=== PATIENT | female | born 1955 | race Caucasian/White ===

== ENCOUNTER 2024-08-04 09:47 | Outpatient (AMB) | payer MEDICARE, SELFPAY ==
--- NOTE | 2024-08-04 10:00 | A.OFFPC_ITS ---
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- alendronate 70 mg PO QWEEK aripiprazole 2 mg PO BID baclofen 10 mg PO TID mcutxqmbjh-vcypjqghuebns-zsso 50-325-40 mg 1 cap PO DAILY PRN cyclobenzaprine 5 mg PO TID PRN escitalopram oxalate 10 mg PO BID famotidine 40 mg PO DAILY gabapentin 300 mg PO TID ibuprofen 600 mg PO TID metformin ER 500 mg PO DAILY trazodone 300 mg PO BEDTIME Tobacco use date assessed: 08/04/24 Dental Screening Dental Screen Date: 08/04/24 Did you have a dental visit in the last 12 months?: No Did you have a dental problem in the last 6 months where you did not have access to dental care?: Yes Was dental information given to patient?: Patient declined HPI HPI Comments History of Present Illness Details 69 y/o F with osteoporosis, DM2, GERD, I sally def anemia, GERD, Bipolar 1, KYEL, MDD, COPD, current tobacco use Health Maintenance: ? Colon Lung Ca Screening ? Mammo ? DEXA ? PAP ? Tdap Specialists: GI Here today as a new patient, no old medical records available to me today. Coming from [facility] in [place] Had exam done around Jun 16, told she had blood in her stools. Dad with colon cancer. She reports her stools are dark. She denies BRB. Needs referral for GI. Reports several falls. Fx of sacrum and L4 in the past. Left rib fx and left foot fx after last fall. Would like PT. Living w/ son. Has a life alert. Reports falls are mechanial. Overall she feels unsteady, uncoordinated and at times can feel dizzy. Mood is stable on current meds. Wants referral for counselor. I will manage medications. Wonders about clonidine for sleep, has used 0.1mg with + effect. Currently on trazadone, helps her to fall asleep but cannot stay asleep. Exam: Awake alert NAD scleras nonicteric bilat RRR LS CTAB Trace edema BLE R>L Mood and affect appropriate Plan: Refer to gastroenterology Nurse navigation referral to help establish care with a counselor Routine screening labs to be done at your convenience before the next appointment Return to office in 3-4 weeks to follow up on lab results, continue establishing care and to discuss insomnia This note is constructed using voice recognition software. While every effort has been made to ensure accuracy in skewer up, still errors may have been included Sometimes, these errors may affect the content or meaning of the given sentence . Total time spent caring for the patient today was 30 minutes. This includes time spent before the visit reviewing the chart, time spent during the visit, and time spent after the visit on documentation [facility] Medical History (Updated 08/05/24 @ 08:00 by Adia Flower [employer]-) Bipolar 1 disorder Anxiety and depression Imbalance Headache H/O gastroesophageal reflux (GERD) Acid reflux Spine disorder Swelling Edema Osteoporosis Acute arthritis COPD (chronic obstructive pulmonary disease) Surgical History (Updated 08/04/24 @ 10:16 by Izzy Escalante MA) No pertinent past surgical history Family History (Updated 08/04/24 @ 10:18 by Izzy Escalante MA) Mother Mental health disorder Substance abuse Cardiovascular disease Alcoholism Father Diabetes Colon cancer Social History (Updated 08/04/24 @ 10:07 by Izzy Escalante MA) Household Members: Children Both parents involved: No Caregiver staying overnight: No Housing: Apartment Are you a primary college and career counselor to a significant other at home: No Do you presently have visiting nurse or other home services: No 75 years or older and lives alone: No Alcohol intake: never Patient Tobacco Use Status: Current everyday Tobacco user Tobacco use type: Cigarette Cigarette Packs Per Day: 1 Cigarettes Per Day: 20 Years Smoked: 25 e-Cigarette/Vaping Use: Never Used Second Hand Smoke Exposure: Yes Current occupational status: disabled Cognitive needs: Yes Hearing needs: No Vision needs: Yes (wear glasses) Questionnaire PHQ-9 Over the last 2 weeks, how often have you been bothered by any of the following problems? 1. Little interest or pleasure in doing things: nearly every day 2. Feeling down, depressed, or hopeless: more than half the days 3. Trouble falling or staying asleep, or sleeping too much: nearly every day 4. Feeling tired or having little energy: nearly every day 5. Poor appetite or overeating: nearly every day 6. Feeling bad about yourself - or that you are a failure or have let yourself or your family down: nearly every day 7. Trouble concentrating on things, such as reading the newspaper or watching television: more than half the days 8. Moving or speaking so slowly that other people could have noticed. Or the opposite - being so fidgety or restless that you have been moving around a lot more than usual: not at all 9. Thoughts that you would be better off or of hurting yourself in some way: not at all Total score: 19 Depression Screening Interpretation: Positive Depression Screening Follow-up: Existing condition and Community Mental Health Worker F/U Depression Screening Done: Yes [id number] - PHQ-9 Billing: Yes Source: Developed by Drs. Yasir Hardin, Marilee Castillo, Anish Villagran and colleagues, with an educational isaiah from [employer]. Thrive Questionnaire Date Thrive assessed: 08/04/24 I am a: Patient What is your living situation today?: I have a steady place to live Within the past 12 months, did the food you bought not last and you didn't have the money to get more?: Often true Within the past 12 months, did you worry whether your food would run out before you got money to buy more?: Often true Do you have trouble paying for medicines?: No Do you have trouble getting transportation to medical appointments?: Yes Do you have trouble paying your heating and electricity bill?: Yes Do you have trouble taking care of your child, family member or friend?: No Do you have trouble with day-to-day activities such as bathing, preparing meals, shopping, managing finances, etc.?: Yes Are you currently unemployed and looking for a job?: No Are you interested in more education?: Yes Currently or been in a relationship where the following occur: No concerns reported THRIVE Score: 4 AUDIT C Alcohol Use Questionnaire (AUDIT-C) 1. How often do you have a drink containing alcohol?: Monthly or less 2. How many drinks containing alcohol do you have on a typical day when you are drinking?: 1 or 2 3. How often do you have six or more drinks on one occasion?: Never Total Score: 1 Score Reviewed/Action Taken: Yes KYLE-7 AMB Questionnaire KYLE-7 Date KYLE - 7 assessed: 08/04/24 Feeling nervous, anxious, or on edge: 3 = Nearly every day Not being able to stop or control worryin = Nearly every day Worrying too much about different things: 3 = Nearly every day Trouble relaxin = Not at all Being so restless that it is hard to sit still: 0 = Not at all Becoming easily annoyed or irritable: 0 = Not at all Feeling afraid as if something awful might happen: 1 = Several days Total KYLE-7 score (0-4 normal; 5-9 mild; 10-14 moderate; 15-21 severe): 10 Source: Developed by Drs. Yasir Hardin, Marilee Castillo, Anish Villagran and colleagues, with an educational siaiah from [employer]. KYLE-7 Assessment Billing KYLE-7 Assessment Tool: KYLE-7 Assessment 17800 Physical exam (Primary Care) Vital Signs: Last Vital Signs Pulse 75 08/04/24 10:08 Resp 14 08/04/24 10:08 BP 118/70 08/04/24 10:08 Pulse Ox 94 08/04/24 10:08 Oxygen Delivery Method Room Air 08/04/24 10:08 BMI result Body Mass Index 33.8 BMI Assessment/Plan discussion: High BMI High, discussed plan: lifestyle Tobacco/Smoking Status: Tobacco use Status Tobacco use date assessed 08/04/24 08/04/24 10:09 Patient Tobacco Use Status Current everyday Tobacco 08/04/24 10:09 Tobacco use type Cigarette 08/04/24 10:09 e-Cigarette/Vaping Use Never Used 08/04/24 10:09 Are you ready to quit: No Tobacco cessation counseling provided: Yes Items discussed: Other Relapse Prevention: discussed the importance of a supportive environment, discussed extending NRT, discussed negative mood or depression after quitting, weight gain after smoking is common and discussed dietary, exercise and/or lifestyle changes Number of minutes spent counselin CPT code: Less than 3 minutes PHQ-9: PHQ-9 Score PHQ-9: Total score 08/05/24 07:36 Depression Screening Interpretation: Positive Depression Screening Follow-up: Existing condition and Community Mental Health Worker F/U Thrive Assessment: Date of Thrive Assessment Date Thrive assessed 08/04/24 08/04/24 10:13 Currently or been in a relationship where the following occur: No concerns reported Assessment and Plan Assessment & Plan (1) Class 1 obesity with body mass index (BMI) of 33.0 to 33.9 in adult: Code(s): E66.9 - Obesity, unspecified; Z68.33 - Body mass index [BMI] 33.0-33.9, adult Qualifiers: Obesity type: due to excess calories Serious obesity comorbidity presence: with serious comorbidity Qualified Code(s): E66.09 - Other obesity due to excess calories; Z68.33 - Body mass index [BMI] 33.0-33.9, adult (2) Diabetes mellitus type 2 with atherosclerosis of arteries of extremities: Code(s): E11.51 - Type 2 diabetes mellitus with diabetic peripheral angiopathy without gangrene; I70.209 - Unspecified atherosclerosis of [place] arteries of extremities, unspecified extremity (3) Acid reflux: Code(s): K21.9 - Gastro-esophageal reflux disease without esophagitis Qualifiers: Esophagitis presence: without esophagitis Qualified Code(s): K21.9 - Gastro-esophageal reflux disease without esophagitis (4) Occult blood positive stool: Code(s): R19.5 - Other fecal abnormalities (5) Family hx of colon cancer: Comment: Dad Code(s): Z80.0 - Family history of malignant neoplasm of digestive organs (6) Iron deficiency anemia: Code(s): D50.9 - Iron deficiency anemia, unspecified Qualifiers: Iron deficiency anemia type: chronic blood loss Qualified Code(s): D50.0 - Iron deficiency anemia secondary to blood loss (chronic) (7) Falls frequently: Code(s): R29.6 - Repeated falls (8) Unsteady gait: Code(s): R26.81 - Unsteadiness on feet (9) Bipolar 1 disorder: Code(s): F31.9 - Bipolar disorder, unspecified (10) Tobacco dependence: Code(s): F17.200 - Nicotine dependence, unspecified, uncomplicated (11) KYLE (generalized anxiety disorder): Code(s): F41.1 - Generalized anxiety disorder (12) MDD (major depressive disorder), recurrent episode: Code(s): F33.9 - Major depressive disorder, recurrent, unspecified Qualifiers: Major depression episode severity: moderate Qualified Code(s): F33.1 - Major depressive disorder, recurrent, moderate (13) COPD (chronic obstructive pulmonary disease): Code(s): J44.9 - Chronic obstructive pulmonary disease, unspecified Qualifiers: COPD type: chronic bronchitis Chronic bronchitis type: simple Qualified Code(s): J41.0 - Simple chronic bronchitis Orders: Orders Complete Blood Count no Diff 08/04/24 Z00.00 - Encounter for general adult medical examination without abnormal findings Hemoglobin A1c 08/04/24 Z00.00 - Encounter for general adult medical examination without abnormal findings TSH reflex Free T4 08/04/24 Z00.00 - Encounter for general adult medical examination without abnormal findings PT Evaluation and Treatment 08/04/24 R26.81 - Unsteadiness on feet, R29.6 - Repeated falls Comprehensive Russell. Panel Fast 08/04/24 Z00.00 - Encounter for general adult medical examination without abnormal findings Lipid Panel 08/04/24 Z00.00 - Encounter for general adult medical examination without abnormal findings Microalbumin, Random (w Creat) 08/04/24 Z00.00 - Encounter for general adult medical examination without abnormal findings Vitamin D 25-OH Total 08/04/24 Z00.00 - Encounter for general adult medical examination without abnormal findings Referrals Gastroenterology Referral D50.9 - Iron deficiency anemia, unspecified, K21.9 - Gastro-esophageal reflux disease without esophagitis, R19.5 - Other fecal abnormalities, Z80.0 - Family history of malignant neoplasm of digestive organs Nurse Navigator Referral F31.9 - Bipolar disorder, unspecified Medications: New aripiprazole 2 mg PO BID escitalopram oxalate 10 mg PO BID Patient Instructions: Walk-In Care (Urgent Care): We Make it Easy Walk-in for urgent medical issues such as: ? Seasonal Allergies ? Insect Bites ? Cough ? Diarrhea ? Acute Asthma Attacks ? Back, Knee or Joint Pain ? Ear Infection ? Fever without a Rash ? Headaches ? Nausea ? [place] Eye, Rash or Skin Irritation ? Sore Throat ? Sports Physicals ? Vomiting Most insurances are accepted. Patients do not need to be part of the [facility] to seek care at the walk-in clinic. Locations [address] [facility], [place] , [place] [address] ? [phone] [facility] Walk-In Care in [place] provides services to ages 18 and over. Open Thursday-Thursday: 8 a.m. to 5 p.m. and Thursday: 9 a.m. to 3 p.m.* *Hours may vary due to staffing availability. To confirm Walk-In Care hours in [place], please call [phone]. [address] [place] [address] ? [phone] [facility] Walk-In Care in [place] provides services to ages 12 and over. Open Thursday-Thursday: 8 a.m. to 5 p.m. Hours may vary due to staffing availability. To confirm Walk-In Care hours in [place], please call [phone]. LABORATORY SERVICES: [facility] Lab ? Primary Location [address] [place] [address] Thursday through Thursday 6:00 AM ? 5:00 PM Thursday 7:00 AM ? 11:00 AM* [phone] The [facility] Lab is centrally located near the front entrance of the [facility] for easy outpatient access. Convenient parking is provided for outpatients. *Hours may vary due to staffing availability. To confirm Laboratory hours for any location, please call [phone]. Offsite Location For your convenience, we offer offsite laboratory draw stations at the following locations: [address] [place] [address] ? [address], [address] Thursday through Thursday 7:30 AM ? 1:00 PM* [phone] *Hours may vary due to staffing availability. To confirm Laboratory hours for any location, please call [phone]. [place] ? [address] Thursday through Thursday 6:00 AM ? 3:30 PM* Thursday 6:30 AM ? 3 PM* [phone] *Hours may vary due to staffing availability. To confirm Laboratory hours for any location, please call [phone]. [address] [facility] Thursday through Thursday 7:30 AM ? 4:00 PM* [phone] *Hours may vary due to staffing availability. To confirm Laboratory hours for any location, please call [phone] [facility] Thursday through 9:00 AM ? 4:00 PM* *Hours may vary due to staffing availability. To confirm Laboratory hours for any location, please call [phone]. Appointments are not necessary. Walk-ins are welcome. Like all the departments throughout the [facility], our Lab undergoes frequent reviews to ensure the quality and accuracy of test results, and our staff takes special pride in its status as a nationally accredited facility. Patient Portal: ONE PATIENT. ONE RECORD. BETTER CARE. [facility] has a fully integrated, cutting- edge mobile electronic health information system that has revolutionized the way we care for our patients and manage our organization. This system improves communication and coordination enabling us to provide safe, higher-quality care, and an overall positive experience for staff and patients. Our first priority, as always, is to deliver the highest quality care possible. The system is running in the background supporting that priority. This portal is for all [facility] services and practices. If you are experiencing any technical difficulties with enrolling or logging into the Patient Portal please complete the [facility] Patient Portal Technical Support Form. [facility] now offers a new secure on-line interactive tool for patients to review their health information ? Patient Portal. This interactive web portal will enable patients and their families to take an active role in their care by providing easy, secure access to their health information via the internet. The Patient Portal provides patients with instant access to their health information, including laboratory results, medications, allergies, demographic information, visit history, and more. In addition to managing their own care, parents and health care proxies with authorized consent will appreciate the ability to access the records of those individuals for whom they provide care. Please note: if you wish to gain access (Proxy) to another patient?s portal, you will be required to come to the Medical Records Department in person at [facility]. Both the patient giving proxy access and the proxy will need to provide photo identification and complete the appropriate authorization. The Patient Portal also allows track their appointments online. The [facility] Patient Portal also saves patients time by allowing them to submit updates to their demographic and contact information prior to their visits. Portal email notifications will also alert patients to any new activity on their portal, such as test results and new appointments. In order to initially enroll in the [facility] Patient Portal, you will need to enter some required information including the following: ? your [facility] Medical Record number ? your personal home email address ? name ? date of Please note: In order to enroll in the [facility] Patient Portal, we need to have your email address on file in your electronic medical record. The email address needs to be specific for one person (yourself) in order for your Portal enrollment to be successful. You can update your email address in person with our Registration staff when you are registering for a hospital visit. Otherwise, you will need to come to the Health Information Management (Medical Records) Department at [facility]. We are open from Thursday ? Thursday from 7:30 a.m. ? 4:30 p.m. You will be required to present a photo id. Once you have successfully enrolled in the Patient Portal, you will receive a one-time user id and password for the Portal, sent to your email address. This will allow you to log into the Patient Portal within 99 hrs and reset your own logon id and password, and define personal security questions. Once your permanent login and password have been set, you can log into the [facility] Patient Portal at any time via the blue button above or from the Portal Logon button on any page of the [facility] website. [facility] encourage all of our patients to enroll in Patient Portal as it presents a valuable opportunity for patients and their families to actively participate in their care and stay healthy Welcome to [facility]. We look forward to working with you. Coding Level of Care Code New Pt Level 3 (09851) Complex EM visit Add On G2211 Diagnoses Class 1 obesity due to excess calories with serious comorbidity and body mass index (BMI) of 33.0 to 33.9 in adult E66.09; Z68.33 Obesity type: due to excess calories Serious obesity comorbidity presence: with serious comorbidity 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; I70.209 Gastroesophageal reflux disease without esophagitis K21.9 Esophagitis presence: without esophagitis Occult blood positive stool R19.5 Family hx of colon cancer Z80.0 Iron deficiency anemia due to chronic blood loss D50.0 Iron deficiency anemia type: chronic blood loss Falls frequently R29.6 Unsteady gait R26.81 Bipolar 1 disorder F31.9 Tobacco dependence F17.200 KYLE (generalized anxiety disorder) F41.1 Moderate episode of recurrent major depressive disorder F33.1 Major depression episode severity: moderate Simple chronic bronchitis J41.0 COPD type: chronic bronchitis Chronic bronchitis type: simple Additional Codes KYLE-7 Assessment Billing - KYLE-7 Assessment Tool: KYLE-7 Assessment 42296 ([id number])
[2024-08-04 10:08] VITALS: BP 118/70; PULSE 75; RESP 14; O2SAT 94; BMI 33.8
== END 2024-08-04 10:48 | disposition home or self-care (01) ==
PROVIDERS: PCP Nurse Practitioner Family; Visit Provider Nurse Practitioner Family
DX: E11.51 Type 2 diabetes mellitus with diabetic peripheral angiopathy without gangrene (principal); I70.209 Unspecified atherosclerosis of native arteries of extremities, unspecified extremity; F31.9 Bipolar disorder, unspecified; J41.0 Simple chronic bronchitis; E66.09 Other obesity due to excess calories; Z68.33 Body mass index [BMI] 33.0-33.9, adult; K21.9 Gastro-esophageal reflux disease without esophagitis; R19.5 Other fecal abnormalities; Z80.0 Family history of malignant neoplasm of digestive organs; D50.0 Iron deficiency anemia secondary to blood loss (chronic); R29.6 Repeated falls; R26.81 Unsteadiness on feet; F17.200 Nicotine dependence, unspecified, uncomplicated; F41.1 Generalized anxiety disorder

== ENCOUNTER → 2024-08-04 09:47 | Outpatient (BNVA) | payer MEDICARE, SELFPAY | PROVIDERS: PCP Nurse Practitioner Family; Visit Provider Nurse Practitioner Family | DX: E66.09 Other obesity due to excess calories (principal); Z68.33 Body mass index [BMI] 33.0-33.9, adult; E11.51 Type 2 diabetes mellitus with diabetic peripheral angiopathy without gangrene; I70.209 Unspecified atherosclerosis of native arteries of extremities, unspecified extremity; K21.9 Gastro-esophageal reflux disease without esophagitis; R19.5 Other fecal abnormalities; D50.0 Iron deficiency anemia secondary to blood loss (chronic); R29.6 Repeated falls; R26.81 Unsteadiness on feet; F41.1 Generalized anxiety disorder; F33.1 Major depressive disorder, recurrent, moderate; J41.0 Simple chronic bronchitis; F17.200 Nicotine dependence, unspecified, uncomplicated; Z78.0 Asymptomatic menopausal state; Z71.6 Tobacco abuse counseling | CPT/HCPCS: 96127; 99202 ==

== ENCOUNTER 2024-08-15 08:19 | Outpatient (REF) | payer MEDICARE, SELFPAY ==
[2024-08-15 12:01] LABS: Hematocrit 39.1 % (37.0-47.0); Hemoglobin 12.8 g/dl (12.0-16.0); Mean Corpuscular HGB Conc 32.7 g/dl (31.0-35.0); Mean Corpuscular Hemoglobin 31.8 pg (27.0-33.0); Mean Corpuscular Volume 97.3 fL (80.0-98.0); Mean Platelet Volume 8.9 fL (9.4-12.3); Platelet Count 380 X10*3/uL (160-400); Red Blood Count 4.02 X10*6/uL (4.20-5.50); Red Cell Distribution Width 12.2 % (11.0-16.0); White Blood Count 8.5 X10*3/uL (4.8-10.8)
[2024-08-15 12:23] LABS: Estimated Average Glucose 100 mg/dL; Hemoglobin A1c % 5.1 % (<6.0); Total Hemoglobin (HGBA1C) 3216.9909 umol/L
[2024-08-15 12:37] LABS: Creatinine Urine 63.87 mg/dL; Microalbum/Creatinine Ratio Ur 10.9 ug/mg cr (<30)
[2024-08-15 12:40] LABS: Alanine Aminotransferase 11 U/L (0-31); Alkaline Phosphatase 96 U/L (39-117); Anion Gap 9 (12-20); Aspartate Amino Transferase 11 U/L (5-31); Bilirubin Total 0.3 mg/dL (0.0-1.0); Blood Urea Nitrogen 13 mg/dL (9-16); Calcium 9.2 mg/dL (8.4-10.2); Carbon Dioxide 28 mmol/L (22-29); Chloride 106 mmol/L (96-108); Cholesterol 201 mg/dL (<200); Estimated Glomerular Filt Rate > 60; Glucose Fasting 93 mg/dL (60-99); HDL Cholesterol 68 mg/dL (>40); LDL Cholesterol Calculated 106 mg/dL (<100); Sodium 139 mmol/L (135-145); Total Protein 6.8 g/dL (6.5-8.0); Triglycerides 139 mg/dL (<150)
[2024-08-15 12:45] LABS: TSH reflex Free T4 1.39 uIU/mL (0.32-4.0); Vitamin D 25-OH Total 43.4 ng/mL (>30)
== END 2024-08-15 08:20 | disposition home or self-care (01) ==
LOC: HO.WFDLDS 08:19
PROVIDERS: Visit Provider Nurse Practitioner Family
DX: Z00.00 Encounter for general adult medical examination without abnormal findings (principal); Z13.1 Encounter for screening for diabetes mellitus
CPT/HCPCS: 36415; 80053; 80061; 82043; 82306; 82570; 83036; 84443; 85027

== ENCOUNTER 2024-08-24 10:26 | Outpatient (AMB) | payer MEDICARE, SELFPAY ==
--- NOTE | 2024-08-24 10:29 | A.OFFPC_ITS ---
Vital Signs 08/24/24 10:32 Height 5 ft 3 in Weight 190 lb 6 oz BMI 33.7 BP 118/70 Blood Pressure Location Rt brachial Position Sitting Respiration 13 Pulse 67 Pulse Source Pulse Oximeter Pulse Oximetry (%) 98 Oxygen Delivery Method Room Air Intake Visit Reasons: 2-3 weeks 30 min fu labs, est care, insomnia Intake Note: follow up on labs Allergies cephalexin [From Keflex] Allergy (Severe, Verified 08/24/24 10:43) Rash Sulfa (Sulfonamide Antibiotics) Allergy (Severe, Verified 08/24/24 10:43) Rash Medication List - Last Reconciled 08/24/24 by Adia Flower, [facility]- albuterol sulfate 90 mcg/actuation 2 puffs inhalation Q4-6H PRN 30 days alendronate 70 mg PO QWEEK aripiprazole 2 mg PO BID baclofen 10 mg PO TID esdnllqewf-mfgjwqoeurcma-fbim 50-325-40 mg 1 cap PO DAILY PRN clonidine HCl 0.1 mg PO BEDTIME cyclobenzaprine 5 mg PO TID PRN escitalopram oxalate 10 mg PO BID famotidine 40 mg PO DAILY gabapentin 300 mg PO TID ibuprofen 600 mg PO TID metformin ER 500 mg PO DAILY trazodone 300 mg PO BEDTIME Tobacco use date assessed: 08/04/24 Dental Screening Dental Screen Date: 08/04/24 HPI HPI Comments History of Present Illness Details 69 y/o F with osteoporosis, DM2, GERD, I sally def anemia, GERD, Bipolar 1, KYLE, MDD, COPD, current tobacco use Health Maintenance: ? Colon Lung Ca Screening ? Mammo ? DEXA ? PAP ? Tdap declined until records are reviewed; Declined Flu dad had miller barre. Specialists: GI Counselor Here today for routine follow up Still waiting on records from previous provider. Since last visit, she did receive calls from her consults except PT. I have asked her to talk to the office staff today about this Cont to have pain in thighs worse on the Left. Has piraformis muscle issue on that side in the past. Pain in the R hip, too. Last DEXA < 2 years ago. Has Osteoporosis. Stopped taking fosomax, read it can cause fractures. Has been on this for 4-6 months. Has chronic daily pain; using a scooter when grocery shopping. She is worried about her mental health; her Grandmother committed suicide age 65 d/t Rheum and chronic pain She does not want to end up like that Insomnia cont. without change. Took 0.1mg clonidine 1/2 tab in the past from someone with + effect. Needs Albuterol inhaler. USing PRN with the air changes. Labs from 07/2024 normal and reviewed today. Exam: Awake alert NAD scleras nonicteric bilat RRR LS CTAB Trace edema BLE R>L FROM L hip, pain w/ abduction and adduction, pain w/ palp over greater trochanter, no pelvic pain. Normal strength and tone, pulse WNL Mood and affect appropriate Plan: please get records from previous provider Xr L hip and pelvis today; call w/ results when available. [facility] pain mgmt referral for the left hip pain. If Ortho would be better, will place this referral after imaging reviewed. Will need to discuss restarting fosomax too at the next visit FU on PT order Albuterol sent, use as needed. Start clonidine 0.1 mg, take 1/2 to 1 tab as needed for insomnia. Do not take more than 1 per day. RTO in Nov for sAWV, sooner PRN This note is constructed using voice recognition software. While every effort has been made to ensure accuracy in high school math tutor, still errors may have been included Sometimes, these errors may affect the content or meaning of the given sentence . Total time spent caring for the patient today was 40 minutes. This includes time spent before the visit reviewing the chart, time spent during the visit, and time spent after the visit on documentation [facility] Medical History (Updated 08/24/24 @ 15:59 by Adia Flower, [facility]) Bipolar 1 disorder Anxiety and depression Imbalance Headache H/O gastroesophageal reflux (GERD) Acid reflux Spine disorder Swelling Edema Osteoporosis Acute arthritis COPD (chronic obstructive pulmonary disease) Surgical History (Updated 08/04/24 @ 10:16 by Izzy Escalante MA) No pertinent past surgical history Family History (Updated 08/04/24 @ 10:18 by Izzy Escalante MA) Mother Mental health disorder Substance abuse Cardiovascular disease Alcoholism Father Diabetes Colon cancer Social History (Updated 08/04/24 @ 10:07 by Izzy Escalante MA) Household Members: Children Both parents involved: No Caregiver staying overnight: No Housing: Apartment Are you a primary skin care instructor to a significant other at home: No Do you presently have visiting nurse or other home services: No 75 years or older and lives alone: No Alcohol intake: never Patient Tobacco Use Status: Current everyday Tobacco user Tobacco use type: Cigarette Cigarette Packs Per Day: 1 Cigarettes Per Day: 20 Years Smoked: 25 e-Cigarette/Vaping Use: Never Used Second Hand Smoke Exposure: Yes Current occupational status: disabled Cognitive needs: Yes Hearing needs: No Vision needs: Yes (wear glasses) Questionnaire PHQ-9 Over the last 2 weeks, how often have you been bothered by any of the following problems? 1. Little interest or pleasure in doing things: several days 2. Feeling down, depressed, or hopeless: several days 3. Trouble falling or staying asleep, or sleeping too much: nearly every day 4. Feeling tired or having little energy: nearly every day 5. Poor appetite or overeating: nearly every day 6. Feeling bad about yourself - or that you are a failure or have let yourself or your family down: several days 7. Trouble concentrating on things, such as reading the newspaper or watching television: several days 8. Moving or speaking so slowly that other people could have noticed. Or the opposite - being so fidgety or restless that you have been moving around a lot more than usual: not at all 9. Thoughts that you would be better off or of hurting yourself in some way: not at all Total score: 13 72621 - PHQ-9 Billing: Yes Source: Developed by Drs. Yasir Hardin, Marilee Castillo, Anish Villagran and colleagues, with an educational isaiah from [employer]. Thrive Questionnaire Date Thrive assessed: 08/04/24 AUDIT C Alcohol Use Questionnaire (AUDIT-C) 3. How often do you have six or more drinks on one occasion?: Never Total Score: 0 KYLE-7 AMB Questionnaire KYLE-7 Date KYLE - 7 assessed: 08/24/24 Feeling nervous, anxious, or on edge: 1 = Several days Not being able to stop or control worryin = Several days Worrying too much about different things: 1 = Several days Trouble relaxin = Several days Being so restless that it is hard to sit still: 0 = Not at all Becoming easily annoyed or irritable: 0 = Not at all Feeling afraid as if something awful might happen: 1 = Several days Total KYLE-7 score (0-4 normal; 5-9 mild; 10-14 moderate; 15-21 severe): 5 Source: Developed by Drs. Yasir Hardin, Marilee Castillo, Anish Villagran and colleagues, with an educational isaiah from [employer]. KYLE-7 Assessment Billing KYLE-7 Assessment Tool: KYLE-7 Assessment 98202 Physical exam (Primary Care) Vital Signs: Last Vital Signs Pulse 67 08/24/24 10:32 Resp 13 08/24/24 10:32 BP 118/70 08/24/24 10:32 Pulse Ox 98 08/24/24 10:32 Oxygen Delivery Method Room Air 08/24/24 10:32 BMI result Body Mass Index 33.7 BMI Assessment/Plan discussion: High BMI High, discussed plan: lifestyle Tobacco/Smoking Status: Tobacco use Status Tobacco use date assessed 08/04/24 08/24/24 10:30 Patient Tobacco Use Status Current everyday Tobacco 08/24/24 10:30 Tobacco use type Cigarette 08/24/24 10:30 e-Cigarette/Vaping Use Never Used 08/24/24 10:30 Are you ready to quit: No Tobacco cessation counseling provided: Yes Items discussed: Nicotine replacement, QuitWorks and Other Relapse Prevention: discussed the importance of a supportive environment, discussed extending NRT, discussed negative mood or depression after quitting, weight gain after smoking is common and discussed dietary, exercise and/or lifestyle changes Number of minutes spent counselin CPT code: 53561 - 4-10 Minutes PHQ-9: PHQ-9 Score PHQ-9: Total score 13 08/24/24 10:40 Thrive Assessment: Date of Thrive Assessment Date Thrive assessed 08/04/24 08/24/24 10:30 Coding Level of Care Code Est Pt Level 5 (47756) Complex EM visit Add On G2211 Diagnoses Left hip pain M25.552 Age-related osteoporosis without current pathological fracture M81.0 Osteoporosis type: age-related Presence of current pathological fracture: without current pathological fracture 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; I70.209 Simple chronic bronchitis J41.0 COPD type: chronic bronchitis Chronic bronchitis type: simple Class 1 obesity due to excess calories with serious comorbidity and body mass index (BMI) of 33.0 to 33.9 in adult E66.09; Z68.33 Obesity type: due to excess calories Serious obesity comorbidity presence: with serious comorbidity Adult BMI 33.0-33.9 kg/sq m Z68.33 Additional Codes KYLE-7 Assessment Billing - KYLE-7 Assessment Tool: KYLE-7 Assessment 06914 ([id number]) Vital Signs *Quality* - CPT code: 59351 - 4-10 Minutes ([id number]) Assessment & Plan Assessment & Plan (1) Left hip pain: Code(s): M25.552 - Pain in left hip Category: Medical Plan: . (2) Osteoporosis: Code(s): M81.0 - Age-related osteoporosis without current pathological fracture Category: Medical Qualifiers: Osteoporosis type: age-related Presence of current pathological fracture: without current pathological fracture Qualified Code(s): M81.0 - Age- related osteoporosis without current pathological fracture Plan: . (3) Diabetes mellitus type 2 with atherosclerosis of arteries of extremities: Code(s): E11.51 - Type 2 diabetes mellitus with diabetic peripheral angiopathy without gangrene; I70.209 - Unspecified atherosclerosis of [place] arteries of extremities, unspecified extremity Category: Medical Plan: . (4) COPD (chronic obstructive pulmonary disease): Code(s): J44.9 - Chronic obstructive pulmonary disease, unspecified Category: Medical Qualifiers: COPD type: chronic bronchitis Chronic bronchitis type: simple Qualified Code(s): J41.0 - Simple chronic bronchitis Plan: . (5) Class 1 obesity with body mass index (BMI) of 33.0 to 33.9 in adult: Code(s): E66.9 - Obesity, unspecified; Z68.33 - Body mass index [BMI] 33.0-33.9, adult Category: Medical Qualifiers: Obesity type: due to excess calories Serious obesity comorbidity presence: with serious comorbidity Qualified Code(s): E66.09 - Other obesity due to excess calories; Z68.33 - Body mass index [BMI] 33.0-33.9, adult Plan: . (6) Adult BMI 33.0-33.9 kg/sq m: Code(s): Z68.33 - Body mass index [BMI] 33.0-33.9, adult Category: Medical Plan: . Orders: Orders XR hip LT w PEL1V Today M25.552 - Pain in left hip, M81.0 - Age-related osteoporosis without current pathological fracture Referrals Pain Management Referral M25.552 - Pain in left hip Medications: New albuterol sulfate 90 mcg/actuation 2 puffs inhalation Q4-6H 30 days PRN 8.5 grams 0RF shortness of breath or wheezing clonidine HCl 0.1 mg PO BEDTIME 30 tabs 1RF
[2024-08-24 10:32] VITALS: BP 118/70; PULSE 67; RESP 13; O2SAT 98; BMI 33.7
== END 2024-08-24 11:07 | disposition home or self-care (01) ==
PROVIDERS: PCP Nurse Practitioner Family; Visit Provider Nurse Practitioner Family
DX: E11.51 Type 2 diabetes mellitus with diabetic peripheral angiopathy without gangrene (principal); I70.209 Unspecified atherosclerosis of native arteries of extremities, unspecified extremity; J41.0 Simple chronic bronchitis; M25.552 Pain in left hip; M81.0 Age-related osteoporosis without current pathological fracture; E66.811 Obesity, class 1; Z68.33 Body mass index [BMI] 33.0-33.9, adult

== ENCOUNTER → 2024-08-24 10:26 | Outpatient (BNVA) | payer MEDICARE, SELFPAY | PROVIDERS: PCP Nurse Practitioner Family; Visit Provider Nurse Practitioner Family | DX: M25.552 Pain in left hip (principal); M81.0 Age-related osteoporosis without current pathological fracture; E11.51 Type 2 diabetes mellitus with diabetic peripheral angiopathy without gangrene; I70.209 Unspecified atherosclerosis of native arteries of extremities, unspecified extremity; J41.0 Simple chronic bronchitis; E66.09 Other obesity due to excess calories; Z68.33 Body mass index [BMI] 33.0-33.9, adult; Z71.3 Dietary counseling and surveillance | CPT/HCPCS: 96127; 99212 ==

== ENCOUNTER 2024-08-25 11:24 | Outpatient (REF) | payer MEDICARE, SELFPAY ==
--- NOTE | ~2024-08-25 | XR_ITS ---
EXAMINATION: XR HIP, LEFT CLINICAL INFORMATION: Left hip pain. COMPARISON: None available. TECHNIQUE: AP view the pelvis as well as AP and frog-leg lateral views of the left hip. FINDINGS: No acute fracture or dislocation. Mild bilateral hip joint space narrowing with marginal osteophytes. No osseous erosion. No evidence of femoral head avascular necrosis. No abnormal soft tissue calcification. XR/XR hip LT w PEL1V IMPRESSION: Jdcm-qx-asijprjz bilateral hip osteoarthritis. Electronically signed by: Carlos A Fernando MD 08/25/2024 12:48 PM EDT
== END 2024-08-25 11:25 | disposition home or self-care (01) ==
LOC: HO.HMGCX 11:24
PROVIDERS: PCP Nurse Practitioner Family; Visit Provider Nurse Practitioner Family
DX: M25.552 Pain in left hip (principal); M81.0 Age-related osteoporosis without current pathological fracture
CPT/HCPCS: 73502

== ENCOUNTER 2024-09-12 08:06 | Outpatient (AMB) | payer MEDICARE, MEDICAID, SELFPAY ==
--- NOTE | 2024-09-12 08:11 | MHC.OFFVIS ---
Vital Signs 09/12/24 08:26 Height 5 ft 3 in Weight 185 lb BMI 32.8 BP 121/58 L Blood Pressure Location Rt brachial Position Sitting Pulse 66 Pulse Source Pulse Oximeter Pulse Oximetry (%) 97 Oxygen Delivery Method Room Air Intake Visit Reasons: Pain In Left Hip Intake Note: Pain today 06/25 Casting Director Required: No Accompanied by: Self / Same As Patient Allergies cephalexin [From Keflex] Allergy (Severe, Verified 09/12/24 08:25) Rash Sulfa (Sulfonamide Antibiotics) Allergy (Severe, Verified 09/12/24 08:25) Rash HPI HPI Pain In Left Hip: Details: Pleasant 69-year-old female with prior history of osteoporosis, osteoarthritis, chronic low back pain, L4 compression fracture, current everyday tobacco user (1PPD), GERD, COPD, insomnia, anxiety and depression, bipolar 1 disorder, presents today for initial evaluation of left hip pain. Reports history of multiple falls in the past and more recently increasing episodes of lightheadedness, dizziness and imbalance. She has pending physical therapy for gait training. Patient also reports intermittent chest pain for the past 2 weeks. She also reports acid reflux symptoms and chest pain occurring simultaneously and always relieved by famotidine. When offered medical evaluation in ER, patient declined. Patient reports wearing alert brace due to multiple falls history. Patient reports left hip pain has been bothersome and progressively worsening for the past 6-7 months. Left hip is accompanied by groin pain and shooting down into her left calf. SLR testing is negative today for lumbar radiculopathy. She also has history of right hip pain. Pain is most severe with weight-bearing, walking, climbing stairs or sleeping on the left side. Most recent x-ray showed [id number] bilateral hip osteoarthritis. Patient is not currently taking alendronate due to potential side effects. She reports family history of avascular osteonecrosis in her mother and for this reason she would like to avoid steroidal injections. Patient has has pending orthopedic evaluation next month. In meantime, she would like to proceed with physical therapy. Denies any fever or chills, weakness, numbness or tingling, footdrop, bladder or bowel dysfunction or saddle anesthesia. Location: Left hip radiates down into left lower leg Duration: Chronic back pain, left hip-7 months, multiple falls Characteristics of symptom or complaint: Aching, shooting, stabbing, burning, throbbing, tiring, sharp Aggravating or associated factors: Side sleeping, walking, weight bearing, changing positions, climbing stairs Relieving factors: Ibuprofen, gabapentin, Tylenol Treatment: Pending Ortho eval, xrays, alert brace [facility] Medical History Bipolar 1 disorder Anxiety and depression Imbalance Headache H/O gastroesophageal reflux (GERD) Acid reflux Spine disorder Swelling Edema Osteoporosis Acute arthritis COPD (chronic obstructive pulmonary disease) Surgical History No pertinent past surgical history Family History Mother Mental health disorder Substance abuse Cardiovascular disease Alcoholism Father Diabetes Colon cancer Social History Household Members: Children Both parents involved: No Caregiver staying overnight: No Housing: Apartment Are you a primary child caregiver private home to a significant other at home: No Do you presently have visiting nurse or other home services: No 75 years or older and lives alone: No Alcohol intake: never Patient Tobacco Use Status: Current everyday Tobacco user Tobacco use type: Cigarette Cigarette Packs Per Day: 1 Cigarettes Per Day: 20 Years Smoked: 25 e-Cigarette/Vaping Use: Never Used Second Hand Smoke Exposure: Yes Current occupational status: disabled Cognitive needs: Yes Hearing needs: No Vision needs: Yes (wear glasses) Review of Systems Const All systems reviewed & are unremarkable except as noted in HPI and below Reports as per HPI, Denies chills, Reports difficulty sleeping, Reports fatigue, Denies fever(s), Reports frequent falls, Reports headache(s), Denies malaise, Denies night sweats, Denies weakness and Denies weight loss ENT Denies vertigo, Reports headache(s), Denies neck pain and Denies sore throat Card Reports as per HPI, Reports chest pain at rest (One episode reported by patient in the past 2 weeks while sitting), Reports chest pain with activity (in the past 2 weeks, intermittent), Denies syncope, Denies irregular heart rhythm, Denies claudication, Reports lightheadedness, Denies radiating jaw, neck or arm pain, Denies palpitations and Denies dyspnea on exertion Resp Reports cough and Denies dyspnea on exertion Musc Reports as per HPI, Denies back pain, Reports arthralgias, Denies joint swelling, Reports limited range of motion, Denies neck pain, Denies numbness, Reports radiating pain into limb, Reports stiffness and Denies tingling Neuro Denies vertigo, Denies syncope, Reports frequent falls, Reports headache(s), Denies numbness, Denies tingling and Denies weakness Endo Reports fatigue and Denies palpitations Physical Exam Vital Signs: Last Vital Signs Pulse 66 09/12/24 08:26 BP 121/58 L 09/12/24 08:26 Pulse Ox 97 09/12/24 08:26 Oxygen Delivery Method Room Air 09/12/24 08:26 BMI result Body Mass Index 32.8 General: Appears afebrile. Alert and oriented. Mood and affect appropriate. Follows and participates in conversation appropriately. Respiratory effort is unlabored. No cough. Able to transition from sit to stand unassisted. Ambulates with bilaterally normal heel strike and toe off. General: Yes no CVA tenderness Back/Spine/Pelvis Other: Limited lumbar ROM with lumbar extension reproducing [id number]-rr-cndcaywm pain and no pain with lumbar flexion. Positive facet loading bilaterally. No midline tenderness in thoracic or lumbar spine. Demonstrates 5/5 right and 4/5 right due to pain strength of quadriceps bilaterally as well as flexion/dorsiflexion of bilateral feet against resistance. 2+ pedal pulses bilaterally. Seated straight leg rise with dorsiflexion negative bilaterally. +1patellar and achilles reflexes bilaterally. Shira sign, Jenaro?s, Pelvic compression and Stinchfield tests are negative bilaterally. Moderate left and mild right groin pain with I/E hip rotations. Mild to moderate TTP to left GTB. Valsalva maneuver negative. Back: no CVA tenderness Cervical Spine: cervical ROM normal and No Cervical spine tenderness Thoracic/Lumbar Spine: thoracic and lumbar spine normal to inspection, No Thoracic/lumbar spine scar(s), Lasegue's sign negative, straight leg raise negative bilaterally, thoraco-lumbar ROM limited, Thoracic/lumbar scoliosis, No thoracic spinal tenderness and No lumbar spinal tenderness Pelvis: no buttock tenderness Sacroiliac joints: bilaterally nontender Extrem General: Yes capillary refill normal, Yes no clubbing, cyanosis or edema and Yes no calf tenderness Results Reviewed Results Reviewed: XR HIP, LEFT 08/25/24 CLINICAL INFORMATION: Left hip pain. FINDINGS: No acute fracture or dislocation. Mild bilateral hip joint space narrowing with marginal osteophytes. No osseous erosion. No evidence of femoral head avascular necrosis. No abnormal soft tissue calcification. IMPRESSION: Xzlx-po-geuvkpuv bilateral hip osteoarthritis. Assessment & Plan Assessment & Plan (1) Left hip pain: Code(s): M25.552 - Pain in left hip Category: Medical (2) Osteoarthritis of hips, bilateral: Comment: xray: 08/24/24 Jdbx-hf-xurxthyg bilateral hip osteoarthritis Code(s): M16.0 - Bilateral primary osteoarthritis of hip Category: Medical (3) Falls frequently: Code(s): R29.6 - Repeated falls Category: Medical (4) Lightheadedness: Code(s): R42 - Dizziness and giddiness Category: Medical (5) Intermittent chest pain: Code(s): R07.9 - Chest pain, unspecified Category: Medical (6) Osteoporosis: Code(s): M81.0 - Age-related osteoporosis without current pathological fracture Category: Medical Qualifiers: Osteoporosis type: age-related Presence of current pathological fracture: without current pathological fracture Qualified Code(s): M81.0 - Age-related osteoporosis without current pathological fracture Plan Discussed interventional treatments for chronic hip pain, left worse than right. Given history of osteoporosis per bone scan 2 years ago, patient is not candidate for therapeutic injections at this time. She has stop alendronate several months ago due to potential side effects of worsening hip pain. She also has personal concerns with positive family history for avascular osteonecrosis in her mom and would like to avoid cortisone injections for this reason. We discussed diagnostic nerve blocks for potential peripheral nerve stimulation with Sprint PNS trial. Informational brochure provided to patient. Patient would like to undergo Orthopedic evaluation scheduled for 09/30/[address] Baltazar and start physical therapy for hip pain as initial steps. For intermittent chest pain for the past 2 weeks, currently asymptomatic, patient was encouraged to seek further evaluation in ER as well as notify her PCP. Patient declined ER visit today, we will obtain 12 lead EKG today and sent to Cardiology for further evaluation. Short script provided for tramadol for dvhtwpvg-tf-qfazek pain only. Side effects and precautions were discussed with patient. Narcan sent today, discussed with patient use and administration. Script also provided for diclofenac gel for chronic hip pain. All questions and concerns have been answered and patient agreed with the treatment plan. Follow-up after PT/Ortho eval and sooner as needed. Orders: Orders ECG 12 lead EKG Today R07.9 - Chest pain, unspecified, R29.6 - Repeated falls, R42 - Dizziness and giddiness PT Evaluation and Treatment Today M16.0 - Bilateral primary osteoarthritis of hip, M25.552 - Pain in left hip Referrals Cardiology Referral R07.9 - Chest pain, unspecified, R42 - Dizziness and giddiness Medications: New tramadol 50 mg PO BID 10 days PRN 20 tabs 0RF pain (scale score 7-10) M16.0 - Bilateral primary osteoarthritis of hip, M25.552 - Pain in left hip diclofenac sodium 1% (Arthritis Pain (diclofenac)) 4 grams topical QID 100 grams 3RF pain M16.0 - Bilateral primary osteoarthritis of hip, M25.552 - Pain in left hip naloxone 4 mg/actuation (Narcan) spray 1 dose into ONE nostril; alternate nostrils w each dose until help arrives 4 mg intranasal Q2M PRN 2 ea 0RF opioid overdose Coding Level of Care Code New Pt Level 4 (56378) Complex EM visit Add On G2211 Diagnoses Left hip pain M25.552 Osteoarthritis of hips, bilateral M16.0 Falls frequently R29.6 Lightheadedness R42 Intermittent chest pain R07.9 Age-related osteoporosis without current pathological fracture M81.0 Osteoporosis type: age-related Presence of current pathological fracture: without current pathological fracture
[2024-09-12 08:26] VITALS: BP 121/58; PULSE 66; O2SAT 97; BMI 32.8
== END 2024-09-12 09:17 | disposition home or self-care (01) ==
PROVIDERS: PCP Nurse Practitioner Family; Referring Provider Nurse Practitioner Family; Visit Provider Nurse Practitioner Family
DX: M25.552 Pain in left hip (principal); M16.0 Bilateral primary osteoarthritis of hip; R29.6 Repeated falls; R42 Dizziness and giddiness; R07.9 Chest pain, unspecified; M81.0 Age-related osteoporosis without current pathological fracture
CPT/HCPCS: 99204; G2211

== ENCOUNTER → 2024-09-12 08:06 | Outpatient (REF) | payer MEDICARE, OTHER, SELFPAY ==
--- NOTE | 2024-09-12 09:40 | ECG_ITS ---
Test Reason : repeated falls Blood Pressure : / mmHG Vent. Rate : 061 BPM Atrial Rate : 061 BPM P-R Int : 166 ms QRS Dur : 086 ms QT Int : 416 ms P-R-T Axes : 077 068 072 degrees QTc Int : 418 ms Normal sinus rhythm Normal ECG No previous ECGs available Referred By: Rhoda Berman Electronically Signed By:TOREY MENDEZ
== END ==
LOC: HO.CARD 08:06
PROVIDERS: PCP Nurse Practitioner Family; Referring Provider Nurse Practitioner Family; Visit Provider Nurse Practitioner Family
DX: R07.9 Chest pain, unspecified (principal); R29.6 Repeated falls; R42 Dizziness and giddiness; M25.552 Pain in left hip; M16.0 Bilateral primary osteoarthritis of hip; M81.0 Age-related osteoporosis without current pathological fracture
CPT/HCPCS: 93005; 99202

== ENCOUNTER → 2024-09-12 09:40 | Outpatient (BNV) | payer MEDICARE, SELFPAY | PROVIDERS: PCP Nurse Practitioner Family; Referring Provider Nurse Practitioner Family; Visit Provider Internal Medicine | DX: R29.6 Repeated falls (principal) | CPT/HCPCS: 93010 ==

== ENCOUNTER 2024-09-23 10:37 | Outpatient (AMB) | payer MEDICARE, SELFPAY ==
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
[2024-09-23 11:02] VITALS: BP 130/61; PULSE 61; RESP 14; O2SAT 94; BMI 33.2
== END 2024-09-23 11:51 | disposition home or self-care (01) ==
PROVIDERS: PCP Nurse Practitioner Family; Visit Provider Nurse Practitioner Family
DX: M79.645 Pain in left finger(s) (principal); M16.0 Bilateral primary osteoarthritis of hip; M25.552 Pain in left hip; H60.543 Acute eczematoid otitis externa, bilateral

== ENCOUNTER → 2024-09-23 10:37 | Outpatient (BNVA) | payer MEDICARE, SELFPAY | PROVIDERS: PCP Nurse Practitioner Family; Visit Provider Nurse Practitioner Family | DX: M79.645 Pain in left finger(s) (principal); M16.0 Bilateral primary osteoarthritis of hip; H60.543 Acute eczematoid otitis externa, bilateral | CPT/HCPCS: 96127; 99212 ==

== ENCOUNTER 2024-10-10 09:02 | Outpatient (AMB) | payer MEDICARE, MEDICAID, SELFPAY ==
--- NOTE | 2024-10-10 09:19 | MHC.OFFVIS ---
Vital Signs 10/10/24 09:23 Height 5 ft 3 in Weight 182 lb 15.739 oz BMI 32.4 BP 105/65 Blood Pressure Location Lt brachial Position Sitting Pulse 68 Intake Visit Reasons: Iron deficiency anemia Intake Note: Nataliia presents in the office as a new patient for iron def anemia. CC: She states that she is anemic and had a stool test that came back for blood in it. Stomach pains, constipation, diarrhea and blood in her stools. I&C Technician Required: No Allergies cephalexin [From Keflex] Allergy (Severe, Verified 10/10/24 09:23) Rash Sulfa (Sulfonamide Antibiotics) Allergy (Severe, Verified 10/10/24 09:23) Rash HPI Comments Details: 69 y.o F with PMH of polyps, fam hx of colon ca, osteoporosis, DM2, well controlled COPD, ongoing tobacco use who is here for question of NANCY. Records from [facility] PCP as well as referring PCP reviewed. Pt reports fam hx of CRC in her father at age 70. Pt herself had a colo 2-3 years ago in [place] and was told she had dozen polyps . Does not recall if the polyps needed close follow up or if they were benign. She had a FIT done in May 2024 through [facility] PCP - the indication in uncertain as pt does not meet criteria for average risk screening through FIT. This was positive. There is also documentation of ??NANCY. However labs reviewed from [facility] and [facility] practice and pt with normal H/H and iron panel. She does not describe abd pain, N,V, D or blood in stool. PFS Medical History (Updated 10/10/24 @ 10:32 by Christina Weaver MD) Bipolar 1 disorder Anxiety and depression Imbalance Headache H/O gastroesophageal reflux (GERD) Acid reflux Spine disorder Swelling Edema Osteoporosis Acute arthritis COPD (chronic obstructive pulmonary disease) Surgical History (Updated 10/10/24 @ 09:23 by KHANG Rojas) History of esophagogastroduodenoscopy (EGD) Hx of colonoscopy No pertinent past surgical history Family History Mother Mental health disorder Substance abuse Cardiovascular disease Alcoholism Father Diabetes Colon cancer Social History Household Members: Children Both parents involved: No Caregiver staying overnight: No Housing: Apartment Are you a primary attending ambulatory care to a significant other at home: No Do you presently have visiting nurse or other home services: No 75 years or older and lives alone: No Alcohol intake: never Patient Tobacco Use Status: Current everyday Tobacco user Tobacco use type: Cigarette Cigarette Packs Per Day: 1 Cigarettes Per Day: 20 Years Smoked: 25 e-Cigarette/Vaping Use: Never Used Second Hand Smoke Exposure: Yes Current occupational status: disabled Cognitive needs: Yes Hearing needs: No Vision needs: Yes (wear glasses) Review of Systems Const All systems reviewed & are unremarkable except as noted in HPI and below Physical Exam Vital Signs: Last Vital Signs Pulse 68 10/10/24 09:23 BP 105/65 10/10/24 09:23 BMI result Body Mass Index 32.4 No apparent distress Nonicteric Abdomen soft, nondistended Alert and oriented x3, normal gait Assessment & Plan Assessment & Plan (1) Personal history of colonic polyps: Code(s): Z86.0100 - Personal history of colon polyps, unspecified Category: Medical (2) Family hx of colon cancer: Comment: Dad Code(s): Z80.0 - Family history of malignant neoplasm of digestive organs Category: Medical (3) Positive FIT (fecal immunochemical test): Code(s): R19.5 - Other fecal abnormalities Category: Medical Plan Positive FIT in May 2024. Reviewed that FIT not indicated in pts with high risk screenin (hx of polyps + fam hx of CRC) but in any case needs a colo to follow up on personal hx of dozen polyps removed in [place] 2-3 years ago. No evidence of iron deficiency anemia based on records available. Normal ferritin of 63 in Jun 2024. No other upper GI sx. Plan: - Surveillance colo to be booked within 6 months of FIT. - Miralax prep Rxed as per her preference - Instructions reviewed and handout provided Follow up after colo. Medications: New polyethylene glycol 3350 (Miralax) For colonoscopy prep. Mix in two 32 oz bottles of gatorade 238 grams PO ONCE 238 grams 0RF bisacodyl (Dulcolax (bisacodyl)) (4 x 5 mg) Take 2 tabs at noon and 2 tabs at 6 pm, day before colonoscopy 1 day 4 tabs 0RF Coding Level of Care Code New Pt Level 4 (81052) Diagnoses Personal history of colonic polyps Z86.0100 Family hx of colon cancer Z80.0 Positive FIT (fecal immunochemical test) R19.5
[2024-10-10 09:23] VITALS: BP 105/65; PULSE 68; BMI 32.4
== END 2024-10-10 10:37 | disposition home or self-care (01) ==
PROVIDERS: PCP Nurse Practitioner Family; Visit Provider Internal Medicine
DX: Z86.0100 Personal history of colon polyps, unspecified (principal); Z80.0 Family history of malignant neoplasm of digestive organs; R19.5 Other fecal abnormalities
CPT/HCPCS: 99204

== ENCOUNTER → 2024-10-10 09:02 | Outpatient (BNVA) | payer MEDICARE, SELFPAY | PROVIDERS: PCP Nurse Practitioner Family; Visit Provider Internal Medicine | DX: D50.9 Iron deficiency anemia, unspecified (principal); R19.5 Other fecal abnormalities; Z86.0100 Personal history of colon polyps, unspecified; Z80.0 Family history of malignant neoplasm of digestive organs | CPT/HCPCS: 99202 ==

== ENCOUNTER 2024-10-11 10:37 | Outpatient (AMB) | payer MEDICARE, SELFPAY ==
--- NOTE | 2024-10-11 11:18 | MHC.OFFVIS ---
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 Left > Right. Patient complains of left hip and groin pain that radiates to the calf. Increased pain with weight bearing activities, and sleeping on the left side. Has taken multiple falls. She has met with pain management who discussed possible PNS system as patient wishes to avoid steroid injections. Rx given for Tramadol, Physical therapy ordered. 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 hip pain. She states that she has osteopenia and describes pain in the lateral thigh that extends down to the knee. She denies groin pain. She also endorses posterior buttock and sacroiliac and lumbar pain. She has a history of spine injury. She is currently on alendronate. [facility] Medical History (Updated 10/11/24 @ 14:43 by Zain Baltazar MD) Diabetes Bipolar 1 disorder Anxiety and depression Imbalance Headache H/O gastroesophageal reflux (GERD) Acid reflux Spine disorder Swelling Edema Osteoporosis Acute arthritis COPD (chronic obstructive pulmonary disease) Surgical History (Updated 10/10/24 @ 09:23 by KHANG Rojas) History of esophagogastroduodenoscopy (EGD) Hx of colonoscopy No pertinent past surgical history Family History Mother Mental health disorder Substance abuse Cardiovascular disease Alcoholism Father Diabetes Colon cancer Social History Household Members: Children Both parents involved: No Caregiver staying overnight: No Housing: Apartment Are you a primary healthcare representative to a significant other at home: No Do you presently have visiting nurse or other home services: No 75 years or older and lives alone: No Alcohol intake: never Patient Tobacco Use Status: Current everyday Tobacco user Tobacco use type: Cigarette Cigarette Packs Per Day: 1 Cigarettes Per Day: 20 Years Smoked: 25 e-Cigarette/Vaping Use: Never Used Second Hand Smoke Exposure: Yes Current occupational status: disabled Cognitive needs: Yes Hearing needs: No Vision needs: Yes (wear glasses) Physical Exam Extrem Other: Full painless range of motion left hip. No groin pain with impingement testing. She has subjective pain in the lateral thigh that is difficult to reproduce. Results Reviewed Results Reviewed: I personally reviewed relevant radiographs. Mild bilateral hip OA Assessment & Plan Assessment & Plan (1) Lumbar radicular pain: Code(s): M54.16 - Radiculopathy, lumbar region Category: Medical Plan: This is a 69-year-old woman with lumbar back pain with possible radiculopathy who comes in today complaining of hip pain. Her exam and symptoms are not consistent with hip arthritis even though her x-rays show mild disease bilaterally. I explained this to her. My recommendation is a referral to the nonoperative spine doctors and that we progress from there. If her groin pain worsens she can return to see me. Orders: Referrals Pain Management Referral M54.16 - Radiculopathy, lumbar region Coding Level of Care Code New Pt Level 3 (20650) Diagnoses Lumbar radicular pain M54.16
== END 2024-10-11 13:27 | disposition home or self-care (01) ==
PROVIDERS: PCP Nurse Practitioner Family; Visit Provider Orthopaedic Surgery
DX: M54.16 Radiculopathy, lumbar region (principal)
CPT/HCPCS: 99203

== ENCOUNTER → 2024-10-11 10:37 | Outpatient (BNVA) | payer MEDICARE, SELFPAY | PROVIDERS: PCP Nurse Practitioner Family; Visit Provider Orthopaedic Surgery | DX: M54.16 Radiculopathy, lumbar region (principal); M16.0 Bilateral primary osteoarthritis of hip; M85.80 Other specified disorders of bone density and structure, unspecified site | CPT/HCPCS: 99202 ==

== ENCOUNTER 2024-10-12 12:05 | Day surgery (SDC) | payer MEDICARE, SELFPAY ==
--- NOTE | 2024-10-11 12:17 | P.CONAN_ITS ---
Documented by User: Anita Blount NP 10/11/24 12:19 HPI - Anesthesia Eval Consult details Narrative: 69yo F for Upper Endoscopy and Colonoscopy PMFSH Active Problems Active Problems: All Active Problems Positive FIT (fecal immunochemical test) (Acute) Personal history of colonic polyps (Acute) Eczema of external ear (Acute) Pain of left thumb (Acute) Intermittent chest pain (Acute) Lightheadedness (Acute) Osteoarthritis of hips, bilateral (Acute) Adult BMI 33.0-33.9 kg/sq m (Acute) Left hip pain (Acute) Diabetes mellitus type 2 with atherosclerosis of arteries of extremities (Acute) MDD (major depressive disorder), recurrent episode (Acute) KYLE (generalized anxiety disorder) (Acute) Tobacco dependence (Acute) Unsteady gait (Acute) Falls frequently (Acute) Iron deficiency anemia (Acute) Family hx of colon cancer (Acute) Occult blood positive stool (Acute) Class 1 obesity with body mass index (BMI) of 33.0 to 33.9 in adult (Acute) Osteoporosis (Acute) COPD (chronic obstructive pulmonary disease) (Acute) Bipolar 1 disorder (Acute) Acid reflux (Acute) Past Medical History Medical History Diabetes Bipolar 1 disorder Anxiety and depression Imbalance Headache H/O gastroesophageal reflux (GERD) Acid reflux Spine disorder Swelling Edema Osteoporosis Acute arthritis COPD (chronic obstructive pulmonary disease) Family History Family History Mother Mental health disorder Substance abuse Cardiovascular disease Alcoholism Father Diabetes Colon cancer Surgical History Surgical History History of esophagogastroduodenoscopy (EGD) Hx of colonoscopy No pertinent past surgical history Social History Social History Household Members: Children Housing: Apartment Are you a primary account executive healthcare to a significant other at home: No Do you presently have visiting nurse or other home services: No Alcohol intake: never Patient Tobacco Use Status: Current everyday Tobacco user Tobacco use type: Cigarette Cigarette Packs Per Day: 1 Cigarettes Per Day: 20 Years Smoked: 25 e-Cigarette/Vaping Use: Never Used Second Hand Smoke Exposure: Yes Advance Directives: No Advance Directives Information Provided: Yes Current occupational status: disabled Cognitive needs: Yes Hearing needs: No Vision needs: Yes (wear glasses) Meds Allergies Allergy/AdvReac Type Severity Reaction Status Date / Time cephalexin [From Keflex] Allergy Severe Rash Verified 10/11/24 11:21 Sulfa (Sulfonamide Allergy Severe Rash Verified 10/11/24 11:21 Antibiotics) Home Medications ?Medication ?Instructions ?Recorded ?Confirmed ?Last Taken ?Type alendronate 70 mg tablet 70 mg PO QWEEK 08/03/24 08/03/24 Unknown History baclofen 10 mg tablet 10 mg PO TID 08/03/24 09/23/24 Unknown History famotidine 40 mg tablet 40 mg PO DAILY 08/03/24 09/23/24 Unknown History gabapentin 300 mg capsule 300 mg PO TID 08/03/24 09/23/24 Unknown History ibuprofen 600 mg tablet 600 mg PO TID 08/03/24 09/23/24 Unknown History metformin 500 mg tablet,extended 500 mg PO DAILY 08/03/24 09/23/24 Unknown History release 24 hr trazodone 300 mg tablet 300 mg PO BEDTIME 08/03/24 09/23/24 Unknown History aripiprazole 2 mg tablet 2 mg PO BID 08/04/24 09/23/24 Unknown History escitalopram oxalate 10 mg tablet 10 mg PO BID 08/04/24 09/23/24 Unknown History Exam Pertinent Lab Results Pertinent Lab Results: Laboratory Tests 08/15/24 08:24 WBC 8.5 Hgb 12.8 Hct 39.1 Plt Count 380 Sodium 139 Potassium 4.0 Chloride 106 Carbon Dioxide 28 BUN 13 Creatinine 0.79 Narrative Narrative: EKG 08/2024 Vent. Rate : 061 BPM Atrial Rate : 061 BPM P-R Int : 166 ms QRS Dur : 086 ms QT Int : 416 ms P-R-T Axes : 077 068 072 degrees QTc Int : 418 ms Normal sinus rhythm Normal ECG No previous ECGs available Assessment and Plan Assessment Anesthesia Assessment: Chart Reviewed Documented by User: Colleen Linder MD 10/12/24 12:25 [facility] Past Medical History Medical History Diabetes Bipolar 1 disorder Anxiety and depression Imbalance Headache H/O gastroesophageal reflux (GERD) Acid reflux Spine disorder Swelling Edema Osteoporosis Acute arthritis COPD (chronic obstructive pulmonary disease) Family History Family History Mother Mental health disorder Substance abuse Cardiovascular disease Alcoholism Father Diabetes Colon cancer Family history of problems with anesthesia: No Surgical History Surgical History History of esophagogastroduodenoscopy (EGD) Hx of colonoscopy No pertinent past surgical history History of Problems with Anesthesia: No Social History Social History Household Members: Children Housing: Apartment Are you a primary account executive healthcare to a significant other at home: No Do you presently have visiting nurse or other home services: No Alcohol intake: never Patient Tobacco Use Status: Current everyday Tobacco user Tobacco use type: Cigarette Cigarette Packs Per Day: 1 Cigarettes Per Day: 20 Years Smoked: 25 e-Cigarette/Vaping Use: Never Used Second Hand Smoke Exposure: Yes Advance Directives: No Advance Directives Information Provided: Yes Current occupational status: disabled Cognitive needs: Yes Hearing needs: No Vision needs: Yes (wear glasses) Meds Allergies Allergy/AdvReac Type Severity Reaction Status Date / Time cephalexin [From Keflex] Allergy Severe Rash Verified 10/11/24 11:21 Sulfa (Sulfonamide Allergy Severe Rash Verified 10/11/24 11:21 Antibiotics) Home Medications ?Medication ?Instructions ?Recorded ?Confirmed ?Last Taken ?Type alendronate 70 mg tablet 70 mg PO QWEEK 08/03/24 08/03/24 Unknown History baclofen 10 mg tablet 10 mg PO TID 08/03/24 09/23/24 Unknown History famotidine 40 mg tablet 40 mg PO DAILY 08/03/24 09/23/24 Unknown History gabapentin 300 mg capsule 300 mg PO TID 08/03/24 09/23/24 Unknown History ibuprofen 600 mg tablet 600 mg PO TID 08/03/24 09/23/24 Unknown History metformin 500 mg tablet,extended 500 mg PO DAILY 08/03/24 09/23/24 Unknown History release 24 hr trazodone 300 mg tablet 300 mg PO BEDTIME 08/03/24 09/23/24 Unknown History aripiprazole 2 mg tablet 2 mg PO BID 08/04/24 09/23/24 Unknown History escitalopram oxalate 10 mg tablet 10 mg PO BID 08/04/24 09/23/24 Unknown History Exam Airway Mallampati Class: II TM Dist: >3cm Neck ROM: Full Heart: rrr Lungs: cta Assessment and Plan Assessment Anesthesia Assessment: Anesthesia Plan Discussed Final Anesthetic Review Family History of Problems with Anesthesia: No History of Problems with Anesthesia: No NPO: Yes ASA Class: III Final Preanesthetic Review: No Changes in Pt Med Stat, Meds/Allgs Chart Reviewed, Consent Obtained/Reviewed and Anes Risks/Benef Reviewed Patient Risk: Intermediate Procedure Risk: Low Anesthetic Plan Anesthetic Plan: MAC: Disposition: Standard PACU
[2024-10-12 12:29] VITALS: BMI 31.9
--- NOTE | 2024-10-12 12:29 | MHC.SHP ---
Pre-Procedural Eval Section A - 24 Hr Update-Section A only Date of Service: 10/12/24 Section B - Complete if H&P > 30 days Chief Complaint: Other fecal abnormalities,GERD Relevant Family History (Specify if Yes): Yes Relevant Social History: Tobacco Use Present Medications: see Short Stay Collaborative assessment Medical History: Significant History (Diabetes Bipolar 1 disorder Anxiety and depression Imbalance Headache H/O gastroesophageal reflux (GERD) Acid reflux Spine disorder Swelling Edema Osteoporosis Acute arthritis COPD (chronic obstructive pulmonary disease)) History of Previous Operations: Relevant previous surgery/procedure and date(s) (History of esophagogastroduodenoscopy (EGD) Hx of colonoscopy No pertinent past surgical history) Allergies: Allergies Allergy/AdvReac Type Severity Reaction Status Date / Time cephalexin [From Keflex] Allergy Severe Rash Verified 10/11/24 11:21 Sulfa (Sulfonamide Allergy Severe Rash Verified 10/11/24 11:21 Antibiotics) Review of Systems Sugical H&P ROS: Negative: Constitution, Cardiovascular, Respiratory, Neurological, Psychiatric, Hem-Onc, Allergic/Immunologic, Gastrointestinal, Genitourinary, Musculoskeletal, Integumentary, Endocrine and Eyes/Ears/Nose/Throat Exam Surgical H&P Exam: Normal: HEENT, Normal: Heart, Normal: Lungs, Normal: Extremities, Normal: Abdomen, Normal: Skin and Normal: Neurological Plan Diagnosis/Plan: Unchanged I have reviewed the history and physical and performed a pertinent physical examination on my patient. No changes have occurred unless specified. Time Spent With Patient Time: Total time managing care of this patient today ____ minutes.
[2024-10-12 12:35] VITALS: BP 136/83; PULSE 95; RESP 16; TEMP 36.7; O2SAT 96
[2024-10-12 12:44] LABS: Glucose, Whole Blood 111 mg/dL (60-115)
--- NOTE | 2024-10-12 13:27 | P.OPN-COLO_ITS ---
Colonoscopy Operative Note Operative Note Date of Service: 10/12/24 Narrative: Operative Information Procedure Description: EGD, Colonoscopy Indication: GERD and pos cologuard Anesthesia: MAC FLEXIBLE TRANSORAL UPPER GASTROINTESTINAL ENDOSCOPY AND COLONOSCOPY PROCEDURE NOTE UPPER ENDOSCOPY Consent: Indications for the procedure and potential complications of bleeding, perforation, reaction to medications and missed diagnosis were discussed with the patient and informed consent was obtained. Instrument: Olympus GIF H 190 J mid size upper endoscope Monitoring: Vital signs and clinical assessment, continuous EKG monitoring, Pulse oximetry, Carbon Dioxide monitoring and blood pressure monitoring were done throughout the procedure. Procedure: The patient was placed in the left lateral decubitis position and pre-procedure medications were administered and a bite block was placed. The endoscope was inserted into the mouth and advanced under direct vision to the third part of duodenum. A careful inspection was made as the upper endoscope was withdrawn including a retroflexed examination of the proximal stomach; Findings and interventions are described below. Findings: Larynx:normal Esophagus: GE junction at 35 cm, diaphragm hiatus at 38 cm, consistent with 3 cm fixed hiatal hernia, schatzki ring noted with esophagitis and slight erosion at GEJ Stomach: Patchy erythema. Biopsies were obtained. Grade 2 flap valve on retroflexed examination of the cardia. Duodenum: Normal bulb and descending duodenum, Intervention: Biopsies as noted above, COLONOSCOPY Instrument: Olympus variable stiffness pediatric scope 190L Colonoscopy Monitoring: Vital signs and clinical assessment, continuous EKG monitoring, Pulse oximetry, Carbon Dioxide monitoring and blood pressure monitoring were done throughout the procedure. Colon withdrawal time was 12 minutes. Procedure: The patient was placed in the left lateral decubitis position and pre-procedure medications were administered. After a digital rectal examination of the ano-rectum, the video colonoscope was inserted into the rectum and advanced through the colon to the cecum/TI. The colonoscope was slowly withdrawn in a retrograde panoramic fashion and the colon mucosa was carefully examined including a retroflexed view of the rectum. Findings and interventions are described below. Procedure Difficulty:moderate Findings: Terminal Ileum-normal- superficially intubated Cecum:normal Ascending Colon: x 1 sessile polyp 7-8 mm removed with cold snare Transverse Colon -normal Descending Colon:normal Sigmoid Colon: moderate severe diverticulosis, 8-10 mm sessile polyp removed with cold snare Rectum: Retroflexion with small internal hemorrhoids, grade I, x3 sessile polyps 5-6 mm removed with cold forceps Anorectum - normal Colon preparation: [place] Bowel Preparation Scale Right colon; 1-2 Transverse colon: 2 Left colon; 2 (0 = Unprepared colon segment with mucosa not seen due to solid stool that cannot be cleared. 1 = Portion of mucosa of the colon segment seen, but other areas of the colon segment not well seen due to staining, residual stool and/or opaque liquid. 2 = Minor amount of residual staining, small fragments of stool and/or opaque liquid, but mucosa of colon segment seen well. 3 = Entire mucosa of colon segment seen well with no residual staining, small fragments of stool or opaque liquid) Impression and Post Procedure Diagnosis: Endoscopy Findings: hiatal hernia schatzki ring esophagitis gastritis Colonoscopy Findings: diverticulosis colon polyps internal hemorrhoids Plan: Await Pathology results Repeat Colonoscopy in 1 year due to fair pre on right side or earlier if clinically indicated High fiber diet leaflet avoid straining at stool, epsom salts and sitz bath, anusol supps or cream next time use an adult scope Above findings were reviewed with the patient and relevant handouts were provided if indicated.
[2024-10-12 13:32] VITALS: BP 99/67; PULSE 84; RESP 18; TEMP 36.2; O2SAT 93
[2024-10-12 13:45] VITALS: BP 161/87; PULSE 104; RESP 16; O2SAT 100
[2024-10-12 13:47] VITALS: BP 134/75; PULSE 91; RESP 16; O2SAT 95
[2024-10-12 14:00] VITALS: BP 125/77; PULSE 79; RESP 16; TEMP 36.3; O2SAT 97
[2024-10-12 14:02] VITALS: BP 125/77; PULSE 79; RESP 16; TEMP 36.3; O2SAT 97
== END 2024-10-12 14:49 | disposition home or self-care (01) ==
PROVIDERS: PCP Nurse Practitioner Family; Visit Provider Internal Medicine Gastroenterology
PROC: (CPT 45385; principal; 2024-10-12 14:10)
DX: K63.5 Polyp of colon (principal); K57.30 Diverticulosis of large intestine without perforation or abscess without bleeding; K64.0 First degree hemorrhoids; R19.5 Other fecal abnormalities; Z86.0101 Personal history of adenomatous and serrated colon polyps; Z80.0 Family history of malignant neoplasm of digestive organs; K22.2 Esophageal obstruction; K29.60 Other gastritis without bleeding; K28.9 Gastrojejunal ulcer, unspecified as acute or chronic, without hemorrhage or perforation; K20.90 Esophagitis, unspecified without bleeding; K44.9 Diaphragmatic hernia without obstruction or gangrene; K21.9 Gastro-esophageal reflux disease without esophagitis; E11.9 Type 2 diabetes mellitus without complications; D50.9 Iron deficiency anemia, unspecified; J44.9 Chronic obstructive pulmonary disease, unspecified; Z79.84 Long term (current) use of oral hypoglycemic drugs; Z79.899 Other long term (current) drug therapy
CPT/HCPCS: 45385; 45380; 43239; 82947; 88305; 88342; J2003; J2704

== ENCOUNTER → 2024-10-12 12:05 | Outpatient (BNV) | payer MEDICARE, SELFPAY | PROVIDERS: PCP Nurse Practitioner Family; Visit Provider Internal Medicine Gastroenterology | DX: Z12.11 Encounter for screening for malignant neoplasm of colon (principal); R19.5 Other fecal abnormalities; D12.2 Benign neoplasm of ascending colon; D12.5 Benign neoplasm of sigmoid colon; D12.8 Benign neoplasm of rectum; K64.0 First degree hemorrhoids; K21.00 Gastro-esophageal reflux disease with esophagitis, without bleeding; K22.2 Esophageal obstruction; K29.70 Gastritis, unspecified, without bleeding | CPT/HCPCS: 43239; 45380; 45385 ==

== ENCOUNTER 2024-10-21 08:03 | Outpatient (REF) | payer MEDICARE, SELFPAY | END 2024-10-21 08:04 | disposition home or self-care (01) | LOC: HO.HOSX 08:03 | DX: M79.642 Pain in left hand (principal); M19.042 Primary osteoarthritis, left hand | CPT/HCPCS: 20600; 73130; 99202; J1010; J2003 ==

== ENCOUNTER 2024-10-21 09:02 | Outpatient (AMB) | payer MEDICARE, SELFPAY ==
--- NOTE | 2024-10-21 09:35 | A.OFFVIS_ITS ---
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 Patient reports this started about 8 months ago she was living in [place], saw her PCP and was told it might be tendonitis. She has moved twice since then and has been dealing with the pain. Described it at stabbing and throbbing on the radial aspect of her left wrist th at radiates up her left thumb. When she palpitates her MCP joint she says this shoots sharp pains. 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 The patient states that she notices pain originally when she was living [place], but was diagnosed with tendinitis and given a Velcro wrist splint, which provided no relief. Patient states that this pain has worsened over this time period, until now to the point where she finds it almost unbearable. Patient denies any numbness or tingling in the left upper extremity. No other acute complaints or concerns at this time. [facility] Medical History (Updated 10/21/24 @ 10:40 by JAQUAN Domingo) Diabetes Bipolar 1 disorder Anxiety and depression Imbalance Headache H/O gastroesophageal reflux (GERD) Acid reflux Spine disorder Swelling Edema Osteoporosis Acute arthritis COPD (chronic obstructive pulmonary disease) Surgical History (Updated 10/12/24 @ 12:28 by Mariann Hutchison RN) H/O left breast biopsy H/O: hemorrhoidectomy Hx of cholecystectomy History of esophagogastroduodenoscopy (EGD) Hx of colonoscopy Family History Mother Mental health disorder Substance abuse Cardiovascular disease Alcoholism Father Diabetes Colon cancer Social History Household Members: Children Both parents involved: No Caregiver staying overnight: No Housing: Apartment Are you a primary health care marketing specialist to a significant other at home: No Do you presently have visiting nurse or other home services: No 75 years or older and lives alone: No Alcohol intake: never Patient Tobacco Use Status: Current everyday Tobacco user Tobacco use type: Cigarette Cigarette Packs Per Day: 1 Cigarettes Per Day: 20.0 Years Smoked: 25 e-Cigarette/Vaping Use: Never Used Second Hand Smoke Exposure: Yes Current occupational status: disabled Cognitive needs: Yes Hearing needs: No Vision needs: Yes (wear glasses) Review of Systems Const All systems reviewed & are unremarkable except as noted in HPI and below Physical Exam Vital Signs: BMI result Body Mass Index 32.8 Extrem Other: Patient is alert, oriented, and in no acute distress. Neuro: Normal sensation of the tips of all digits of the left hand at this time Vascular: Cap refill brisk Pain: Positive CMC grind with a left thumb Negative Artem test in the left No tenderness to palpation of the left radial styloid, ulnar styloid, DRUJ, or elsewhere in the left hand or wrist ROM: Patient is able to make a closed fist and extend all digits of the left hand fully Skin: No lacerations or abrasions. General: No ecchymosis, erythema, or evidence of infection. Psych: Appears grossly normal Affect normal Attitude cooperative Office Procedures Joint Inj/Aspir; Non-Pain Clin Joint Injection/Drain Prep: site was prepped using aseptic technique and injection warnings given Procedure: The patient tolerated the procedure well and there was some relief with the local anesthesia Elbows, Wrist, Hands, Hand injection Medium joint : Left Hand Coding Procedure code (CPT) selection complete Results Reviewed Results Reviewed: X-rays obtained in the office today and independently reviewed by me, Shashi Perales PA-C, demonstrate marked degenerative changes throughout the patient's left hand and wrist, worst in the basal joint and the scaphotrapezium joint. Assessment & Plan Assessment & Plan (1) Arthritis of left hand: Code(s): M19.042 - Primary osteoarthritis, left hand Category: Medical Plan 1. Basal joint arthritis of left thumb Patient is educated about this condition Patient is educated about the treatment options available Patient would like to proceed with steroid injection The risks and benefits of a steroid injection including but not limited to risk of damage to blood vessels, nerve, tendon, infection, skin bleaching, persistent or worsening pain, and failure to improve symptoms were discussed with the patient and they wish to proceed with the steroid injection. Once consent was obtained the skin over the dorsum of the left basal joint was aseptically prepped. The joint was then injected with a combination of 1 mL of (40 mg/ml} Depo-Medrol and 1% plain Lidocaine. The patient appears to have tolerated the procedure well and with no complications. SHe had good early relief before leaving clinic today. SHe knows that they may not have another steroid injection into this joint for least 4 months. Orders: Orders OT Evaluation and Treatment Today M19.042 - Primary osteoarthritis, left hand XR hand LT min 3V Today M79.642 - Pain in left hand Coding Level of Care Code New Pt Level 3 (88015) Diagnoses Arthritis of left hand M19.042 CPT Codes Elbows, Wrist, Hands, - Hand injection Medium joint 76124: Left Hand ([id number])
[2024-10-21 09:37] VITALS: BMI 32.8
== END 2024-10-21 10:40 | disposition home or self-care (01) ==
PROVIDERS: PCP Nurse Practitioner Family
DX: M19.042 Primary osteoarthritis, left hand (principal)
CPT/HCPCS: 20600; 99203; 99213

== ENCOUNTER 2024-10-27 09:02 | Outpatient (AMB) | payer MEDICARE, MEDICAID, SELFPAY ==
--- NOTE | 2024-10-27 09:04 | A.OFFVIS_ITS ---
Vital Signs 10/27/24 09:09 Height 5 ft 3 in Weight 185 lb BMI 32.8 BP 119/58 L Blood Pressure Location Rt brachial Position Sitting Pulse 67 Pulse Source Pulse Oximeter Pulse Oximetry (%) 98 Oxygen Delivery Method Room Air Intake Visit Reasons: Radiculopathy, lumbar region Intake Note: Pain today 04/25 Dray Driver Required: No Accompanied by: Self / Same As Patient Allergies cephalexin [From Keflex] Allergy (Severe, Verified 10/27/24 09:09) Rash Sulfa (Sulfonamide Antibiotics) Allergy (Severe, Verified 10/27/24 09:09) Rash HPI Comments Details: Patient presents today for follow up for left sided radiculopathy. She was seen by Orthopedic provider last month for hip pain without groin pain and referred to our office for further evaluation of radicular symptoms. Patient reports back pain is predominantly axial and discogenic in nature with movements, axial rotations and flexing forward but also radiates into sacral areas and bilateral lateral hips and into left anterior thigh. Denies groin pain or radiation of back pain below knee level. She reports partial relief with Tylenol and NSAIDs, heat, topical applications and moderate relief with short script of tramadol which she takes only for severe pain. Patient is starting formal PT at [facility] [place]. Denies numbness or tingling in bilateral lower extremities, weakness, bladder or bowel dysfunction or saddle anesthesia. PRIOR: Pleasant 69-year-old female with prior history of osteoporosis, osteoarthritis, chronic low back pain, L4 compression fracture, current everyday tobacco user (1PPD), GERD, COPD, insomnia, anxiety and depression, bipolar 1 disorder, presents today for initial evaluation of left hip pain. Reports history of multiple falls in the past and more recently increasing episodes of lightheadedness, dizziness and imbalance. She has pending physical therapy for gait training. Patient also reports intermittent chest pain for the past 2 weeks. She also reports acid reflux symptoms and chest pain occurring simulta neously and always relieved by famotidine. When offered medical evaluation in ER, patient declined. Patient reports wearing alert brace due to multiple falls history. Patient reports left hip pain has been bothersome and progressively worsening for the past 6-7 months. Left hip is accompanied by groin pain and shooting down into her left calf. SLR testing is negative today for lumbar radiculo vesta. She also has history of right hip pain. Pain is most severe with weight-bearing, walking, climbing stairs or sleeping on the left side. Most recent x-ray showed [id number] bilateral hip osteoarthritis. Patient is not currently taking alendronate due to potential side effects. She reports family history of avascular osteonecrosis in her mother and for this reason she would like to avoid steroidal injections. Patient has has pending orthopedic evaluation next month. In meantime, she would like to proceed with physical therapy. Denies any fever or chills, weakness, numbness or tingling, footdrop, bladder or bowel dysfunction or saddle anesthesia. Location: Left hip radiates down into left lower leg Duration: Chronic back pain, left hip-7 months, multiple falls Characteristics of symptom or complaint: Aching, shooting, stabbing, burning, throbbing, tiring, sharp Aggravating or associated factors: Side sleeping, walking, weight bearing, changing positions, climbing stairs Relieving factors: Ibuprofen, gabapentin, Tylenol Treatment: Pending Ortho eval, xrays, alert brace [facility] Medical History (Updated 10/27/24 @ 09:19 by SIMIN Huggins) Diabetes Bipolar 1 disorder Anxiety and depression Imbalance Headache H/O gastroesophageal reflux (GERD) Acid reflux Spine disorder Swelling Edema Osteoporosis Acute arthritis COPD (chronic obstructive pulmonary disease) Surgical History (Updated 10/12/24 @ 12:28 by Mariann Hutchison RN) H/O left breast biopsy H/O: hemorrhoidectomy Hx of cholecystectomy History of esophagogastroduodenoscopy (EGD) Hx of colonoscopy Family History Mother Mental health disorder Substance abuse Cardiovascular disease Alcoholism Father Diabetes Colon cancer Social History Household Members: Children Both parents involved: No Caregiver staying overnight: No Housing: Apartment Are you a primary professional healthcare representative to a significant other at home: No Do you presently have visiting nurse or other home services: No 75 years or older and lives alone: No Alcohol intake: never Patient Tobacco Use Status: Current everyday Tobacco user Tobacco use type: Cigarette Cigarette Packs Per Day: 1 Cigarettes Per Day: 20.0 Years Smoked: 25 e-Cigarette/Vaping Use: Never Used Second Hand Smoke Exposure: Yes Current occupational status: disabled Cognitive needs: Yes Hearing needs: No Vision needs: Yes (wear glasses) Review of Systems Const All systems reviewed & are unremarkable except as noted in HPI and below Physical Exam General: Appears afebrile. No acute distress. Alert and oriented. Mood and affect appropriate. Follows and participates in conversation appropriately. Respiratory effort is unlabored. No cough. Able to transition from sit to stand unassisted. Ambulates with bilaterally normal heel strike and toe off. General: Yes no CVA tenderness Back/Spine/Pelvis Other: Limited lumbar ROM with lumbar extension reproducing [id number]-[id number] pain and lumbar flexion and bending reproducing moderate pain. Positive facet loading bilaterally, left>right. Demonstrates 5/5 right and 4/5 left due to pain strength of quadriceps bilaterally as well as flexion/dorsiflexion of bilateral feet against resistance. 2+ pedal pulses bilaterally. Seated and supine straight leg rise with dorsiflexion negative bilaterally. +1 patellar and achilles reflexes bilaterally. Shira sign, Jenaro?s, Pelvic compression, Gaenslen and Stinchfield tests are positive bilaterally, left>right. No groin pain with I/E hip rotations bilaterally. Mild to moderate TTP to left GTB. Valsalva maneuver negative. Back: no CVA tenderness Cervical Spine: cervical ROM normal and No Cervical spine tenderness Thoracic/Lumbar Spine: thoracic and lumbar spine normal to inspection, No Thoracic/lumbar spine scar(s), Lasegue's sign negative, straight leg raise negative bilaterally, paraspinal muscle tenderness on the left greater than right, thoraco-lumbar ROM limited, Thoracic/lumbar scoliosis, No thoracic spinal tenderness and lumbar spinal tenderness (L4-S1) Pelvis: buttock tenderness on the left Sacroiliac joints: bilaterally tender to palpation Extrem General: Yes capillary refill normal, Yes no clubbing, cyanosis or edema and Yes no calf tenderness Results Reviewed Results Reviewed: XR HIP, LEFT 08/25/24 CLINICAL INFORMATION: Left hip pain. FINDINGS: No acute fracture or dislocation. Mild bilateral hip joint space narrowing with marginal osteophytes. No osseous erosion. No evidence of femoral head avascular necrosis. No abnormal soft tissue calcification. IMPRESSION: [id number] bilateral hip osteoarthritis. Assessment & Plan Assessment & Plan (1) Osteoporosis: Code(s): M81.0 - Age-related osteoporosis without current pathological fracture Category: Medical Qualifiers: Osteoporosis type: age-related Presence of current pathological fracture: without current pathological fracture Qualified Code(s): M81.0 - Age- related osteoporosis without current pathological fracture (2) Lumbar radicular pain: Code(s): M54.16 - Radiculopathy, lumbar region Category: Medical (3) Lumbosacral spondylosis: Code(s): M47.817 - Spondylosis without myelopathy or radiculopathy, lumbosacral region Category: Medical (4) Sacroiliac joint pain: Code(s): M53.3 - Sacrococcygeal disorders, not elsewhere classified Category: Medical (5) Lumbar radicular pain: Code(s): M54.16 - Radiculopathy, lumbar region Category: Medical (6) Lumbosacral spondylosis: Code(s): M47.817 - Spondylosis without myelopathy or radiculopathy, lumbosacral region Category: Medical (7) Vertebrogenic low back pain: Code(s): M54.51 - Vertebrogenic low back pain Category: Medical Plan Lumbar spine and SIJ imaging to assess degree of degenerative changes, any subluxation, listhesis, compression fractures or pars defects and MRI of the lumbar spine to assess for neural integrity and compression. Back pain is consistent with axial, discogenic and SIJ pain components per today's exam. Patient will return to the clinic after initiating PT and to discuss results of the xray/MRI findings when it is done and consider interventional therapy as indicated. All questions and concerns have been answered and patient agreed with the treatment plan. Follow up as needed. Orders: Orders MR lumbar spine wo con Today M47.817 - Spondylosis without myelopathy or radiculopathy, lumbosacral region, M54.16 - Radiculopathy, lumbar region, M54.51 - Vertebrogenic low back pain XR lumbar spine 4V min Today M47.817 - Spondylosis without myelopathy or radiculopathy, lumbosacral region, M54.16 - Radiculopathy, lumbar region, M81.0 - Age-related osteoporosis without current pathological fracture XR sacroiliac joint min 3V Today M53.3 - Sacrococcygeal disorders, not elsewhere classified Coding Level of Care Code Est Pt Level 4 (79545) Complex EM visit Add On G2211 Diagnoses Age-related osteoporosis without current pathological fracture M81.0 Osteoporosis type: age-related Presence of current pathological fracture: without current pathological fracture Lumbar radicular pain M54.16 Lumbosacral spondylosis M47.817 Sacroiliac joint pain M53.3 Vertebrogenic low back pain M54.51
[2024-10-27 09:09] VITALS: BP 119/58; PULSE 67; O2SAT 98; BMI 32.8
== END 2024-10-27 09:19 | disposition home or self-care (01) ==
PROVIDERS: PCP Nurse Practitioner Family; Visit Provider Nurse Practitioner Family
DX: M81.0 Age-related osteoporosis without current pathological fracture (principal); M54.16 Radiculopathy, lumbar region; M47.817 Spondylosis without myelopathy or radiculopathy, lumbosacral region; M53.3 Sacrococcygeal disorders, not elsewhere classified; M54.51 Vertebrogenic low back pain
CPT/HCPCS: 99214; G2211

== ENCOUNTER 2024-10-27 09:02 | Outpatient (REF) | payer MEDICARE, OTHER, SELFPAY ==
--- NOTE | ~2024-10-27 | XR_ITS ---
EXAMINATION: XR SACROILIAC JOINT 3 OR MORE VIEWS HISTORY: M53.3 - Sacrococcygeal disorders, not elsewhere classified COMPARISON: Correlation is made with a plain film of the pelvis dated 08/25/2024. FINDINGS: 3 views of the bilateral sacroiliac joints are submitted. Osseous mineralization is normal. The sacroiliac joints are maintained. No erosions are seen. XR/XR sacroiliac joint min 3V IMPRESSION: Unremarkable examination of the sacroiliac joints. Please note that while this study was performed on 10/27/2024, it is only now submitted for interpretation, on 12/06/2024. Electronically signed by: Yasir Mariscal MD 12/06/2024 12:14 PM ABBY
--- NOTE | ~2024-10-27 | XR_ITS ---
EXAMINATION: XR LUMBAR SPINE 4 OR MORE VIEWS HISTORY: M54.16 - Radiculopathy, lumbar region COMPARISON: There are no prior studies for comparison. FINDINGS: AP, lateral, bilateral oblique and coned down views of the lumbar spine are submitted. Osseous mineralization is normal. There is slight rightward curvature which may be positional in nature. There is mild compression deformity involving the superior endplate of L4 which appears chronic the remaining vertebral bodies maintain normal height. There is no spondylolisthesis. There is mild degenerative disc disease with disc space narrowing and osteophyte formation. There is osteoarthritis of the lower lumbar facet joints. The visualized paraspinal soft tissues are unremarkable. XR/XR lumbar spine 4V min IMPRESSION: Mild compression deformity of the superior endplate of L4, which appears chronic. Mild degenerative disc disease. Please note that while this study was performed on 10/27/2024, it is only now submitted for interpretation, on 12/06/2024. Electronically signed by: Yasir Mariscal MD 12/06/2024 12:12 PM A[facility]Y
== END 2024-10-27 09:03 | disposition home or self-care (01) ==
LOC: HO.XRAY 09:02
PROVIDERS: PCP Nurse Practitioner Family; Visit Provider Nurse Practitioner Family
DX: M54.16 Radiculopathy, lumbar region (principal); M81.0 Age-related osteoporosis without current pathological fracture; M47.817 Spondylosis without myelopathy or radiculopathy, lumbosacral region; M53.3 Sacrococcygeal disorders, not elsewhere classified
CPT/HCPCS: 72110; 72202; 99212

== ENCOUNTER → 2024-10-27 09:29 | Outpatient (BNV) | payer MEDICARE, SELFPAY | PROVIDERS: PCP Nurse Practitioner Family; Visit Provider Radiology Diagnostic Radiology | DX: M53.3 Sacrococcygeal disorders, not elsewhere classified (principal); M51.369 Other intervertebral disc degeneration, lumbar region without mention of lumbar back pain or lower extremity pain | CPT/HCPCS: 72110; 72202 ==

== ENCOUNTER 2024-11-14 14:11 | Outpatient (AMB) | payer MEDICARE, MEDICAID, SELFPAY ==
--- NOTE | 2024-11-14 14:22 | A.OFFVIS_ITS ---
Vital Signs 11/14/24 14:29 Height 5 ft 3 in Weight 182 lb 15.739 oz BMI 32.4 BP 138/60 Blood Pressure Location Lt brachial Position Sitting Pulse 72 Intake Visit Reasons: S/P [place]; DrCarl Intake Note: Nataliia presents in the office as a follow up colonoscopy. CC: She states that the esomeprazole is not working at all for her and she states she went back to the famotidine - she wakes up in the middle of the night with vomit due to severe reflux. Nursing Techn Required: No Allergies cephalexin [From Keflex] Allergy (Severe, Verified 11/14/24 14:30) Rash Sulfa (Sulfonamide Antibiotics) Allergy (Severe, Verified 11/14/24 14:30) Rash HPI Comments Details: 69 y.o F with PMH of polyps, fam hx of colon ca, osteoporosis, DM2, well co ntrolled COPD, ongoing tobacco use who is here for question of NANCY. Records from prev PCP as well as referring PCP reviewed. Pt reports fam hx of CRC in her father at age 70. Pt herself had a colo 2-3 years ago in [place] and was told she had dozen polyps . Does not recall if the polyps needed close follow up or if they were benign. She had a FIT done in May 2024 through [facility] PCP - the indication in uncertain as pt does not meet criteria for average risk screening through FIT. This was positive. There is also documentation of ??NANCY. However labs reviewed from [facility] and [facility] practice and pt with normal H/H and iron panel. She does not describe abd pain, N,V, D or blood in stool. 10/12/24: EGD/colo (Dr Gaytan) Endoscopy Findings: hiatal hernia schatzki ring esophagitis gastritis Colonoscopy Findings: diverticulosis colon polyps internal hemorrhoids Plan: Await Pathology results Repeat Colonoscopy in 1 year due to fair pre on right side or earlier if clinically indicated High fiber diet leaflet avoid straining at stool, epsom salts and sitz bath, anusol supps or cream next time use an adult scope A. Stomach, biopsy: Gastric antral/body mucosa with focal minimal chronic marisela ctive inflammation; negative for H.pylori, intestinal metaplasia and dysplasia. B. Colon, ascending, polyp: Rare fragment of colonic epithelium without dysplasia present with fecal material; no polyp identified. C. Colon, sigmoid, polyp: Hyperplastic polyp. D. Colon, rectal polyps: Hyperplastic polyps (3 pieces) 11/14/24: Here for post procedure follow up. Reports cont'd reflux sx including regurgitation liz at night. PFSH Medical History Diabetes Bipolar 1 disorder Anxiety and depression Imbalance Headache H/O gastroesophageal reflux (GERD) Acid reflux Spine disorder Swelling Edema Osteoporosis Acute arthritis COPD (chronic obstructive pulmonary disease) Surgical History H/O left breast biopsy H/O: hemorrhoidectomy Hx of cholecystectomy History of esophagogastroduodenoscopy (EGD) Hx of colonoscopy Family History Mother Mental health disorder Substance abuse Cardiovascular disease Alcoholism Father Diabetes Colon cancer Social History Household Members: Children Both parents involved: No Caregiver staying overnight: No Housing: Apartment Are you a primary primary care nurse practitioner to a significant other at home: No Do you presently have visiting nurse or other home services: No 75 years or older and lives alone: No Alcohol intake: never Patient Tobacco Use Status: Current everyday Tobacco user Tobacco use type: Cigarette Cigarette Packs Per Day: 1 Cigarettes Per Day: 20.0 Years Smoked: 25 e-Cigarette/Vaping Use: Never Used Second Hand Smoke Exposure: Yes Current occupational status: disabled Cognitive needs: Yes Hearing needs: No Vision needs: Yes (wear glasses) Physical Exam Vital Signs: Last Vital Signs Pulse 72 11/14/24 14:29 BP 138/60 11/14/24 14:29 BMI result Body Mass Index 32.4 No apparent distress Nonicteric Abdomen soft, nondistended Alert and oriented x3, normal gait Assessment & Plan Assessment & Plan (1) Acid reflux: Code(s): K21.9 - Gastro-esophageal reflux disease without esophagitis Category: Medical Qualifiers: Esophagitis presence: without esophagitis Qualified Code(s): K21.9 - Gastro-esophageal reflux disease without esophagitis (2) GERD with esophagitis: Code(s): K21.00 - Gastro-esophageal reflux disease with esophagitis, without bleeding Category: Medical (3) Personal history of colonic polyps: Code(s): Z86.0100 - Personal history of colon polyps, unspecified Category: Medical Plan 1. GERD with esophagitis Continues to be symptomatic. On review, appears was not taking PPI appropriately. Educated on correct manner of administration i.e empty stomach and daily not PRN. Plan: - Esomeprazole 20 daily - Avoid laying down for at least 60-120 mins post meals - Keep HOB elevated 30-40deg when sleeping/napping. Wedge pillow Rxed - Barium swallow ordered for further assessment of HH and if surgical referral is warranted 2. COlon polyps/positive FIT Poor prep on colo 10/2024. Msg sent to book repeat colo. Follow up in 2-3 months Orders: Orders FL barium swallow Today K21.9 - Gastro-esophageal reflux disease without esophagitis Medications: New [wedge pillow] As directed 1 ea 0RF K21.00 - Gastro-esophageal reflux disease with esophagitis, without bleeding Discontinued tramadol Discontinued Reason: Patient no longer taking 50 mg PO BID 10 days PRN 20 tabs 0RF pain (scale score 7-10) M16.0 - Bilateral primary osteoarthritis of hip, M25.552 - Pain in left hip diclofenac sodium 1% (Arthritis Pain (diclofenac)) Discontinued Reason: Duplicate 4 grams topical QID 100 grams 3RF pain M16.0 - Bilateral primary osteoarthritis of hip, M25.552 - Pain in left hip polyethylene glycol 3350 (Miralax) For colonoscopy prep. Mix in two 32 oz bottles of gatorade Discontinued Reason: Patient no longer taking 238 grams PO ONCE 238 grams 0RF bisacodyl (Dulcolax (bisacodyl)) Discontinued Reason: Patient no longer taking (4 x 5 mg) Take 2 tabs at noon and 2 tabs at 6 pm, day before colonoscopy 1 day 4 tabs 0RF Coding Level of Care Code Est Pt Level 4 (39669) Diagnoses Gastroesophageal reflux disease without esophagitis K21.9 Esophagitis presence: without esophagitis GERD with esophagitis K21.00 Personal history of colonic polyps Z86.0100
[2024-11-14 14:29] VITALS: BP 138/60; PULSE 72; BMI 32.4
== END 2024-11-14 15:14 | disposition home or self-care (01) ==
PROVIDERS: PCP Nurse Practitioner Family; Visit Provider Internal Medicine
DX: K21.9 Gastro-esophageal reflux disease without esophagitis (principal); K21.00 Gastro-esophageal reflux disease with esophagitis, without bleeding; Z86.0100 Personal history of colon polyps, unspecified
CPT/HCPCS: 99214

== ENCOUNTER → 2024-11-14 14:11 | Outpatient (BNVA) | payer MEDICARE, MEDICAID, SELFPAY | PROVIDERS: PCP Nurse Practitioner Family; Visit Provider Internal Medicine | DX: K21.9 Gastro-esophageal reflux disease without esophagitis (principal); K21.00 Gastro-esophageal reflux disease with esophagitis, without bleeding; Z86.0100 Personal history of colon polyps, unspecified | CPT/HCPCS: 99212 ==

== ENCOUNTER 2024-11-18 07:55 | Outpatient (AMB) | payer MEDICARE, SELFPAY ==
--- NOTE | 2024-11-18 07:58 | AM.OFFVISMDC ---
Intake Vital Signs 11/18/24 08:07 Height 5 ft 3 in Weight 190 lb 8 oz BMI 33.7 BP 104/64 Blood Pressure Location Lt brachial Position Sitting Respiration 12 Pulse 64 Pulse Source Pulse Oximeter Pulse Oximetry (%) 93 Oxygen Delivery Method Room Air Intake Visit Reasons: SAWV - see comments Intake Note: awv visit Direct Support Specialist Required: No Allergies cephalexin [From Keflex] Allergy (Severe, Verified 11/18/24 08:26) Rash Sulfa (Sulfonamide Antibiotics) Allergy (Severe, Verified 11/18/24 08:26) Rash Medication List - Last Reconciled 11/18/24 by Adia Flower, ADMINISTRATIVE COORDINATOR-BC albuterol sulfate 90 mcg/actuation 2 puffs inhalation Q4-6H PRN 30 days alendronate 70 mg PO QWEEK aripiprazole 2 mg PO BID baclofen 10 mg PO TID grudxusonl-wrceqxiexlakq-tbjg 50-325-40 mg 1 tab PO DAILY PRN clonidine HCl 0.1 mg PO BEDTIME desonide 0.05% 1 appl topical BID-QID PRN diclofenac sodium 3% 1 appl topical BID PRN escitalopram oxalate 10 mg PO BID esomeprazole magnesium 40 mg PO DAILY gabapentin 300 mg PO TID ibuprofen 600 mg PO TID metformin ER 500 mg PO DAILY naloxone 4 mg/actuation (Narcan) 4 mg intranasal Q2M PRN trazodone 300 mg PO BEDTIME [wedge pillow As directed] Do you need a note to return to daycare/school/sports/work: No HPI HPI Comments History of Present Illness Details 69 y/o F with osteoporosis, DM2, GERD, Iron def anemia, GERD, Bipolar 1, KYLE, MDD, COPD, current tobacco use, chronic pain, eczema, hiatal hernia, schatzki ring, esophagitis, gastritis, diverticulosis, colon polyp, internal hemorrhoids Here today for AWV. The Medicare Annual Wellness Visit (AWV) is a yearly appointment with a health professional to identify health risks and help reduce them and to create or update a personalized prevention plan. During a Medicare AWV, health professionals should also review any current opioid prescriptions, detect any cognitive impairment, and establish or update medical and family history. SurgHx: Y FHx: Y SocHx: Y Lives w/ son& girlfriend Health Maintenance: See scanned preventative medicine assessment with personalized health plan and screening schedule. ?Colon: 09/2024 colon/egd Endoscopy Findings: hiatal hernia, schatzki ring, esophagitis, gastritis Colonoscopy Findings: diverticulosis, colon polyp, internal hemorrhoids. Hyperplastic polypsL: Repeat Colonoscopy in 1 year due to fair pre on right side or earlier if clinically indicated Lung ca screening: ordered today ?Mammo ordered today ?DEXA ordered today ?PAP: hx of abnormal, most recent wnl, screened out ?Vaccines: Tdap declined until records are reviewed; Declined Flu dad had miller barre. AAA screen: na EKG: done today WNL [place] of Care: GI: consult note reviewed 10/2024 esomeprazole 20mg, barium swallow, repeat colon Counselor, fell out of care did not have a good rapport. Does not want to pursue @ this time. Ortho Pain mgmt Visual Acuity: wears glasses, last eye exam 1 year ago. Hearing Screening: no concerns ACP: does not have; forms provided today. Dietary/Nutrition/Exercise Edu provided: Y During the course of the visit the patient was educated and counseled about appropriate screening and preventative services. Patient instructions were provided to the patient in written or electronic format. I have reviewed and verified the above information. The patient is a 69-year-old female presenting for an annual Medicare wellness visit and routine follow-up for chronic conditions, including depression, GERD, and COPD. Her depression has worsened after discontinuing Lexapro due to concerns about drug interactions with esomeprazole. The depression symptomatology includes persistent low mood and lack of motivation, with significant impairment in daily activities. Lexapro was previously effective, though with limited symptom relief, and current interruptions in the regimen have exacerbated her condition. The patient experiences severe GERD symptoms, which persist despite adjustments in medication timing and technique. Past medical interventions included EGD disclosing significant gastritis. She attempted adjustments to her regimen without satisfactory resolution. COPD management is ongoing, and she continues to smoke, notably affecting her pulmonary symptoms. Additionally, she manages Type 2 Diabetes Mellitus with metformin, with recent A1c levels noted. She has a history of hyperlipidemia, with LDL slightly above target range. Her life circumstances, including living arrangements with her son and his partner, are stable, but she feels overwhelmed by weight issues negatively impacting her mental health. Health Maintenance - EKG screening completed and showed normal results. - A1c: 5.4%, increased slightly from previous of 5.1% but remains within normal limits. - Lung cancer screening discussed due to continued smoking and age >65; set up for low-dose CT scan. - Mammogram and bone density testing ordered, with scheduling to follow. - Pap smear deferred as patient screens out by age unless desired or indicated otherwise. - Cardiovascular risk: Emphasis on smoking cessation and weight management. - Referral to the [facility] program for smoking cessation. Social History - Lives with son and his girlfriend, with whom she shares a good relationship. - Tobacco use: Ongoing smoker, attempts to quit hampered by son's smoking. - Experiences significant stress related to weight, feels cultural pressures exacerbate mental health issues. - No alcohol use reported. - Limited physical activity but open to exploring chair yoga to improve mobility and wellness. Review of Systems - Ears: co feeling blocked, freq cerumen Mouth c/o painful lump under tongue right side there for months; no dental care d/t insurance, has better insurance now - Psychiatric: Reports depression, lack of motivation, and overwhelming tiredness. - Gastrointestinal: Reports severe GERD symptoms with nocturnal vomiting. - Musculoskeletal: Reports pain primarily in the thighs, believed to be referred from the back. - General: Denies falls, but reports fear of falling due to risk of fracture. Physical Exam General: Cooperative, healthy appearing, comfortable, no acute distress and well developed Orientation: Patient oriented x3 Limitations: No limitations Head: Normal to inspection Ears: Hearing grossly normal bilaterally, but significant cerumen bilat s/p successful lavage EAC clear bilat TM intact Mouth: No obvious mass noted during exam, points to floor of mouth, right side Nose: Normal external nose present Face and sinus: Normal facial exam Eyes: Appearance normal, both eyes and all related structures Neck: Normal visual inspection and Yes full ROM Respiratory: Normal respiratory effort and able to speak in complete sentences. Clear to auscultation bilaterally Cardiovascular: Regular rate and rhythm. Normal S1 and S2 GI: Normal to inspection. Soft to palpation and nontender Skin: No rashes or lesions noted Neuro: Patient oriented x3 Extremities: Normal to inspection, no edema noted Results - Labs: A1c 5.4% - Tests and Diagnostics: EKG was normal. Plan - Evaluate medication options to manage depression considering interaction with current GERD treatment. - Continue esomeprazole while ensuring proper administration; discuss alternative therapies if required. - Monitor diabetes control with continued metformin therapy. - Smoking cessation efforts initiated with referral to [facility] program. - Reinforce dietary and weight management strategies for hyperlipidemia control. - Implement lung cancer screening with low-dose CT. - Perform dental evaluation to investigate oral anomaly. Patient was informed and verbally consented to the use of an ambient scribe for clinic note documentation during this visit. Discussion Notes During the visit, we discussed discontinuing Lexapro due to drug interactions and its impact on depressive symptoms. Start duloxetine 30mg QD, as previous venlafaxine use resulted in adverse effects decades ago. The importance of compliance with esomeprazole was reiterated for GERD management. I recommended continuing metformin for diabetes control and discussed the slightly elevated LDL in the context of hyperlipidemia, emphasizing lifestyle modifications. Smoking cessation was strongly advised, with a [facility] referral provided. Risks and benefits of lung cancer screening were outlined, with reassurance about the preventative nature of the early detection. The need for further weight management counseling was acknowledged in relation to mental well-being. Dental evaluation was recommended for an oral lump. The patient was advised on completing advanced care planning forms and agreed to follow up in six weeks for medication efficacy review. Patient Instructions - Take new antidepressant as prescribed: duloxetine 30mg QD - Continue taking esomeprazole as directed, paying attention to timing in relation to food intake. - Maintain current metformin regimen for diabetes management. - Schedule lung cancer screening appointment as discussed. - Follow up with appointed dental providers regarding the mouth lump. - Approach [facility] program for smoking cessation support and use provided resources. - Attend ordered mammogram and bone density tests. - Engage in gentle exercises such as chair yoga as feasible. - Monitor mood symptoms and report any significant changes or suicidal thoughts immediately. RTO 6 weeks fu med change, sooner PRN This note is constructed using voice recognition software. While every effort has been made to ensure accuracy in customer service trainer, still errors may have been included Sometimes, these errors may affect the content or meaning of the given sentence . An additional 30 minutes was spent addressing the problem(s) noted at todays visit. This includes time spent before the visit reviewing the chart, time spent during the visit, and time spent after the visit on documentation PFSH Medical History Diabetes Bipolar 1 disorder Anxiety and depression Imbalance Headache H/O gastroesophageal reflux (GERD) Acid reflux Spine disorder Swelling Edema Osteoporosis Acute arthritis COPD (chronic obstructive pulmonary disease) Surgical History H/O left breast biopsy H/O: hemorrhoidectomy Hx of cholecystectomy History of esophagogastroduodenoscopy (EGD) Hx of colonoscopy Family History Mother Mental health disorder Substance abuse Cardiovascular disease Alcoholism Father Diabetes Colon cancer Social History Household Members: Children Both parents involved: No Caregiver staying overnight: No Housing: Apartment Are you a primary home health care provider to a significant other at home: No Do you presently have visiting nurse or other home services: No 75 years or older and lives alone: No Alcohol intake: never Patient Tobacco Use Status: Current everyday Tobacco user Tobacco use type: Cigarette Cigarette Packs Per Day: 1 Cigarettes Per Day: 20.0 Years Smoked: 25 e-Cigarette/Vaping Use: Never Used Second Hand Smoke Exposure: Yes Current occupational status: disabled Cognitive needs: Yes Hearing needs: No Vision needs: Yes (wear glasses) Questionnaire Medicare Wellness Checkup What [age] your age?: 65-69 What gender do you identify with?: female During the past 4 weeks, how much have you been bothered by emotional problems such as feeling anxious, depressed, irritable, sad or downhearted, and blue?: moderately During the past 4 weeks, has your physical & emotional health limited your social activities with family, friends, neighbors, or groups?: quite a bit During the past 4 weeks, how much bodily pain have you generally had?: mild pain During the past 4 weeks, was someone available to help you if you needed & wanted help?: yes, as much as I wanted During the past 4 weeks, what was the hardest physical activity you could do for at least 2 minutes?: light Can you get to places out of walking distance without help? (For eg., can you travel alone on buses, taxis or drive your car?): Yes Can you go shopping for groceries or clothes without someone's help?: Yes Can you prepare your own meals?: Yes Can you do your housework without help?: Yes Because of any health problems, do you need the help of another person with your personal care needs such as eating, bathing, dressing or getting around the house?: No Can you handle your own money without help?: Yes During the past 4 weeks, how would you rate your health in general?: good During the past 4 weeks how have things been going for you?: good & bad parts about equal Are you having difficulties driving your car?: no Do you always fasten your seat belt when you are in a car?: yes, usually During past 4 weeks, have you been bothered by the following: never: Falling or dizzy when standing up, Sexual problems?, Trouble eating well?, Teeth or denture problems?, Problems using the telephone? and Tiredness or fatigue? Have you fallen 2 or more times in the past year?: Yes Are you afraid of falling?: Yes Are you a smoker?: yes, but I'm not ready to quit During the past 4 weeks, how many drinks of wine, beer, or other alcoholic beverages did you have?: no alcohol at all Do you exercise for about 20 minutes 3 or more times a week?: no, I usually do not exercise this much Have you been given information to help with the following?: no: Hazards in your house that might hurt you? and no: Keeping track of your medications? How often do you have trouble taking medicines the way you have been told to take them?: I always take medicine as prescribed How confident are you that you can control & manage most of your health problems?: very confident What is your race?: White Activity of Daily Living Bathing - sponge bath, tub bath or shower: receives no assistance (gets in/out by self, if usual bathing means Dressing - getting clothes from closets & drawers, including inner/outer garments & fasteners.: gets clothes & gets completely dressed without help Toileting - going to the 'toilet room' for urine/bowel elimination & cleaning self/arranging clothes: goes to toilet room, cleans self, arranges clothes without help Transfer: moves in & out of bed and chair without help (may use support object) Continence: controls urination/bowel movements completely by self Feeding: feeds self without help Total Score: 0 Information obtained from: patient Using telephone: independent Traveling: independent Shopping: independent Preparing meals: independent Housework: independent Taking medicine: independent Managing money: independent PHQ-9 Over the last 2 weeks, how often have you been bothered by any of the following problems? 1. Little interest or pleasure in doing things: several days 2. Feeling down, depressed, or hopeless: several days 3. Trouble falling or staying asleep, or sleeping too much: several days 4. Feeling tired or having little energy: several days 5. Poor appetite or overeating: several days 6. Feeling bad about yourself - or that you are a failure or have let yourself or your family down: several days 7. Trouble concentrating on things, such as reading the newspaper or watching television: several days 8. Moving or speaking so slowly that other people could have noticed. Or the opposite - being so fidgety or restless that you have been moving around a lot more than usual: not at all 9. Thoughts that you would be better off or of hurting yourself in some way: not at all Total score: 7 Depression Screening Interpretation: Positive Depression Screening Follow-up: Existing condition and New Medication prescribed Depression Screening Done: Yes 92866 - PHQ-9 Billing: Yes Source: Developed by Drs. Yasir Hardin, Marilee Castillo, Anish Villagran and colleagues, with an educational isaiah from [employer]. Physical Exam Vital Signs: Last Vital Signs Pulse 64 11/18/24 08:07 Resp 12 11/18/24 08:07 BP 104/64 11/18/24 08:07 Pulse Ox 93 11/18/24 08:07 Oxygen Delivery Method Room Air 11/18/24 08:07 BMI result Body Mass Index 33.7 Office Procedures Advance Care Planning Advance Care Planning discussion: Exists, not on file Date of discussion: 11/18/24 Forms completed: Health Care Proxy and MOLST Time spent: 1-15 minutes, not on file Actual minutes spent: 15 Cerumen Removal From which ear canal was the cerumen removed: bilateral Removal: irrigation Notes: patient tolerated procedure well, no complications and ear canal clear [id number] Irrigation/Lavage EKG [id number], Complete Vision Screening Right Eye: 20/40 Left Eye: 20/40 Bilateral: 20/30 Color: Pass Corrected: Fail 13512 - Vision Screening Results AMB Hemoglobin A1c AMB Hemoglobin A1c 5.4 % Last Edit by Izzy Escalante MA on 11/18/24 08:23 Results Reviewed Results Reviewed: Laboratory Last Values Hgb A1c (Clinic) 5.4 % (4.0-6.0) 11/18/24 08:22 Assessment & Plan Assessment & Plan (1) Encounter for subsequent annual wellness visit (AWV) in Medicare patient: Code(s): Z00.00 - Encounter for general adult medical examination without abnormal findings (2) Bipolar 1 disorder: Code(s): F31.9 - Bipolar disorder, unspecified (3) COPD (chronic obstructive pulmonary disease): Code(s): J44.9 - Chronic obstructive pulmonary disease, unspecified Qualifiers: COPD type: chronic bronchitis Chronic bronchitis type: simple Qualified Code(s): J41.0 - Simple chronic bronchitis (4) Diabetes mellitus type 2 with atherosclerosis of arteries of extremities: Code(s): E11.51 - Type 2 diabetes mellitus with diabetic peripheral angiopathy without gangrene; I70.209 - Unspecified atherosclerosis of [place] arteries of extremities, unspecified extremity (5) MDD (major depressive disorder), recurrent episode: Code(s): F33.9 - Major depressive disorder, recurrent, unspecified Qualifiers: Major depression episode severity: moderate Qualified Code(s): F33.1 - Major depressive disorder, recurrent, moderate (6) Adult BMI 33.0-33.9 kg/sq m: Code(s): Z68.33 - Body mass index [BMI] 33.0-33.9, adult (7) Class 1 obesity with body mass index (BMI) of 33.0 to 33.9 in adult: Code(s): E66.9 - Obesity, unspecified; Z68.33 - Body mass index [BMI] 33.0-33.9, adult Qualifiers: Obesity type: due to excess calories Serious obesity comorbidity presence: with serious comorbidity Qualified Code(s): E66.09 - Other obesity due to excess calories; Z68.33 - Body mass index [BMI] 33.0-33.9, adult (8) Tobacco dependence: Code(s): F17.200 - Nicotine dependence, unspecified, uncomplicated Plan: Smoking Cessation How to Quit There are a lot of ways to quit smoking and many resources to help you. Family members, friends, and co-workers may be supportive or encouraging, but to be successful the desire and commitment to quit must be your own. Most people who have been able to successfully quit smoking made at least one unsuccessful attempt in the past. Try not to view past attempts to quit as failures, but rather as learning experiences. Stopping smoking or using smokeless tobacco is difficult, but anyone can do it. Know the symptoms to expect when you stop. Common symptoms include: ? An intense craving for nicotine ? Anxiety, tension, restlessness, frustration, or impatience ? Difficulty concentrating ? Drowsiness or trouble sleeping, as well as bad dreams and nightmares ? Drowsiness and trouble sleeping ? Headaches ? Increased appetite and weight gain ? Irritability or depression How severe your symptoms are depends on how long you smoked and how many cigarettes you smoked each day. Feel ready to quit? ? First and foremost, set a quit date and quit completely on that day. Before your quit date, you may begin reducing your cigarette use. But remember, there is no safe level of cigarette smoking. ? List the reasons why you want to quit. Include both short- and long-term benefits. ? Identify the times you are most likely to smoke. For example, do you tend to smoke when feeling stressed or down? When out at night with friends? While drinking coffee or alcohol? When bored? While driving? Right after a meal or sex? During a work break? While watching TV or playing cards? When you are with other smokers? ? Let all of your friends, family, and co-workers know of your plan to stop smoking and your quit date. Just being aware that they know what you're going through can be helpful, especially when you are grumpy. ? Get rid of all your cigarettes just before the quit date, and clean out anything that smells like smoke, such as clothes and furniture. Make a plan about what you will do instead of smoking at those times when you are most likely to smoke. ? Be as specific as possible. For example, drink tea instead of coffee -- tea may not trigger the desire for a cigarette. Or, take a walk when you feel stressed. ? Remove ashtrays and cigarettes from the car. Place pretzels or hard candies there instead. Pretend-smoke with a straw. ? Find activities that focus your hands and mind but are not taxing or fattening. Computer games, solitaire, knitting, sewing, and crossword puzzles may help. ? If you normally smoke after eating, find other ways to end a meal. Play a tape or CD, eat a piece of fruit, get up and make a phone call, or take a walk (a good distraction that also rolle calories). Make other changes in your lifestyle. ? Change your daily schedule and habits. Eat at different times or eat several small meals instead of three large ones. Sit in a different chair or even a different room. ? Satisfy your oral habits by eating celery or other low-calorie snack, chewing sugarless gum, or sucking on a cinnamon stick. ? Go to public places and restaurants where smoking is prohibited or restricted. ? Eat regular meals and don't eat too much candy or sweet things. ? Get more exercise. Take walks or ride a bike. Exercise helps relieve the urge to smoke. Set short-term quitting goals and reward yourself when you meet them. ? Every day, put the money you normally spend on cigarettes in a jar. Then buy something pleasurable after a period of time. ? Try not to think about all the days ahead you will need to avoid smoking. Take it one day at a time. ? Even one puff or one cigarette will make your desire for more cigarettes even stronger. However, it is normal to make mistakes. So even if you have one cigarette, you don't need to take the next one. Other tips to help you quit smoking and stick to it: ? Enroll in a smoking cessation program (hospitals, health departments, community centers, and work sites often offer programs). Learn about self-hypnosis or other techniques. ? Ask your health care provider about prescription medications that are safe and appropriate for you. ? Find out about nicotine patches, gum, and sprays. The [place] [employer]'s web site -- www.cancer.org -- is an excellent resource for smokers who are trying to quit, and the [employer] [place] [employer] can help some smokers kick the habit. Above all, don't get discouraged if you aren't able to quit smoking the first time. Nicotine addiction is a hard habit to break. Try something different next time. Develop new strategies, and try again. Many people take several attempts to finally kick the habit. (9) doug Gasca: Code(s): H61.23 - Impacted cerumen, bilateral (10) Oral lesion: Code(s): K13.70 - Unspecified lesions of oral mucosa Plan / Orders: Orders XR DEXA axial skeleton Today Z13.820 - Encounter for screening for osteoporosis AMB Hemoglobin A1c Today Z13.9 - Encounter for screening, unspecified MM tomosynthesis screening BI Today Z12.31 - Encounter for screening mammogram for malignant neoplasm of breast Referrals Smoking Cessation Counseling F17.200 - Nicotine dependence, unspecified, uncomplicated Lung Cancer Screening Referral F17.200 - Nicotine dependence, unspecified, uncomplicated Medications: New duloxetine 30 mg PO DAILY 90 caps 0RF Patient Instructions: Health screenings for women You should visit your health care provider from time to time, even if you are healthy. The purpose of these visits is to: Screen for medical issues Assess your risk for future medical problems Encourage a healthy lifestyle Update vaccinations and other preventive care services Help you get to know your provider in case of an illness Information Even if you feel fine, you should still see your provider for regular checkups. These visits can help you avoid problems in the future. For example, the only way to find out if you have high blood pressure is to have it checked regularly. High blood sugar and high cholesterol levels also may not have any symptoms in the early stages. A simple blood test can check for these conditions. There are specific times when you should see your provider or receive specific health screenings. The [place] Preventive Services Task Force publishes a list of recommended screenings. Below are screening guidelines for women ages 18 to 39. BLOOD PRESSURE SCREENING Your blood pressure should be checked at least once every 3 to 5 years if: Your blood pressure is in the normal range (top number less than 120 mm Hg and bottom number less than 80 mm Hg) You don't have risk factors for high blood pressure Ask your provider if you need your blood pressure checked more often if: The top number is 120 to 129 mm Hg or the bottom number is 70 to 79 mm Hg You have diabetes, heart disease, kidney problems, are overweight, or have certain other health conditions You have a first-degree relative with high blood pressure You are Black You had high blood pressure during a If the top number is 130 mm Hg or greater or the bottom number is 80 mm Hg or greater, this is considered stage 1 hypertension. Schedule an appointment with your provider to learn how you can reduce your blood pressure. Watch for blood pressure screenings in your area. Ask your provider if you can stop in to have your blood pressure checked. BREAST CANCER SCREENING Experts do not agree about the benefits of breast self-exams in finding breast cancer or saving lives. Talk to your provider about what is best for you. A screening mammogram is not recommended for most women under age 40. Your provider may discuss and recommend mammograms, MRI scans, or ultrasounds if you have an increased risk for breast cancer, such as: A mother or sister who had breast cancer at a young age (most often starting screening earlier than the age the close relative was diagnosed) You carry a high-risk genetic marker CERVICAL CANCER SCREENING Cervical cancer screening should start at age 21 years unless your provider advises otherwise. After the first test: Women ages 21 through 29 should have a Pap test every 3 years. Exoprts do not agree on whether HPV testing is recommended for this age group. Women ages 30 through 65 should be screened with either a Pap test every 3 years or the HPV test every 5 years or both tests every 5 years (called cotesting ). Women who have been treated for precancer (cervical dysplasia) should continue to have Pap tests for 20 years after treatment or until age 65, whichever is longer. If you have had your uterus and cervix removed (total hysterectomy), and you have not been diagnosed with cervical cancer or precancer (high grade cervical neoplasia), you do not need cervical cancer screening. CHOLESTEROL SCREENING Cholesterol screening should begin at: Age 45 for women with no known risk factors for coronary heart disease Age 20 for women with known risk factors for coronary heart disease Repeat cholesterol screening should take place: Every 5 years for women with normal cholesterol levels More often if changes occur in lifestyle (including weight gain and diet) More often if you have diabetes, heart disease, kidney problems, or certain other conditions DIABETES SCREENING You should be screened for diabetes starting at age 35 and then repeated every 3 years if you have no risk factors for diabetes. Screening may need to start earlier and be repeated more often if you have other risk factors for diabetes, such as: You have a first degree relative with diabetes. You are overweight or have obesity. You have high blood pressure, prediabetes, or a history of heart disease. Screening for diabetes should be done if you are planning to become and you are overweight and have other risk factors such as high blood pressure. DENTAL EXAM Go to the dentist once or twice every year for an exam and cleaning. Your dentist will evaluate if you need more frequent visits. EYE EXAM Have an eye exam every 5 to 10 years before age 40. If you have vision problems, have an eye exam every 2 years or more often if recommended by your provider. You should have an eye exam that includes an examination of your retina (back of your eye) at least every year if you have diabetes. IMMUNIZATIONS Commonly needed vaccines include: Flu shot: get one every year. COVID-19 vaccine: ask your provider what is best for you. Tetanus-diphtheria and acellular pertussis (Tdap) vaccine: have one at or after age 19 as one of your tetanus-diphtheria vaccines if you did not receive it as an adolescent. Tetanus-diphtheria: have a booster (or Tdap) every 10 years. Varicella vaccine: receive 2 doses if you never had chickenpox or the varicella vaccine. Hepatitis B vaccine: receive 2, 3, or 4 doses, depending on your exact circumstances. Measles, mumps, and rubella (MMR) vaccine: receive 1 to 2 doses if you are not already immune to MMR. Your provider can tell you if you are immune. Ask your provider about the human papillomavirus (HPV) vaccine if: You have not received the HPV vaccine in the past You have not completed the full vaccine series (you should catch up on this shot) Ask your provider if you should receive other immunizations if you have certain health problems that increase your risk for some diseases such as pneumonia. INFECTIOUS DISEASE SCREENING Women who are sexually active should be screened for chlamydia and gonorrhea up until age 25. Women 25 years and older should be screened for chlamydia and gonorrhea if at high risk. Screening for hepatitis C: All adults ages 18 to 79 should get a one-time test for hepatitis C. people should be screened at every . Screening for human immunodeficiency virus (HIV): All people ages 15 to 65 should get a one-time test for HIV. Depending on your lifestyle and medical history, you may also need to be screened for infections such as syphilis and HIV, as well as other infections. PHYSICAL EXAM All adults should visit their provider from time to time, even if they are healthy. The purpose of these visits is to: Screen for disease Assess your risk of future medical problems Encourage a healthy lifestyle Update your vaccinations and other preventive care services Maintain a relationship with a provider in case of an illness Your height, weight, and BMI should be checked at every exam. During your exam, your provider may ask you about: Depression and anxiety Diet and exercise Alcohol and tobacco use Safety issues, such as using seat belts, smoke detectors, and intimate partner violence Your medicines and risk for interactions SKIN SELF-EXAM Your provider may check your skin for signs of skin cancer, especially if you're at high risk, such as if you: Have had skin cancer before Have close relatives with skin cancer Have a weakened immune system OTHER SCREENING Talk with your provider about colon cancer screening if you have a strong family history of colon cancer or polyps, or if you have had inflammatory bowel disease or polyps yourself. Routine bone density screening of women under 40 is not recommended. Smoking Cessation How to Quit There are a lot of ways to quit smoking and many resources to help you. Family members, friends, and co-workers may be supportive or encouraging, but to be successful the desire and commitment to quit must be your own. Most people who have been able to successfully quit smoking made at least one unsuccessful attempt in the past. Try not to view past attempts to quit as failures, but rather as learning experiences. Stopping smoking or using smokeless tobacco is difficult, but anyone can do it. Know the symptoms to expect when you stop. Common symptoms include: ? An intense craving for nicotine ? Anxiety, tension, restlessness, frustration, or impatience ? Difficulty concentrating ? Drowsiness or trouble sleeping, as well as bad dreams and nightmares ? Drowsiness and trouble sleeping ? Headaches ? Increased appetite and weight gain ? Irritability or depression How severe your symptoms are depends on how long you smoked and how many cigarettes you smoked each day. Feel ready to quit? ? First and foremost, set a quit date and quit completely on that day. Before your quit date, you may begin reducing your cigarette use. But remember, there is no safe level of cigarette smoking. ? List the reasons why you want to quit. Include both short- and long-term benefits. ? Identify the times you are most likely to smoke. For example, do you tend to smoke when feeling stressed or down? When out at night with friends? While drinking coffee or alcohol? When bored? While driving? Right after a meal or sex? During a work break? While watching TV or playing cards? When you are with other smokers? ? Let all of your friends, family, and co-workers know of your plan to stop smoking and your quit date. Just being aware that they know what you're going through can be helpful, especially when you are grumpy. ? Get rid of all your cigarettes just before the quit date, and clean out anything that smells like smoke, such as clothes and furniture. Make a plan about what you will do instead of smoking at those times when you are most likely to smoke. ? Be as specific as possible. For example, drink tea instead of coffee -- tea may not trigger the desire for a cigarette. Or, take a walk when you feel stressed. ? Remove ashtrays and cigarettes from the car. Place pretzels or hard candies there instead. Pretend-smoke with a straw. ? Find activities that focus your hands and mind but are not taxing or fattening. Computer games, solitaire, knitting, sewing, and crossword puzzles may help. ? If you normally smoke after eating, find other ways to end a meal. Play a tape or CD, eat a piece of fruit, get up and make a phone call, or take a walk (a good distraction that also rolle calories). Make other changes in your lifestyle. ? Change your daily schedule and habits. Eat at different times or eat several small meals instead of three large ones. Sit in a different chair or even a different room. ? Satisfy your oral habits by eating celery or other low-calorie snack, chewing sugarless gum, or sucking on a cinnamon stick. ? Go to public places and restaurants where smoking is prohibited or restricted. ? Eat regular meals and don't eat too much candy or sweet things. ? Get more exercise. Take walks or ride a bike. Exercise helps relieve the urge to smoke. Set short-term quitting goals and reward yourself when you meet them. ? Every day, put the money you normally spend on cigarettes in a jar. Then buy something pleasurable after a period of time. ? Try not to think about all the days ahead you will need to avoid smoking. Take it one day at a time. ? Even one puff or one cigarette will make your desire for more cigarettes even stronger. However, it is normal to make mistakes. So even if you have one cigarette, you don't need to take the next one. Other tips to help you quit smoking and stick to it: ? Enroll in a smoking cessation program (hospitals, health departments, community centers, and work sites often offer programs). Learn about self-hypnosis or other techniques. ? Ask your health care provider about prescription medications that are safe and appropriate for you. ? Find out about nicotine patches, gum, and sprays. The [employer]'s web site -- www.cancer.org -- is an excellent resource for smokers who are trying to quit, and the [employer] [place] [employer] can help some smokers kick the habit. Above all, don't get discouraged if you aren't able to quit smoking the first time. Nicotine addiction is a hard habit to break. Try something different next time. Develop new strategies, and try again. Many people take several attempts to finally kick the habit. 3-980-MVHO-NOW Quality Reporting (2019) Adult ([facility] 138//) Smoking risk assessment performed?: Yes Patient Tobacco Use Status: Current everyday Tobacco user Tobacco cessation counseling provided: Yes Items discussed: Nicotine replacement, QuitWorks and Other Pharmacotherapy not ordered: Yes Depression screening performed: Yes Screen Results: Yes Negative screen Systolic BP not done?: No Diastolic BP not done?: No BMI screening not done: No BMI High - Follow Up: Yes High-plan (lifestyle mod, exercise ) Sexual Activity Screening ([facility] 153) Sexually active?: No Immunizations ([facility] 147, 117) Annual Influenza Vaccine: No Flu Vaccine not done: patient reason Measles Antibody Test: No Mumps Antibody Test: No Rubella Antibody Test: No Varicella Antibody Test: No Anti Hepatitis A IgG Antigen test: No Anti Hepatitis B Virus Surface Ab test: No Fall Risk Screening ([facility] 139) Last assessed Fall Risk: 11/18/24 Fall risk assessment: 2 + Falls in past year Dementia Assessment ([facility] 149) Cognitive assessment recorded: Yes Assessment of cognition with standardized tool: Yes (6 cit 0/28 ) Depression/Bipolar (159/160/161/177) PHQ-9: Total score: 7 Ophthalmol:Cataracts Visual Acuity (133) Visual acuity exam performed: Yes (see results ) Coding Level of Care Code Medicare Subsequent (G0439) Est Pt Level 4 (73668) Diagnoses Encounter for subsequent annual wellness visit (AWV) in Medicare patient Z00.00 Bipolar 1 disorder F31.9 Simple chronic bronchitis J41.0 COPD type: chronic bronchitis Chronic bronchitis type: simple 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; I70.209 Moderate episode of recurrent major depressive disorder F33.1 Major depression episode severity: moderate Adult BMI 33.0-33.9 kg/sq m Z68.33 Class 1 obesity due to excess calories with serious comorbidity and body mass index (BMI) of 33.0 to 33.9 in adult E66.09; Z68.33 Obesity type: due to excess calories Serious obesity comorbidity presence: with serious comorbidity Tobacco dependence F17.200 Impacted cerumen, bilateral H61.23 Oral lesion K13.70 CPT Codes Advance Care Planning - Time spent: 1-15 minutes, not on file ([id number]) Office Procedure - CPT: 94856-Hvr Irrigation/Lavage ([id number]) EKG - CPT: 69715-Rayutbfedotzkokpb, Complete ([id number]) Vision Screening - Vision Screenin - Vision Screening ([id number]) Additional Codes PHQ-9 - 18320 - PHQ-9 Billing: Yes ([id number]) Advance Care Planning Advance Care Planning discussion: Exists, not on file Date of discussion: 11/18/24 Forms completed: Health Care Proxy, MOLST, Comfort care/DNR and Living will Actual minutes spent: 15
[2024-11-18 08:07] VITALS: BP 104/64; PULSE 64; RESP 12; O2SAT 93; BMI 33.7
== END 2024-11-18 09:12 | disposition home or self-care (01) ==
PROVIDERS: PCP Nurse Practitioner Family; Visit Provider Nurse Practitioner Family
DX: Z00.00 Encounter for general adult medical examination without abnormal findings (principal); F31.9 Bipolar disorder, unspecified; J41.0 Simple chronic bronchitis; E11.51 Type 2 diabetes mellitus with diabetic peripheral angiopathy without gangrene; I70.209 Unspecified atherosclerosis of native arteries of extremities, unspecified extremity; F33.1 Major depressive disorder, recurrent, moderate; Z68.33 Body mass index [BMI] 33.0-33.9, adult; E66.09 Other obesity due to excess calories; F17.200 Nicotine dependence, unspecified, uncomplicated; H61.23 Impacted cerumen, bilateral; K13.70 Unspecified lesions of oral mucosa

== ENCOUNTER → 2024-11-29 13:09 | Outpatient (BNV) | payer MEDICARE, SELFPAY | PROVIDERS: PCP Nurse Practitioner Family; Visit Provider Radiology Diagnostic Radiology | DX: M47.817 Spondylosis without myelopathy or radiculopathy, lumbosacral region (principal) | CPT/HCPCS: 72148 ==

== ENCOUNTER 2024-11-29 13:34 | Outpatient (REF) | payer MEDICARE, SELFPAY ==
--- NOTE | ~2024-11-29 | MR_ITS ---
EXAMINATION: MR LUMBAR SPINE WITHOUT CONTRAST CLINICAL INFORMATION: Spondylosis without myelopathy or radiculopathy, lumbosacral. COMPARISON: None available. TECHNIQUE: MRI of the lumbar spine was obtained using routine sequences without contrast. FINDINGS: Last rib-bearing vertebra labeled T12. Bone marrow STIR signal within the posterior elements of L4 and to a lesser extent L3. There is a 30% volume loss and Schmorl node in superior endplate of L4 with 2 mm retropulsion into the canal. There is a grade 1 retrolisthesis L3-4, L1-2 and L2-3 levels There is a multilevel disc desiccation and marginal osteophyte formation more conspicuous at L1-2, L3-4 levels. There is an intrinsic hyperintense T1 bone marrow signal lesion at L1, likely intraosseous hemangioma. The conus medullaris and at inferior endplate of T12 with normal signal. T12-L1: No disc herniation. No neuroforamina stenosis. L1-2: Grade 1 retrolisthesis. Broad-based disc bulging. Facet joint and ligamentum flavum hypertrophy. No compression upon neural elements. L2-3: Grade 1 retrolisthesis. Broad-based disc bulging. Facet joint and ligamentum flavum hypertrophy. Reduced AP diameter of the thecal sac and the neural foramina. L3-4: Broad-based disc bulging. Facet joint and ligamentum flavum hypertrophy. Superior endplate compression deformity and 2 mm retropulsion resulting in CSF effacement of the thecal sac and central spinal canal stenosis. Bilateral neuroforamina narrowing. L4-5: Broad-based disc bulging. Facet joint and ligamentum flavum hypertrophy. Reduced AP diameter of the thecal sac and the neural foramina likely encroaching the neural elements. L5-S1: Broad-based disc bulging. Facet joint hypertrophy. Reduced AP diameter of the thecal sac and the neural foramina. Degenerative changes in the sacroiliac joints. No prevertebral compartment hematoma mass or fluid collection. Liver appears enlarged. There is a focal hyperintense T2 signal in the posterior midportion left kidney. Fatty atrophy of the lower lumbar muscles extending from L4 to sacrum.. MR/MR lumbar spine wo con IMPRESSION: Subacute to old compression deformity of L4 resulting in 2 mm retropulsion causing the central spinal canal stenosis encroaching likely compressing the neural elements of the thecal sac.. Acute to subacute inflammatory degenerative changes in the posterior elements of L4 and to a lesser extent L3. Multilevel spondylosis resulting in grade 1 retrolisthesis L1 to, L2-3. Electronically signed by: James Wing MD 11/29/2024 02:56 PM EST
== END 2024-11-29 13:35 | disposition home or self-care (01) ==
LOC: HO.MRI 13:34
PROVIDERS: PCP Nurse Practitioner Family; Visit Provider Nurse Practitioner Family
DX: M47.817 Spondylosis without myelopathy or radiculopathy, lumbosacral region (principal); M54.16 Radiculopathy, lumbar region; M54.51 Vertebrogenic low back pain
CPT/HCPCS: 72148

== ENCOUNTER 2024-11-30 15:11 | Outpatient (AMB) | payer MEDICARE, SELFPAY ==
--- NOTE | 2024-11-30 15:18 | A.OFFPC_ITS ---
Intake Visit Reasons: MRI results Allergies cephalexin [From Keflex] Allergy (Severe, Verified 11/30/24 16:27) Rash Sulfa (Sulfonamide Antibiotics) Allergy (Severe, Verified 11/30/24 16:27) Rash Medication List - Last Reconciled 11/30/24 by Adia Flower, FINANCIAL SERVICES AUDITOR- albuterol sulfate 90 mcg/actuation 2 puffs inhalation Q4-6H PRN 30 days alendronate 70 mg PO QWEEK aripiprazole 2 mg PO BID baclofen 10 mg PO TID lgbsgbffsc-gjcvqxuwccahk-poll 50-325-40 mg 1 tab PO DAILY PRN clonidine HCl 0.1 mg PO BEDTIME desonide 0.05% 1 appl topical BID-QID PRN diclofenac sodium 3% 1 appl topical BID PRN duloxetine 30 mg PO DAILY esomeprazole magnesium 40 mg PO DAILY gabapentin 300 mg PO TID ibuprofen 600 mg PO TID metformin ER 500 mg PO DAILY naloxone 4 mg/actuation (Narcan) 4 mg intranasal Q2M PRN trazodone 300 mg PO BEDTIME [wedge pillow As directed] Tobacco use date assessed: 08/04/24 Dental Screening Dental Screen Date: 08/04/24 HPI HPI Comments History of Present Illness Details 69 y/o F with osteoporosis, DM2, GERD, I sally def anemia, GERD, Bipolar 1, KYLE, MDD, COPD, current tobacco use, chronic pain, eczema, hiatal hernia, schatzki ring, esophagitis, gastritis, diverticulosis, colon polyp, internal hemorrhoids Telehealth: The patient is a 69-year-old female presenting with concerns related to the findings of a recent MRI. The MRI was conducted due to ongoing back pain, and she has been following up with pain management, specifically at [facility]. The findings indicate subacute to old compression deformity of L4 resulting in retroplution, leading to central spinal canal stenosis, and compression of neural elements. Additionally, degenerative changes were noted in the L3 and L4 vertebrae, and spondylosis was present. Fatty atrophy of the lower lumbar muscles was also noted. The physical therapy referral from the pain management team has not been acted on yet due to missed communication, and no follow-up appointment with the pain management provider, Rhoda, has been scheduled yet. The patient reports an enlarged liver and a focal hyperintense T2 signal in the left kidney that has caused significant anxiety.She has concerns about potential liver damage associated with duloxetine, mentioning symptoms of sleep disruption (makes her very tired - taking in the aM), constipation, and urinary hesitation which she attributes to its side effects. She has since switched to escitalopram only and stopped taking duloxetine (only 1 day). [place] [facility] a barium swallow study ordered by gastroenterology Consults reviewed Pain mgmt 10/27/24 Lumbar spine and SIJ imaging to assess degree of degenerative changes, any subluxation, listhesis, compression fractures or pars defects and MRI of the lumbar spine to assess for neural integrity and compression. Back pain is consistent with axial, discogenic and SIJ pain components per today's exam. Patient will return to the clinic after initiating PT and to discuss results of the xray/MRI findings when it is done and consider interventional therapy as indicated. Review of Systems - Musculoskeletal: Reports back pain. - Neurological: Reports being easily fat igued, particularly associated with medication. - Gastrointestinal: Reports enlarged chelle er; denies current symptoms but concerned about potential liver damage. - Genitourinary: Reports concerns over k idney lesion. - General: Reports sleep disruption, con stipation, and urinary hesitation attributed to medication. Discussion Notes During the telehealth visit, I reviewed the MRI findings with the patient. We discussed the presence of chronic degenerative changes, notably the compression deformity of L4, and its implications for spinal stenosis. I emphasized that the MRI findings concerning the liver appear chronic rather than acute. I reassured the patient that the lesion in the kidney is likely non-specific and not alarming. I suggested obtaining an ultrasound to review her liver and kidney comprehensively. I advised her to continue her current medication regimen unless directed otherwise and acknowledged her concerns about duloxetine, recommending taking it at night due to the sedative effects. An arrangement was made to contact Rhoda?s team to ensure continuity in her pain management plan. We discussed the need for an ultrasound, the fasting requirement, and informed her to expect a call from radiology for scheduling. Plan - Coordinate with radiology for the ultr asound of the abdomen to evaluate the liver and kidney findings on MRI - Contact Rhoda?s team to assist in sched uling a follow-up for detailed back treatment planning. Message sent - Advise switching duloxetine intake to the evening if it induces sleepiness. But do not stop taking - Encourage the patient to initiate phys ical therapy as recommended by pain management. Patient was informed and verbally consented to the use of an ambient scribe for clinic note documentation during this visit. Patient Instructions - Await a call from [facility]'s radiology team to schedule the ultrasound. - Follow any preparatory instructions pr ovided for the abdominal ultrasound, including fasting if required. - Take duloxetine at bedtime instead of in the morning. - Engage with physical therapy as soon a s contact is made to help manage back pain. - Expect follow-up communication from [facility]'s team to schedule a more detailed pain management appointment. - Contact the office with any concerns o r questions regarding current or new symptoms. This note is constructed using voice recognition software. While every effort has been made to ensure accuracy in laborer cheesemaking, still errors may have been included Sometimes, these errors may affect the content or meaning of the given sentence . Total time spent caring for the patient today was 20 minutes. This includes time spent before the visit reviewing the chart, time spent during the visit, and time spent after the visit on documentation PFSH Medical History Diabetes Bipolar 1 disorder Anxiety and depression Imbalance Headache H/O gastroesophageal reflux (GERD) Acid reflux Spine disorder Swelling Edema Osteoporosis Acute arthritis COPD (chronic obstructive pulmonary disease) Surgical History H/O left breast biopsy H/O: hemorrhoidectomy Hx of cholecystectomy History of esophagogastroduodenoscopy (EGD) Hx of colonoscopy Family History Mother Mental health disorder Substance abuse Cardiovascular disease Alcoholism Father Diabetes Colon cancer Social History Household Members: Children Both parents involved: No Caregiver staying overnight: No Housing: Apartment Are you a primary healthcare management to a significant other at home: No Do you presently have visiting nurse or other home services: No 75 years or older and lives alone: No Alcohol intake: never Patient Tobacco Use Status: Current everyday Tobacco user Tobacco use type: Cigarette Cigarette Packs Per Day: 1 Cigarettes Per Day: 20.0 Years Smoked: 25 e-Cigarette/Vaping Use: Never Used Second Hand Smoke Exposure: Yes Current occupational status: disabled Cognitive needs: Yes Hearing needs: No Vision needs: Yes (wear glasses) Questionnaire Thrive Questionnaire Date Thrive assessed: 11/18/24 AUDIT C Alcohol Use Questionnaire (AUDIT-C) 3. How often do you have six or more drinks on one occasion?: Never Total Score: 0 KYLE-7 AMB Questionnaire KYLE-7 Date KYLE - 7 assessed: 09/23/24 Source: Developed by Drs. Yasir Hardin, Marilee Castillo, Anish Villagran and colleagues, with an educational isaiah from [employer]. Physical exam (Primary Care) Tobacco/Smoking Status: Tobacco use Status Tobacco use date assessed 08/04/24 09/23/24 11:00 Patient Tobacco Use Status Current everyday Tobacco 11/18/24 08:12 Tobacco use type Cigarette 10/12/24 12:29 e-Cigarette/Vaping Use Never Used 09/23/24 11:00 Thrive Assessment: Date of Thrive Assessment Date Thrive assessed 11/18/24 11/18/24 07:55 Results Reviewed Results Reviewed: [place] [id number] Magnetic Resonance Report Signed Patient: Nataliia Brush April MR#: [id number] : 1955 Acct:[id number] Age/Sex: 69 / F ADM Date: 11/29/24 Loc: HO.MRI Attending Dr: Rhoda DUVAL Ordering Physician: Rhoda Berman Date of Service: 11/29/24 Procedure(s): MR lumbar spine con Accession Number(s): [id number] cc: Rhoda Berman; Adia FlowerP-~ EXAMINATION: MR LUMBAR SPINE WITHOUT CONTRAST CLINICAL INFORMATION: Spondylosis without myelopathy or radiculopathy, lumbosacral. COMPARISON: None available. TECHNIQUE: MRI of the lumbar spine was obtained using routine sequences without contrast. FINDINGS: Last rib-bearing vertebra labeled T12. Bone marrow STIR signal within the posterior elements of L4 and to a lesser extent L3. There is a 30% volume loss and Schmorl node in superior endplate of L4 with 2 mm retropulsion into the canal. There is a grade 1 retrolisthesis L3-4, L1-2 and L2-3 levels There is a multilevel disc desiccation and marginal osteophyte formation more conspicuous at L1-2, L3-4 levels. There is an intrinsic hyperintense T1 bone marrow signal lesion at L1, likely intraosseous hemangioma. The conus medullaris and at inferior endplate of T12 with normal signal. T12-L1: No disc herniation. No neuroforamina stenosis. L1-2: Grade 1 retrolisthesis. Broad-based disc bulging. Facet joint and ligamentum flavum hypertrophy. No compression upon neural elements. L2-3: Grade 1 retrolisthesis. Broad-based disc bulging. Facet joint and ligamentum flavum hypertrophy. Reduced AP diameter of the thecal sac and the neural foramina. L3-4: Broad-based disc bulging. Facet joint and ligamentum flavum hypertrophy. Superior endplate compression deformity and 2 mm retropulsion resulting in CSF effacement of the thecal sac and central spinal canal stenosis. Bilateral neuroforamina narrowing. L4-5: Broad-based disc bulging. Facet joint and ligamentum flavum hypertrophy. Reduced AP diameter of the thecal sac and the neural foramina likely encroaching the neural elements. L5-S1: Broad-based disc bulging. Facet joint hypertrophy. Reduced AP diameter of the thecal sac and the neural foramina. Degenerative changes in the sacroiliac joints. No prevertebral compartment hematoma mass or fluid collection. Liver appears enlarged. There is a focal hyperintense T2 signal in the posterior midportion left kidney. Fatty atrophy of the lower lumbar muscles extending from L4 to sacrum.. MR/MR lumbar spine wo con IMPRESSION: Subacute to old compression deformity of L4 resulting in 2 mm retropulsion causing the central spinal canal stenosis encroaching likely compressing the neural elements of the thecal sac.. Acute to subacute inflammatory degenerative changes in the posterior elements of L4 and to a lesser extent L3. Multilevel spondylosis resulting in grade 1 retrolisthesis L1 to, L2-3. Electronically signed by: James Wing MD 11/29/2024 02:56 PM EST Dictated By: James Almonte MD Signed By: <Electronically signed by James Brasher MD in OV> 11/29/24 1456 DD/ 1309 TD/TT: 11/29/24 1400 Zipper Sewing Machine Operator: Coding Level of Care Code Tele Est Pt Level 3 (17805) Complex EM visit Add On G2211 Diagnoses Enlarged liver R16.0 Abnormal MRI R93.89 Lumbosacral spondylosis M47.817 Lumbar radicular pain M54.16 Assessment & Plan Assessment & Plan (1) Enlarged liver: Code(s): R16.0 - Hepatomegaly, not elsewhere classified Category: Medical (2) Abnormal MRI: Code(s): R93.89 - Abnormal findings on diagnostic imaging of other specified body structures Category: Medical (3) Lumbosacral spondylosis: Code(s): M47.817 - Spondylosis without myelopathy or radiculopathy, lumbosacral region Category: Medical (4) Lumbar radicular pain: Code(s): M54.16 - Radiculopathy, lumbar region Category: Medical Plan . Orders: Orders US abdomen complete Today R16.0 - Hepatomegaly, not elsewhere classified, R93.89 - Abnormal findings on diagnostic imaging of other specified body structures
== END 2024-11-30 17:05 | disposition home or self-care (01) ==
LOC: HO.HMCFM 15:11
PROVIDERS: PCP Nurse Practitioner Family; Visit Provider Nurse Practitioner Family
DX: R93.89 Abnormal findings on diagnostic imaging of other specified body structures (principal); R16.0 Hepatomegaly, not elsewhere classified; M47.817 Spondylosis without myelopathy or radiculopathy, lumbosacral region; M54.16 Radiculopathy, lumbar region

== ENCOUNTER 2024-12-06 09:54 | Outpatient (AMB) | payer MEDICARE, SELFPAY ==
--- NOTE | 2024-12-06 09:58 | A.OFFVIS_ITS ---
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 Denies any recent cough, cold, infection, fever or other significant changes in medical history since last office visit. PRIOR: Patient presents today for follow up for left sided radiculopathy. She was seen by Orthopedic provider last month for hip pain without groin pain and referred to our office for further evaluation of radicular symptoms. Patient reports back pain is predominantly axial and discogenic in nature with movements, axial rotations and flexing forward but also radiates into sacral areas and bilateral lateral hips and into left anterior thigh. Denies groin pain or radiation of back pain below knee level. She reports partial relief with Tylenol and NSAIDs, heat, topical applications and moderate relief with short script of tramadol which she takes only for severe pain. Patient is starting formal PT at [facility] in [place]. Denies numbness or tingling in bilateral lower extre mities, weakness, bladder or bowel dysfunction or saddle anesthesia. PRIOR: Pleasant 69-year-old female with prior history of osteoporosis, osteoarthritis, chronic low back pain, L4 compression fracture, current everyday tobacco user (1PPD), GERD, COPD, insomnia, anxiety and depression, bipolar 1 disorder, presents today for initial evaluation of left hip pain. Reports history of multiple falls in the past and more recently increasing episodes of lightheadedness, dizziness and imbalance. She has pending physical therapy for gait training. Patient also reports intermittent chest pain for the past 2 weeks. She also reports acid reflux symptoms and chest pain occurring simultaneously and always relieved by famotidine. When offered medical evaluation in ER, patient declined. Patient reports wearing alert brace due to multiple falls history. Patient reports left hip pain has been bothersome and progressively worsening for the past 6-7 months. Left hip is accompanied by groin pain and shooting down into her left calf. SLR testing is negative today for lumbar radiculopathy. She also has history of right hip pain. Pain is most severe with weight-bearing, walking, climbing stairs or sleeping on the left side. Most recent x-ray showed [id number] bilateral hip osteoarthritis. Patient is not currently taking alendronate due to potential side effects. She reports family history of avascular osteonecrosis in her mother and for this reason she would like to avoid steroidal injections. Patient has has pending orthopedic evaluation next month. In meantime, she would like to proceed with physical therapy. Denies any fever or chills, weakness, numbness or tingling, footdrop, bladder or bowel dysfunction or saddle anesthesia. Location: Left hip radiates down into left lower leg Duration: Chronic back pain, left hip-7 months, multiple falls Characteristics of symptom or complaint: Aching, shooting, stabbing, burning, throbbing, tiring, sharp Aggravating or associated factors: Side sleeping, walking, weight bearing, changing positions, climbing stairs Relieving factors: Ibuprofen, gabapentin, Tylenol Treatment: Pending Ortho eval, xrays, alert brace [facility] Medical History (Updated 12/06/24 @ 11:52 by SIMIN Huggins) Compression fracture of L4 vertebra Diabetes Bipolar 1 disorder Anxiety and depression Imbalance Headache H/O gastroesophageal reflux (GERD) Acid reflux Spine disorder Swelling Edema Osteoporosis Acute arthritis COPD (chronic obstructive pulmonary disease) Surgical History H/O left breast biopsy H/O: hemorrhoidectomy Hx of cholecystectomy History of esophagogastroduodenoscopy (EGD) Hx of colonoscopy Family History Mother Mental health disorder Substance abuse Cardiovascular disease Alcoholism Father Diabetes Colon cancer Social History Household Members: Children Both parents involved: No Caregiver staying overnight: No Housing: Apartment Are you a primary inspector health care facilities to a significant other at home: No Do you presently have visiting nurse or other home services: No 75 years or older and lives alone: No Alcohol intake: never Patient Tobacco Use Status: Current everyday Tobacco user Tobacco use type: Cigarette Cigarette Packs Per Day: 1 Cigarettes Per Day: 20.0 Years Smoked: 25 e-Cigarette/Vaping Use: Never Used Second Hand Smoke Exposure: Yes Current occupational status: disabled Cognitive needs: Yes Hearing needs: No Vision needs: Yes (wear glasses) Review of Systems Const All systems reviewed & are unremarkable except as noted in HPI and below Physical Exam Vital Signs: Last Vital Signs Pulse 72 12/06/24 10:02 BP 119/61 12/06/24 10:02 BMI result Body Mass Index 31.9 General: Appears afebrile. Alert and oriented. Mood and affect appropriate. Follows and participates in conversation appropriately. Respiratory effort is unlabored. No cough. Able to transition from sit to stand unassisted. Ambulates with bilaterally normal heel strike and toe off. General: Yes no CVA tenderness Back/Spine/Pelvis Other: Limited lumbar ROM with lumbar extension reproducing moderate pain and thoracolumbar flexion and bending reproducing moderate pain. Positive facet loading bilaterally, left>right. Demonstrates 5/5 right and 4/5 left due to pain strength of quadriceps bilaterally as well as flexion/dorsiflexion of bilateral feet against resistance. 2+ pedal pulses bilaterally. Straight leg rise with dorsiflexion reproduces left thigh pain. +1 patellar and achilles reflexes bilaterally. Shira sign, Jenaro?s, Pelvic compression, Gaenslen and Stinchfield tests are positive bilaterally, left>right. No groin pain with I/E hip rotations bilaterally. Mild to moderate TTP to left GTB. Valsalva maneuver is negative. Back: no CVA tenderness Cervical Spine: cervical ROM normal and No Cervical spine tenderness Thoracic/Lumbar Spine: thoracic and lumbar spine normal to inspection, No Thoracic/lumbar spine scar(s), Lasegue's sign positive on the left, pain with thoraco-lumbar ROM, paraspinal muscle tenderness on the left greater than right, thoraco-lumbar ROM limited, Thoracic/lumbar scoliosis, No thoracic spinal tenderness and lumbar spinal tenderness (L4-S1) Pelvis: buttock tenderness on the left Sacroiliac joints: bilaterally tender to palpation Extrem General: Yes capillary refill normal, Yes no clubbing, cyanosis or edema and Yes no calf tenderness Quality Reporting (2019) Adult ([facility] 138//) Smoking risk assessment performed?: Yes Patient Tobacco Use Status: Current everyday Tobacco user Results Reviewed Results Reviewed: XR HIP, LEFT 08/25/24 CLINICAL INFORMATION: Left hip pain. FINDINGS: No acute fracture or dislocation. Mild bilateral hip joint space narrowing with marginal osteophytes. No osseous erosion. No evidence of femoral head avascular necrosis. No abnormal soft tissue calcification. IMPRESSION: [id number] bilateral hip osteoarthritis. MR LUMBAR SPINE WITHOUT CONTRAST 11/29/24 CLINICAL INFORMATION: Spondylosis without myelopathy or radiculopathy, lumbosacral. FINDINGS: Last rib-bearing vertebra labeled T12. Bone marrow STIR signal within the posterior elements of L4 and to a lesser extent L3. There is a 30% volume loss and Schmorl node in superior endplate of L4 with 2 mm retropulsion into the canal. There is a grade 1 retrolisthesis L3-4, L1-2 and L2-3 levels There is a multilevel disc desiccation and marginal osteophyte formation more conspicuous at L1-2, L3-4 levels. There is an intrinsic hyperintense T1 bone marrow signal lesion at L1, likely intraosseous hemangioma. The conus medullaris and at inferior endplate of T12 with normal signal. T12-L1: No disc herniation. No neuroforamina stenosis. L1-2: Grade 1 retrolisthesis. Broad-based disc bulging. Facet joint and ligamentum flavum hypertrophy. No compression upon neural elements. L2-3: Grade 1 retrolisthesis. Broad-based disc bulging. Facet joint and ligamentum flavum hypertrophy. Reduced AP diameter of the thecal sac and the neural foramina. L3-4: Broad-based disc bulging. Facet joint and ligamentum flavum hypertrophy. Superior endplate compression deformity and 2 mm retropulsion resulting in CSF effacement of the thecal sac and central spinal canal stenosis. Bilateral neuroforamina narrowing. L4-5: Broad-based disc bulging. Facet joint and ligamentum flavum hypertrophy. Reduced AP diameter of the thecal sac and the neural foramina likely encroaching the neural elements. L5-S1: Broad-based disc bulging. Facet joint hypertrophy. Reduced AP diameter of the thecal sac and the neural foramina. Degenerative changes in the sacroiliac joints. No prevertebral compartment hematoma mass or fluid collection. Liver appears enlarged. There is a focal hyperintense T2 signal in the posterior midportion left kidney. Fatty atrophy of the lower lumbar muscles extending from L4 to sacrum.. IMPRESSION: Subacute to old compression deformity of L4 resulting in 2 mm retropulsion causing the central spinal canal stenosis encroaching likely compressing the neural elements of the thecal sac.. Acute to subacute inflammatory degenerative changes in the posterior elements of L4 and to a lesser extent L3. Multilevel spondylosis resulting in grade 1 retrolisthesis L1 to, L2-3. Assessment & Plan Assessment & Plan (1) Lumbar radicular pain: Code(s): M54.16 - Radiculopathy, lumbar region Category: Medical (2) Lumbosacral spondylosis: Code(s): M47.817 - Spondylosis without myelopathy or radiculopathy, lumbosacral region Category: Medical (3) Osteoporosis: Code(s): M81.0 - Age-related osteoporosis without current pathological fracture Category: Medical Qualifiers: Osteoporosis type: age-related Presence of current pathological fract ure: without current pathological fracture Qualified Code(s): M81.0 - Age- related osteoporosis without current pathological fracture (4) Compression fracture of L4 vertebra: Code(s): S32.040A - Wedge compression fracture of fourth lumbar vertebra, initial encounter for closed fracture Category: Medical (5) Spondylolisthesis of lumbar region: Code(s): M43.16 - Spondylolisthesis, lumbar region Category: Medical (6) Sacroiliac joint pain: Code(s): M53.3 - Sacrococcygeal disorders, not elsewhere classified Category: Medical (7) Degenerative lumbar spinal stenosis: Code(s): M48.061 - Spinal stenosis, lumbar region without neurogenic claudication Category: Medical Plan Lumbar spine MRI results were discussed with patient today. Will proceed with Neurosurgical evaluation for spinal stenosis related pain. Patient has osteoporosis and subacute and old L4 compression fracture with retropulsion. She is not candidate for steroid injection. We discussed neuromodulation with SCS trial and implant if not a surgical candidate. Informational pamphlet provided today. Short script sent for tramadol today. Side effects and precautions were reviewed with patient. Reports good tolerance with prior use and has Narcan at home. All questions and concerns have been answered and patient agreed with the treatment plan. Follow up after Neurosurgical evaluation and sooner as needed. Orders: Referrals Neuro Spine Referral M48.061 - Spinal stenosis, lumbar region without neuroge brenna claudication, M54.16 - Radiculopathy, lumbar region, M81.0 - Age-related osteoporosis without current pathological fracture, S32.040A - Wedge compression fracture of fourth lumbar vertebra, initial encounter for closed fracture Medications: Changed From tramadol 50 mg PO BID 10 days PRN 20 tabs 0RF pain (scale score 7-10) M16.0 - Bilateral primary osteoarthritis of hip, M47.817 - Spondylosis without myelopathy or radiculopathy, lumbosacral region, M54.16 - Radiculopathy, lumbar region, M54.51 - Vertebrogenic low back pain To tramadol 50 mg PO BID 15 days PRN 30 tabs 0RF pain (scale score 7-10) M16.0 - Bilateral primary osteoarthritis of hip, M47.817 - Spondylosis without myelopathy or radiculopathy, lumbosacral region, M54.16 - Radiculopathy, lumbar region, M54.51 - Vertebrogenic low back pain Coding Level of Care Code Est Pt Level 4 (30457) Complex EM visit Add On G2211 Diagnoses Lumbar radicular pain M54.16 Lumbosacral spondylosis M47.817 Age-related osteoporosis without current pathological fracture M81.0 Osteoporosis type: age-related Presence of current pathological fracture: without current pathological fracture Compression fracture of L4 vertebra S32.040A Spondylolisthesis of lumbar region M43.16 Sacroiliac joint pain M53.3 Degenerative lumbar spinal stenosis M48.061
[2024-12-06 10:02] VITALS: BP 119/61; PULSE 72; BMI 31.9
== END 2024-12-06 10:38 | disposition home or self-care (01) ==
PROVIDERS: PCP Nurse Practitioner Family; Visit Provider Nurse Practitioner Family
DX: M54.16 Radiculopathy, lumbar region (principal); M47.817 Spondylosis without myelopathy or radiculopathy, lumbosacral region; M81.0 Age-related osteoporosis without current pathological fracture; S32.040A Wedge compression fracture of fourth lumbar vertebra, initial encounter for closed fracture; M43.16 Spondylolisthesis, lumbar region; M53.3 Sacrococcygeal disorders, not elsewhere classified; M48.061 Spinal stenosis, lumbar region without neurogenic claudication
CPT/HCPCS: 99214; G2211

== ENCOUNTER → 2024-12-06 09:54 | Outpatient (BNVA) | payer MEDICARE, SELFPAY | PROVIDERS: PCP Nurse Practitioner Family; Visit Provider Nurse Practitioner Family | DX: M81.0 Age-related osteoporosis without current pathological fracture (principal); M25.552 Pain in left hip; M54.16 Radiculopathy, lumbar region; M47.817 Spondylosis without myelopathy or radiculopathy, lumbosacral region; S32.040A Wedge compression fracture of fourth lumbar vertebra, initial encounter for closed fracture; M43.16 Spondylolisthesis, lumbar region; M53.3 Sacrococcygeal disorders, not elsewhere classified; M48.061 Spinal stenosis, lumbar region without neurogenic claudication | CPT/HCPCS: 99212 ==

== ENCOUNTER 2024-12-12 13:43 | Outpatient (AMB) | payer MEDICARE, MEDICAID, SELFPAY ==
--- NOTE | 2024-12-12 14:04 | HO.SPINEOV ---
Vital Signs 12/12/24 14:08 Height 5 ft 3 in Weight 180 lb BMI 31.9 Intake Visit Reasons: Urgent ref O.Cullen Intake Note: Ms. Brush is here today c/o low back pain. 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: No Allergies cephalexin [From Keflex] Allergy (Severe, Verified 12/06/24 10:02) Rash Sulfa (Sulfonamide Antibiotics) Allergy (Severe, Verified 12/06/24 10:02) Rash Physical Exam Vital Signs: BMI result Body Mass Index 31.9 Assessment & Plan Assessment & Plan (1) Compression fracture of L4 vertebra: Code(s): S32.040A - Wedge compression fracture of fourth lumbar vertebra, initial encounter for closed fracture Category: Medical (2) Degenerative lumbar spinal stenosis: Code(s): M48.061 - Spinal stenosis, lumbar region without neurogenic claudication Category: Medical Plan Dear Rhoda Thank you for referring Mrs Brush to our office today. This is a 69-year-old female history of osteoporosis, previous L4 compression fracture 2 years ago, sacral fracture last year, who has been having on and off issues for many months with back pain radiating down from the left side into her anterior thigh. Recently diagnosed with stenosis on an MRI here at [facility] as well as an old compression fracture at L4 was sent for evaluation. Patient states that back in the fall of last year the pain was quite intense but it seems to have backed off a little bit. To this point she has had no dedicated conservative treatment other than just tincture of time and medication trials. She was on ibuprofen, Tylenol and gabapentin but the combination seemed to actually make the pain worse and now she is just on Tylenol and tramadol. No cauda equina symptoms. PMH: History of osteoporosis, COPD, lifelong smoker, left breast biopsy, hemorrhoidectomy, depression. Denies any issues with her heart, kidneys, she might have some kind of swelling in her liver but she is not sure this needs to be worked up, no cardiac disease, blood clots, cancer Social hx: She smokes a pack a day and marijuana every night to help sleep, no alcohol abuse Medications: Abilify, duloxetine, esomeprazole, tramadol, trazodone, clonidine Allergies: Sulfa and Keflex Physical exam: She is awake alert oriented no acute distress able to stand up out of a chair on her own, ambulate around the examining room without any issue, strength and reflexes both normal in the lower extremities Imaging review: Lumbar MRI done at [facility] shows evidence of a well healed compression fracture at L4. The report indicates there is 2 mm of retropulsion that may compress the nerves but the spinal canal is widely patent behind the L4 vertebral body. She does however have moderate to severe stenosis at L3-4 which appears degenerative in nature. There are varying degrees of other minor degenerative changes seen. Impression: 69-year-old female, history of osteoporosis, lifelong smoker, left-sided back pain which radiates into her anterior thigh which may be related to her lumbar stenosis at L3-4. She has an old compression fracture at L4 which is healed. We talked about the natural history of degenerative disc disease and stenosis. Right now the pain is a lot more manageable than it was in the fall and her only intervention has been tincture of time and some medications. It is not bad enough at this time that she is interested in considering surgery. I gave her a referral to PT because she was requesting a but I am not sure exactly how much it will improve her overall situation but I think it is reasonable to try it. She could also get a cortisone injection if the pain intensity returns. The last option would be to consider decompression if she fails all the conservative management. She does not need any intervention for the healed compression fracture. We would be happy to see her back down the road if something changes. Thank you for allowing us to care for your patient. The total time spent with this visit with this patient was 45 minutes reviewing history, physical exam, lumbar imaging review, and implementation of treatment plan or further diagnostic testing Jaguar Robison MD,PhD [facility] Orders: Orders PT Evaluation and Treatment Today M48.061 - Spinal stenosis, lumbar region without neurogenic claudication, S32.040A - Wedge compression fracture of fourth lumbar vertebra, initial encounter for closed fracture Coding Level of Care Code New Pt Level 4 (13358) Diagnoses Compression fracture of L4 vertebra S32.040A Degenerative lumbar spinal stenosis M48.061
[2024-12-12 14:08] VITALS: BMI 31.9
--- OUTSIDE RECORDS SUMMARY | 2024-12-12 18:26 | XMS_ITS | Patient Health Record ---
Author Organization [facility] Address [address] [place] [address] Care Team Providers Care Waxer Floor Name Role Phone Venkata (RETIRED) Jaguar FAY Primary Care Provide r Unavailable Maritza Reyez Unavailable [phone] Allergies Allergen (clinical drug ingredient) Drug/Non Drug Allergy documented on EMR Reaction Allergy Type Onset Date Status Substance with sulfonamide structure and antibacterial mechanism of action (substance) SULFA (uncoded) Skin Rash Allergy Active Reason For Referral No Information Medications Medication SIG (Take, Route, Fr equency, Duration) Notes Start Date End Date Status oxyCODONE HCl 30 MG 1 ORAL twice daily for -3 Jamel-MJ 10/16 Active clonazePAM 1MG 1 ORAL twice daily for 10 Jamel-MJ 3 Active Fioricet 50-325-40 1 ORAL EVERY 6 HOURS for 10 Jamel-MJ 08/2013 Active Problems Problem Type SNOMED Code ICD Code Onset Dates Problem Status W/U Status Risk Notes Problem Anxiety state (366245630) Anxiety state, unspecified (300.00) Active confirmed Problem Pain in thoracic spine (705047319) Pain in thoracic spine (724.1) Active confirmed Plan Of Treatment Pending Test Test Name Order Date Urine Culture and Sensitivity 01/19/2015 Insurance Providers Payer Name Payer Address Payer Phone Subscriber Number Group Number Insured Name Patient Relationship to Insured Coverage Start Date Coverage End Date [facility] [address] [place] [address] [phone] [id number] [employer] Spouse - patient is the spouse of the insured Medical (General) History Medical History History ICD Code Pain in thoracic spine Anxiety state, unspecified
== END 2024-12-12 14:30 | disposition home or self-care (01) ==
PROVIDERS: PCP Nurse Practitioner Family; Referring Provider Nurse Practitioner Family; Visit Provider Physician Assistant
DX: S32.040A Wedge compression fracture of fourth lumbar vertebra, initial encounter for closed fracture (principal); M48.061 Spinal stenosis, lumbar region without neurogenic claudication
CPT/HCPCS: 99204

== ENCOUNTER → 2024-12-12 13:43 | Outpatient (BNVA) | payer MEDICARE, SELFPAY | PROVIDERS: PCP Nurse Practitioner Family; Referring Provider Nurse Practitioner Family; Visit Provider Physician Assistant | DX: S32.040A Wedge compression fracture of fourth lumbar vertebra, initial encounter for closed fracture (principal); M48.061 Spinal stenosis, lumbar region without neurogenic claudication; X58.XXXA Exposure to other specified factors, initial encounter; Y93.9 Activity, unspecified; Y92.9 Unspecified place or not applicable; Y99.9 Unspecified external cause status | CPT/HCPCS: 99202 ==

== ENCOUNTER 2025-01-10 08:13 | Outpatient (AMB) | payer MEDICARE, MEDICAID, SELFPAY ==
--- NOTE | 2025-01-10 08:21 | MHC.PC.OV ---
Vital Signs 01/10/25 08:42 Height 5 ft 3 in Weight 184 lb BMI 32.6 BP 118/68 Blood Pressure Location Rt brachial Position Sitting Respiration 12 Pulse 75 Pulse Source Pulse Oximeter Temp 97.1 F Temp Source Oral Pulse Oximetry (%) 95 Oxygen Delivery Method Room Air Intake Visit Reasons: 6 weeks fu med change Intake Note: follow up on med change Chemical Unit Operator Required: No Allergies cephalexin [From Keflex] Allergy (Severe, Verified 01/10/25 08:49) Rash Sulfa (Sulfonamide Antibiotics) Allergy (Severe, Verified 01/10/25 08:49) Rash Medication List - Last Reconciled 01/10/25 by Adia Flower, MAILROOM COORDINATOR-BC albuterol sulfate 90 mcg/actuation 2 puffs inhalation Q4-6H PRN 30 days alendronate 70 mg PO QWEEK aripiprazole 2 mg PO BID baclofen 10 mg PO TID czfrwyqfxb-ahhqqiskbvzzu-yirq 50-325-40 mg 1 tab PO DAILY PRN clonidine HCl 0.1 mg PO BEDTIME desonide 0.05% 1 appl topical BID-QID PRN diclofenac sodium 3% 1 appl topical BID PRN esomeprazole magnesium 40 mg PO DAILY famotidine 40 mg PO DAILY gabapentin 300 mg PO TID ibuprofen 600 mg PO TID metformin ER 500 mg PO DAILY naloxone 4 mg/actuation (Narcan) 4 mg intranasal Q2M PRN tramadol 50 mg PO BID PRN 15 days trazodone 300 mg PO BEDTIME [wedge pillow As directed] Tobacco use date assessed: 01/10/25 Fall risk assessment: No Falls in past year Last assessed Fall Risk: 01/10/25 Dental Screening Dental Screen Date: 01/10/25 Did you have a dental visit in the last 12 months?: Yes Did you have a dental problem in the last 6 months where you did not have access to dental care?: No Was dental information given to patient?: Patient has dentist HPI HPI Comments History of Present Illness Details - The patient is a 69-year-old female presenting with management of bipolar disorder and depressive symptoms. - Bipolar disorder has been confirmed as Type I, characterized by profound depressive symptoms. - Chronic pain and sleep disturbances accompany the mood disorder. - Previous treatment attempts with duloxetine (30 mg daily) led to excessive sedation, and it was discontinued after inadequate relief. Taking in the AM. - The patient increased her Abilify dosage to 6 mg taken once daily for better mood stabilization, although significant improvement was not reported. Was RX 2mg BID. - Escitalopram has been resumed as a secondary measure after stopping duloxetine. - Migraine headache yesterday, managed effectively with Fioricet. Recent symptoms include ear discomfort, cough, and sneezing, which might indicate an underlying viral infection. - An impending relocation in two months to [place] is causing some anxiety about treatment continuity. Denies SI/HI. Exam Awake alert NAD Sclera and conjunctiva clear bilat Nares patent, turbinates within normal limits, no sinus tenderness with palpation bilat TM intact and clear Left, cerumen R EAC unable to see TM offered and declined lavage MMM, pharynx WNL RRR LS CTAB Mood and affect approriate Discussion Notes During today's visit, we discussed the management of the patient's bipolar disorder and depressive symptoms. I clarified her classification as Bipolar I due to her profound depressive symptoms. We talked about the previous side effects of duloxetine, leading to excessive drowsiness, and the plan to attempt taking it at bedtime to alleviate these side effects. I recommended discontinuing escitalopram once duloxetine is better tolerated. I explained that full clinical efficacy of duloxetine takes about six weeks, and we may consider adding other medications in the future, such as lamotrigine (brother with bipolar on this doing great), based on her response. She was informed of the typical combination treatment for Bipolar I, including antipsychotics (Abilify), mood stabilizers, and antidepressants. Her son?s impending move and the potential impact on her ongoing care were also addressed. I encouraged outreach to local senior services for assistance. I advised on earwax management at home and emphasized increased vitamin C and zinc intake to support her immune system against possible viral illness. Follow-up was scheduled in six weeks to evaluate response to treatment adjustments. Assessment and Plan 1. Bipolar Disorder (Type I): The patient is experiencing significant depressive episodes as part of her Bipolar I disorder and will reintroduce duloxetine at bedtime to reduce sedation,lower dose now 20mg was 30mg. Abilify maintenance remains crucial. Future inclusion of lamotrigine may be contemplated based on progress. 2. Major Depressive Disorder: Given ongoing depressive symptoms, a gradual reintroduction of duloxetine is planned, with an ongoing evaluation of therapeutic effectiveness. Escitalopram will be tapered concurrently. 3. Chronic Pain: Duloxetine may address both mood and pain symptoms upon stabilization. Pain management will be reviewed in conjunction with mood symptoms. 4. Sleep Disturbance: Adjustments to duloxetine timing may ameliorate excessive sleepiness. Trazodone and clonidine regimen remains; responses will be evaluated. 5. Earwax Impaction: Strategies to manage earwax buildup include home-based irrigation techniques. Regular monitoring will ensure resolution of symptoms without complications. Patient Instructions - Attempt to take duloxetine at night to possibly reduce daytime sedation. - Discontinue escitalopram as duloxetine is reintroduced. - Utilize hydrogen peroxide followed by warm shower irrigation to help clear earwax. - Consider increasing intake of vitamin C and zinc supplements during potential viral illness. - Schedule follow-up in six weeks to monitor medication changes. Consent Discussion occurred regarding the reintroduction of duloxetine for mood stabilization and chronic pain management, potential side effects, and the rationale for nighttime administration to counteract sedation. I reviewed the gradual tapering of escitalopram and the importance of maintaining Abilify. Potential future medication such as lamotrigine was also discussed, but no changes will be made until efficacy of current adjustments is assessed. Consent was obtained from the patient for this management plan, noting her understanding of the timelines and expected outcomes. Patient was informed and verbally consented to the use of an ambient scribe for clinic note documentation during this visit. Total time spent caring for the patient today was 41 minutes. This includes time spent before the visit reviewing the chart, time spent during the visit, and time spent after the visit on documentation, reviewing laboratory results, diagnostic imaging, medications, performing a medically necessary evaluation, counseling on diagnoses, care coordination, ordering appropriate tests, ordering appropriate medications, review of tests performed by other providers, reporting test results with the patient, communication with other healthcare providers. [facility] Medical History (Updated 01/10/25 @ 09:05 by SIMIN Mckay-) Acid reflux Acute arthritis Anxiety and depression Bipolar 1 disorder Compression fracture of L4 vertebra COPD (chronic obstructive pulmonary disease) Diabetes Edema H/O gastroesophageal reflux (GERD) Headache Imbalance Osteoporosis Spine disorder Swelling Surgical History H/O left breast biopsy H/O: hemorrhoidectomy History of esophagogastroduodenoscopy (EGD) Hx of cholecystectomy Hx of colonoscopy Family History Mother Mental health disorder Substance abuse Cardiovascular disease Alcoholism Father Diabetes Colon cancer Social History Household Members: Children Both parents involved: No Caregiver staying overnight: No Housing: Apartment Are you a primary career and guidance counselor to a significant other at home: No Do you presently have visiting nurse or other home services: No 75 years or older and lives alone: No Alcohol intake: never Patient Tobacco Use Status: Current everyday Tobacco user Tobacco use type: Cigarette Cigarette Packs Per Day: 1 Cigarettes Per Day: 20.0 Years Smoked: 25 e-Cigarette/Vaping Use: Never Used Second Hand Smoke Exposure: Yes Current occupational status: disabled Cognitive needs: Yes Hearing needs: No Vision needs: Yes (wear glasses) Questionnaire PHQ-9 Over the last 2 weeks, how often have you been bothered by any of the following problems? 1. Little interest or pleasure in doing things: nearly every day 2. Feeling down, depressed, or hopeless: nearly every day 3. Trouble falling or staying asleep, or sleeping too much: nearly every day 4. Feeling tired or having little energy: nearly every day 5. Poor appetite or overeating: nearly every day 6. Feeling bad about yourself - or that you are a failure or have let yourself or your family down: nearly every day 7. Trouble concentrating on things, such as reading the newspaper or watching television: nearly every day 8. Moving or speaking so slowly that other people could have noticed. Or the opposite - being so fidgety or restless that you have been moving around a lot more than usual: not at all 9. Thoughts that you would be better off or of hurting yourself in some way: not at all Total score: 21 Depression Screening Interpretation: Positive Depression Screening Follow-up: Existing condition and In treatment Depression Screening Done: Yes 26461 - PHQ-9 Billing: Yes Source: Developed by Drs. Yasir Hardin, Marilee Castillo, Anish Villagran and colleagues, with an educational isaiah from [employer] Thrive Questionnaire Date Thrive assessed: 01/10/25 I am a: Patient What is your living situation today?: I have a place to live, but I am worried about losing it in the future Within the past 12 months, did the food you bought not last and you didn't have the money to get more?: Sometimes True Within the past 12 months, did you worry whether your food would run out before you got money to buy more?: Sometimes True Do you have trouble paying for medicines?: No Do you have trouble getting transportation to medical appointments?: No Do you have trouble paying your heating and electricity bill?: No Do you have trouble taking care of your child, family member or friend?: No Do you have trouble with day-to-day activities such as bathing, preparing meals, shopping, managing finances, etc.?: No Are you currently unemployed and looking for a job?: No Are you interested in more education?: No Please select the resources that you would like help with: None Currently or been in a relationship where the following occur: I choose not to answer THRIVE Score: 3 AUDIT C Alcohol Use Questionnaire (AUDIT-C) 1. How often do you have a drink containing alcohol?: Never 3. How often do you have six or more drinks on one occasion?: Never Total Score: 0 Score Reviewed/Action Taken: Yes KYLE-7 AMB Questionnaire KYLE-7 Date KYLE - 7 assessed: 01/10/25 Feeling nervous, anxious, or on edge: 3 = Nearly every day Not being able to stop or control worryin = Nearly every day Worrying too much about different things: 3 = Nearly every day Trouble relaxin = Several days Being so restless that it is hard to sit still: 0 = Not at all Becoming easily annoyed or irritable: 1 = Several days Feeling afraid as if something awful might happen: 1 = Several days Total KYLE-7 score (0-4 normal; 5-9 mild; 10-14 moderate; 15-21 severe): 12 Source: Developed by Drs. Yasir Hardin, Marilee Castillo, Anish Villagran and colleagues, with an educational isaiah from [employer] KYLE-7 Assessment Billing KYLE-7 Assessment Tool: KYLE-7 Assessment 62651 Physical exam (Primary Care) Vital Signs: Last Vital Signs Temp 97.1 F 01/10/25 08:42 Pulse 75 01/10/25 08:42 Resp 12 01/10/25 08:42 BP 118/68 01/10/25 08:42 Pulse Ox 95 01/10/25 08:42 Oxygen Delivery Method Room Air 01/10/25 08:42 BMI result Body Mass Index 32.6 Tobacco/Smoking Status: Tobacco use Status Tobacco use date assessed 01/10/25 01/10/25 08:22 Patient Tobacco Use Status Current everyday Tobacco 01/10/25 08:22 Tobacco use type Cigarette 01/10/25 08:22 e-Cigarette/Vaping Use Never Used 01/10/25 08:22 PHQ-9: PHQ-9 Score PHQ-9: Total score 21 01/10/25 08:58 Depression Screening Interpretation: Positive Depression Screening Follow-up: Existing condition and In treatment Thrive Assessment: Date of Thrive Assessment Date Thrive assessed 01/10/25 01/10/25 08:22 Currently or been in a relationship where the following occur: I choose not to answer Coding Level of Care Code Est Pt Level 5 (88039) Complex EM visit Add On G2211 Diagnoses Bipolar 1 disorder F31.9 Migraine without aura and without status migrainosus, not intractable G43.009 Status migrainosus presence: without status migrainosus Intractability: not intractable Impacted cerumen, right ear H61.21 Additional Codes KYLE-7 Assessment Billing - KYLE-7 Assessment Tool: KYLE-7 Assessment 05227 ([id number]) PHQ-9 - 01419 - PHQ-9 Billing: Yes ([id number]) Assessment & Plan Assessment & Plan (1) Bipolar 1 disorder: Code(s): F31.9 - Bipolar disorder, unspecified Category: Medical (2) Migraine headache without aura: Code(s): G43.009 - Migraine without aura, not intractable, without status migrainosus Category: Medical Qualifiers: Status migrainosus presence: without status migrainosus Intractability: not intractable Qualified Code(s): G43.009 - Migraine without aura, not intractable, without status migrainosus (3) Impacted cerumen, right ear: Code(s): H61.21 - Impacted cerumen, right ear Plan: Earwax (Cerumen Impaction) Created in Ears Earwax, called cerumen, is produced by special wax-forming glands located in the skin of the outer one-third of the ear canal. It is normal to have cerumen in ear canal as this waxy substance serves as a self-cleaning agent with protective, lubricating, and antibacterial properties. The absence of earwax may result in dry, itchy ears. Self-cleaning means there is a slow and tannery gummer movement of earwax and skin cells from the eardrum to the ear opening. Old earwax is constantly being transported, assisted by chewing and jaw motion, from the ear canal to the ear opening where, most of the time, it dries, flakes, and falls out. What Are the Symptoms of an Earwax Blockage? Symptoms of an earwax problem may include: Earache Feeling of plugged hearing or fullness in the ear Partial hearing loss that gets worse Tinnitus, ringing, or noises in the ear Itching, odor, or discharge Coughing Pain Infection What Causes Earwax Blockage? When a patient has wax blockage against the eardrum, it is often because they have been probing the ear with such things as cotton-tipped swabs, rubén pins, or twisted napkin corners. These objects only push the wax in deeper in the ear canal. Why Is It Dangerous to Use Swabs to Remove Earwax? Wax blockage is one of the most common causes of hearing loss. This is often caused by attempts to clean the ear with cotton swabs. Most cleaning attempts merely push the wax deeper into the ear canal which is shaped like an hourglass, causing a blockage at the narrowing part of the ear canal. In addition, accidental trauma to the ear drum or ear bones can occur if the swab is pushed too deep. Good intentions to keep ears clean may lessen the ability to hear. The ear is a delicate and complicated body part, including the skin of the ear canal and the eardrum. Therefore, special care should be given to this part of the body. Discontinue the habit of inserting cotton-tipped swabs or other objects into the ear canals. What Are the Treatment Options? Cleaning a working ear can be done by washing it with a soft cloth, but do not insert anything into the ear. Ideally, the ear canals should never have to be cleaned. However, that isn?t always the case. The ears should be cleaned when enough earwax gathers to cause symptoms or to prevent a needed assessment of the ear by your doctor. This condition is call cerumen impaction. Most cases of ear wax blockage respond to home treatments used to soften wax. Patients can try placing a few drops of mineral oil, baby oil, glycerin, or commercial drops in the ear. Detergent drops such as hydrogen peroxide or carbamide peroxide (available in most pharmacies) may also aid in the removal of wax. Irrigation or ear syringing is commonly used for cleaning and can be performed by a physician or at home using a commercially available irrigation kit. Common solutions used for syringing include water and saline, which should be warmed to body temperature to prevent dizziness. Ear syringing is most effective when water, saline, or wax dissolving drops are put in the ear canal 15 to 30 minutes before treatment. Caution is advised to avoid having your ears irrigated if you have diabetes, a hole in the eardrum (perforation), tube in the eardrum, skin problems such as eczema in the ear canal or a weakened immune system. >> If you have been prescribed Debrox, use as directed for 5 nights and return to the office on Day 6 for an ear lavage to remove the wax<< Manual removal of earwax is also effective. This is most often performed by an ENT (ear, nose, and throat) specialist, or sewage plant attendant, using suction or special miniature instruments, and a microscope to magnify the ear canal. Manual removal is preferred if your ear canal is narrow, the eardrum has a perforation or tube, other methods have failed, or if you have skin problems affecting the ear canal, diabetes or a weakened immune system. When Should I Talk to a Doctor? If home treatments do not help, or if wax has accumulated so much that it blocks your ear canal and your ability to hear, an ENT specialist may prescribe eardrops designed to soften wax, or they may wash or vacuum it out. Your ENT specialist may also need to remove the wax under microscopic visualization. If there is a possibility of a perforation in the eardrum, consult a physician prior to trying any ofrk-gne-yyvmpht remedies. Putting eardrops or other products in the ear with the presence of an eardrum perforation may cause pain or an infection. Washing water through such a hole could start an infection. If you are prone to repeated wax impaction or use hearing aids, consider seeing your doctor every six to 12 months for a checkup and routine preventive cleaning. What Questions Should I Ask My Doctor? What are the benefits and risks/side effects of different cerumen removal management options: earwax softening products, water irrigation vs. physical removal? Does cerumen accumulation vary with age, gender, familial or dietary intake? How do I manage swimming underwater with cerumen impaction? Should anything be done to the ears to prevent a buildup of earwax? How often should cerumen be removed from the ears? Are ear candles a safe option for removing earwax? Plan . Medications: New duloxetine 20 mg PO .at bedtime 30 caps 1RF Patient Instructions: Mood stabilizer: lamictal, depakote
--- OUTSIDE RECORDS SUMMARY | 2025-01-10 08:33 | XMS_ITS | Patient Health Record ---
Author Organization [employer] [facility] Address [address] [place] [address] Care Team Providers Care Counselor Supervisor Name Role Phone Venkata (RETIRED) Jaguar FAY Primary Care Provide r Unavailable Maritza Reyez Unavailable [phone] Allergies Allergen (clinical drug ingredient) Drug/Non Drug [...] W/U Status Risk Notes Problem Anxiety state (765823921) Anxiety state, unspecified (300.00) Active confirmed Problem Pain in thoracic spine (983058838) Pain in thoracic spine (724.1) Active confirmed Plan Of Treatment Pending Test Test Name Order Date Urine Culture and Sensitivity 01/19/2015 Insurance Providers Payer Name Payer Address Payer Phone Subscriber Number Group Number Insured Name Patient Relationship to Insured Coverage Start Date Coverage End Date [facility] [address] [place] [address] [phone] [id number] SIN SOUZA Spouse - patient is the spouse of the insured Medical (General) History Medical History History ICD Code Pain in thoracic spine Anxiety state, unspecified
[2025-01-10 08:42] VITALS: BP 118/68; PULSE 75; RESP 12; TEMP 36.2; O2SAT 95; BMI 32.6
== END 2025-01-10 09:04 | disposition home or self-care (01) ==
PROVIDERS: PCP Nurse Practitioner Family; Visit Provider Nurse Practitioner Family
DX: F31.9 Bipolar disorder, unspecified (principal); G43.009 Migraine without aura, not intractable, without status migrainosus; H61.21 Impacted cerumen, right ear

== ENCOUNTER → 2025-01-10 08:13 | Outpatient (BNVA) | payer OTHER, SELFPAY | PROVIDERS: PCP Nurse Practitioner Family; Visit Provider Nurse Practitioner Family | DX: F31.9 Bipolar disorder, unspecified (principal); G43.009 Migraine without aura, not intractable, without status migrainosus; H61.21 Impacted cerumen, right ear | CPT/HCPCS: 96127; 99212 ==

== ENCOUNTER 2025-01-17 07:51 | Outpatient (REF) | payer MEDICARE, MEDICAID, SELFPAY ==
--- NOTE | ~2025-01-17 | FL_ITS ---
EXAMINATION: XR FLUOROSCOPY UPPER GI WITH AIR CLINICAL INFORMATION: Reflux. Hiatal hernia. COMPARISON: None TECHNIQUE: Fluoroscopic air contrast upper GI examination was performed utilizing standard techniques with thin and thick barium and effervescent granules. Numerous spot images were obtained. FINDINGS: Dual and single contrast images of the esophagus demonstrate a normal caliber, and contour. There is a granular appearance of the esophageal mucosa, suggestive of esophagitis. No masses or ulcerations are seen. Esophageal peristalsis was moderately disorganized. A nonobstructing Schatzki's ring is present. A small to moderate-sized type I hiatal hernia is present. Gastroesophageal reflux is seen up to the thoracic inlet. Dual contrast and single contrast images of the stomach demonstrated a normal contour. The areae gastricae have a thickened appearance, suggestive gastritis. No masses or ulcerations are seen Contrast freely passed into the gastric antrum and duodenal bulb without delay. Single and air-contrast images of the duodenal bulb demonstrate no abnormality. The duodenal sweep has a normal appearance, course, and mucosal fold appearance. The imaged proximal jejunum has a normal fold pattern and caliber. FLUOROSCOPY TIME: 3 minutes 35 seconds Number of Spot Images: 15 Number of Cine: 13 DOSE AREA PRODUCT: 2175 uGy-m2 (microgray-meter squared) FL/FL barium swallow with air IMPRESSION: 1. Granular appearance of the esophageal mucosa, suggestive of esophagitis. 2. Moderate esophageal dysmotility. 3. Nonobstructing Schatzki's ring. 4. Small to moderate-sized type I hiatal hernia with significant gastroesophageal reflux. 5. Thickened appearance of the areae gastricae, suggestive of gastritis. This procedure was performed by Brian Diop PA-C, and supervised by Dr. Morillo Electronically signed by: Emmett Beauchamp MD 01/19/2025 05:42 PM [facility]
--- OUTSIDE RECORDS SUMMARY | 2025-01-17 07:54 | XMS_ITS | Patient Health Record ---
Author Organization [employer] [facility] Address [address] [place] [address] Care Team Providers Care Windshield Wiper Repairer Name Role Phone Venkata (RETIRED) Jaguar FAY Primary Care Provide r Unavailable Maritza Reyez Unavailable [phone] Allergies Allergen (clinical drug ingredient) Drug/Non Drug [...] W/U Status Risk Notes Problem Anxiety state (248144726) Anxiety state, unspecified (300.00) Active confirmed Problem Pain in thoracic spine (863013832) Pain in thoracic spine (724.1) Active confirmed Plan Of Treatment Pending Test Test Name Order Date Urine Culture and Sensitivity 01/19/2015 Insurance Providers Payer Name Payer Address Payer Phone Subscriber Number Group Number Insured Name Patient Relationship to Insured Coverage Start Date Coverage End Date [employer] [facility] [address] [place] [address] [phone] [id number] SIN SOUZA Spouse - patient is the spouse of the insured Medical (General) History Medical History History ICD Code Pain in thoracic spine Anxiety state, unspecified
== END 2025-01-17 07:52 | disposition home or self-care (01) ==
LOC: HO.XRAY 07:51
PROVIDERS: PCP Nurse Practitioner Family; Visit Provider Internal Medicine
DX: K21.9 Gastro-esophageal reflux disease without esophagitis (principal)
CPT/HCPCS: 74221

== ENCOUNTER → 2025-01-17 07:52 | Outpatient (BNV) | payer MEDICARE, MEDICAID, SELFPAY | PROVIDERS: PCP Nurse Practitioner Family; Visit Provider Physician Assistant Surgical | DX: K20.90 Esophagitis, unspecified without bleeding (principal); K22.2 Esophageal obstruction | CPT/HCPCS: 74221 ==

== ENCOUNTER 2025-01-23 08:54 | Outpatient (AMB) | payer MEDICARE, MEDICAID, SELFPAY ==
--- NOTE | 2025-01-23 09:04 | A.OFFVIS_ITS ---
Vital Signs 01/23/25 09:06 Height 5 ft 3 in Weight 180 lb 12.465 oz BMI 32.0 BP 108/64 Blood Pressure Location Lt brachial Position Sitting Pulse 72 Intake Visit Reasons: esophagitis, GERD Intake Note: Nataliia presents in the office as a follow up for esophagitis and GERD. CC: states that she had a BA swallow. GERD every day. She states Nexium is making her symptoms even worse and not sure if there is a certain time of day or way she should be taking it. She states she is having a gall bladder attack but she had her gall bladder removed. It has been over 10 years since her gall bladder removal. Allergies cephalexin [From Keflex] Allergy (Severe, Verified 01/23/25 09:08) Rash Sulfa (Sulfonamide Antibiotics) Allergy (Severe, Verified 01/23/25 09:08) Rash Medication List - Last Reconciled 01/23/25 by Christina Weaver MD albuterol sulfate 90 mcg/actuation 2 puffs inhalation Q4-6H PRN 30 days alendronate 70 mg PO QWEEK aripiprazole 2 mg PO BID baclofen 10 mg PO TID lxbsqvrzhu-pwlydubcbirxm-awxx 50-325-40 mg 1 tab PO DAILY PRN clonidine HCl 0.1 mg PO BEDTIME desonide 0.05% 1 appl topical BID-QID PRN diclofenac sodium 3% 1 appl topical BID PRN duloxetine 20 mg PO .at bedtime esomeprazole magnesium 40 mg PO DAILY famotidine 40 mg PO DAILY gabapentin 300 mg PO TID metformin ER 500 mg PO DAILY naloxone 4 mg/actuation (Narcan) 4 mg intranasal Q2M PRN tramadol 50 mg PO BID PRN 15 days trazodone 300 mg PO BEDTIME [wedge pillow As directed] HPI Comments Details: 69 y.o F with PMH of polyps, fam hx of colon ca, osteoporosis, DM2, well controlled COPD, ongoing tobacco use who is here for question of NANCY. Records from prev PCP as well as referring PCP reviewed. Pt reports fam hx of CRC in her father at age 70. Pt herself had a colo 2-3 years ago in [place] and was told she had dozen polyps . Does not recall if the polyps needed close follow up or if they were benign. She had a FIT done in May 2024 through prev PCP - the indication in uncertain as pt does not meet criteria for average risk screening through FIT. This was positive. There is also documentation of ??NANCY. However labs reviewed from [facility] and [facility] and pt with normal H/H and iron panel. She does not describe abd pain, N,V, D or blood in stool. 10/12/24: EGD/colo (Dr Gaytan) Endoscopy Findings: hiatal hernia schatzki ring esophagitis gastritis Colonoscopy Findings: diverticulosis colon polyps internal hemorrhoids Plan: Await Pathology results Repeat Colonoscopy in 1 year due to fair pre on right side or earlier if clinically indicated High fiber diet leaflet avoid straining at stool, epsom salts and sitz bath, anusol supps or cream next time use an adult scope A. Stomach, biopsy: Gastric antral/body mucosa with focal minimal chronic inactive inflammation; negative for H.pylori, intestinal metaplasia and dysplasia. B. Colon, ascending, polyp: Rare fragment of colonic epithelium without dysplasia present with fecal material; no polyp identified. C. Colon, sigmoid, polyp: Hyperplastic polyp. D. Colon, rectal polyps: Hyperplastic polyps (3 pieces) 11/14/24: Here for post procedure follow up. Reports cont'd reflux sx including regurgitation liz at night. 01/23/25: Here for follow up post barium swallow. See results below shows mild dysmotility, reflux, gastritis. Pt reports taking esomeprazole 40 in AM but sx are largely at night time. Wonders if she can switch timings. Pt also reports post prandial RUQ pain that is very reminiscent of the gallbladder attack . Pt s/p CCY many years ago but recalls being told she had CBD stones that could not be taken out. She cant remember if she had an ERCP. 1. Granular appearance of the esophageal mucosa, suggestive of esophagitis. 2. Moderate esophageal dysmotility. 3. Nonobstructing Schatzki's ring. 4. Small to moderate-sized type I hiatal hernia with significant gastroesophageal reflux. 5. Thickened appearance of the areae gastricae, suggestive of gastritis. [facility] Medical History Compression fracture of L4 vertebra Diabetes Bipolar 1 disorder Anxiety and depression Imbalance Headache H/O gastroesophageal reflux (GERD) Acid reflux Spine disorder Swelling Edema Osteoporosis Acute arthritis COPD (chronic obstructive pulmonary disease) Surgical History H/O left breast biopsy H/O: hemorrhoidectomy Hx of cholecystectomy History of esophagogastroduodenoscopy (EGD) Hx of colonoscopy Family History Mother Mental health disorder Substance abuse Cardiovascular disease Alcoholism Father Diabetes Colon cancer Social History Household Members: Children Both parents involved: No Caregiver staying overnight: No Housing: Apartment Are you a primary director critical care to a significant other at home: No Do you presently have visiting nurse or other home services: No 75 years or older and lives alone: No Alcohol intake: never Patient Tobacco Use Status: Current everyday Tobacco user Tobacco use type: Cigarette Cigarette Packs Per Day: 1 Cigarettes Per Day: 20.0 Years Smoked: 25 e-Cigarette/Vaping Use: Never Used Second Hand Smoke Exposure: Yes Current occupational status: disabled Cognitive needs: Yes Hearing needs: No Vision needs: Yes (wear glasses) Review of Systems Const All systems reviewed & are unremarkable except as noted in HPI and below Physical Exam Vital Signs: Last Vital Signs Pulse 72 01/23/25 09:06 BP 108/64 01/23/25 09:06 BMI result Body Mass Index 32.0 No apparent distress Nonicteric Abdomen soft, nondistended Alert and oriented x3, normal gait Quality Reporting (2019) Adult ([facility] 138//) Smoking risk assessment performed?: Yes Patient Tobacco Use Status: Current everyday Tobacco user Assessment & Plan Assessment & Plan (1) Biliary colic: Code(s): K80.50 - Calculus of bile duct without cholangitis or cholecystitis without obstruction Category: Medical (2) Choledocholithiasis: Code(s): K80.50 - Calculus of bile duct without cholangitis or cholecystitis without obstruction Category: Medical (3) Enlarged liver: Code(s): R16.0 - Hepatomegaly, not elsewhere classified Category: Medical (4) Esophagitis: Code(s): K20.90 - Esophagitis, unspecified without bleeding Category: Medical (5) Gastritis: Code(s): K29.70 - Gastritis, unspecified, without bleeding Category: Medical Plan 1. GERD/regurgitation Pt reports sx despite esomeprazole 40 daily. Recommend switching to evening time since sx are mostly at night time. Pt also advised to space out dinner from bedtime. Plan: - Esomeprazole 40 in evening - EGD to be booked for luminal eval 2. RUQ pain Reminiscent of biliary colic that she had pre-CCY. Recalls retained CBD stones but can not remember if she had an ERCP for this. Pt also with hx of hepatomegaly on a previous imaging Plan: - LFTs - Hep serologies ordered as pt also reports exposure to HCV (pt's ex-) - US RUQ Follow up after egd, or earlier if actionable findings on above Orders: Orders US abdomen complete Today K80.50 - Calculus of bile duct without cholangitis or cholecystitis without obstruction Liver Panel Today K80.50 - Calculus of bile duct without cholangitis or cholecystitis without obstruction Hepatitis A IgG Today K80.50 - Calculus of bile duct without cholangitis or cholecystitis without obstruction Hepatitis B Core Antibody Today K80.50 - Calculus of bile duct without cholangitis or cholecystitis without obstruction Hepatitis B Surface Antibody Today K80.50 - Calculus of bile duct without cholangitis or cholecystitis without obstruction Hepatitis B Surface Antigen Today K80.50 - Calculus of bile duct without cholangitis or cholecystitis without obstruction Hepatitis C Antibody Today K80.50 - Calculus of bile duct without cholangitis or cholecystitis without obstruction Medications: Discontinued esomeprazole magnesium Discontinued Reason: Doctor's Order 40 mg PO DAILY 90 caps 1RF Coding Level of Care Code Est Pt Level 4 (77289) Diagnoses Biliary colic K80.50 Choledocholithiasis K80.50 Enlarged liver R16.0 Esophagitis K20.90 Gastritis K29.70
[2025-01-23 09:06] VITALS: BP 108/64; PULSE 72; BMI 32.0
--- OUTSIDE RECORDS SUMMARY | 2025-01-23 09:21 | XMS_ITS | Patient Health Record ---
Author Organization [facility] Address [address] [place] [address] Care Team Providers Care Home Theater Experience Expert Name Role Phone Venkata (RETIRED) Jaguar FAY Primary Care Provide r Unavailable Maritza Reyez Unavailable [phone] Allergies Allergen (clinical drug ingredient) Drug/Non Drug [...] W/U Status Risk Notes Problem Anxiety state (461521205) Anxiety state, unspecified (300.00) Active confirmed Problem Pain in thoracic spine (281359094) Pain in thoracic spine (724.1) Active confirmed Plan Of Treatment Pending Test Test Name Order Date Urine Culture and Sensitivity 01/19/2015 Insurance Providers Payer Name Payer Address Payer Phone Subscriber Number Group Number Insured Name Patient Relationship to Insured Coverage Start Date Coverage End Date [facility] [address] [facility] [place] [address] [phone] [id number] SIN SOUZA Spouse - patient is the spouse of the insured Medical (General) History Medical History History ICD Code Pain in thoracic spine Anxiety state, unspecified
== END 2025-01-23 10:05 | disposition home or self-care (01) ==
PROVIDERS: PCP Nurse Practitioner Family; Visit Provider Internal Medicine
DX: K80.50 Calculus of bile duct without cholangitis or cholecystitis without obstruction (principal); R16.0 Hepatomegaly, not elsewhere classified; K20.90 Esophagitis, unspecified without bleeding; K29.70 Gastritis, unspecified, without bleeding
CPT/HCPCS: 99214

== ENCOUNTER → 2025-01-23 08:54 | Outpatient (BNVA) | payer OTHER, SELFPAY | PROVIDERS: PCP Nurse Practitioner Family; Visit Provider Internal Medicine | DX: K80.50 Calculus of bile duct without cholangitis or cholecystitis without obstruction (principal); K20.90 Esophagitis, unspecified without bleeding; K29.70 Gastritis, unspecified, without bleeding; R16.0 Hepatomegaly, not elsewhere classified | CPT/HCPCS: 99212 ==

== ENCOUNTER 2025-02-03 15:11 | Outpatient (REF) | payer OTHER, SELFPAY ==
[2025-02-03 17:53] LABS: Alanine Aminotransferase 14 U/L (0-31); Albumin Level 4.1 g/dL (3.5-5.0); Alkaline Phosphatase 110 U/L (39-117); Aspartate Amino Transferase 14 U/L (5-31); Bilirubin Direct < 0.2 mg/dL (0.0-0.5); Bilirubin Total 0.2 mg/dL (0.0-1.0); Total Protein 7.3 g/dL (6.5-8.0)
[2025-02-06 03:56] LABS: HBS Num1 0.72 mIU/mL (0-7.99); HBsAGNum1 0.33 S/CO (0.00-0.99); Hepatitis B Core Antibody Nonreactive (Nonreactive); Hepatitis B Surface Antigen Negative (Negative); ~HepC Num1 0.12 S/CO (0.00-0.79); ~Hepatitis B Surface Antibody NONREACTIVE (Nonreactive); ~Hepatitis C Antibody Nonreactive (Nonreactive)
[2025-02-08 04:11] LABS: Hepatitis A Antibody IgG Nonreactive (Nonreactive); ~Hepatitis A Antibody IgG 0.18 S/CO (0.00-0.99)
== END 2025-02-03 15:12 | disposition home or self-care (01) ==
LOC: HO.LAB 15:11
PROVIDERS: PCP Nurse Practitioner Family; Visit Provider Internal Medicine
DX: K80.50 Calculus of bile duct without cholangitis or cholecystitis without obstruction (principal)
CPT/HCPCS: 36415; 80076; 86704; 86706; 86708; 86803; 87340

== ENCOUNTER 2025-02-14 08:21 | Outpatient (REF) | payer OTHER, SELFPAY ==
--- NOTE | ~2025-02-14 | US_ITS ---
CLINICAL HISTORY: K80.50 - Calculus of bile duct without cholangitis or cholecystitis with... US abdomen complete Comparison: None Findings: The visualized pancreas is normal. The visualized aorta and IVC are unremarkable. Liver length 16.2 cm. Mildly increased liver echogenicity. Mild pneumobilia. There is no intrahepatic bile duct dilatation. The common bile duct is dilated measuring up to 1 cm. There is a 2.1 x 0.5 x 0.7 cm stone or cluster of stones within the distal common bile duct. Prior cholecystectomy. The main portal vein is antegrade. The right kidney is 9.5 cm in length. The left kidney is 10.6 cm in length. The spleen is normal. No ascites. IMPRESSION: 1. Choledocholithiasis. 2. Fatty infiltration of the liver. 3. Status post cholecystectomy. Mild pneumobilia. This document has been electronically signed by: Do Saravia MD on 02/14/2025 15:46:52
--- OUTSIDE RECORDS SUMMARY | 2025-02-14 08:37 | XMS_ITS | Patient Health Record ---
Author Organization [employer] [facility] [facility] Address [address] [place] [address] Care Team Providers Care Community Arts Centre Manager Name Role Phone Venkata (RETIRED) Jaguar FAY Primary Care Provide r Unavailable Maritza Reyez Unavailable [phone] Allergies Allergen (clinical drug ingredient) Drug/Non Drug [...] W/U Status Risk Notes Problem Anxiety state (254161448) Anxiety state, unspecified (300.00) Active confirmed Problem Pain in thoracic spine (329015279) Pain in thoracic spine (724.1) Active confirmed Plan Of Treatment Pending Test Test Name Order Date Urine Culture and Sensitivity 01/19/2015 Insurance Providers Payer Name Payer Address Payer Phone Subscriber Number Group Number Insured Name Patient Relationship to Insured Coverage Start Date Coverage End Date [facility] [address] [place] [address] [phone] [id number] SIN SOUZA Spouse - patient is the spouse of the insured Medical (General) History Medical History History ICD Code Pain in thoracic spine Anxiety state, unspecified
== END 2025-02-14 08:22 | disposition home or self-care (01) ==
LOC: HO.US 08:21
PROVIDERS: PCP Nurse Practitioner Family; Visit Provider Internal Medicine
DX: K80.50 Calculus of bile duct without cholangitis or cholecystitis without obstruction (principal)
CPT/HCPCS: 76700

== ENCOUNTER → 2025-02-14 08:23 | Outpatient (BNV) | payer OTHER, SELFPAY | PROVIDERS: PCP Nurse Practitioner Family; Visit Provider Radiology Diagnostic Radiology | DX: K80.80 Other cholelithiasis without obstruction (principal); K83.8 Other specified diseases of biliary tract | CPT/HCPCS: 76700 ==

== ENCOUNTER 2025-02-21 08:12 | Outpatient (REF) | payer OTHER, SELFPAY ==
[2025-02-21 12:12] LABS: Creatinine Urine 403.74 mg/dL; Microalbum/Creatinine Ratio Ur 6.4 ug/mg cr (<30)
== END 2025-02-21 08:13 | disposition home or self-care (01) ==
LOC: HO.LAB 08:12
PROVIDERS: PCP Nurse Practitioner Family; Visit Provider Nurse Practitioner Family
DX: F31.9 Bipolar disorder, unspecified (principal); F41.1 Generalized anxiety disorder; E11.51 Type 2 diabetes mellitus with diabetic peripheral angiopathy without gangrene; I70.209 Unspecified atherosclerosis of native arteries of extremities, unspecified extremity; Z79.899 Other long term (current) drug therapy
CPT/HCPCS: 82043; 82570; 96127; 99212

== ENCOUNTER 2025-02-21 08:12 | Outpatient (AMB) | payer OTHER, SELFPAY ==
--- OUTSIDE RECORDS SUMMARY | 2025-02-21 08:24 | XMS_ITS | Patient Health Record ---
Author Organization [facility] [facility] [facility] Address [address] [place] [address] Care Team Providers Care Machining Supervisor Name Role Phone Venkata (RETIRED) Jaguar FAY Primary Care Provide r Unavailable Maritza Reyez Unavailable [phone] Allergies Allergen (clinical drug ingredient) Drug/Non Drug [...] 1 ORAL EVERY 6 HOURS for 10 [facility] 08/2013 Active Problems Problem Type SNOMED Code ICD Code Onset Dates Problem Status W/U Status Risk Notes Problem Anxiety state (720039740) Anxiety state, unspecified (300.00) Active confirmed Problem Pain in thoracic spine (833710380) Pain in thoracic spine (724.1) Active confirmed Plan Of Treatment Pending Test Test Name Order Date Urine Culture and Sensitivity 01/19/2015 Insurance Providers Payer Name Payer Address Payer Phone Subscriber Number Group Number Insured Name Patient Relationship to Insured Coverage Start Date Coverage End Date [facility] [address] [place] [address] [phone] [id number] SIN SOUZA Spouse - patient is the spouse of the insured Medical (General) History Medical History History ICD Code Pain in thoracic spine Anxiety state, unspecified
--- NOTE | 2025-02-21 08:54 | A.OFFPC_ITS ---
Vital Signs 02/21/25 08:59 Height 5 ft 3 in Weight 178 lb 2 oz BMI 31.5 BP 114/68 Blood Pressure Location Rt brachial Position Sitting Respiration 12 Pulse 65 Pulse Source Pulse Oximeter Temp 97.3 F Temp Source Oral Pulse Oximetry (%) 94 Oxygen Delivery Method Room Air Intake Visit Reasons: 6 weeks fu Cymbalta start Intake Note: 6 weeks follow up, patient also needs referral Tax Accounting Assistant Required: No Allergies cephalexin [From Keflex] Allergy (Severe, Verified 02/21/25 09:15) Rash Sulfa (Sulfonamide Antibiotics) Allergy (Severe, Verified 02/21/25 09:15) Rash Medication List - Last Reconciled 02/21/25 by Adia Flower, TENSION MACHINE OPERATOR- albuterol sulfate 90 mcg/actuation 2 puffs inhalation Q4-6H PRN 30 days alendronate 70 mg PO QWEEK aripiprazole 2 mg PO BID baclofen 10 mg PO TID ynckeporek-esjzrsgxkwjnc-ejal 50-325-40 mg 1 tab PO DAILY PRN clonidine HCl 0.1 mg PO BEDTIME desonide 0.05% 1 appl topical BID-QID PRN diclofenac sodium 3% 1 appl topical BID PRN duloxetine 20 mg PO .at bedtime esomeprazole magnesium 40 mg PO DAILY famotidine 40 mg PO DAILY gabapentin 300 mg PO TID metformin ER 500 mg PO DAILY naloxone 4 mg/actuation (Narcan) 4 mg intranasal Q2M PRN tramadol 50 mg PO BID PRN 15 days trazodone 300 mg PO BEDTIME [wedge pillow As directed] Tobacco use date assessed: 02/21/25 Dental Screening Dental Screen Date: 02/21/25 Did you have a dental visit in the last 12 months?: Yes Did you have a dental problem in the last 6 months where you did not have access to dental care?: No Was dental information given to patient?: Patient has dentist HPI HPI Comments History of Present Illness Details 69 y/o F with osteoporosis, DM2, GERD, I sally def anemia, GERD, Bipolar 1, KYLE, MDD, COPD, current tobacco use, chronic pain, eczema, hiatal hernia, schatzki ring, esophagitis, gastritis, diverticulosis, colon polyp, internal hemorrhoids The patient is a 69-year-old female presenting with follow-up for management of mood disorder and adjustment of medication. - She is currently on duloxetine 20 mg, taken during the day, without experiencing sedation. - Self-increased her Abilify to 6 mg, bu t maintains a 4 mg dose in the AM. - Reports persistent depressive symptoms such as a lack of motivation and engagement. - Previously experienced excessive sedat ion with a duloxetine 30 mg dose. - Expressed interest in trying lamotrigi ne, influenced by her brother?s positive outcomes. - Faces social instability due to her so n?s alcoholism and housing insecurity. Other notes: will be having EGD and ERCP by [facility] 01/2025 note reviewed. Exam Awake alert NAD Sclera and conjunctiva clear bilat Mood and affect approriate Discussion: We reviewed her current medications: duloxetine 20 mg taken during the day, which she tolerates well without sedation, and Abilify 4 mg in the AM. Considering her desire to improve her mood, I proposed initiating lamotrigine, following a titration schedule beginning with 12.5 mg daily. We discussed the potential benefit of lamotrigine in mood stabilization and I explained the importance of monitoring for any rash, which could indicate a serious side effect. The patient was informed to discontinue the medication and contact me i mmediately if a rash occurs. We also discussed the importance of addressing her social stressors and suggested collaborating with our caseworkers to explore support and resources, given her son?s financial instability and the risk of housing insecurity. As part of her care, I recommended routine kidney function monitoring . A follow-up visit was scheduled in 6 weeks to reassess her condition and response to the medication changes. Plan In person brief intervention for counseling and housing w/ NN today Urine micro obtained results WNL, see below Start lamictal 12.5 mg x 2 weeks then 25 mg QD. Monitor for rash. Stop immediatley if this were to occur. Cont all other meds RTO 6 weeks Total time spent caring for the patient today was 41 minutes. This includes time spent before the visit reviewing the chart, time spent during the visit, and time spent after the visit on documentation, reviewing laboratory results, diagnostic imaging, medications, performing a medically necessary evaluation, counseling on diagnoses, care coordination, ordering appropriate tests, ordering appropriate medications, review of tests performed by other providers, reporting test results with the patient, communication with other healthcare providers. [facility] Medical History (Updated 02/21/25 @ 14:53 by Adia Flower [facility]) Acid reflux Acute arthritis Anxiety and depression Bipolar 1 disorder Compression fracture of L4 vertebra COPD (chronic obstructive pulmonary disease) Diabetes Edema H/O gastroesophageal reflux (GERD) Headache Imbalance Nicotine dependence, cigarettes, uncomplicated Osteoporosis Spine disorder Swelling Surgical History (Updated 02/21/25 @ 07:14 by Adia Flower [facility]) H/O left breast biopsy H/O: hemorrhoidectomy History of esophagogastroduodenoscopy (EGD) Hx of cholecystectomy Hx of colonoscopy (~09/2024) Family History Mother Mental health disorder Substance abuse Cardiovascular disease Alcoholism Father Diabetes Colon cancer Social History Household Members: Children Both parents involved: No Caregiver staying overnight: No Housing: Apartment Are you a primary managed care liaison to a significant other at home: No Do you presently have visiting nurse or other home services: No 75 years or older and lives alone: No Alcohol intake: never Patient Tobacco Use Status: Current everyday Tobacco user Tobacco use type: Cigarette Cigarette Packs Per Day: 1 Cigarettes Per Day: 20.0 Years Smoked: 25 e-Cigarette/Vaping Use: Never Used Second Hand Smoke Exposure: Yes Current occupational status: disabled Cognitive needs: Yes Hearing needs: No Vision needs: Yes (wear glasses) Questionnaire PHQ-9 Over the last 2 weeks, how often have you been bothered by any of the following problems? 1. Little interest or pleasure in doing things: not at all 2. Feeling down, depressed, or hopeless: not at all 3. Trouble falling or staying asleep, or sleeping too much: not at all 4. Feeling tired or having little energy: not at all 5. Poor appetite or overeating: not at all 6. Feeling bad about yourself - or that you are a failure or have let yourself or your family down: not at all 7. Trouble concentrating on things, such as reading the newspaper or watching television: not at all 8. Moving or speaking so slowly that other people could have noticed. Or the opposite - being so fidgety or restless that you have been moving around a lot more than usual: not at all 9. Thoughts that you would be better off or of hurting yourself in some way: not at all Total score: 0 Depression Screening Interpretation: Negative Depression Screening Done: Yes 16105 - PHQ-9 Billing: Yes Source: Developed by Drs. Yasir Hardin, Marilee Castillo, Anish Villagran and colleagues, with an educational isaiah from [employer]. Thrive Questionnaire Date Thrive assessed: 02/21/25 I am a: Patient What is your living situation today?: I have a place to live, but I am worried about losing it in the future Within the past 12 months, did the food you bought not last and you didn't have the money to get more?: Sometimes True Within the past 12 months, did you worry whether your food would run out before you got money to buy more?: Sometimes True Do you have trouble paying for medicines?: No Do you have trouble getting transportation to medical appointments?: No Do you have trouble paying your heating and electricity bill?: No Do you have trouble taking care of your child, family member or friend?: No Do you have trouble with day-to-day activities such as bathing, preparing meals, shopping, managing finances, etc.?: No Are you currently unemployed and looking for a job?: No Are you interested in more education?: No Please select the resources that you would like help with: None Currently or been in a relationship where the following occur: I choose not to a nswer THRIVE Score: 3 KYLE-7 AMB Questionnaire KYLE-7 Date KYLE - 7 assessed: 02/21/25 Feeling nervous, anxious, or on edge: 0 = Not at all Not being able to stop or control worryin = Not at all Worrying too much about different things: 0 = Not at all Trouble relaxin = Not at all Being so restless that it is hard to sit still: 0 = Not at all Becoming easily annoyed or irritable: 0 = Not at all Feeling afraid as if something awful might happen: 0 = Not at all Total KYLE-7 score (0-4 normal; 5-9 mild; 10-14 moderate; 15-21 severe): 0 Source: Developed by Drs. Yasir Hardin, Anish Leonardoenke and colleagues, with an educational isaiah from [employer]. KYLE-7 Assessment Billing KYLE-7 Assessment Tool: KYLE-7 Assessment 33682 Physical exam (Primary Care) Vital Signs: Last Vital Signs Temp 97.3 F 02/21/25 08:59 Pulse 65 02/21/25 08:59 Resp 12 02/21/25 08:59 BP 114/68 02/21/25 08:59 Pulse Ox 94 02/21/25 08:59 Oxygen Delivery Method Room Air 02/21/25 08:59 BMI result Body Mass Index 31.5 Tobacco/Smoking Status: Tobacco use Status Tobacco use date assessed 02/21/25 02/21/25 08:58 Patient Tobacco Use Status Current everyday Tobacco 02/21/25 08:55 Tobacco use type Cigarette 02/21/25 08:55 e-Cigarette/Vaping Use Never Used 02/21/25 08:55 PHQ-9: PHQ-9 Score PHQ-9: Total score 0 02/21/25 12:35 Depression Screening Interpretation: Negative Thrive Assessment: Date of Thrive Assessment Date Thrive assessed 01/10/25 02/21/25 11:00 Currently or been in a relationship where the following occur: I choose not to answer Results Reviewed Results Reviewed: RUN: 02/21/25 1234 PAGE 1 [facility] [address] [place] [id number] Loss Prevention/Safety District Manager: Oh Hong M.D. Specimen Inquiry Name: Nataliia Brush April Age/Sex: 69/F : 1955 Unit#: [id number] Attend Dr: Adia Flower TENSION MACHINE OPERATOR-BC Re02/21/25 Status: REG REF [facility] Disch: SPEC : [id number] TAMEKA: 02/21/25 STATUS: COMP REQ : [id number] RECD: 02/21/25 [facility] DR: Adia Flower TENSION MACHINE OPERATOR- COMP: 02/21/25 ENTERED: 02/21/[address] [facility] [address]: ORDERED: MICARU Test Result Flag Reference Creat, Ur 403.74 mg/dL Microalbumin Ur 26.0 mg/L Alb/Creat Ratio 6.4 <30 ug/mg cr Albumin/Creatinine Ratio Reference Ranges: Normal: < 30 ug/mg creatinine Microalbuminuria: 30 - 300 ug/mg creatinine Clinical Albuminuria: > 300 ug/mg creatinine END OF REPORT Coding Level of Care Code Est Pt Level 5 (88055) Complex EM visit Add On G2211 Diagnoses Bipolar 1 disorder F31.9 KYLE (generalized anxiety disorder) F41.1 Moderate episode of recurrent major depressive disorder F33.1 Major depression episode severity: moderate Encounter for screening involving social determinants of health (SDoH) Z13.9 DM type 2 causing complication E11.8 Additional Codes KYLE-7 Assessment Billing - KYLE-7 Assessment Tool: KYLE-7 Assessment 97688 ([id number]) PHQ-9 - 06156 - PHQ-9 Billing: Yes ([id number]) Assessment & Plan Assessment & Plan (1) Bipolar 1 disorder: Code(s): F31.9 - Bipolar disorder, unspecified Category: Medical (2) KYLE (generalized anxiety disorder): Code(s): F41.1 - Generalized anxiety disorder Category: Medical (3) MDD (major depressive disorder), recurrent episode: Code(s): F33.9 - Major depressive disorder, recurrent, unspecified Category: Medical Qualifiers: Major depression episode severity: moderate Qualified Code(s): F33.1 - Major depressive disorder, recurrent, moderate (4) Encounter for screening involving social determinants of health (SDoH): Code(s): Z13.9 - Encounter for screening, unspecified Category: Medical (5) DM type 2 causing complication: Code(s): E11.8 - Type 2 diabetes mellitus with unspecified complications Category: Medical Plan . Orders: Orders Microalbumin, Random (w Creat) Today E11.51 - Type 2 diabetes mellitus with diabetic peripheral angiopathy without gangrene, I70.209 - Unspecified atherosclerosis of [place] arteries of extremities, unspecified extremity Medications: New lamotrigine 1/2 tab daily for 2 weeks, then increase to 1 tab daily 25 mg PO DAILY 30 tabs 1RF 30 days Changed From duloxetine 20 mg PO .at bedtime 30 caps 1RF To duloxetine 20 mg PO DAILY 30 caps 1RF From aripiprazole 2 mg PO BID To aripiprazole 4 mg PO DAILY
[2025-02-21 08:59] VITALS: BP 114/68; PULSE 65; RESP 12; TEMP 36.3; O2SAT 94; BMI 31.5
== END 2025-02-21 09:49 | disposition home or self-care (01) ==
LOC: HO.HMCFM 08:12
PROVIDERS: PCP Nurse Practitioner Family; Visit Provider Nurse Practitioner Family
DX: F31.9 Bipolar disorder, unspecified (principal); F41.1 Generalized anxiety disorder; F33.1 Major depressive disorder, recurrent, moderate; Z13.9 Encounter for screening, unspecified; E11.8 Type 2 diabetes mellitus with unspecified complications

== ENCOUNTER 2025-03-22 10:30 | Day surgery (SDC) | payer OTHER, SELFPAY ==
[2025-03-20 14:55] VITALS: BMI 31.5
[2025-03-20 15:39] VITALS: BMI 31.9
--- NOTE | 2025-03-21 09:10 | P.CONAN_ITS ---
Documented by User: Anita Blount NP 03/21/25 09:15 HPI - Anesthesia Eval Consult details Narrative: 69yo F for ERCP, Upper Endoscopy with Balloon Dilitation PMFSH Active Problems Active Problems: All Active Problems DM type 2 causing complication (Acute) Encounter for screening involving social determinants of health (SDoH) (Acute) Gastritis (Acute) Esophagitis (Acute) Choledocholithiasis (Acute) Biliary colic (Acute) Migraine headache without aura (Acute) Spondylolisthesis of lumbar region (Acute) Degenerative lumbar spinal stenosis (Acute) Abnormal MRI (Acute) Enlarged liver (Acute) Menopause (Acute) Oral lesion (Acute) GERD with esophagitis (Acute) Vertebrogenic low back pain (Acute) Sacroiliac joint pain (Acute) Lumbosacral spondylosis (Acute) Arthritis of left hand (Acute) Lumbar radicular pain (Acute) Positive FIT (fecal immunochemical test) (Acute) Personal history of colonic polyps (Acute) Eczema of external ear (Acute) Pain of left thumb (Acute) Intermittent chest pain (Acute) Lightheadedness (Acute) Osteoarthritis of hips, bilateral (Acute) Adult BMI 33.0-33.9 kg/sq m (Acute) Left hip pain (Acute) Diabetes mellitus type 2 with atherosclerosis of arteries of extremities (Acute) MDD (major depressive disorder), recurrent episode (Acute) KYLE (generalized anxiety disorder) (Acute) Unsteady gait (Acute) Falls frequently (Acute) Iron deficiency anemia (Acute) Family hx of colon cancer (Acute) Occult blood positive stool (Acute) Class 1 obesity with body mass index (BMI) of 33.0 to 33.9 in adult (Acute) Nicotine dependence, cigarettes, uncomplicated (Acute) Compression fracture of L4 vertebra (Acute) Osteoporosis (Acute) COPD (chronic obstructive pulmonary disease) (Acute) Bipolar 1 disorder (Acute) Acid reflux (Acute) Past Medical History Medical History (Updated 03/20/25 @ 15:48 by Joanna Arrieta RN) Body piercing Nicotine dependence, cigarettes, uncomplicated Compression fracture of L4 vertebra Diabetes Bipolar 1 disorder Anxiety and depression Imbalance Headache H/O gastroesophageal reflux (GERD) Acid reflux Spine disorder Swelling Edema Osteoporosis Acute arthritis COPD (chronic obstructive pulmonary disease) Family History Family History Mother Mental health disorder Substance abuse Cardiovascular disease Alcoholism Father Diabetes Colon cancer Family history of problems with anesthesia: No Surgical History Surgical History (Updated 03/20/25 @ 14:55 by Joanna Arrieta RN) H/O left breast biopsy H/O: hemorrhoidectomy Hx of cholecystectomy History of esophagogastroduodenoscopy (EGD) (09/2024) Hx of colonoscopy (09/2024) History of Problems with Anesthesia: No Social History Social History (Updated 03/20/25 @ 15:44 by Joanna Arrieta RN) Household Members: Children Household Members Other:: son Housing: Apartment Are you a primary regular senior care provider to a significant other at home: No Do you presently have visiting nurse or other home services: No (has life alert type necklace) Alcohol intake: never Patient Tobacco Use Status: Current everyday Tobacco user Tobacco use type: Cigarette Cigarette Packs Per Day: 1 Cigarettes Per Day: 20.0 Years Smoked: 25 e-Cigarette/Vaping Use: Never Used Second Hand Smoke Exposure: Yes Use of substances other than those prescribed or required for medical reasons: Yes Substance Use Type: Marijuana Substance Use Frequency: Daily Have you been hit, kicked, punched, or otherwise hurt by someone within the past year? If so, by whom?: No Are you DNR?: No Advance Directives: No (will bring DOS) Advance Directives Information Provided: Yes Advance Directives on File: No Poor oral hygiene: No Current occupational status: disabled Cognitive needs: Yes Hearing needs: No Vision needs: Yes (wear glasses) Meds Allergies Allergy/AdvReac Type Severity Reaction Status Date / Time cephalexin [From Keflex] Allergy Severe Rash Verified 02/21/25 09:15 Sulfa (Sulfonamide Allergy Severe Rash Verified 02/21/25 09:15 Antibiotics) Home Medications ?Medication ?Instructions ?Recorded ?Confirmed ?Last Taken ?Type alendronate 70 mg tablet 70 mg PO QWEEK 08/03/24 03/20/25 Unknown History baclofen 10 mg tablet 10 mg PO TID 08/03/24 03/20/25 Unknown History gabapentin 300 mg capsule 300 mg PO TID 08/03/24 03/20/25 Unknown History metformin 500 mg tablet,extended 500 mg PO DAILY 08/03/24 02/21/25 Unknown History release 24 hr trazodone 300 mg tablet 300 mg PO BEDTIME 08/03/24 03/20/25 Unknown History famotidine 40 mg tablet 40 mg PO DAILY 12/06/24 03/20/25 Unknown History esomeprazole magnesium 40 mg 40 mg PO DAILY 01/23/25 03/20/25 Unknown History capsule,delayed release aripiprazole 2 mg tablet 4 mg PO DAILY 02/21/25 03/20/25 Unknown History Exam Height,Weight and Vital Signs: Height 5 ft 3 in Weight 81.647 kg Pertinent Lab Results Pertinent Lab Results: Laboratory Tests 08/15/24 08:24 WBC 8.5 Hgb 12.8 Hct 39.1 Plt Count 380 Sodium 139 Potassium 4.0 Chloride 106 Carbon Dioxide 28 BUN 13 Creatinine 0.79 Narrative Narrative: EKG 11/2024 NSR @ [address] 02/2025 IMPRESSION: 1. Choledocholithiasis. 2. Fatty infiltration of the liver. 3. Status post cholecystectomy. Mild pneumobilia. Assessment and Plan Assessment Anesthesia Assessment: Chart Reviewed Final Anesthetic Review Family History of Problems with Anesthesia: No History of Problems with Anesthesia: No Documented by User: Khoi Vera MD 03/22/25 12:34 [facility] Past Medical History Medical History (Updated 03/20/25 @ 15:48 by Joanna Arrieta RN) Body piercing Nicotine dependence, cigarettes, uncomplicated Compression fracture of L4 vertebra Diabetes Bipolar 1 disorder Anxiety and depression Imbalance Headache H/O gastroesophageal reflux (GERD) Acid reflux Spine disorder Swelling Edema Osteoporosis Acute arthritis COPD (chronic obstructive pulmonary disease) Family History Family History Mother Mental health disorder Substance abuse Cardiovascular disease Alcoholism Father Diabetes Colon cancer Surgical History Surgical History (Updated 03/20/25 @ 14:55 by Joanna Arrieta, LUIS) H/O left breast biopsy H/O: hemorrhoidectomy Hx of cholecystectomy History of esophagogastroduodenoscopy (EGD) (09/2024) Hx of colonoscopy (09/2024) Social History Social History (Updated 03/20/25 @ 15:44 by Joanna Arrieta RN) Household Members: Children Household Members Other:: son Housing: Apartment Are you a primary regular senior care provider to a significant other at home: No Do you presently have visiting nurse or other home services: No (has life alert type necklace) Alcohol intake: never Patient Tobacco Use Status: Current everyday Tobacco user Tobacco use type: Cigarette Cigarette Packs Per Day: 1 Cigarettes Per Day: 20.0 Years Smoked: 25 e-Cigarette/Vaping Use: Never Used Second Hand Smoke Exposure: Yes Use of substances other than those prescribed or required for medical reasons: Yes Substance Use Type: Marijuana Substance Use Frequency: Daily Have you been hit, kicked, punched, or otherwise hurt by someone within the past year? If so, by whom?: No Are you DNR?: No Advance Directives: No (will bring DOS) Advance Directives Information Provided: Yes Advance Directives on File: No Poor oral hygiene: No Current occupational status: disabled Cognitive needs: Yes Hearing needs: No Vision needs: Yes (wear glasses) Meds Allergies Allergy/AdvReac Type Severity Reaction Status Date / Time cephalexin [From Keflex] Allergy Severe Rash Verified 02/21/25 09:15 Sulfa (Sulfonamide Allergy Severe Rash Verified 02/21/25 09:15 Antibiotics) Home Medications ?Medication ?Instructions ?Recorded ?Confirmed ?Last Taken ?Type alendronate 70 mg tablet 70 mg PO QWEEK 08/03/24 03/20/25 Unknown History baclofen 10 mg tablet 10 mg PO TID 08/03/24 03/20/25 Unknown History gabapentin 300 mg capsule 300 mg PO TID 08/03/24 03/20/25 Unknown History metformin 500 mg tablet,extended 500 mg PO DAILY 08/03/24 02/21/25 Unknown History release 24 hr trazodone 300 mg tablet 300 mg PO BEDTIME 08/03/24 03/20/25 Unknown History famotidine 40 mg tablet 40 mg PO DAILY 12/06/24 03/20/25 Unknown History esomeprazole magnesium 40 mg 40 mg PO DAILY 01/23/25 03/20/25 Unknown History capsule,delayed release aripiprazole 2 mg tablet 4 mg PO DAILY 02/21/25 03/20/25 Unknown History Exam Airway Mallampati Class: II TM Dist: >3cm Neck ROM: Full Loose/Missing/Broken Teeth: No Assessment and Plan Assessment Anesthesia Assessment: Anesthesia Plan Discussed Final Anesthetic Review NPO: Yes ASA Class: II Final Preanesthetic Review: No Changes in Pt Med Stat, Meds/Allgs Chart Reviewed, Consent Obtained/Reviewed and Anes Risks/Benef Reviewed Patient Risk: Intermediate Procedure Risk: Low Anesthetic Plan Anesthetic Plan: GA Disposition: Standard PACU
--- NOTE | ~2025-03-22 | FL_ITS ---
EXAMINATION: FL GUIDANCE ONLY HISTORY: ERCP COMPARISON: Correlation is made with an abdominal ultrasound dated 02/14/2025. TECHNIQUE: Fluoroscopy time: 3.6 minutes. Cumulative Dose: 76.5 mGy. DAP: 20.8 mGym2 Images: 11. FINDINGS: Images demonstrate a small amount of contrast material in the common bile duct and intrahepatic biliary radicles. The common bile duct is mildly dilated. A definite intraluminal filling defect is not identified. The final film demonstrates a stent in place. FL/FL guidance in OR IMPRESSION: Fluoroscopy during procedure. Please see procedure report for additional information. Electronically signed by: Yasir Mariscal MD 03/22/2025 03:40 PM EDT
[2025-03-22 12:00] VITALS: BP 111/58; PULSE 67; RESP 18; TEMP 37.1; O2SAT 94
[2025-03-22] MEDS: Lactated Ringers 1,000 ML 100 ML IVCONT (12:16)
[2025-03-22 12:28] LABS: Glucose, Whole Blood 91 mg/dL (60-115)
--- NOTE | 2025-03-22 12:58 | MHC.SHP ---
Pre-Procedural Eval Section A - 24 Hr Update-Section A only Date of Service: 03/22/25 Section B - Complete if H&P > 30 days Chief Complaint: Calculus of bile duct without cholangitis,dysphagi Relevant Family History (Specify if Yes): No Relevant Social History: Tobacco Use Present Medications: see Short Stay Collaborative assessment Medical History: Significant History (Body piercing Nicotine dependence, cigarettes, uncomplicated Compression fracture of L4 vertebra Diabetes Bipolar 1 disorder Anxiety and depression Imbalance Headache H/O gastroesophageal reflux (GERD) Acid reflux Spine disorder Swelling Edema Osteoporosis Acute arthritis COPD (chronic obstructive p) History of Previous Operations: Relevant previous surgery/procedure and date(s) (: hemorrhoidectomy Hx of cholecystectomy History of esophagogastroduodenoscopy (EGD) (09/2024) Hx of colonoscopy (09/2024)) Allergies: Allergies Allergy/AdvReac Type Severity Reaction Status Date / Time cephalexin [From Keflex] Allergy Severe Rash Verified 02/21/25 09:15 Sulfa (Sulfonamide Allergy Severe Rash Verified 02/21/25 09:15 Antibiotics) Review of Systems Sugical H&P ROS: Negative: Constitution, Cardiovascular, Respiratory, Neurological, Psychiatric, Hem-Onc, Allergic/Immunologic, Gastrointestinal, Genitourinary, Musculoskeletal, Integumentary, Endocrine and Eyes/Ears/Nose/Throat Exam Surgical H&P Exam: Normal: HEENT, Normal: Heart, Normal: Lungs, Normal: Extremities, Normal: Abdomen, Normal: Skin and Normal: Neurological Plan Diagnosis/Plan: Unchanged I have reviewed the history and physical and performed a pertinent physical examination on my patient. No changes have occurred unless specified. Time Spent With Patient Time: Total time managing care of this patient today ____ minutes.
--- NOTE | 2025-03-22 14:52 | W.PM.OPN ---
Operative Note Operative Note Date of Service: 03/22/25 Narrative: Description:?Endoscopic retrograde cholangiopancreatography (ERCP) PROCEDURE:?Endoscopic retrograde cholangiopancreatography with sphincterotomy, stone extraction, intraop cholangiogram and interpretation and spyglass INDICATION FOR THE PROCEDURE:?Patient with a history of abdominal pain and MRCP with choldocholithiasis. MEDICATIONS:?General anesthesia. The risks of the procedure were made aware to the patient and consisted of medication reaction, bleeding, perforation, aspiration, and post ERCP pancreatitis. DESCRIPTION OF PROCEDURE:?After informed consent and appropriate sedation, the duodenoscope was inserted into the oropharynx, down the esophagus, and into the stomach. The scope was then advanced through the pylorus to the ampulla. The CBD was selectively cannulated with wire guided approach and a cholangiogram was obtained. The cholangiogram was formally interpreted and documented, and confirmed placement with filling defect noted in mid CBD with a dilated duct to about 12 mm. A sphincterotomy was performed to facilitate stone removal, ductal clearance and enlarge the orifice beyond standard cannulation. After this a extraction balloon was used to extract sludge and stone debris material. Completion balloon occluded cholangiography demonstrated no filling defects. Spyglass was used to confirm the radiographic findings and no stone material or debris was noted. The procedure was then terminated. Intraop cholangiogram reivew and interpretation by performing physician: Dilated CBD with filling defect in mid CBD consistent with choledocholithiasis. CBD measured about 12 mm. No strciture or leak seen. FINDINGS: 1. Choledocholithiasis RECOMMENDATIONS: 1. clears today 2. if any worsening abdominal pain, fever come to the ED
[2025-03-22 15:02] VITALS: BP 133/65; PULSE 66; RESP 18; TEMP 36.3; O2SAT 92
[2025-03-22 15:07] VITALS: BP 127/67; PULSE 70; RESP 20; O2SAT 93
[2025-03-22 15:12] VITALS: BP 124/74; PULSE 66; RESP 20; O2SAT 94
[2025-03-22 15:17] VITALS: BP 113/48; PULSE 68; RESP 20; O2SAT 95
[2025-03-22 15:32] VITALS: BP 142/82; PULSE 64; RESP 20; TEMP 37; O2SAT 95
== END 2025-03-22 15:42 | disposition home or self-care (01) ==
PROVIDERS: PCP Nurse Practitioner Family; Visit Provider Internal Medicine Gastroenterology
PROC: (CPT 43260; principal; 2025-03-22 12:30)
PROC: (CPT 43264; 2025-03-22 12:30)
DX: K80.50 Calculus of bile duct without cholangitis or cholecystitis without obstruction (principal); R13.10 Dysphagia, unspecified; K44.9 Diaphragmatic hernia without obstruction or gangrene
CPT/HCPCS: 43264; 43262; 43273; 43235; 82947; C1887; J2003; J2704; J3010; Q9967

== ENCOUNTER → 2025-03-22 10:30 | Outpatient (BNV) | payer OTHER, SELFPAY | PROVIDERS: PCP Nurse Practitioner Family; Visit Provider Internal Medicine Gastroenterology | DX: K80.50 Calculus of bile duct without cholangitis or cholecystitis without obstruction (principal) | CPT/HCPCS: 43262; 43264; 43273 ==

== ENCOUNTER 2025-03-27 12:55 | Outpatient (AMB) | payer OTHER, SELFPAY ==
[2025-03-27 13:07] VITALS: BP 119/65; PULSE 76; O2SAT 94; BMI 31.6
--- NOTE | 2025-03-27 13:07 | A.OFFVIS_ITS ---
Vital Signs 03/27/25 13:07 Height 5 ft 3 in Weight 178 lb 9.191 oz BMI 31.6 BP 119/65 Blood Pressure Location Lt brachial Position Sitting Pulse 76 Pulse Source Pulse Oximeter Pulse Oximetry (%) 94 Oxygen Delivery Method Room Air Intake Visit Reasons: s/p EGD ERCP Lucila Weaver pt Intake Note: Pt presents to the office today for a s/p EGD ERCP. Pt states she is feeling well and denies any concerns. Allergies cephalexin [From Keflex] Allergy (Severe, Verified 03/27/25 13:10) Rash Sulfa (Sulfonamide Antibiotics) Allergy (Severe, Verified 03/27/25 13:10) Rash lamotrigine Allergy (Intermediate, Verified 03/27/25 13:10) Rash HPI Comments Details: 69 y.o F with PMH of polyps, fam hx of colon ca, osteoporosis, DM2, well controlled COPD, ongoing tobacco use who is here for question of NANCY. Records from prev PCP as well as referring PCP reviewed. Pt reports fam hx of CRC in her father at age 70. Pt herself had a colo 2-3 years ago in [place] and was told she had dozen polyps . Does not recall if the polyps needed close follow up or if they were benign. She had a FIT done in May 2024 through [facility] PCP - the indication in uncertain as pt does not meet criteria for average risk screening through FIT. This was positive. There is also documentation of ??NANCY. However labs reviewed from [facility] and [facility] practice and pt with normal H/H and iron panel. She does not describe abd pain, N,V, D or blood in stool. 10/12/24: EGD/colo (Dr Gaytan) Endoscopy Findings: hiatal hernia schatzki ring esophagitis gastritis Colonoscopy Findings: diverticulosis colon polyps internal hemorrhoids Plan: Await Pathology results Repeat Colonoscopy in 1 year due to fair pre on right side or earlier if clinically indicated High fiber diet leaflet avoid straining at stool, epsom salts and sitz bath, anusol supps or cream next time use an adult scope A. Stomach, biopsy: Gastric antral/body mucosa with focal minimal chronic inactive inflammation; negative for H.pylori, intestinal metaplasia and dysplasia. B. Colon, ascending, polyp: Rare fragment of colonic epithelium without dysplasia present with fecal material; no polyp identified. C. Colon, sigmoid, polyp: Hyperplastic polyp. D. Colon, rectal polyps: Hyperplastic polyps (3 pieces) 11/14/24: Here for post procedure follow up. Reports cont'd reflux sx including regurgitation liz at night. 01/23/25: Here for follow up post barium swallow. See results below shows mild dysmotility, reflux, gastritis. Pt reports taking esomeprazole 40 in AM but sx are largely at night time. Wonders if she can switch timings. Pt also reports post prandial RUQ pain that is very reminiscent of the gallbladder attack . Pt s/p CCY many years ago but recalls being told she had CBD stones that could not be taken out. She cant remember if she had an ERCP. 1. Granular appearance of the esophageal mucosa, suggestive of esophagitis. 2. Moderate esophageal dysmotility. 3. Nonobstructing Schatzki's ring. 4. Small to moderate-sized type I hiatal hernia with significant gastroesophageal reflux. 5. Thickened appearance of the areae gastricae, suggestive of gastritis. 03/27/25: Here for post ercp follow up. 03/22 (Dr Gaytan): Was noted to have dilated CBD 12 mm with stones and debris s/p sphincterotomy and balloon extraction. Reports that right after the procedure had severe sharp pain that lasted 2-3 days assoc wtih nausea, loss of appetite and elevated HR. However didnt call GI office at that time. Pain eventually resolved after 3 days. Now back to regular diet. Stools are normal now. Due for colo this year - poor prep last year. Had a positive FIT. [facility] Medical History Body piercing Nicotine dependence, cigarettes, uncomplicated Compression fracture of L4 vertebra Diabetes Bipolar 1 disorder Anxiety and depression Imbalance Headache H/O gastroesophageal reflux (GERD) Acid reflux Spine disorder Swelling Edema Osteoporosis Acute arthritis COPD (chronic obstructive pulmonary disease) Surgical History H/O left breast biopsy H/O: hemorrhoidectomy Hx of cholecystectomy History of esophagogastroduodenoscopy (EGD) (09/2024) Hx of colonoscopy (09/2024) Family History Mother Mental health disorder Substance abuse Cardiovascular disease Alcoholism Father Diabetes Colon cancer Social History Household Members: Children Household Members Other:: son Both parents involved: No Caregiver staying overnight: No Housing: Apartment Are you a primary child day care teacher to a significant other at home: No Do you presently have visiting nurse or other home services: No (has life alert type necklace) 75 years or older and lives alone: No Alcohol intake: never Patient Tobacco Use Status: Current everyday Tobacco user Tobacco use type: Cigarette Cigarette Packs Per Day: 1 Cigarettes Per Day: 20.0 Years Smoked: 25 e-Cigarette/Vaping Use: Never Used Second Hand Smoke Exposure: Yes Use of substances other than those prescribed or required for medical reasons: Yes Substance Use Type: Marijuana Substance Use Frequency: Daily Current occupational status: disabled Cognitive needs: Yes Hearing needs: No Vision needs: Yes (wear glasses) Review of Systems Const All systems reviewed & are unremarkable except as noted in HPI and below Physical Exam Vital Signs: Last Vital Signs Pulse 76 03/27/25 13:07 BP 119/65 03/27/25 13:07 Pulse Ox 94 03/27/25 13:07 Oxygen Delivery Method Room Air 03/27/25 13:07 BMI result Body Mass Index 31.6 No apparent distress Nonicteric Abdomen soft, nondistended Alert and oriented x3, normal gait Assessment & Plan Assessment & Plan (1) GERD with esophagitis: Code(s): K21.00 - Gastro-esophageal reflux disease with esophagitis, without bleeding Category: Medical (2) Family hx of colon cancer: Comment: Dad Code(s): Z80.0 - Family history of malignant neoplasm of digestive organs Category: Medical Plan 1. GERD: esophagitis and gastritis resolved on recent endoscopic eval. Pt without any melena. Can decrease esomeprazoel to 20. Pt requests to go back to famotidine 20 which is also appropriate. 2. Fam hx of CRC Pt had a positive FIT test but colo was poor prep. Due for a repeat. Msg sent again to schedulers. Modified prep instructions: -- 2 days before:low residue diet. miralax BID and bisacodyl BID -- 1 day before: CLD. miralax in AM and bisacodyl BID. Start miralax/gtrd prep in evening as per protocol. follow up after colo Medications: New polyethylene glycol 3350 (Miralax) 2 days before colonoscopy, take this twice a day along with bisaocodyl 17 grams PO BID 238 grams 0RF bisacodyl start 2 days before colonoscopy 10 mg (2 x 5 mg) PO BID 2 days 8 tabs 0RF famotidine 20 mg PO DAILY 90 days 90 tabs 1RF polyethylene glycol 3350 (Miralax) mix in 64 oz of gatorade for colonoscopy prep 238 grams PO ONCE 238 grams 0RF Coding Level of Care Code Est Pt Level 4 (34474) Diagnoses GERD with esophagitis K21.00 Family hx of colon cancer Z80.0
--- OUTSIDE RECORDS SUMMARY | 2025-03-27 13:15 | XMS_ITS | Patient Health Record ---
Author Organization [employer] [facility] Address [address] [place] [address] Care Team Providers Care Instrument And Electrical Technician Name Role Phone Venkata (RETIRED) Jaguar FAY Primary Care Provide r Unavailable Maritza Ryeez Unavailable [phone] Allergies Allergen (clinical drug ingredient) Drug/Non Drug [...] W/U Status Risk Notes Problem Anxiety state (981375508) Anxiety state, unspecified (300.00) Active confirmed Problem Pain in thoracic spine (451452258) Pain in thoracic spine (724.1) Active confirmed Plan Of Treatment Pending Test Test Name Order Date Urine Culture and Sensitivity 01/19/2015 Insurance Providers Payer Name Payer Address Payer Phone Subscriber Number Group Number Insured Name Patient Relationship to Insured Coverage Start Date Coverage End Date [facility] [address] [place] [address] [phone] [id number] S[place] Spouse - patient is the spouse of the insured Medical (General) History Medical History History ICD Code Pain in thoracic spine Anxiety state, unspecified
--- OUTSIDE RECORDS SUMMARY | 2025-03-27 13:15 | XMS_ITS | Patient Health Record ---
Author Organization [facility] Address [address] [place], [place] [id number] Care Team Providers Care Tongue Carrier Name Role Phone Елена Amaya MD Primary Care Provider Unavail able Allergies Allergen (clinical drug ingredient) Drug/Non Drug Allergy documented on EMR Reaction Allergy Type Onset Date Status sulfa Unknown Drug Allergy Active Reason For Referral No Information Medications Medication SIG (Take, Route, Fr equency, Duration) Notes Start Date End Date Status Omeprazole 20 MG 1 capsule Orally Onc e a day for 30 Active Uceris 9 MG 1 tablet in the morn ing Orally Once a day for 30 days 03/01/2018 Active Temazepam 50 1 capsule at bedtime as needed Once a day Active Topamax 100 MG 1 tablet Orally DAILY Active Abilify 2 MG 1 tablet Orally Once a day Active Carafate 1 GM one tablet Orally Tw ice a day for 30 day(s) 04/13/2018 Active Vitamin D 5000 5000 units ORALLY ON CE A WEEK for 30 days 02/17/2018 Active traMADol HCl 50 MG Orally NEEDED Active TRAZADONE 100 ORALLY BID Activ e Social History Tobacco Use: Social History Observation Description Date Details (start date - stop date) Current Smoker NA - NA Tobacco Use/Smoking Question Answer Notes Are you a current smoker How often do you smoke cigarettes? every day How many cigarettes a day do you smoke? 11-20 Alcohol Screen Question Answer Notes Did you have a drink containing alcohol in the p ast year? No Points 0 Section Notes: SMOKING FOR 40 YEARS SMOKING FOR 40 YEARS SMOKING FOR 40 YEARS SMOKING FOR 40 YEARS SMOKING FOR 40 YEARS Problems Problem Type SNOMED Code ICD Code Onset Dates Problem Status W/U Status Risk Notes Problem Rectal polyp (51112592) Rectal polyp (K62.1) Active confirmed Problem 35840442 Colitis (K52.9) Active confirmed Problem Polyp of colon (disorder) (03564175) Colon polyps (K63.5) Active confirmed Problem Internal hemorrhoids (73189546) Internal hemorrhoids (K64.8) Active confirmed Problem Esophagitis (37946135) Esophagitis (K20.9) Active confirmed Problem Abdominal pain (55330364) Abdominal pain (R10.9) Active confirmed Problem Clostridium difficile infection (960950330) Clostridium difficile infection (B96.89) Active confirmed Problem 726220992 Loose stools (R19.5) Active confirmed Problem History of gastrointestinal disease (633179493) History of hemorrhoids (Z87.19) Active confirmed Problem Acute pancreatitis (024045543) Acute pancreatitis, unspecified complication status, unspecified pancreatitis type (K85.90) Active confirmed Problem 158512142930384 Hx of Clostridium difficile infection (Z86.19) Active confirmed Plan Of Treatment Pending Test Test Name Order Date COLONOSCOPY AND BIOPSY 02/17/2018 COLONOSCOPY AND BIOPSY 04/13/2018 C difficile Toxins A+B, EIA 12/26/2017 Calprotectin, Fecal 12/26/2017 Stool Culture 12/26/2017 Stool Culture 12/26/2017 Stool Culture 12/26/2017 Ova + Parasite Exam 12/26/2017 CLOSTRIDIUM DIFFICILE TOXIN A AND B, EIA 06/17/2018 UPPER GI ENDOSCOPY, BIOPSY 04/13/2018 Future Test Test Name Order Date Livergram 04/10/2018 Insurance Providers Payer Name Payer Address Payer Phone Subscriber Number Group Number Insured Name Patient Relationship to Insured Coverage Start Date Coverage End Date [facility] [address] [place] [id number] [phone] [id number] Jaffrey Nataliia Self - patient is the insured Medical (General) History Medical History History ICD Code SHORTNESS OF BREATH MIGRAINES TROUBLE SLEEPING FREQUENT HEADACHES BACKACHES Surgical History Surgery Date(Month/Year) COLONOSCOPY .. DR ECHOLS 01/02 [facility] REMOVAL 1989
== END 2025-03-27 14:12 | disposition home or self-care (01) ==
LOC: HO.HGI 12:56
PROVIDERS: PCP Nurse Practitioner Family; Visit Provider Internal Medicine
DX: K21.00 Gastro-esophageal reflux disease with esophagitis, without bleeding (principal); Z80.0 Family history of malignant neoplasm of digestive organs
CPT/HCPCS: 99214

== ENCOUNTER → 2025-03-27 12:55 | Outpatient (BNVA) | payer OTHER, SELFPAY | PROVIDERS: PCP Nurse Practitioner Family; Visit Provider Internal Medicine | DX: K21.00 Gastro-esophageal reflux disease with esophagitis, without bleeding (principal); Z86.018 Personal history of other benign neoplasm; Z80.0 Family history of malignant neoplasm of digestive organs | CPT/HCPCS: 99212 ==

== ENCOUNTER 2025-04-12 08:46 | Outpatient (AMB) | payer OTHER, SELFPAY ==
--- NOTE | 2025-04-12 08:47 | A.OFFPC_ITS ---
Vital Signs 04/12/25 08:56 Height 5 ft 3 in Weight 180 lb BMI 31.9 BP 98/66 Blood Pressure Location Lt brachial Position Sitting Respiration 12 Pulse 74 Pulse Source Pulse Oximeter Temp 97.3 F Temp Source Oral Pulse Oximetry (%) 92 Oxygen Delivery Method Room Air Intake Visit Reasons: 6 weeks fu lamictal start - see comments Intake Note: 6 Weeks follow up on lamictal start and patient stop lamictal because she got a severe rash. Patient wants to also discuss about her hernia, and also patient wants to speak regarding her sleeping medication option. Patient right hand and wrist painful after iv was placed. Patient needs refill on calcipotriene/triamcinolone .005%/.02 Insulation Inspector Required: No Allergies cephalexin [From Keflex] Allergy (Severe, Verified 04/12/25 09:19) Rash Sulfa (Sulfonamide Antibiotics) Allergy (Severe, Verified 04/12/25 09:19) Rash lamotrigine Allergy (Intermediate, Verified 04/12/25 09:19) Rash Medication List - Last Reconciled 04/12/25 by Adia Flower, PROCESS CONTROLS TECHNICIAN- albuterol sulfate 90 mcg/actuation 2 puffs inhalation Q4-6H PRN 30 days alendronate 70 mg PO QWEEK aripiprazole 4 mg PO DAILY baclofen 10 mg PO TID bisacodyl 10 mg (2 x 5 mg) PO BID 2 days wjbviykbxf-ezslslxcfazak-pjau 50-325-40 mg 1 tab PO DAILY PRN clonidine HCl 0.1 mg PO BEDTIME desonide 0.05% 1 appl topical BID-QID PRN diclofenac sodium 3% 1 appl topical BID PRN duloxetine 20 mg PO DAILY esomeprazole magnesium 20 mg PO DAILY 90 days famotidine 20 mg PO DAILY 90 days gabapentin 300 mg PO TID naloxone 4 mg/actuation (Narcan) 4 mg intranasal Q2M PRN polyethylene glycol 3350 (Miralax) 17 grams PO BID polyethylene glycol 3350 (Miralax) 238 grams PO ONCE tramadol 50 mg PO BID PRN 15 days trazodone 300 mg PO BEDTIME [wedge pillow As directed] Tobacco use date assessed: 04/12/25 Fall risk assessment: No Falls in past year Last assessed Fall Risk: 04/12/25 Dental Screening Dental Screen Date: 04/12/25 Did you have a dental visit in the last 12 months?: No Did you have a dental problem in the last 6 months where you did not have access to dental care?: No Was dental information given to patient?: Patient has dentist HPI HPI Comments History of Present Illness Details 69 y/o F with osteoporosis, DM2, GERD, I sally def anemia, GERD, Bipolar 1, KYLE, MDD, COPD, current tobacco use, chronic pain, eczema, hiatal hernia, schatzki ring, esophagitis, gastritis, diverticulosis, colon polyp, internal hemorrhoids History of Present Illness - The patient is a 69-year-old female pr esenting for follow-up on medication management and multiple symptoms. - At last OV, she was started on lamotri gne to help w/ mood; Rash onset after 2 weeks of lamotrigine dose. She stopped. rash has resolved. Feels mood is stable on current meds. - Persistent esophagitis with reflux sym ptoms, management per gastroenterology. however she has not decreased her PPI reporting cont GERD. EGD reviewed; Pt would like surgery consult for hiatal hernia - Psoriasis not responsive to Desonide c ream; used calcio/triamcinolone in the past, with effective past treatments. - Restless Legs Syndrome triggered by tr azodone use. no rls when not taking. working well for sleep. offered to check iron profile as this can cause or worsen RLS; she declined. was taking clonidine at hs to help w/ mood and sleep; stopped taking stating out of refills. BP soft today. No need to cont. - Allergic rhinitis with environmental t riggers. not on antihistamine. - Due for DM eye exam. Needs new referra l. - Needs to schedule mammo and dexa, whic h were ordered. Exam Awake alert NAD external ears with dry flaking skin + rhintis RRR LS CTAB Mood and affect appropriate Discussion Notes During this visit, I discussed with the patient the rash related to lamotrigine and advised discontinuation. We talked about the persistent reflux symptoms and the possibility of surgical evaluation for the hiatal hernia, explaining the risks and benefits. I informed her that esomeprazole dosage should not be decreased due to ongoing symptoms. A referral to general surgery for hiatal hernia evaluation was placed. We reviewed the ineffectiveness of Desonide for psoriasis and the potential for using a different topical steroid. For Restless Legs Syndrome exacerbated by trazodone, I introduced the option of ropinirol. We discussed the need for routine mammogram and bone density testing and eye examination. I provided guidance on managing allergic rhinitis with daily antihistamines. We also addressed family stressors and the impact on her well- being. Assessment and Plan 1. Rash secondary to lamotrigine - Discontinue lamotrigine; 2. Bipolar Disorder - cont meds, monitor mood 3. Esophagitis and Reflux Symptoms - Continue esomeprazole at higher dose; surgery referral for hiatal hernia. cont care w/ GI 4. Psoriasis - Discontinue Desonide; prescribe combo cream. made aware insurance may deny 5. Restless Legs Syndrome - cont trazodone; initiate ropinirol. ti trate to effect 6. Hiatal Hernia - Surgery referral for evaluation; 7. Allergic Rhinitis - Prescribe daily antihistamine. RTO 3 MO ROUTINE FU, SOONER PRN Patient Instructions - Continue esomeprazole as before; avoid reducing dose. - Use cream as prescribed for psoriasis . - Take ropinirol before bed to help with restless legs. - Use daily allergy medicine to help wit h sneezing and allergies. - Follow up with scheduled mammogram and bone density testing. - Ensure eye exams are up to date. - Call the number on your bill to [employer] financial assistance. - Follow up with the surgeon about your hiatal hernia. Consent Patient was informed and verbally consented to the use of an ambient scribe for clinic note documentation during this visit. Total time spent caring for the patient today was 45 minutes. This includes time spent before the visit reviewing the chart, time spent during the visit, and time spent after the visit on documentation, reviewing laboratory results, diagnostic imaging, medications, performing a medically necessary evaluation, counseling on diagnoses, care coordination, ordering appropriate tests, ordering appropriate medications, review of tests performed by other providers, reporting test results with the patient, communication with other healthcare providers. [facility] Medical History (Updated 04/12/25 @ 09:52 by J[facility]) Acid reflux Acute arthritis Anxiety and depression Bipolar 1 disorder Body piercing Compression fracture of L4 vertebra COPD (chronic obstructive pulmonary disease) Diabetes Edema H/O gastroesophageal reflux (GERD) Headache Imbalance Nicotine dependence, cigarettes, uncomplicated Osteoporosis Spine disorder Swelling Surgical History H/O left breast biopsy H/O: hemorrhoidectomy History of esophagogastroduodenoscopy (EGD) (09/2024) Hx of cholecystectomy Hx of colonoscopy (09/2024) Family History Mother Mental health disorder Substance abuse Cardiovascular disease Alcoholism Father Diabetes Colon cancer Social History Household Members: Children Household Members Other:: son Both parents involved: No Caregiver staying overnight: No Housing: Apartment Are you a primary direct care professional to a significant other at home: No Do you presently have visiting nurse or other home services: No (has life alert type necklace) 75 years or older and lives alone: No Alcohol intake: never Patient Tobacco Use Status: Current everyday Tobacco user Tobacco use type: Cigarette Cigarette Packs Per Day: 1 Cigarettes Per Day: 20.0 Years Smoked: 25 e-Cigarette/Vaping Use: Never Used Second Hand Smoke Exposure: Yes Substance Use Type: Marijuana Current occupational status: disabled Cognitive needs: Yes Hearing needs: No Vision needs: Yes (wear glasses) Questionnaire PHQ-9 Over the last 2 weeks, how often have you been bothered by any of the following problems? 1. Little interest or pleasure in doing things: not at all 2. Feeling down, depressed, or hopeless: not at all 3. Trouble falling or staying asleep, or sleeping too much: not at all 4. Feeling tired or having little energy: not at all 5. Poor appetite or overeating: not at all 6. Feeling bad about yourself - or that you are a failure or have let yourself or your family down: not at all 7. Trouble concentrating on things, such as reading the newspaper or watching television: not at all 8. Moving or speaking so slowly that other people could have noticed. Or the opposite - being so fidgety or restless that you have been moving around a lot more than usual: not at all 9. Thoughts that you would be better off or of hurting yourself in some way: not at all Total score: 0 Depression Screening Interpretation: Negative Depression Screening Done: Yes 67916 - PHQ-9 Billing: Yes Source: Developed by Drs. Marilee Dorantes Kurt Kroenke and colleagues, with an educational isaiah from [employer]. Thrive Questionnaire Date Thrive assessed: 04/12/25 I am a: Patient What is your living situation today?: I have a place to live, but I am worried about losing it in the future Within the past 12 months, did the food you bought not last and you didn't have the money to get more?: Sometimes True Within the past 12 months, did you worry whether your food would run out before you got money to buy more?: Sometimes True Do you have trouble paying for medicines?: No Do you have trouble getting transportation to medical appointments?: No Do you have trouble paying your heating and electricity bill?: No Do you have trouble taking care of your child, family member or friend?: No Do you have trouble with day-to-day activities such as bathing, preparing meals, shopping, managing finances, etc.?: No Are you currently unemployed and looking for a job?: No Are you interested in more education?: No Please select the resources that you would like help with: None Currently or been in a relationship where the following occur: I choose not to answer THRIVE Score: 3 KYLE-7 AMB Questionnaire KYLE-7 Date KYLE - 7 assessed: 04/12/25 Feeling nervous, anxious, or on edge: 0 = Not at all Not being able to stop or control worryin = Not at all Worrying too much about different things: 0 = Not at all Trouble relaxin = Not at all Being so restless that it is hard to sit still: 0 = Not at all Becoming easily annoyed or irritable: 0 = Not at all Feeling afraid as if something awful might happen: 0 = Not at all Total KYLE-7 score (0-4 normal; 5-9 mild; 10-14 moderate; 15-21 severe): 0 Source: Developed by Drs. Yasir Hardin, Marilee Castillo, Anish Villagran and colleagues, with an educational isaiah from [employer]. KYLE-7 Assessment Billing KYLE-7 Assessment Tool: KYLE-7 Assessment 30186 Physical exam (Primary Care) Vital Signs: Last Vital Signs Temp 97.3 F 04/12/25 08:56 Pulse 74 04/12/25 08:56 Resp 12 04/12/25 08:56 BP 98/66 04/12/25 08:56 Pulse Ox 92 04/12/25 08:56 Oxygen Delivery Method Room Air 04/12/25 08:56 BMI result Body Mass Index 31.9 Tobacco/Smoking Status: Tobacco use Status Tobacco use date assessed 04/12/25 04/12/25 08:58 Patient Tobacco Use Status Current everyday Tobacco 04/12/25 08:58 Tobacco use type Cigarette 04/12/25 08:58 e-Cigarette/Vaping Use Never Used 04/12/25 08:58 PHQ-9: PHQ-9 Score PHQ-9: Total score 0 04/12/25 08:58 Depression Screening Interpretation: Negative Thrive Assessment: Date of Thrive Assessment Date Thrive assessed 04/12/25 04/12/25 08:58 Currently or been in a relationship where the following occur: I choose not to answer Coding Level of Care Code Est Pt Level 5 (45133) Complex EM visit Add On G2211 Diagnoses RLS (restless legs syndrome) G25.81 Bipolar 1 disorder F31.9 Eczema of both external ears H60.543 Laterality: bilateral Gastroesophageal reflux disease with esophagitis without hemorrhage K21.00 Esophagitis bleeding: without hemorrhage Hiatal hernia K44.9 DM type 2 causing complication E11.8 Environmental allergies Z91.09 Additional Codes KYLE-7 Assessment Billing - KYLE-7 Assessment Tool: KYLE-7 Assessment 08067 ([id number]) PHQ-9 - 53114 - PHQ-9 Billing: Yes ([id number]) Assessment & Plan Assessment & Plan (1) RLS (restless legs syndrome): Code(s): G25.81 - Restless legs syndrome Category: Medical (2) Bipolar 1 disorder: Code(s): F31.9 - Bipolar disorder, unspecified Category: Medical (3) Eczema of external ear: Code(s): H60.549 - Acute eczematoid otitis externa, unspecified ear Category: Medical Qualifiers: Laterality: bilateral Qualified Code(s): H60.543 - Acute eczematoid otitis externa, bilateral (4) GERD with esophagitis: Code(s): K21.00 - Gastro-esophageal reflux disease with esophagitis, without bleeding Category: Medical Qualifiers: Esophagitis bleeding: without hemorrhage Qualified Code(s): K21.00 - Gastro-esophageal reflux disease with esophagitis, without bleeding (5) Hiatal hernia: Code(s): K44.9 - Diaphragmatic hernia without obstruction or gangrene Category: Medical (6) DM type 2 causing complication: Code(s): E11.8 - Type 2 diabetes mellitus with unspecified complications Category: Medical (7) Environmental allergies: Code(s): Z91.09 - Other allergy status, other than to drugs and biological substances Category: Medical Plan . Orders: Referrals General Surgery Referral K44.9 - Diaphragmatic hernia without obstruction or gangrene Ophthalmology Referral E11.8 - Type 2 diabetes mellitus with unspecified complications Medications: New calcipotriene-betamethasone 0.005-0.064 % 1 gram twice per day 1 appl topical BID 4 weeks 100 grams 12RF ropinirole administer 1-3 hours before bedtime 0.25 mg PO BEDTIME 90 tabs 0RF cetirizine (Zyrtec) 10 mg PO DAILY 90 caps 2RF Discontinued clonidine HCl Discontinued Reason: Patient no longer taking 0.1 mg PO BEDTIME 90 tabs 1RF desonide 0.05% Discontinued Reason: Patient Completed Course 1 appl topical BID-QID PRN 15 grams 4RF itching
[2025-04-12 08:56] VITALS: BP 98/66; PULSE 74; RESP 12; TEMP 36.3; O2SAT 92; BMI 31.9
--- OUTSIDE RECORDS SUMMARY | 2025-04-12 09:06 | XMS_ITS | Patient Health Record ---
Author Organization [facility] Address [address] [place], [place] [id number] Care Team Providers Care Prefitter Name Role Phone Елена Amaya MD Primary [...] W/U Status Risk Notes Problem Rectal polyp (89531523) Rectal polyp (K62.1) Active confirmed Problem 65176099 Colitis (K52.9) Active confirmed Problem Polyp of colon (disorder) (28397155) Colon polyps (K63.5) Active confirmed Problem Internal hemorrhoids (47770389) Internal hemorrhoids (K64.8) Active confirmed Problem Esophagitis (66856275) Esophagitis (K20.9) Active confirmed Problem Abdominal pain (68943156) Abdominal pain (R10.9) Active confirmed Problem Clostridium difficile infection (147402911) Clostridium difficile infection (B96.89) Active confirmed Problem 854058993 Loose stools (R19.5) Active confirmed Problem History of gastrointestinal disease (741729619) History of hemorrhoids (Z87.19) Active confirmed Problem Acute pancreatitis (659126980) Acute pancreatitis, unspecified complication status, unspecified pancreatitis type (K85.90) Active confirmed Problem [id number] Hx of Clostridium difficile infection (Z86.19) Active [...] Insured Coverage Start Date Coverage End Date [facility] [id number] [employer] [id number] [phone] [id number] Stetson Nataliia Self - patient is the insured Medical (General) History Medical History History ICD Code SHORTNESS OF BREATH MIGRAINES TROUBLE SLEEPING FREQUENT HEADACHES BACKACHES Surgical History Surgery Date(Month/Year) COLONOSCOPY .. DR ECHOLS 01/02 [facility] REMOVAL 1989
== END 2025-04-12 09:44 | disposition home or self-care (01) ==
LOC: HO.HMCFM 08:47
PROVIDERS: PCP Nurse Practitioner Family; Visit Provider Nurse Practitioner Family
DX: G25.81 Restless legs syndrome (principal); F31.9 Bipolar disorder, unspecified; E11.8 Type 2 diabetes mellitus with unspecified complications; Z68.31 Body mass index [BMI] 31.0-31.9, adult; H60.543 Acute eczematoid otitis externa, bilateral; K21.00 Gastro-esophageal reflux disease with esophagitis, without bleeding; K44.9 Diaphragmatic hernia without obstruction or gangrene; Z91.09 Other allergy status, other than to drugs and biological substances

== ENCOUNTER → 2025-04-12 08:46 | Outpatient (BNVA) | payer OTHER, SELFPAY | PROVIDERS: PCP Nurse Practitioner Family; Visit Provider Nurse Practitioner Family | DX: G25.81 Restless legs syndrome (principal); F31.9 Bipolar disorder, unspecified; H60.543 Acute eczematoid otitis externa, bilateral; K21.00 Gastro-esophageal reflux disease with esophagitis, without bleeding; K44.9 Diaphragmatic hernia without obstruction or gangrene; E11.8 Type 2 diabetes mellitus with unspecified complications; Z91.09 Other allergy status, other than to drugs and biological substances | CPT/HCPCS: 96127; 99212 ==

== ENCOUNTER 2025-04-21 11:21 | Outpatient (AMB) | payer OTHER, SELFPAY ==
--- NOTE | 2025-04-21 11:26 | A.OFFVIS_ITS ---
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) Allergies cephalexin [From Keflex] Allergy (Severe, Verified 04/21/25 11:39) Rash Sulfa (Sulfonamide Antibiotics) Allergy (Severe, Verified 04/21/25 11:39) Rash lamotrigine Allergy (Intermediate, Verified 04/21/25 11:39) Rash Medication List - Last Reconciled 04/21/25 by Khadar Vidal MD albuterol sulfate 90 mcg/actuation 2 puffs inhalation Q4-6H PRN 30 days alendronate 70 mg PO QWEEK aripiprazole 4 mg PO DAILY baclofen 10 mg PO TID bisacodyl 10 mg (2 x 5 mg) PO BID 2 days zmdwnbjtpb-hvzpitgvzvnah-qoai 50-325-40 mg 1 tab PO DAILY PRN calcitriol 1 appl topical BID cetirizine (Zyrtec) 10 mg PO DAILY diclofenac sodium 3% 1 appl topical BID PRN duloxetine 20 mg PO DAILY esomeprazole magnesium 20 mg PO DAILY 90 days famotidine 20 mg PO DAILY 90 days gabapentin 300 mg PO TID naloxone 4 mg/actuation (Narcan) 4 mg intranasal Q2M PRN polyethylene glycol 3350 (Miralax) 17 grams PO BID polyethylene glycol 3350 (Miralax) 238 grams PO ONCE ropinirole 0.25 mg PO BEDTIME tramadol 50 mg PO BID PRN 15 days trazodone 300 mg PO BEDTIME [wedge pillow As directed] HPI Comments Details: Patient was referred for persistent GERD and vomiting with solids and fluids despite continuous use of Nexium and Pepcid Tests reviewed: UGI (01/2025: moderate size hernia with severe GERD and esophagitis EGD (03/2025: 4cm fixed [facility] Medical History (Updated 04/21/25 @ 12:30 by Khadar Vidal MD) BMI 31.0-31.9,adult Obesity Body piercing Nicotine dependence, cigarettes, uncomplicated Compression fracture of L4 vertebra Diabetes Bipolar 1 disorder Anxiety and depression Imbalance Headache H/O gastroesophageal reflux (GERD) Acid reflux Spine disorder Swelling Edema Osteoporosis Acute arthritis COPD (chronic obstructive pulmonary disease) Surgical History H/O left breast biopsy H/O: hemorrhoidectomy Hx of cholecystectomy History of esophagogastroduodenoscopy (EGD) (09/2024) Hx of colonoscopy (09/2024) Family History Mother Mental health disorder Substance abuse Cardiovascular disease Alcoholism Father Diabetes Colon cancer Social History Household Members: Children Household Members Other:: son Both parents involved: No Caregiver staying overnight: No Housing: Apartment Are you a primary career resource technician to a significant other at home: No Do you presently have visiting nurse or other home services: No (has life alert type necklace) 75 years or older and lives alone: No Alcohol intake: never Patient Tobacco Use Status: Current everyday Tobacco user Tobacco use type: Cigarette Cigarette Packs Per Day: 1 Cigarettes Per Day: 20.0 Years Smoked: 25 e-Cigarette/Vaping Use: Never Used Second Hand Smoke Exposure: Yes Substance Use Type: Marijuana Current occupational status: disabled Cognitive needs: Yes Hearing needs: No Vision needs: Yes (wear glasses) Physical Exam Vital Signs: Last Vital Signs Temp 97.5 F 04/21/25 11:33 Pulse 80 04/21/25 11:33 BP 128/65 04/21/25 11:33 Pulse Ox 92 04/21/25 11:33 Oxygen Delivery Method Room Air 04/21/25 11:33 BMI result Body Mass Index 31.0 GI Inspection: Yes normal to inspection (Android body habitus) and Yes incision (well healed) Palpation (GI): Soft to palpation Extrem Right lower extremity: normal to inspection Left lower extremity: normal to inspection Quality Reporting (2019) Adult ([facility] 138/2//69) Smoking risk assessment performed?: Yes Patient Tobacco Use Status: Current everyday Tobacco user Assessment & Plan Assessment & Plan (1) Idatal hernia: Code(s): K44.9 - Diaphragmatic hernia without obstruction or gangrene Category: Medical Plan: 1. We discussed the potential etiology of the hernia that could be a result of the weight gain. We discussed the details of the diaphragmatic hernia repair and the potential technical challenges such as being able to achieve enough mobilization of the esophagus back in the abdomen and being able to close the diaphragmatic muscle (crura) primarily with sutures. We also discussed the possibility of using a biologic mesh to close the hernia defect if the crura cannot be adequately re-approximated primarily with sutures. We also discussed the option of doing a gastropexy or a fundoplication to prevent postoperative reflux and prevent hernia recurrence. As we discussed, I favor the gastropexy as the fundoplication can cause several distrurbing symptoms such as gas-bloating, flatulence, inability to burp which can be bothersome to patients. Also we discussed the complexity of a potential hernia recurrence in association with a hernia recurrence. She was in agreement not to have a fundoplication. We also discussed that after surgery, he will need to be on a liquid diet with protein shakes the first week. The second week will add protein bars and soft foods and after the third week we will introduce small amounts of regular food. The transition to normal eating habits will take about 6 weeks which is the time required for the repair to heal completely. ?2.? Please buy the body composition scale we discussed and send me weight measurements as soon as possible and then once a week. 3. Preop prescriptions were provided and explained the purpose of each one. Need to be purchased preop. Start Pantoprazole now as you get it from the pharmacy, 1 pill per day. Sucralfate and Zofran are for after surgery as needed. 4. Bowel prep: please do 7 packets ?of Miralax mixing each one with a an 8oz glass of water, crystal light, gatorade zero, or propel ?on 05/14/25 and the same amount on 05/15/25. The Miralax you begin with one packet at a time in 8oz water or crystal light, gatorade zero, or propel ?as early in the day as you can and you do them back to back until you finish them. Continue the protein shakes during ?the bowel prep. 5. Needs to purchase 1oz medicine cups . 6. Needs to purchase Children's liquid Tylenol for postop pain control. 7. Avoid aspirin, motrin, Advil, Aleve, Meloxicam, Excedrin, Ibuprofen, Naproxyn. Tylenol is OK. 8. She needs to purchase the Celebrate Rebuild protein shakes and Celebrate protein bars from the hospital's gift shop. 9. Will do basic preop blood work-up any day between Thursday05/08/25 and Thursday05/12/25 fasting for 12 hours and is scheduled to see the Anesthesiologist prior to the day of surgery. 10. Importance of adherence to postop folllow-up and recommendations was underscored and she understands that. 11. No soups, broths or V8 12. The patient's?medical?history has been reviewed and they are considered low risk for post op DVT and therefore DVT prophylaxis is not considered necessary. Travel after surgery was reviewed. The patient has not disclosed any travel plans during the first 30 days after surgery and they have been advised that within the first 30 days after surgery any bus, plane, train or car travel over 2 hours in duration is contraindicated due to the possibility of developing blood clots from immobility. Any travel, needs to include periods of ambulation of 10 minutes in duration every 2 hours.? Patient was instructed to discuss any plans for travel during this period with their bariatric surgeon.? 13. Please take at the day of surgery the following medications: Only the inhaler 14. Stop any control pills and don't use them for one month after surgery 15. Stop smoking as of 04/30/2025. Absolutely no smoking or vaping, or marijuana until the surgery and for at least the first 2 weeks. Only nicotine patches are allowed. 16. Avoid any steroids by mouth for any reason. Let me know if someone prescribes them to you Orders: Orders Comprehensive Met. Panel Today E66.9 - Obesity, unspecified, Z68.31 - Body mass index [BMI] 31.0-31.9, adult TSH reflex Free T4 Today E66.9 - Obesity, unspecified, Z68.31 - Body mass index [BMI] 31.0-31.9, adult Prothrombin Time INR Today E66.9 - Obesity, unspecified, Z68.31 - Body mass index [BMI] 31.0-31.9, adult Vitamin B12 Today E66.9 - Obesity, unspecified, Z68.31 - Body mass index [BMI] 31.0-31.9, adult Partial Thromboplastin Time Today E66.9 - Obesity, unspecified, Z68.31 - Body mass index [BMI] 31.0-31.9, adult Vitamin D 25-OH Total Today E66.9 - Obesity, unspecified, Z68.31 - Body mass index [BMI] 31.0-31.9, adult Ferritin Today E66.9 - Obesity, unspecified, Z68.31 - Body mass index [BMI] 31.0-31.9, adult Insulin Today E66.9 - Obesity, unspecified, Z68.31 - Body mass index [BMI] 31.0-31.9, adult IRON PROFILE Today E66.9 - Obesity, unspecified, Z68.31 - Body mass index [BMI] 31.0-31.9, adult Vitamin A Today E66.9 - Obesity, unspecified, Z68.31 - Body mass index [BMI] 31.0-31.9, adult Hemoglobin A1c Today E66.9 - Obesity, unspecified, Z68.31 - Body mass index [BMI] 31.0-31.9, adult Vitamin B1 Today E66.9 - Obesity, unspecified, Z68.31 - Body mass index [BMI] 31.0-31.9, adult Lipid Panel Today E66.9 - Obesity, unspecified, Z68.31 - Body mass index [BMI] 31.0-31.9, adult Type and Screen Today E66.9 - Obesity, unspecified, Z68.31 - Body mass index [BMI] 31.0-31.9, adult C Reactive Protein Today E66.9 - Obesity, unspecified, Z68.31 - Body mass index [BMI] 31.0-31.9, adult Complete Blood Count Auto Diff Today E66.9 - Obesity, unspecified, Z68.31 - Body mass index [BMI] 31.0-31.9, adult Zinc Today E66.9 - Obesity, unspecified, Z68.31 - Body mass index [BMI] 31.0- 31.9, adult Medications: New polyethylene glycol 3350 Mix each measuring cup with 8oz of water, Crystal light, or Gatorade zero, or Propel and do 7 measuring cups on 05/14/25 and another 7 measuring cups on 05/15/25 17 grams PO DAILY 238 grams 0RF Z01.818 - Encounter for other preprocedural examination sucralfate 10 mL PO BID 600 mL 2RF K21.00 - Gastro-esophageal reflux disease with esophagitis, without bleeding ondansetron 4 mg PO Q12H 20 tabs 0RF nausea and vomiting R11.0 - Nausea
[2025-04-21 11:33] VITALS: BP 128/65; PULSE 80; TEMP 36.4; O2SAT 92; BMI 31.0
--- OUTSIDE RECORDS SUMMARY | 2025-04-21 12:09 | XMS_ITS | Patient Health Record ---
Author Organization [facility] Address [address] [place], [place] [id number] Care Team Providers Care Design Printing Machine Setter Name Role Phone Елена Amaya MD Primary [...] W/U Status Risk Notes Problem Rectal polyp (90727741) Rectal polyp (K62.1) Active confirmed Problem 25870474 Colitis (K52.9) Active confirmed Problem Polyp of colon (disorder) (48749417) Colon polyps (K63.5) Active confirmed Problem Internal hemorrhoids (69007586) Internal hemorrhoids (K64.8) Active confirmed Problem Esophagitis (08960526) Esophagitis (K20.9) Active confirmed Problem Abdominal pain (57255904) Abdominal pain (R10.9) Active confirmed Problem Clostridium difficile infection (375408849) Clostridium difficile infection (B96.89) Active confirmed Problem 565761565 Loose stools (R19.5) Active confirmed Problem History of gastrointestinal disease (117308112) History of hemorrhoids (Z87.19) Active confirmed Problem Acute pancreatitis (622318195) Acute pancreatitis, unspecified complication status, unspecified pancreatitis type (K85.90) Active confirmed Problem [id number] Hx of Clostridium difficile infection (Z86.19) Active [...] Insured Coverage Start Date Coverage End Date [facility] [address] [place] [id number] [phone] [id number] [place] Nataliia Self - patient is the insured Medical (General) History Medical History History ICD Code SHORTNESS OF BREATH MIGRAINES TROUBLE SLEEPING FREQUENT HEADACHES BACKACHES Surgical History Surgery Date(Month/Year) COLONOSCOPY .. DR ECHOLS 01/02 [facility] REMOVAL 1989
== END 2025-04-21 12:32 | disposition home or self-care (01) ==
LOC: HO.HBS 11:22
PROVIDERS: PCP Nurse Practitioner Family; Visit Provider Surgery
DX: K44.9 Diaphragmatic hernia without obstruction or gangrene (principal)
CPT/HCPCS: 99204

== ENCOUNTER → 2025-04-21 11:21 | Outpatient (BNVA) | payer OTHER, SELFPAY | PROVIDERS: PCP Nurse Practitioner Family; Visit Provider Surgery | DX: K44.9 Diaphragmatic hernia without obstruction or gangrene (principal); E66.9 Obesity, unspecified; Z68.31 Body mass index [BMI] 31.0-31.9, adult | CPT/HCPCS: 99202 ==

== ENCOUNTER 2025-05-08 10:48 | Outpatient (REF) | payer OTHER, SELFPAY ==
[2025-05-08 11:13] LABS: MANUAL DIFF FLAG NO
[2025-05-08 11:41] LABS: Basophils Percent Auto 0.6 % (0-2); Eosinophils Absolute Auto 0.1 X10*3/uL (0.0-0.4); Eosinophils Percent Auto 1.2 % (0-4); Hematocrit 42.3 % (37.0-47.0); Hemoglobin 14.3 g/dl (12.0-16.0); Imm Gran Abs Auto 0.02 X10*3/uL (0.00-0.03); Imm Gran Pct Auto 0.3 % (0.0-0.4); Lymphocytes Absolute Auto 2.2 X10*3/uL (1.2-4.9); Mean Corpuscular HGB Conc 33.8 g/dl (31.0-35.0); Mean Corpuscular Hemoglobin 30.7 pg (27.0-33.0); Mean Corpuscular Volume 90.8 fL (80.0-98.0); Mean Platelet Volume 9.4 fL (9.4-12.3); Monocytes Absolute Auto 0.4 X10*3/uL (0.1-1.2); Monocytes Percent Auto 5.2 % (2-11); Neutrophils Absolute Auto 4.3 x10*3/uL (2.0-8.3); Neutrophils Percent Auto 61.7 % (45-73); Platelet Count 382 X10*3/uL (160-400); Red Blood Count 4.66 X10*6/uL (4.20-5.50); Red Cell Distribution Width 12.4 % (11.0-16.0); White Blood Count 6.9 X10*3/uL (4.8-10.8)
[2025-05-08 11:49] LABS: Partial Thromboplastin Time 30.7 SEC (26.0-36.8)
[2025-05-08 11:58] LABS: Estimated Average Glucose 103 mg/dL; Hemoglobin A1c % 5.2 % (<6.0); Total Hemoglobin (HGBA1C) 3643.3557 umol/L
[2025-05-08 12:03] LABS: Alanine Aminotransferase 22 U/L (0-31); Albumin Level 4.9 g/dL (3.5-5.0); Alkaline Phosphatase 116 U/L (39-117); Anion Gap 16 (12-20); Aspartate Amino Transferase 20 U/L (5-31); Bilirubin Total 0.5 mg/dL (0.0-1.0); Blood Urea Nitrogen 11 mg/dL (9-16); C Reactive Protein 0.13 mg/dL (< or = 0.50); Calcium 10.1 mg/dL (8.4-10.2); Carbon Dioxide 26 mmol/L (22-29); Chloride 102 mmol/L (96-108); Cholesterol 163 mg/dL (<200); Estimated Glomerular Filt Rate 56; Glucose Random 101 mg/dL (60-115); HDL Cholesterol 53 mg/dL (>40); Iron 100 mcg/dL (30-160); LDL Cholesterol Calculated 95 mg/dL (<100); Percent Iron Saturation 28 % (15-50); Potassium 4.5 mmol/L (3.3-5.1); Sodium 139 mmol/L (135-145); Total Iron Binding Capacity 360 mcg/dL (228-428); Total Protein 7.9 g/dL (6.5-8.0); Triglycerides 77 mg/dL (<150); Unsaturated Iron Binding 260 ug/dL
--- OUTSIDE RECORDS SUMMARY | 2025-05-08 12:10 | XMS_ITS | Patient Health Record ---
Author Organization [facility] Address [address] [place], [place] [id number] Care Team Providers Care Accounting Machine Operator Name Role Phone Елена Amaya MD Primary [...] W/U Status Risk Notes Problem Rectal polyp (29242626) Rectal polyp (K62.1) Active confirmed Problem 70295464 Colitis (K52.9) Active confirmed Problem Polyp of colon (disorder) (88166348) Colon polyps (K63.5) Active confirmed Problem Internal hemorrhoids (56207912) Internal hemorrhoids (K64.8) Active confirmed Problem Esophagitis (93621713) Esophagitis (K20.9) Active confirmed Problem Abdominal pain (40295510) Abdominal pain (R10.9) Active confirmed Problem Clostridium difficile infection (028387641) Clostridium difficile infection (B96.89) Active confirmed Problem 144308411 Loose stools (R19.5) Active confirmed Problem History of gastrointestinal disease (504415016) History of hemorrhoids (Z87.19) Active confirmed Problem Acute pancreatitis (119308196) Acute pancreatitis, unspecified complication status, unspecified pancreatitis type (K85.90) Active confirmed Problem [id number] Hx of Clostridium difficile infection (Z86.19) Active [...] Insured Coverage Start Date Coverage End Date [facility] [address] [place] [id number] [place] Nataliia Self - patient is the insured Medical (General) History Medical History History ICD Code SHORTNESS OF BREATH MIGRAINES TROUBLE SLEEPING FREQUENT HEADACHES BACKACHES Surgical History Surgery Date(Month/Year) COLONOSCOPY .. DR ECHOLS 01/02 [facility] REMOVAL 1989
[2025-05-08 12:30] LABS: Vitamin B12 704 pg/mL (200-900)
[2025-05-08 12:35] LABS: Ferritin 84 ng/mL (10-250); TSH reflex Free T4 1.02 uIU/mL (0.32-4.0)
[2025-05-08 12:43] LABS: Insulin 9 uU/mL (2-29)
[2025-05-10 23:39] LABS: Zinc 75 mcg/dL (60-130)
[2025-05-12 15:04] LABS: Vitamin A 39 mcg/dL (38-98)
[2025-05-13 12:03] LABS: Vitamin B1 6 nmol/L (8-30)
== END 2025-05-08 10:49 | disposition home or self-care (01) ==
LOC: HO.LAB 10:48
PROVIDERS: PCP Nurse Practitioner Family; Visit Provider Surgery
DX: E66.9 Obesity, unspecified (principal); Z68.31 Body mass index [BMI] 31.0-31.9, adult; Z13.1 Encounter for screening for diabetes mellitus
CPT/HCPCS: 36415; 80053; 80061; 82306; 82607; 82728; 83036; 83525; 83540; 84425; 84443; 84590; 84630; 85025; 85610; 85730; 86140

== ENCOUNTER 2025-05-16 10:43 | Inpatient (IN) | payer OTHER, SELFPAY ==
[2025-05-12 14:12] VITALS: BMI 31.0
[2025-05-16] VITALS (8 sets, daily range): BP systolic 102–135; BP diastolic 47–69; PULSE 64–89; RESP 14–16; TEMP 36–37.3; O2SAT 92–98; BMI 29.0
[2025-05-16] MEDS: Lactated Ringers 1,000 ML 999 ML IV (10:58)
[2025-05-16] MEDS: Aprepitant 32 MG/4.4 ML VIAL IVPUSH (11:05)
--- OUTSIDE RECORDS SUMMARY | 2025-05-16 11:56 | XMS_ITS | Patient Health Record ---
Author Organization [employer] [facility] Address [address] [place] [address] Care Team Providers Care Wood Sash And Frame Carpenter Name Role Phone Venkata (RETIRED) Jaguar FAY Primary Care Provide r Unavailable Maritza Reyez Unavailable [phone] Allergies Allergen (clinical drug ingredient) Drug/Non Drug Allergy documented on EMR Reaction Allergy Type Onset Date Status Substance with sulfonamide structure and antibacterial mechanism of action (substance) SULFA (uncoded) Skin Rash Allergy Active Reason For Referral No Information Medications Medication SIG (Take, Route, Fr equency, Duration) Notes Start Date End Date Status oxyCODONE HCl 30 MG 1 ORAL twice daily; Duration: -3 Jamel- 10/25/2013 Active clonazePAM 1MG 1 ORAL twice daily; Duration: 10 Jamel- 10/25/2013 Active Fioricet 50-325-40 1 ORAL EVERY 6 HOURS ; Duration: 10 Jamel- 10/25/2013 Active Problems Problem Type SNOMED Code ICD Code Onset Dates Problem Status W/U Status Risk Notes Problem Anxiety state (708404782) Anxiety state, unspecified (300.00) Active confirmed Problem Pain in thoracic spine (720644729) Pain in thoracic spine (724.1) Active confirmed Plan Of Treatment Pending Test Test Name Order Date Urine Culture and Sensitivity 01/19/2015 Insurance Providers Payer Name Payer Address Payer Phone Subscriber Number Group Number Insured Name Patient Relationship to Insured Coverage Start Date Coverage End Date [facility] [address] [place] [address] [id number] [place] Spouse - patient is the spouse of the insured Medical (General) History Medical History History ICD Code Pain in thoracic spine Anxiety state, unspecified
--- OUTSIDE RECORDS SUMMARY | 2025-05-16 11:56 | XMS_ITS | Patient Health Record ---
Author Organization [facility] Address [address] [place], [place] [id number] Care Team Providers Care Undercoat Sprayer Name Role Phone Елена Amaya MD Primary [...] W/U Status Risk Notes Problem Rectal polyp (58034620) Rectal polyp (K62.1) Active confirmed Problem 06478666 Colitis (K52.9) Active confirmed Problem Polyp of colon (disorder) (79164452) Colon polyps (K63.5) Active confirmed Problem Internal hemorrhoids (95955935) Internal hemorrhoids (K64.8) Active confirmed Problem Esophagitis (22485595) Esophagitis (K20.9) Active confirmed Problem Abdominal pain (79161356) Abdominal pain (R10.9) Active confirmed Problem Clostridium difficile infection (278004830) Clostridium difficile infection (B96.89) Active confirmed Problem 435079258 Loose stools (R19.5) Active confirmed Problem History of gastrointestinal disease (967408395) History of hemorrhoids (Z87.19) Active confirmed Problem Acute pancreatitis (690736113) Acute pancreatitis, unspecified complication status, unspecified pancreatitis type (K85.90) Active confirmed Problem [id number] Hx of Clostridium difficile infection (Z86.19) Active [...] Insured Coverage Start Date Coverage End Date [facility] [address] [place] [phone] [id number] [place] Nataliia Self - patient is the insured Medical (General) History Medical History History ICD Code SHORTNESS OF BREATH MIGRAINES TROUBLE SLEEPING FREQUENT HEADACHES BACKACHES Surgical History Surgery Date(Month/Year) COLONOSCOPY .. DR ECHOLS 01/02 [facility] REMOVAL 1989
--- NOTE | 2025-05-16 12:00 | HO.ANESPROP2 ---
Documented by User: Anita Blount NP 05/15/25 10:30 HPI - Anesthesia Eval Consult details Narrative: 70yo F for Hernia Diaphragmatic Lap Reducible PMFSH Active Problems Active Problems: All Active Problems Environmental allergies (Acute) Hiatal hernia (Acute) RLS (restless legs syndrome) (Acute) DM type 2 causing complication (Acute) Encounter for screening involving social determinants of health (SDoH) (Acute) Gastritis (Acute) Choledocholithiasis (Acute) Biliary colic (Acute) Migraine headache without aura (Acute) Spondylolisthesis of lumbar region (Acute) Degenerative lumbar spinal stenosis (Acute) Abnormal MRI (Acute) Enlarged liver (Acute) Menopause (Acute) Oral lesion (Acute) GERD with esophagitis (Acute) Vertebrogenic low back pain (Acute) Sacroiliac joint pain (Acute) Lumbosacral spondylosis (Acute) Arthritis of left hand (Acute) Lumbar radicular pain (Acute) Positive FIT (fecal immunochemical test) (Acute) Personal history of colonic polyps (Acute) Eczema of external ear (Acute) Pain of left thumb (Acute) Intermittent chest pain (Acute) Lightheadedness (Acute) Osteoarthritis of hips, bilateral (Acute) Adult BMI 33.0-33.9 kg/sq m (Acute) Left hip pain (Acute) Diabetes mellitus type 2 with atherosclerosis of arteries of extremities (Acute) MDD (major depressive disorder), recurrent episode (Acute) KYLE (generalized anxiety disorder) (Acute) Unsteady gait (Acute) Falls frequently (Acute) Iron deficiency anemia (Acute) Family hx of colon cancer (Acute) Occult blood positive stool (Acute) Class 1 obesity with body mass index (BMI) of 33.0 to 33.9 in adult (Acute) BMI 31.0-31.9,adult (Acute) Obesity (Acute) Nicotine dependence, cigarettes, uncomplicated (Acute) Compression fracture of L4 vertebra (Acute) Osteoporosis (Acute) COPD (chronic obstructive pulmonary disease) (Acute) Bipolar 1 disorder (Acute) Past Medical History Medical History (Updated 05/16/25 @ 12:09 by Khadar Vidal MD) GERD (gastroesophageal reflux disease) Arthritis BMI 31.0-31.9,adult Obesity Body piercing Nicotine dependence, cigarettes, uncomplicated Compression fracture of L4 vertebra Bipolar 1 disorder Anxiety and depression Headache Acid reflux Spine disorder Edema Osteoporosis COPD (chronic obstructive pulmonary disease) Family History Family History Mother Mental health disorder Substance abuse Cardiovascular disease Alcoholism Father Diabetes Colon cancer Family history of problems with anesthesia: No Surgical History Surgical History Hx of endoscopic retrograde cholangiopancreatography H/O left breast biopsy H/O: hemorrhoidectomy Hx of cholecystectomy History of esophagogastroduodenoscopy (EGD) (09/2024) Hx of colonoscopy (09/2024) History of Problems with Anesthesia: No Social History Social History Household Members: Children Household Members Other:: son Housing: Apartment Are you a primary day care home provider to a significant other at home: No Do you presently have visiting nurse or other home services: No Alcohol intake: never Patient Tobacco Use Status: Former Tobacco user Tobacco use type: Cigarette Cigarette Packs Per Day: 1 Cigarettes Per Day: 20.0 Years Smoked: 25 e-Cigarette/Vaping Use: Never Used Second Hand Smoke Exposure: Yes Use of substances other than those prescribed or required for medical reasons: Yes Substance Use Type: Marijuana Substance Use Frequency: Daily Have you been hit, kicked, punched, or otherwise hurt by someone within the past year? If so, by whom?: No Are you DNR?: No Advance Directives: No Advance Directives Information Provided: No Patient : No Poor oral hygiene: No Current occupational status: disabled Cognitive needs: Yes Hearing needs: No Vision needs: Yes (wear glasses) Meds Allergies Allergy/AdvReac Type Severity Reaction Status Date / Time cephalexin (From Keflex) Allergy Severe Rash Verified 05/16/25 10:35 Sulfa (Sulfonamide Allergy Severe Rash Verified 05/16/25 10:35 Antibiotics) lamotrigine Allergy Intermediate Rash Verified 05/16/25 10:35 Home Medications ?Medication ?Instructions ?Recorded ?Confirmed ?Last Taken ?Type alendronate 70 mg tablet 70 mg PO QWEEK 08/03/24 05/12/25 Unknown History baclofen 10 mg tablet 10 mg PO TID 08/03/24 05/12/25 Unknown History gabapentin 300 mg capsule 300 mg PO TID 08/03/24 05/12/25 Unknown History trazodone 300 mg tablet 300 mg PO BEDTIME 08/03/24 05/12/25 Unknown History aripiprazole 2 mg tablet 4 mg PO DAILY 02/21/25 05/12/25 Unknown History Exam Height,Weight and Vital Signs: Height 5 ft 3 in Weight 79.379 kg Pertinent Lab Results Pertinent Lab Results: Laboratory Tests 05/08/25 11:05 Blood Type A Positive Antibody Screen NEGATIVE Laboratory Tests 05/08/25 11:05 WBC 6.9 Hgb 14.3 Hct 42.3 Plt Count 382 Sodium 139 Potassium 4.5 Chloride 102 Carbon Dioxide 26 BUN 11 Creatinine 0.98 Narrative Narrative: EKG 11/2024 NSR @ 85 Assessment and Plan Assessment Anesthesia Assessment: Chart Reviewed Final Anesthetic Review Family History of Problems with Anesthesia: No History of Problems with Anesthesia: No Documented by User: Tara Roper DO 05/16/25 12:51 [facility] Past Medical History Medical History (Updated 05/16/25 @ 12:09 by Khadar Vidal MD) GERD (gastroesophageal reflux disease) Arthritis BMI 31.0-31.9,adult Obesity Body piercing Nicotine dependence, cigarettes, uncomplicated Compression fracture of L4 vertebra Bipolar 1 disorder Anxiety and depression Headache Acid reflux Spine disorder Edema Osteoporosis COPD (chronic obstructive pulmonary disease) Family History Family History Mother Mental health disorder Substance abuse Cardiovascular disease Alcoholism Father Diabetes Colon cancer Family history of problems with anesthesia: No Surgical History Surgical History Hx of endoscopic retrograde cholangiopancreatography H/O left breast biopsy H/O: hemorrhoidectomy Hx of cholecystectomy History of esophagogastroduodenoscopy (EGD) (09/2024) Hx of colonoscopy (09/2024) History of Problems with Anesthesia: No Social History Social History Household Members: Children Household Members Other:: son Housing: Apartment Are you a primary day care home provider to a significant other at home: No Do you presently have visiting nurse or other home services: No Alcohol intake: never Patient Tobacco Use Status: Former Tobacco user Tobacco use type: Cigarette Cigarette Packs Per Day: 1 Cigarettes Per Day: 20.0 Years Smoked: 25 e-Cigarette/Vaping Use: Never Used Second Hand Smoke Exposure: Yes Use of substances other than those prescribed or required for medical reasons: Yes Substance Use Type: Marijuana Substance Use Frequency: Daily Have you been hit, kicked, punched, or otherwise hurt by someone within the past year? If so, by whom?: No Are you DNR?: No Advance Directives: No Advance Directives Information Provided: No Patient : No Poor oral hygiene: No Current occupational status: disabled Cognitive needs: Yes Hearing needs: No Vision needs: Yes (wear glasses) Meds Allergies Allergy/AdvReac Type Severity Reaction Status Date / Time cephalexin (From Keflex) Allergy Severe Rash Verified 05/16/25 10:35 Sulfa (Sulfonamide Allergy Severe Rash Verified 05/16/25 10:35 Antibiotics) lamotrigine Allergy Intermediate Rash Verified 05/16/25 10:35 Home Medications ?Medication ?Instructions ?Recorded ?Confirmed ?Last Taken ?Type alendronate 70 mg tablet 70 mg PO QWEEK 08/03/24 05/12/25 Unknown History baclofen 10 mg tablet 10 mg PO TID 08/03/24 05/12/25 Unknown History gabapentin 300 mg capsule 300 mg PO TID 08/03/24 05/12/25 Unknown History trazodone 300 mg tablet 300 mg PO BEDTIME 08/03/24 05/12/25 Unknown History aripiprazole 2 mg tablet 4 mg PO DAILY 02/21/25 05/12/25 Unknown History Exam Exam Date and Time: 05/16/25 1200 Height,Weight and Vital Signs: Height 5 ft 3 in Weight 79.379 kg Vital Signs Temperature 98.0 F 05/16/25 11:00 Pulse Rate 80 05/16/25 11:00 Respiratory Rate 14 05/16/25 11:00 Blood Pressure 104/61 05/16/25 11:00 Pulse Oximetry 95 05/16/25 11:00 Oxygen Delivery Method Room Air 05/16/25 11:00 Temperature 98.0 F 05/16/25 11:00 Pulse Rate 80 05/16/25 11:00 Respiratory Rate 14 05/16/25 11:00 Blood Pressure 104/61 05/16/25 11:00 Pulse Oximetry 95 05/16/25 11:00 Oxygen Delivery Method Room Air 05/16/25 11:00 Airway Mallampati Class: I TM Dist: >3cm Neck ROM: Full Loose/Missing/Broken Teeth: No (patient denies any loose or broken teeth) Heart: S1S2 Lungs: CTAB Assessment and Plan Assessment Anesthesia Assessment: Anesthesia Plan Discussed and Chart Reviewed Final Anesthetic Review Family History of Problems with Anesthesia: No History of Problems with Anesthesia: No NPO: Yes ASA Class: II Final Preanesthetic Review: No Changes in Pt Med Stat, Meds/Allgs Chart Reviewed, Consent Obtained/Reviewed and Anes Risks/Benef Reviewed Patient Risk: Low Procedure Risk: Intermediate Anesthetic Plan Anesthetic Plan: GA and Agree w/ Assess. and Plan Disposition: Standard PACU
--- NOTE | 2025-05-16 12:00 | P.HPSUR_ITS ---
Pre-Procedural Eval Section A - 24 Hr Update-Section A only Date of Service: 05/16/25 The patient is an INPATIENT: Yes The patient has been examined within 24 hours of the surgical procedure. The History & Physical has been completed within 30 days and I have reviewed it.: Yes Section B - Complete if H&P > 30 days Chief Complaint: Diaphragmatic hernia Relevant Family History (Specify if Yes): No Relevant Social History: None Present Medications: None Medical History: No relevant PMH History of Previous Operations: No relevant previous surgery Allergies: Allergies Allergy/AdvReac Type Severity Reaction Status Date / Time cephalexin (From Keflex) Allergy Severe Rash Verified 05/16/25 10:35 Sulfa (Sulfonamide Allergy Severe Rash Verified 05/16/25 10:35 Antibiotics) lamotrigine Allergy Intermediate Rash Verified 05/16/25 10:35 Review of Systems Sugical H&P ROS: Negative: Constitution, Cardiovascular, Respiratory, Neurological, Psychiatric, Hem-Onc, Allergic/Immunologic, Gastrointestinal, Deisi tourinary, Musculoskeletal, Integumentary, Endocrine and Eyes/Ears/Nose/Throat Exam Surgical H&P Exam: Normal: HEENT, Normal: Heart, Normal: Lungs, Normal: Extremities, Normal: Abdomen, Normal: Skin and Normal: Neurological Plan Diagnosis/Plan: Unchanged I have reviewed the history and physical and performed a pertinent physical examination on my patient. No changes have occurred unless specified. Time Spent With Patient Time: Total time managing care of this patient today ____ minutes.
--- NOTE | 2025-05-16 12:02 | P.BOP_ITS ---
Brief Operative Note Date of Service: 05/16/25 Pre-op diagnosis: Incarcerated diaphragmatic hernia Post-op diagnosis: same Procedure: Date of Service: 05/16/2025 Pre-op diagnosis:Large fixed diaphragmatic hernia Post-op diagnosis: same Procedure: Procedure: COMORBIDITIES: GERD, diaphragmatic hernia, osteoporosis, depression, anxiety, bipolar, migraines, DJD, insomnia, restless leg syndrome, liver steatosis ?INDICATIONS: The patient is a 70 year old female who was referred to me from Dr. Gaytan for a diaphragmatic hernia and GERD confirmed by EGD and UGI. The patient is scheduled today for diaphragmatic hernia repair. Risks of recurrent hernia, dysphagia, persistent GERD, VTE, leak, infection and bleeding were discussed with the patient and he is in agreement with the plan. PROCEDURE: Esophago-gastroscopy, laparoscopic lysis of adhesions, laparoscopic repair of incarcerated diaphragmatic hernia and laparoscopic gastropexy. DESCRIPTION OF PROCEDURE: After informed consent was obtained from the patient, the patient was given preo perative antibiotics, and was transferred to the operating room. After successful induction of general anesthesia, pneumatic compression devices were placed on both lower extremities. An upper endoscopy was performed next. The oropharynx and upper esophagus appeared to be within normal limits. The stomach was entered and the scope was advanced all the way to the pylorus.? After all fluid and air were suctioned and the stomach was fully decompressed, the scope was withdrawn and secured in the mid esophagus. The patient was then prepped and draped in the usual sterile manner. Abdominal access was established at the right upper quadrant with the Taras technique. A 12 mm blunt trocar was inserted and the abdomen was insufflated with CO2 to a pressure of 15 mmHg. Following that additional ports were placed, specifically two 5 mm Versi-step ports to the left upper and one 5 mm Versi-step to the right upper quadrant. 1% lidocaine plain was used to infiltrate all port sites as well as all fascia defects. Following that, the patient was placed in a steep reverse Trendelenburg position. An additional 5 mm port was placed to the right flank for the Mediflex retractor that was used to retract the left lobe of the liver. There was a large diaphragmatic hernia with about a quarter of the stomach herniated into the chest next to the esophagus. I then opened the gastrocolic ligament between the transverse colon and the greater curvature of the stomach with the ultrasonic device to enter the lesser sac and facilitate the ligation of the short gastric vessels. I started at at the upper third along the greater curvature and using the Thunderbeat, all attachments were divided. The stomach was incarcerated into the mediastinum with multiple thick adhesions. Mobilization of the stomach was very difficult and required tedious and careful dissection of the proximal short gastric vessels. I continued dissecting along the hiatus toward the left olamide into the mediastinum mobilizing the hernia sac from the mediastinum. The esophagus was carefully dissected off the aorta. The pleura spaces were not violated in either side. The pars flaccida was opened. It was actually herniated into the hernia defect. The vena cava was not dilated and it was carefully protected. I then continued by dissecting even further into the posterior retro-esophageal space all the way to the angle of His. I continued to mobilize the esophagus into the mediastinum circumferentially. The esophagus was densely adhrent to the aorta and the majority of these adhesions were mobilized. Both vagal nerves were seen and preserved. With extensive circumferential dissection into the mediastinum, I was able to bring the GE junction at least 3cm below the crura. I closed the hernia defect with four interrupted #0 Surgidac sutures using the Endo Stitch device, three of which were placed posterior and one of which anterior to the esophagus. The bites were carefully placed to include both the ventral and dorsal aspect of the two crura, advancing slightly more at the left olamide as it was located more diagonally than the right. ? A gastropexy was then performed in order to prevent postoperative GERD and parti al gastric volvulus. Several interrupted 2.0 Surgidac sutures were placed between the greater curvature of the dissected stomach and the previously divided greater omentum and gastro-colic ligament using the Endo-Stitch device. ?An upper endoscopy was performed. There was no narrowing at the GE junction or any esophageal injury. The scope was easily advanced all the way to the pylorus which was clearly visualized. There was no narrowing anywhere. I confirmed that the GE junction was 3cm intra-abdominally. At that point the gastroscope was withdrawn from the patient?s mouth while we were decompressing the bowel and the stomach from any remaining air. I looked into the lesser sac to see how the stomach was situating and it was situating well. There was no bleeding from the, spleen, or short gastric vessels. The Mediflex retractor was removed, and the undersurface of the liver was inspected and there was no bleeding. The patient was placed in supine position. Then 30cc of Ropivacaine plain with 10 mg of Dexamethasone were used to infiltrate the fascial closure as well as all skin incisions. At this point, the abdomen was deflated, all ports were removed under direct vision, and no bleeding was noted from any of the port sites. The skin incisions were irrigated with saline and were closed with 4-0 absorbable monofilament sutures. Steri- Strips and OpSites were used to cover all incisions. The patient was extubated and was transferred in stable condition to the recovery room for further care. I was present and performed all almanza parts of the procedure. Mr. Lucas was the lead dental assistant. There were no residents to assist with this case. Lul Vdial MD, PhD, FACS Surgeon: Khadar Vidal MD Anesthesia: local and other (TAP block) Was an Water Main Inspector used for this Procedure?: No Water Main Inspector: Jaguar Lucas Estimated blood loss (mL): 10 IV fluids (mL): 2,000 Urine output (mL): 0 (No [place] to record output) Pathology: none sent Condition: stable Disposition: PACU
--- NOTE | 2025-05-16 12:05 | P.PNGS_ITS ---
Subjective Subjective Date of Service: 05/17/25 Interval history: Feels well. Mild incisional pain. She is tolerating phase 1 bariatric diet Physical Exam 2 Vital Signs: Vital Signs: Last Vital Signs Temp 98.0 F 05/16/25 11:00 Pulse 80 05/16/25 11:00 Resp 14 05/16/25 11:00 BP 104/61 05/16/25 11:00 Pulse Ox 95 05/16/25 11:00 O2 Del Method Room Air 05/16/25 11:00 BMI result Body Mass Index 29.0 GI: Inspection: Yes normal to inspection and Yes incision (clean, dry and intact) Palpation (GI): Soft to palpation Extrem: Right lower extremity: normal to inspection (no calf tenderness) L eft lower extremity: normal to inspection (no calf tenderness) Objective Data Active Medications Albuterol Sulfate (Albuterol Sulfate (0.083%) 2.5 Mg/3 Ml Vial.Neb) 2.5 mg INHALE ONCE PRN PRN Reason: Shortness of Breath/Wheezing Lactated Ringer's (Lr) 1,000 mls @ 100 mls/hr IVCONT .Q10H GEOFF Stop: 05/16/25 13:29 Labs 05/17/25 06:07 05/17/25 06:07 Procedures Date of Service Date of Service: 05/17/25 Progress Note: A&P Assessment and plan (1) Diaphragmatic hernia: Status: Acute Assessment and Plan: s/p laparoscopic lysis of adhesions, diaphragmatic hernia repair and gastropexy Doing well Will check am labs and if OK the patient will be discharged home (2) GERD with esophagitis: Status: Acute (3) Enlarged liver: Status: Acute (4) Steatosis, liver: Status: Acute (5) Osteoarthritis of hips, bilateral: Status: Acute (6) Migraine headache without aura: Status: Acute (7) RLS (restless legs syndrome): Status: Acute (8) COPD (chronic obstructive pulmonary disease): Status: Acute (9) Obesity: Status: Acute (10) BMI 31.0-31.9,adult: Status: Acute (11) Bipolar 1 disorder: Status: Acute (12) KYLE (generalized anxiety disorder): Status: Acute Time Spent With Patient Time: Total time managing care of this patient today ____ minutes. Quality Stroke Does the patient have a stroke diagnosis?: No VTE Prior VTE?: No VTE Risk Level:: Surgical - moderate VTE Device Contraindication: N/A - Device Ordered VTE Drug Contraindication: Treatment Not Indicated
--- NOTE | 2025-05-16 14:38 | PM.DS ---
DS: Providers Provider Date of Service: 05/17/25 Date of admission: 05/16/25 10:43 Date of discharge: 05/17/25 Primary care physician: Adia Flower [facility] DS: Diagnosis Discharge Diagnosis (1) Diaphragmatic hernia: Status: Acute (2) GERD with esophagitis: Status: Acute (3) Enlarged liver: Status: Acute (4) Steatosis, liver: Status: Acute (5) Osteoarthritis of hips, bilateral: Status: Acute (6) Migraine headache without aura: Status: Acute (7) RLS (restless legs syndrome): Status: Acute (8) COPD (chronic obstructive pulmonary disease): Status: Acute (9) Obesity: Status: Acute (10) BMI 31.0-31.9,adult: Status: Acute (11) Bipolar 1 disorder: Status: Acute (12) KYLE (generalized anxiety disorder): Status: Acute DS: Summary Hospital Course Hospital Course: ADMITTING DIAGNOSIS: diaphragmatic hernia, gerd, bipolar, anxiety, depression, copd ? DISCHARGE DIAGNOSIS: same, s/p laparoscopic repair diaphragmatic hernia ? PAST SURGICAL HISTORY: cholecystectomy, hemorrhoidectomy ? PROCEDURE: upper endoscopy, laparoscopic repair of diaphragmatic hernia ? DISCHARGE SUMMARY: ? History of Present Illness: ? The patient is a?70 year-old woman with a BMI of?31 kg/m2 and associated co-morbidities as described above. The patient had extensive work-up,lost?10.8 lbs preoperatively and was electively scheduled for laparoscopic, possible open repair of diaphragmatic hernia and gastropexy. Risks and complications of the surgery were discussed with the patient in advance, particularly the possibility of , pulmonary embolism, anastomotic leak, bleeding, bowel injury, GERD, cardiac, renal or pulmonary complications. The patient understood all the risks and was in agreement with the surgical plan. ? Hospital Course: ? The patient underwent an uneventful laparoscopic repair of diaphragmatic hernia with gastropexy on the day of admission. Postoperatively, the patient was transferred to the surgical floor. The patient received IV Acetaminophen and IV dilaudid for pain control. Patient was started on bariatric phase 1 diet POD #0. On postoperative day one, the patient was feeling well without nausea, vomiting, fevers, or tachycardia. The patient had some mild incisional pain and the abdomen was soft. ? On the morning of postoperative day one, the patient was continued on 1 ounce of water or ice every half hour. During the day, the patient did fairly well, having some incisional pain, but able to ambulate adequately and to tolerate liquids well. ? Since the patient is doing well, we decided that the patient was ready to be discharged. The patient was given instructions to follow-up with me next week and to call my office for any fever over 101, persistent abdominal pain, nausea, vomiting, GERD, symptoms of DVT such as calf tenderness, or leg swelling, or pulmonary embolism such as chest pain or shortness of breath. The patient was also instructed to drink 40-60 ounces of liquids per day using the 1-ounce cups. The patient had been given prescriptions for Tylenol for pain, Zofran prn for nausea, and pantoprazole and carafate previously. The patient was encouraged to ambulate and use the incentive spirometer. The patient was allowed to shower, but no baths, and encouraged to stay active at home. All of these instructions were given to the patient personally. All questions were answered and the patient understood all instructions, the instructions were also given to the patient in print. Time Attestation Total time managing care of this patient today: 25 mintues. Discharge Coordination Time (in mins): 25 Quality: Safe Use of Opioids Does Pt have an Active Cancer Diagnosis on the Problem List?: No Quality: Stroke Does the patient have a stroke diagnosis?: No Physical Exam Vital Signs: Vital Signs: Last Vital Signs Temp 99.1 F 05/16/25 14:30 Pulse 89 05/16/25 14:30 Resp 16 05/16/25 14:30 BP 135/69 05/16/25 14:30 Pulse Ox 98 05/16/25 14:30 O2 Del Method Simple Mask 05/16/25 14:30 O2 Flow Rate 10 05/16/25 14:30 BMI result Body Mass Index 29.0 Discharge Plan Discharge Anticipated Discharge Date/Time: 05/17/25 10:00 Patient Disposition: Home, Self-Care Discharge Diagnosis: s/p laparoscopic repair of diaphragmatic hernia Referrals: Adia Flower FNP-BC [Primary Care Provider, Internal Medicine] - 1 Week Discharge Medications: Continued xlggizngtf-cekrdchtfsubw-ctvr 50-325-40 mg tablet 1 tab PO DAILY PRN (Reason: pain) Qty: 30 2RF esomeprazole magnesium 20 mg capsule,delayed release(DR/EC) 20 mg PO DAILY 90 Days Qty: 90 1RF duloxetine 20 mg capsule,delayed release(DR/EC) 20 mg PO DAILY Qty: 90 1RF albuterol sulfate 90 mcg/actuation HFA aerosol inhaler 2 puff inhalation Q4-6H PRN (Reason: shortness of breath or wheezing) 30 Days Qty: 8.5 0RF (DME) wedge pillow See Rx Instructions .Route .MEDSUPPLY Qty: 1 0RF Rx Instructions: As directed aripiprazole 2 mg tablet 2 mg PO BID trazodone 300 mg tablet 300 mg PO BEDTIME Held calcitriol 3 mcg/gram ointment 1 appl topical BID Qty: 100 0RF Hold Instructions: Resume on 05/24/25. baclofen 10 mg tablet 10 mg PO TID PRN (Reason: Muscle Spasm) Hold Instructions: Resume on 06/14/25. Discontinued famotidine 40 mg tablet 40 mg PO DAILY@1630 PRN (Reason: Acid Reflux) polyethylene glycol 3350 [Miralax] 17 gram/dose Powder 17 g PO DAILY PRN (Reason: Constipation) Discharge Orders: Discharge Order (Routine); Ordered 05/17/25 Ordered By: Khadar Vidal Activity on Discharge: No heavy lifting Stand Alone Forms: Patient Portal Discharge page Print Language: Tajik Care Plan Goals: improve gerd Health Concerns: diaphragmatic hernia Plan of Treatment: No tub baths, sex or returning to work until discussed at first post op appointment. No exercise, alcohol, tobacco or illegal drug use. Continue to use incentive spirometer hourly while awake. Walk in home for 5- 10 minutes every 2 hours during the first week. Follow all instructions in the bariatric handbook and call with any questions.Discharge Instructions 1. Please call your doctor or come back to the emergency room should any new symptoms arise. 2. You will receive a courtesy call from [facility] 24-48 hours after discharge. 3. Activity: abstain from alcohol, practice limited stair climbing, no bending, no driving, no exercise, no illicit substances, no lifting, no sex, no tub bath, no work. 4. Diet: continue as discussed with Dr. Vidal. 5. Dressing Change/Wound Care: Your incision is covered by clear bandages and guaze underneath. If the area is tender, you may apply an ice pack for short intervals (no more than 20 minutes on, followed by at least 20 minutes off). Do not apply heat. Do not use creams, lotions, or topical antibiotics unless instructed to do so by your surgeon. These can cause infection or allergic reaction. 6. Call your doctor if: - Your temperature exceeds 101.5 F - You experience excessive pain or swelling - You have an unexpected reaction to medication - You have excessive bleeding - You experience continued vomiting/nausea - Your incision begins to separate - Your incision shows signs of infection such as increased redness, swelling, excessive pain, heat, or drainage (light blood or clear fluid is normal) 7. General instructions: No lifting greater than 5 lbs for 1 week and not more than 20lbs the next 3?weeks. No driving until seen at the office in 5-7 days after surgery. If you do not move your bowels in the next 2 days, please tell?Dr. Vidal. Please walk around your home every hour or two to prevent blood clots from forming in your legs. You do not need to wake from sleeping to walk. Please sleep in a bed or couch to prevent kinking at the hips and knees. Please take your incentive spirometer (your lung floor representative) home with you and use it for the next few days to prevent pneumonia. You may shower, no hot tubs, baths or swimming pools.?Please follow the post op diet instructions you are?given by Dr Vidal? and text me daily at 5-6pm for an update.?If you have any issues or concerns or questions please communicate this to him via text.? The Celebrate shakes have all of the bariatric vitamins you need if you consume these shakes. If you are drinking other protein shakes, you will need to purchase the Celebrate multivitamins and calcium that are available in the hospital gift shop on the first floor of the main hospital.??Do not take anything without first discussing with Dr Vidal. Please make sure you are consuming at least 40 ounces of fluids per day starting the?day AFTER your discharge from the hospital. Always drink 1-2 ml per minute using the 5ml?syringe. If you drink faster you may experience?bloating,?gas pain, burping, nausea or heartburn. In that case please slow down your pace and use the syringe to?understand better the?proper?pace and volume of drinking. Do not hesitate to contact the office with any questions at . The patient's medical history has been reviewed and they are considered low risk for post op DVT and therefore DVT prophylaxis is not considered necessary. Travel after surgery was reviewed. The patient has not disclosed any travel plans during the first 30 days after surgery and they have been advised that within the first 30 days after surgery any bus, plane, train or car travel over 2 hours in duration is contraindicated due to the possibility of developing blood clots from immobility. Any travel, needs to include periods of ambulation of 10 minutes in duration every 2 hours.? The patient was instructed to discuss any plans for travel during this period with their bariatric surgeon. Assessment: stable s/p laparoscopic diaphragmatic hernia repair Discharge Date/Time: 05/17/25 09:30
[2025-05-16 16:03] LABS: Hematocrit 37.0 % (37.0-47.0); Hemoglobin 12.8 g/dl (12.0-16.0)
[2025-05-16] MEDS: Lactated Ringers 1,000 ML 100 ML IVCONT (16:06)
[2025-05-16] MEDS: 0.9 % Sodium Chloride Flush 3 ML SYRINGE IVFLUSH (16:07)
[2025-05-16 16:19] LABS: Anion Gap 17 (12-20); Blood Urea Nitrogen 11 mg/dL (9-16); Calcium 8.6 mg/dL (8.4-10.2); Carbon Dioxide 21 mmol/L (22-29); Chloride 104 mmol/L (96-108); Creatinine Clr Calc Pharmacy 61.8; Estimated Glomerular Filt Rate > 60; Potassium 4.2 mmol/L (3.3-5.1); Sodium 138 mmol/L (135-145)
--- NOTE | 2025-05-16 17:55 | PHA.MEDREC ---
Addendum entered by aJguar Herrera [facility] 05/16/25 18:09: [facility] rec reviewed Original Note: Pharmacy Consult ? Medication Reconciliation Pharmacy has completed the medication reconciliation. Spoke with pt and she confirmed her medications. Pt confirmed she takes her Aripiprazole 2mg tab 2 mg BID instead of 4mg QD. Pt still has Baclofen 10mg tabs she takes as needed for Muscle Spasms. Pt taking Esomeprazole 20mg tabs in Am and states if she still has Acid Reflux she will take Famotidine 40mg as needed at night for it. Pt states she has not taken Metformin 500mg tabs in years despite claims having it last filled 02/23 for 90 days and earlier fills. PT starting Sucralfate and Ondansetron when she gets home after the surgery.
[2025-05-17] MEDS: Lactated Ringers 1,000 ML 100 ML IVCONT (01:01)
[2025-05-17 03:39] VITALS: BP 121/58; PULSE 55; RESP 16; TEMP 36; O2SAT 94
[2025-05-17 06:12] LABS: MANUAL DIFF FLAG NO
[2025-05-17 06:16] LABS: Hematocrit 36.4 % (37.0-47.0); Hemoglobin 12.8 g/dl (12.0-16.0); Imm Gran Abs Auto 0.04 X10*3/uL (0.00-0.03); Imm Gran Pct Auto 0.4 % (0.0-0.4); Lymphocytes Absolute Auto 0.8 X10*3/uL (1.2-4.9); Mean Corpuscular HGB Conc 35.2 g/dl (31.0-35.0); Mean Corpuscular Hemoglobin 31.3 pg (27.0-33.0); Mean Corpuscular Volume 89.0 fL (80.0-98.0); NRBC Abs Auto 0.000 X10*3/uL (0.0-0.012); NRBC Pct Auto 0.0 /100WBC (0.0-0.2); Platelet Count 314 X10*3/uL (160-400); Red Blood Count 4.09 X10*6/uL (4.20-5.50); White Blood Count 9.0 X10*3/uL (4.8-10.8)
[2025-05-17 06:43] LABS: Anion Gap 15 (12-20); Blood Urea Nitrogen 9 mg/dL (9-16); Calcium 8.8 mg/dL (8.4-10.2); Carbon Dioxide 23 mmol/L (22-29); Chloride 102 mmol/L (96-108); Creatinine Clr Calc Pharmacy 78.9; Estimated Glomerular Filt Rate > 60; Potassium 4.4 mmol/L (3.3-5.1); Sodium 136 mmol/L (135-145)
[2025-05-17 07:19] VITALS: BP 125/62; PULSE 62; RESP 16; TEMP 36.3; O2SAT 93
--- NOTE | 2025-05-17 08:34 | MHC.CM.PN ---
IMM05/17/25 S/P Hernia repair. She lives with her son Independent with all functional mobility. DP home self care, dtr will provide transportation home. Discharged today, order received.
--- NOTE | 2025-05-17 10:17 | HO.POSTANES ---
Post Anesthesia Evaluation Post Anesthesia Evaluation Date of Service: 05/16/25 Vital Signs: Vital Signs Temp Pulse Resp BP Pulse Ox O2 Del Method 05/17/25 07:19 97.4 F 62 16 125/62 93 Room Air 05/17/25 03:39 96.8 F 55 16 121/58 L 94 Room Air Anesthesia: General Endotracheal-GETA Mental Status: Awake Pain Control: Satisfactory Nausea/Vomiting: None Hydration: Adequate Anesthesia-Related Issues: No Anes. Related Issues
== END 2025-05-17 09:30 | disposition home or self-care (01) | DRG 328 ==
LOC: HO.SSSA 12:01 → HO.S3 14:00
PROVIDERS: Physician Assistant Surgical; Admitting Provider Surgery; PCP Nurse Practitioner Family; Visit Provider Surgery
PROC: 0BQT4ZZ Repair Diaphragm, Percutaneous Endoscopic Approach (ICD-10-PCS; principal; 2025-05-16 13:00)
DX: K44.0 Diaphragmatic hernia with obstruction, without gangrene (principal); K21.9 Gastro-esophageal reflux disease without esophagitis; F31.9 Bipolar disorder, unspecified; F41.1 Generalized anxiety disorder; K66.0 Peritoneal adhesions (postprocedural) (postinfection); G43.909 Migraine, unspecified, not intractable, without status migrainosus; M19.90 Unspecified osteoarthritis, unspecified site; K76.0 Fatty (change of) liver, not elsewhere classified; Z87.891 Personal history of nicotine dependence; Z79.899 Other long term (current) drug therapy
CPT/HCPCS: 36415; 80048; 85014; 85018; 85025; 86850; 86900; 86901; A4649; C9145; J0131; J1100; J1171; J1956; J2003; J2250; J2371; J2405; J2470; J2704; J2795; J3010; J7120

== ENCOUNTER → 2025-05-16 10:43 | Outpatient (BNV) | payer OTHER, SELFPAY | PROVIDERS: Admitting Provider Surgery; PCP Nurse Practitioner Family; Visit Provider Surgery | DX: K44.9 Diaphragmatic hernia without obstruction or gangrene (principal); K21.00 Gastro-esophageal reflux disease with esophagitis, without bleeding; R16.0 Hepatomegaly, not elsewhere classified; K76.0 Fatty (change of) liver, not elsewhere classified; M16.0 Bilateral primary osteoarthritis of hip; G43.009 Migraine without aura, not intractable, without status migrainosus; G25.81 Restless legs syndrome; J41.0 Simple chronic bronchitis; E66.9 Obesity, unspecified; Z68.31 Body mass index [BMI] 31.0-31.9, adult; F31.9 Bipolar disorder, unspecified; F41.1 Generalized anxiety disorder | CPT/HCPCS: 43239; 43281; 99024 ==

== ENCOUNTER 2025-05-22 14:17 | Outpatient (AMB) | payer OTHER, SELFPAY ==
--- NOTE | 2025-05-22 14:27 | A.OFFVIS_ITS ---
VS Expanded 05/22/25 14:37 BP 118/63 Blood Pressure Location Rt brachial Blood Pressure Position Sitting Pulse 79 Pulse Source Pulse Oximeter Temp 98.2 F Temperature Source Temporal Artery Scan Pulse Oximetry 94 Oxygen Delivery Method Room Air Height 5 ft 3 in Weight 162 lb 3.2 oz BMI 28.7 Body Fat % 43.3 Body Fat Mass 70.2 Fat Free Mass 92.0 Visceral Fat Rating 11.0 Body Water % 39.9 Body Water Mass 64.6 Muscle Mass/Score 87.4 Basal Metabolic Rate/Score 1,285 Intake Visit Reasons: (OV) s/p Diaphragmatic Hernia 05/16/25 Allergies cephalexin (From Keflex) Allergy (Severe, Verified 05/22/25 14:31) Rash Sulfa (Sulfonamide Antibiotics) Allergy (Severe, Verified 05/22/25 14:31) Rash lamotrigine Allergy (Intermediate, Verified 05/22/25 14:31) Rash HPI Comments Details: 70-year-old female returns to the office today in follow-up. She is 6 days post hiatal hernia repair performed on 05/16/2025. She is tolerating 3 premier protein ready to drink shakes, 8 oz each. Approximately 30 oz of fluids. She has no pain. She has moved her bowels. Previously was not exercising. Additionally, she is not interested in weight loss and was asking about increasing her meal plan. [facility] Medical History (Updated 05/16/25 @ 12:09 by Khadar Vidal MD) GERD (gastroesophageal reflux disease) Arthritis BMI 31.0-31.9,adult Obesity Body piercing Nicotine dependence, cigarettes, uncomplicated Compression fracture of L4 vertebra Bipolar 1 disorder Anxiety and depression Headache Acid reflux Spine disorder Edema Osteoporosis COPD (chronic obstructive pulmonary disease) Surgical History (Updated 05/22/25 @ 14:33 by Carey Ornelas CMA) Status post repair of paraesophageal diaphragmatic hernia Hx of endoscopic retrograde cholangiopancreatography H/O left breast biopsy H/O: hemorrhoidectomy Hx of cholecystectomy History of esophagogastroduodenoscopy (EGD) (09/2024) Hx of colonoscopy (09/2024) Family History Mother Mental health disorder Substance abuse Cardiovascular disease Alcoholism Father Diabetes Colon cancer Social History (Reviewed 05/22/25 @ 14:31 by FLAVIO Nesbitt Household Members: Children Household Members Other:: son Both parents involved: No Caregiver staying overnight: No Housing: Apartment Are you a primary acute care certified nursing assistant to a significant other at home: No Do you presently have visiting nurse or other home services: No 75 years or older and lives alone: No Alcohol intake: never Patient Tobacco Use Status: Former Tobacco user Tobacco use type: Cigarette Cigarette Packs Per Day: 1 Cigarettes Per Day: 20.0 Years Smoked: 25 e-Cigarette/Vaping Use: Never Used Second Hand Smoke Exposure: Yes Substance Use Type: Marijuana service: No Current occupational status: disabled Cognitive needs: Yes Hearing needs: No Vision needs: Yes (wear glasses) Physical Exam GI Inspection: Yes incision (Clean, dry, intact.) Quality Reporting (2019) Adult ([facility] ) Smoking risk assessment performed?: Yes Patient Tobacco Use Status: Former Tobacco user Assessment & Plan Assessment & Plan (1) Status post repair of paraesophageal diaphragmatic hernia: Code(s): Z98.890 - Other specified postprocedural states; Z87.19 - Personal history of other diseases of the digestive system Category: Surgical Plan: Postop day 6, status post hiatal hernia repair. Patient was encouraged to drink a proximally 50-60 mL of fluid per day. Encouraged to communicate with Dr. Vidal regarding her meal plan Continue to wear abdominal binder for 1 more week with exercise and activity Patient may drive She may shower although no submersion of her abdomen in water. Return to clinic 1 month
[2025-05-22 14:37] VITALS: BP 118/63; PULSE 79; TEMP 36.8; O2SAT 94; BMI 28.7
--- OUTSIDE RECORDS SUMMARY | 2025-05-22 14:45 | XMS_ITS | Patient Health Record ---
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 Name Role Phone Venkata (RETIRED) Jaguar FAY Primary Care Provide r Unavailable Maritza Reyez Unavailable [phone] Allergies Allergen (clinical drug ingredient) Drug/Non Drug [...] W/U Status Risk Notes Problem Anxiety state (263286254) Anxiety state, unspecified (300.00) Active confirmed Problem Pain in thoracic spine (101764767) Pain in thoracic spine (724.1) Active confirmed Plan Of Treatment Pending Test Test Name Order Date Urine Culture and Sensitivity 01/19/2015 Insurance Providers Payer Name Payer Address Payer Phone Subscriber Number Group Number Insured Name Patient Relationship to Insured Coverage Start Date Coverage End Date [facility] [address] [place] [address] [phone] [id number] [place] Spouse - patient is the spouse of the insured Medical (General) History Medical History History ICD Code Pain in thoracic spine Anxiety state, unspecified
--- OUTSIDE RECORDS SUMMARY | 2025-05-22 14:45 | XMS_ITS | Patient Health Record ---
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 Name Role Phone Елена Amaya MD [...] W/U Status Risk Notes Problem Rectal polyp (30920620) Rectal polyp (K62.1) Active confirmed Problem 39972284 Colitis (K52.9) Active confirmed Problem Polyp of colon (disorder) (78762701) Colon polyps (K63.5) Active confirmed Problem Internal hemorrhoids (22061386) Internal hemorrhoids (K64.8) Active confirmed Problem Esophagitis (51055957) Esophagitis (K20.9) Active confirmed Problem Abdominal pain (19942332) Abdominal pain (R10.9) Active confirmed Problem Clostridium difficile infection (448142356) Clostridium difficile infection (B96.89) Active confirmed Problem 847352908 Loose stools (R19.5) Active confirmed Problem History of gastrointestinal disease (047514413) History of hemorrhoids (Z87.19) Active confirmed Problem Acute pancreatitis (530296535) Acute pancreatitis, unspecified complication status, unspecified pancreatitis type (K85.90) Active confirmed Problem [id number] Hx of Clostridium difficile infection (Z86.19) Active [...] Insured Coverage Start Date Coverage End Date [facility] [id number] [id number] [place] Nataliia Self - patient is the insured Medical (General) History Medical History History ICD Code SHORTNESS OF BREATH MIGRAINES TROUBLE SLEEPING FREQUENT HEADACHES BACKACHES Surgical History Surgery Date(Month/Year) COLONOSCOPY .. DR ECHOLS 01/02 [facility] 1989
== END 2025-05-22 15:01 | disposition home or self-care (01) ==
LOC: HO.HBS 14:18
PROVIDERS: PCP Nurse Practitioner Family; Visit Provider Physician Assistant Surgical
DX: Z98.890 Other specified postprocedural states (principal); Z87.19 Personal history of other diseases of the digestive system
CPT/HCPCS: 99024

== ENCOUNTER → 2025-05-22 14:17 | Outpatient (BNVA) | payer OTHER, SELFPAY | PROVIDERS: PCP Nurse Practitioner Family; Visit Provider Physician Assistant Surgical | DX: Z48.815 Encounter for surgical aftercare following surgery on the digestive system (principal); Z98.890 Other specified postprocedural states; Z87.19 Personal history of other diseases of the digestive system | CPT/HCPCS: 99212 ==

== ENCOUNTER 2025-05-30 11:20 | Outpatient (AMB) | payer OTHER, SELFPAY ==
--- NOTE | 2025-05-30 11:27 | A.OFFPC_ITS ---
Vital Signs 05/30/25 11:32 Height 5 ft 3 in Weight 161 lb 6 oz BMI 28.6 BP 99/66 Blood Pressure Location Lt brachial Position Sitting Respiration 12 Pulse 88 Pulse Source Pulse Oximeter Temp 97.3 F Temp Source Oral Pulse Oximetry (%) 95 Oxygen Delivery Method Room Air Intake Visit Reasons: hernia surgery [facility] [place] Intake Note: Follow up from hernia surgery at [facility] [place] Wet Primer Powder Blender Required: No Allergies cephalexin (From Keflex) Allergy (Severe, Verified 05/30/25 11:44) Rash Sulfa (Sulfonamide Antibiotics) Allergy (Severe, Verified 05/30/25 11:44) Rash lamotrigine Allergy (Intermediate, Verified 05/30/25 11:44) Rash Medication List - Last Reconciled 05/30/25 by SIMIN Mckay- albuterol sulfate 90 mcg/actuation 2 puffs inhalation Q4-6H PRN 30 days aripiprazole 2 mg PO BID baclofen 10 mg PO TID PRN Held on 05/17/25. Instructions: Resume on 06/14/25. enlrvjkwwa-ffrzrgqvgsvzz-dfeg 50-325-40 mg 1 tab PO DAILY PRN calcitriol 1 appl topical BID Held on 05/17/25. Instructions: Resume on 05/24/25. duloxetine 20 mg PO DAILY esomeprazole magnesium 20 mg PO DAILY 90 days sucralfate 10 mL PO BID trazodone 300 mg PO BEDTIME [wedge pillow As directed] Tobacco use date assessed: 05/30/25 Fall risk assessment: No Falls in past year Last assessed Fall Risk: 05/30/25 Dental Screening Dental Screen Date: 05/30/25 Did you have a dental visit in the last 12 months?: Yes Did you have a dental problem in the last 6 months where you did not have access to dental care?: No Was dental information given to patient?: Patient has dentist HPI HPI Comments History of Present Illness Details 70 y/o F with osteoporosis, DM2, GERD, I sally def anemia, GERD, Bipolar 1, KYLE, MDD, COPD, current tobacco use, chronic pain, eczema, hiatal hernia, schatzki ring, esophagitis, gastritis, diverticulosis, colon polyp, internal hemorrhoids Here today for a Transitional Care Management Visit Discharge summary reviewed. The patient underwent an uneventful laparoscopic repair of diaphragmatic hernia with gastropexy on the day of admission. Admission Date: 05/16/25 Discharge Date: 05/17/25 Hospital: [facility] Date of interactive contact with Nurse Navigator: as documented in chart Pending diagnostic tests/treatments: N Pending consults: N DME: N PT/OT/FOREST FIRE PREVENTION SPECIALIST: N Home Health Aide/WEASAND TRIMMER: N Referrals: N Medications reconciled & updated. Held calcitriol 3 mcg/gram ointment 1 appl topical BID Qty: 100 0RF Hold Instructions: Resume on 05/24/25. baclofen 10 mg tablet 10 mg PO TID PRN (Reason: Muscle Spasm) Hold Instructions: Resume on 06/14/25. Discontinued famotidine 40 mg tablet 40 mg PO DAILY@1630 PRN (Reason: Acid Reflux) polyethylene glycol 3350 [Miralax] 17 gram/dose Powder 17 g PO DAILY PRN (Reason: Constipation) During todays TCM visit, the d/c summary was reviewed, along with the need for or follow-up on pending diagnostic tests and treatments, as necessary interaction with other health career advisor who will assume or reassume care of the beneficiary?s system-specific problems was done or is being worked on, education was provided to the beneficiary, family, guardian, and/or caregiver, referrals to establish or re-establish and arrange needed community resources we completed, assistance in scheduling required follow-up with community providers and services & finally updated medication list given to patient/caregiver Had in office post-op visit 05/22/25 Reviewed note, no changes, RTO 1 mo. - Underwent laparoscopic repair of diaph ragmatic hernia on May 16, discharged on May 17. - Currently on a restricted diet post-camp rgery; limited to certain solids, resulting in weight loss. - Discontinued famotidine and MiraLax; c onstipation managed with Senokot and Colace. - Insomnia persists despite trazodone do se reduction; experiences restless legs syndrome. - Previous Ambien use noted; risks discu ssed. - GeneSight genetic testing done previou paige; results to be reviewed - she will make this avail to me if able. - Uses calcitrial ointment, this helps b ut wants to use cream/lotion as its less messy - bilat ears feel blocked would like t hem flushed - Due for mammo/dexa. These were ordered but she had to delay testing d/t surgery. She was provided info today to schedule - [facility] asked for eval for statin use; LDL < 100 04/2025; she has lost weight d/t surgery and will cont. There is no need for this. Review of Systems - Gastrointestinal: Reports constipation , managed with Senokot and Colace. - Neurological: Reports insomnia and res tless legs syndrome. - Dietary: On liquid and soft foods post -surgery; reports weight loss. - Medications: Reports stopping famotidi ne and MiraLax. Physical Exam General: Well developed, well nourished, in no acute distress. Appears stated age. Head: Normocephalic, atraumatic. Eyes: Pupils are equal, round and reactive to light and accommodation. Conjunctivae are clear. Lungs: Clear to auscultation bilaterally. No rales, rhonchi or wheeze noted. Good air flow in all reyes. Heart: Regular rate and rhythm. No murmurs, click, rubs or gallops are noted. Abdomen: Bowel sounds present in all quadrants. The abdomen is soft, nontender, with no masses or organomegaly noted. No hernias are noted. Well healed surgical incisions w/o signs of infection Pulses: Peripheral pulses are equal and palpable bilaterally. Extremities: No clubbing, cyanosis nor edema is noted. Psych: Mood and affect appropriate. Discussion Notes During today's visit for transitional care management, I reviewed the patient's concerns regarding insomnia and restless legs syndrome. We discussed the ineffectiveness of trazodone in managing these symptoms and explored alternatives. I informed her that Ambien could pose significant risks, particularly sudden cardiac , and recommended against its use. A potential solution in ropinirole, commonly used to manage restless legs, was discussed, and I provided a prescription for a starting dose of 1 mg to be taken one hour before bed. We additionally touched on the genetic testing ([employer]) she received previously, which could guide medication choice; I requested these results for further analysis. Constipation was noted as a concern post- discontinuation of MiraLax, but manageable with her current regimen. Finally, we discussed resuming calcitriol topical treatment and the steps to pursue her overdue mammogram and bone density screening. Assessment and Plan 1. Insomnia - Trazodone ineffective. - Ambien not recommended. - GeneSight testing review planned. I placed an order and gave her a kit in the event she cannot find the old report; be that as it may it does not appear her insurer will cover the full testing. 2. Restless Legs Syndrome - Start ropinirole 1 mg before bedtime. - Adjust dosage based on response. 3. Constipation - Continue Senokot and Colace. - Dietary modifications reviewed. 4. Post-Operative Care - Surgical incision healing well. 5. Preventative Care - Schedule mammogram and bone density te sts. Calcitriol lotion/cream requested over oint if avail Ears flushed today RTO Aug as scheduled, sooner PRN Patient Instructions - Take ropinirole 1 mg one hour before b edtime daily. - Continue Senokot and Colace for consti pation as needed. - Retrive and bring GeneSight genetic te st results to the next visit. - [facility] [place] - Resume calcitriol topical treatment. - Monitor symptoms and follow up as sche duled. Consent Patient was informed and verbally consented to the use of an ambient scribe for clinic note documentation during this visit. Total time spent caring for the patient today was 50 minutes. This includes time spent before the visit reviewing the chart, time spent during the visit, and time spent after the visit on documentation, reviewing laboratory results, diagnostic imaging, medications, performing a medically necessary evaluation, counseling on diagnoses, care coordination, ordering appropriate tests, ordering appropriate medications, review of tests performed by other providers, report ing test results with the patient, communication with other healthcare providers. [facility] Medical History (Updated 05/30/25 @ 12:35 by Adia Flower, [facility]) Abnormal MRI Acid reflux Anxiety and depression Arthritis Biliary colic Bipolar 1 disorder BMI 31.0-31.9,adult Body piercing Choledocholithiasis Compression fracture of L4 vertebra COPD (chronic obstructive pulmonary disease) Diabetes mellitus type 2 with atherosclerosis of arteries of extremities DM type 2 causing complication Eczema of external ear Edema Encounter for screening involving social determinants of health (SDoH) Family hx of colon cancer Gastritis GERD (gastroesophageal reflux disease) Headache Intermittent chest pain Lightheadedness Nicotine dependence, cigarettes, uncomplicated Obesity Occult blood positive stool Oral lesion Osteoporosis Pain of left thumb Personal history of colonic polyps Positive FIT (fecal immunochemical test) Spine disorder Unsteady gait Surgical History (Updated 05/30/25 @ 11:49 by MAREN Mckay) H/O left breast biopsy H/O: hemorrhoidectomy History of esophagogastroduodenoscopy (EGD) (09/2024) Hx of cholecystectomy Hx of colonoscopy (09/2024) Hx of endoscopic retrograde cholangiopancreatography Status post repair of paraesophageal diaphragmatic hernia (~05/2025) Family History Mother Mental health disorder Substance abuse Cardiovascular disease Alcoholism Father Diabetes Colon cancer Social History Household Members: Children Household Members Other:: son Both parents involved: No Caregiver staying overnight: No Housing: Apartment Are you a primary medicare specialist to a significant other at home: No Do you presently have visiting nurse or other home services: No 75 years or older and lives alone: No Alcohol intake: never Patient Tobacco Use Status: Former Tobacco user Tobacco use type: Cigarette Cigarette Packs Per Day: 1 Cigarettes Per Day: 20.0 Years Smoked: 25 e-Cigarette/Vaping Use: Never Used Second Hand Smoke Exposure: Yes Substance Use Type: Marijuana service: No Current occupational status: disabled Cognitive needs: Yes Hearing needs: No Vision needs: Yes (wear glasses) Questionnaire Thrive Questionnaire Date Thrive assessed: 01/10/25 I am a: Patient What is your living situation today?: I have a place to live, but I am worried about losing it in the future Within the past 12 months, did the food you bought not last and you didn't have the money to get more?: Sometimes True Within the past 12 months, did you worry whether your food would run out before you got money to buy more?: Sometimes True Do you have trouble paying for medicines?: No Do you have trouble getting transportation to medical appointments?: No Do you have trouble paying your heating and electricity bill?: No Do you have trouble taking care of your child, family member or friend?: No Do you have trouble with day-to-day activities such as bathing, preparing meals, shopping, managing finances, etc.?: No Are you currently unemployed and looking for a job?: No Are you interested in more education?: No Please select the resources that you would like help with: None Currently or been in a relationship where the following occur: I choose not to answer THRIVE Score: 3 KYLE-7 AMB Questionnaire KYLE-7 Date KYLE - 7 assessed: 04/12/25 Source: Developed by Drs. Yasir Hardin, Marilee Castillo, Anish Villagran and colleagues, with an educational isaiah from [employer]. Physical exam (Primary Care) Vital Signs: Last Vital Signs Temp 97.3 F 05/30/25 11:32 Pulse 88 05/30/25 11:32 Resp 12 05/30/25 11:32 BP 99/66 05/30/25 11:32 Pulse Ox 95 05/30/25 11:32 Oxygen Delivery Method Room Air 05/30/25 11:32 BMI result Body Mass Index 28.6 Tobacco/Smoking Status: Tobacco use Status Tobacco use date assessed 05/30/25 05/30/25 11:30 Patient Tobacco Use Status Former Tobacco user 05/30/25 11:30 Tobacco use type Cigarette 05/30/25 11:30 e-Cigarette/Vaping Use Never Used 05/30/25 11:30 Thrive Assessment: Date of Thrive Assessment Date Thrive assessed 01/10/25 05/30/25 11:30 Currently or been in a relationship where the following occur: I choose not to answer Office Procedures Cerumen Removal From which ear canal was the cerumen removed: bilateral Removal: irrigation Notes: patient tolerated procedure well, no complications and ear canal clear 07818-Twi Irrigation/Lavage Coding Level of Care Code TCM Mod MDM <= 14 Days Complex EM visit Add On G2211 Diagnoses Hospital discharge follow-up Z09 RLS (restless legs syndrome) G25.81 Diaphragmatic hernia without obstruction and without gangrene K44.9 Obstruction and gangrene presence: without obstruction or gangrene Impacted cerumen, bilateral H61.23 Status post repair of paraesophageal diaphragmatic hernia Z98.890; Z87.19 CPT Codes Office Procedure - CPT: 51978-Pnt Irrigation/Lavage ([id number]) Assessment & Plan Assessment & Plan (1) Hospital discharge follow-up: Code(s): Z09 - Encounter for follow-up examination after completed treatment for conditions other than malignant neoplasm (2) RLS (restless legs syndrome): Code(s): G25.81 - Restless legs syndrome Category: Medical (3) Diaphragmatic hernia: Comment: s/p repair 05/2025 [facility] [place] Code(s): K44.9 - Diaphragmatic hernia without obstruction or gangrene Category: Medical Qualifiers: Obstruction and gangrene presence: without obstruction or gangrene Qualified Code(s): K44.9 - Diaphragmatic hernia without obstruction or gangrene (4) Impacted cerumen, bilateral: Code(s): H61.23 - Impacted cerumen, bilateral (5) Status post repair of paraesophageal diaphragmatic hernia: Onset Date: ~05/2025 Code(s): Z98.890 - Other specified postprocedural states; Z87.19 - Personal history of other diseases of the digestive system Category: Medical Plan . Medications: New ropinirole administer 1-3 hours before bedtime 1 mg PO BEDTIME 90 tabs 0RF Resumed calcitriol 1 appl topical BID 100 grams 1RF calcitriol 1 appl topical BID 100 grams 0RF
[2025-05-30 11:32] VITALS: BP 99/66; PULSE 88; RESP 12; TEMP 36.3; O2SAT 95; BMI 28.6
--- OUTSIDE RECORDS SUMMARY | 2025-05-30 12:42 | XMS_ITS | Patient Health Record ---
Author Organization [employer] [facility] Address [address] [place] [address] Care Team Providers Care Photographic Equipment Mechanic Name Role Phone Venkata (RETIRED) Jaguar FAY Primary Care Provide r Unavailable Maritza Reyez Unavailable [phone] Allergies Allergen (clinical drug ingredient) Drug/Non Drug [...] W/U Status Risk Notes Problem Anxiety state (117054598) Anxiety state, unspecified (300.00) Active confirmed Problem Pain in thoracic spine (365785784) Pain in thoracic spine (724.1) Active confirmed Plan Of Treatment Pending Test Test Name Order Date Urine Culture and Sensitivity 01/19/2015 Insurance Providers Payer Name Payer Address Payer Phone Subscriber Number Group Number Insured Name Patient Relationship to Insured Coverage Start Date Coverage End Date [facility] [address] [place] [address] [id number] [employer] Spouse - patient is the spouse of the insured Medical (General) History Medical History History ICD Code Pain in thoracic spine Anxiety state, unspecified
--- OUTSIDE RECORDS SUMMARY | 2025-05-30 12:42 | XMS_ITS | Patient Health Record ---
Author Organization [facility] Billing Info Address [address] [place] [address] Care Team Providers Care Last Putter Away Name Role Phone FARIDA GREEN Unavailable [phone] Allergies Allergen (clinical drug ingredient) Drug/Non Drug Allergy documented on EMR Reaction Allergy Type Onset Date Status Sulfa Unknown Drug Allergy Active Reason For Referral No Information Medications Medication SIG (Take, Route, Fr equency, Duration) Notes Start Date End Date Status Temazepam 30 MG (Schedule IV Drug) T CHRIS 1 CAPSULE BY MOUTH AT BEDTIME Oral for 30 Active Abilify 2 MG 1 tablet Orally Once a day for 30 day(s) Active Trazodone HCl 100 MG TAKE 1 TABLET BY [facility] TWICE A DAY Oral for 30 Active Social History Tobacco Use: Social History Observation Description Date Details (start date - stop date) Current Smoker NA - NA Tobacco Status: Question Answer Notes Patient is a current every day smoker Plan Of Treatment No Information Insurance Providers Payer Name Payer Address Payer Phone Subscriber Number Group Number Insured Name Patient Relationship to Insured Coverage Start Date Coverage End Date MEDICARE [place] PART B [address] [facility] JAQUAN PRUETT [id number] Mere Brushi Self - patient is the insured 8 [place]ICAID [place] [address] [place], [place] [id number] Nataliia Brush Self - patient is the insured 8 Medical (General) History Medical History History ICD Code Gastrointestinal Disease asthma Ovarian cysts Surgical History Surgery Date(Month/Year) cholecystectomy breast BX
--- OUTSIDE RECORDS SUMMARY | 2025-05-30 12:42 | XMS_ITS | Patient Health Record ---
Author Organization [facility] Address [address] [place], [place] [id number] Care Team Providers Care Thermodynamics Professor Name Role Phone Елена Amaya MD Primary [...] W/U Status Risk Notes Problem Rectal polyp (12470592) Rectal polyp (K62.1) Active confirmed Problem 57533012 Colitis (K52.9) Active confirmed Problem Polyp of colon (disorder) (65220622) Colon polyps (K63.5) Active confirmed Problem Internal hemorrhoids (34917299) Internal hemorrhoids (K64.8) Active confirmed Problem Esophagitis (35748760) Esophagitis (K20.9) Active confirmed Problem Abdominal pain (81024366) Abdominal pain (R10.9) Active confirmed Problem Clostridium difficile infection (499011294) Clostridium difficile infection (B96.89) Active confirmed Problem 854487463 Loose stools (R19.5) Active confirmed Problem History of gastrointestinal disease (174125768) History of hemorrhoids (Z87.19) Active confirmed Problem Acute pancreatitis (804642529) Acute pancreatitis, unspecified complication status, unspecified pancreatitis type (K85.90) Active confirmed Problem [id number] Hx of Clostridium difficile infection (Z86.19) Active [...] Insured Coverage Start Date Coverage End Date [facility] [address] [place] [id number] [employer] Nataliia Self - patient is the insured Medical (General) History Medical History History ICD Code SHORTNESS OF BREATH MIGRAINES TROUBLE SLEEPING FREQUENT HEADACHES BACKACHES Surgical History Surgery Date(Month/Year) COLONOSCOPY .. DR ECHOLS 01/02 [facility] REM[facility]AL 1989
== END 2025-05-30 12:10 | disposition home or self-care (01) ==
LOC: HO.HMCFM 11:21
PROVIDERS: PCP Nurse Practitioner Family; Visit Provider Nurse Practitioner Family
DX: G25.81 Restless legs syndrome (principal); K44.9 Diaphragmatic hernia without obstruction or gangrene; H61.23 Impacted cerumen, bilateral; Z98.890 Other specified postprocedural states; Z87.19 Personal history of other diseases of the digestive system; Z09 Encounter for follow-up examination after completed treatment for conditions other than malignant neoplasm

== ENCOUNTER → 2025-05-30 11:20 | Outpatient (BNVA) | payer OTHER, SELFPAY | PROVIDERS: PCP Nurse Practitioner Family; Visit Provider Nurse Practitioner Family | DX: Z09 Encounter for follow-up examination after completed treatment for conditions other than malignant neoplasm (principal); G25.81 Restless legs syndrome; K44.9 Diaphragmatic hernia without obstruction or gangrene; H61.23 Impacted cerumen, bilateral; Z98.890 Other specified postprocedural states; Z87.19 Personal history of other diseases of the digestive system | CPT/HCPCS: 69209; 99495 ==

== ENCOUNTER 2025-06-08 10:17 | Outpatient (AMB) | payer OTHER, SELFPAY ==
--- NOTE | 2025-06-08 10:12 | A.OFFPC_ITS ---
Intake Visit Reasons: review genesight testing Allergies cephalexin (From Keflex) Allergy (Severe, Verified 06/08/25 10:12) Rash Sulfa (Sulfonamide Antibiotics) Allergy (Severe, Verified 06/08/25 10:12) Rash lamotrigine Allergy (Intermediate, Verified 06/08/25 10:12) Rash Medication List - Last Reconciled 06/08/25 by Adia Flower, [employer] UPHOLSTERER- albuterol sulfate 90 mcg/actuation 2 puffs inhalation Q4-6H PRN 30 days aripiprazole 2 mg PO BID baclofen 10 mg PO TID PRN Held on 05/17/25. Instructions: Resume on 06/14/25. utmvziaxpg-dadomqkomzllr-xnfb 50-325-40 mg 1 tab PO DAILY PRN calcitriol 1 appl topical BID duloxetine 20 mg PO DAILY esomeprazole magnesium 20 mg PO DAILY 90 days ropinirole 1 mg PO BEDTIME sucralfate 10 mL PO BID trazodone 300 mg PO BEDTIME [wedge pillow As directed] Tobacco use date assessed: 05/30/25 Dental Screening Dental Screen Date: 05/30/25 HPI HPI Comments History of Present Illness Details 70 y/o F with osteoporosis, DM2, GERD, I sally def anemia, GERD, Bipolar 1, KYLE, MDD, COPD, current tobacco use, chronic pain, eczema, hiatal hernia, schatzki ring, esophagitis, gastritis, diverticulosis, colon polyp, internal hemorrhoids History of Present Illness - The patient is a 70-year-old female pr esenting with sleep disturbance. Onset and maintenance; not sleeping more than 1 hour; gets up to urinate and cant fall asleep for hours. - GeneSight testing reviewed w/ her toerin y. - had ear lavage at last visit; L ear st ill feels clogged. Results - GeneSight Testing Results: reviewed w her today Assessment and Plan Start Dayvigo 5mg QHS for insomnia Office visit tomorrow for L ear eval, at 0900. Telehealth Attestation The details of this telehealth encounter have been documented accurately. The patient was informed, and proper consent was obtained for virtual consultation. The patient has been explained that this is an interactive (audio/video) telehealth encounter and what that consists of. The patient understands and wishes to proceed. Graph Story platform was used. Total time spent caring for the patient today was 31 minutes. This includes time spent before the visit reviewing the chart, time spent during the visit, and time spent after the visit on documentation, reviewing laboratory results, diagnostic imaging, medications, performing a medically necessary evaluation, counseling on diagnoses, care coordination, ordering appropriate tests, ordering appropriate medications, review of tests performed by other providers, reporting test results with the patient, communication with other healthcare providers. [facility] Medical History (Updated 06/08/25 @ 10:21 [facility] Abnormal MRI Acid reflux Anxiety and depression Arthritis Biliary colic Bipolar 1 disorder BMI 31.0-31.9,adult Body piercing Choledocholithiasis Compression fracture of L4 vertebra COPD (chronic obstructive pulmonary disease) Diabetes mellitus type 2 with atherosclerosis of arteries of extremities DM type 2 causing complication Eczema of external ear Edema Encounter for screening involving social determinants of health (SDoH) Family hx of colon cancer Gastritis GERD (gastroesophageal reflux disease) Headache Intermittent chest pain Lightheadedness Nicotine dependence, cigarettes, uncomplicated Obesity Occult blood positive stool Oral lesion Osteoporosis Pain of left thumb Personal history of colonic polyps Positive FIT (fecal immunochemical test) Spine disorder Unsteady gait Surgical History (Updated 05/30/25 @ 11:49 by MCKINLEY Mckay) H/O left breast biopsy H/O: hemorrhoidectomy History of esophagogastroduodenoscopy (EGD) (09/2024) Hx of cholecystectomy Hx of colonoscopy (09/2024) Hx of endoscopic retrograde cholangiopancreatography Status post repair of paraesophageal diaphragmatic hernia (~05/2025) Family History Mother Mental health disorder Substance abuse Cardiovascular disease Alcoholism Father Diabetes Colon cancer Social History Household Members: Children Household Members Other:: son Both parents involved: No Caregiver staying overnight: No Housing: Apartment Are you a primary health care / medical job titles to a significant other at home: No Do you presently have visiting nurse or other home services: No 75 years or older and lives alone: No Alcohol intake: never Patient Tobacco Use Status: Former Tobacco user Tobacco use type: Cigarette Cigarette Packs Per Day: 1 Cigarettes Per Day: 20.0 Years Smoked: 25 e-Cigarette/Vaping Use: Never Used Second Hand Smoke Exposure: Yes Substance Use Type: Marijuana service: No Current occupational status: disabled Cognitive needs: Yes Hearing needs: No Vision needs: Yes (wear glasses) Questionnaire Thrive Questionnaire Date Thrive assessed: 01/10/25 I am a: Patient What is your living situation today?: I have a place to live, but I am worried about losing it in the future Within the past 12 months, did the food you bought not last and you didn't have the money to get more?: Sometimes True Within the past 12 months, did you worry whether your food would run out before you got money to buy more?: Sometimes True Do you have trouble paying for medicines?: No Do you have trouble getting transportation to medical appointments?: No Do you have trouble paying your heating and electricity bill?: No Do you have trouble taking care of your child, family member or friend?: No Do you have trouble with day-to-day activities such as bathing, preparing meals, shopping, managing finances, etc.?: No Are you currently unemployed and looking for a job?: No Are you interested in more education?: No Please select the resources that you would like help with: None Currently or been in a relationship where the following occur: I choose not to answer THRIVE Score: 3 KYLE-7 AMB Questionnaire KYLE-7 Date KYLE - 7 assessed: 04/12/25 Source: Developed by Drs. Yasir aHrdin, Marilee Castillo, Anish Villagran and colleagues, with an educational isaiah from [employer]. Physical exam (Primary Care) Tobacco/Smoking Status: Tobacco use Status Tobacco use date assessed 05/30/25 05/30/25 11:30 Patient Tobacco Use Status Former Tobacco user 05/30/25 11:30 Tobacco use type Cigarette 05/30/25 11:30 e-Cigarette/Vaping Use Never Used 05/30/25 11:30 Thrive Assessment: Date of Thrive Assessment Date Thrive assessed 01/10/25 05/30/25 11:30 Currently or been in a relationship where the following occur: I choose not to answer Telehealth Telehealth [facility]health [facility] Location of provider rendering services: practice address Location of patient: address on file Patient Identification confirmed using: Name, : Yes Telehealth method: voice only Patient verbally consented to treatment: Yes Patient verbally consented to billing insurance company: Yes Patient informed of any privacy concerns related to visit: Yes Minutes spent on Phone/Video with Pt.: 5 Coding Level of Care Code Tele Est Pt Level 4 (60582) Complex EM visit Add On G2211 Diagnoses Psychophysiological insomnia F51.04 Insomnia type: psychophysiologic Otalgia, left ear H92.02 Encounter to discuss test results Z71.2 Assessment & Plan Assessment & Plan (1) Insomnia: Code(s): G47.00 - Insomnia, unspecified Category: Medical Qualifiers: Insomnia type: psychophysiologic Qualified Code(s): F51.04 - Psychophysiologic insomnia (2) Otalgia, left ear: Code(s): H92.02 - Otalgia, left ear (3) Encounter to discuss test results: Code(s): Z71.2 - Person consulting for explanation of examination or test findings Plan , Medications: New lemborexant (Dayvigo) 5 mg PO BEDTIME 30 tabs 0RF
--- OUTSIDE RECORDS SUMMARY | 2025-06-08 11:03 | XMS_ITS | Patient Health Record ---
Author Organization [facility] Address [address] [place], [place] [id number] Care Team Providers Care Sponge Packer Name Role Phone Елена Amaya MD Primary [...] W/U Status Risk Notes Problem Rectal polyp (46192814) Rectal polyp (K62.1) Active confirmed Problem 08074244 Colitis (K52.9) Active confirmed Problem Polyp of colon (disorder) (22966482) Colon polyps (K63.5) Active confirmed Problem Internal hemorrhoids (67963323) Internal hemorrhoids (K64.8) Active confirmed Problem Esophagitis (87327248) Esophagitis (K20.9) Active confirmed Problem Abdominal pain (49608145) Abdominal pain (R10.9) Active confirmed Problem Clostridium difficile infection (299273702) Clostridium difficile infection (B96.89) Active confirmed Problem 959664547 Loose stools (R19.5) Active confirmed Problem History of gastrointestinal disease (239618770) History of hemorrhoids (Z87.19) Active confirmed Problem Acute pancreatitis (835597245) Acute pancreatitis, unspecified complication status, unspecified pancreatitis type (K85.90) Active confirmed Problem [id number] Hx of Clostridium difficile infection (Z86.19) Active [...] Date Coverage End Date [facility] [address] AJ V[place]OMMER [phone] [id number] Uledi Nataliia Self - patient is the insured Medical (General) History Medical History History ICD Code SHORTNESS OF BREATH MIGRAINES TROUBLE SLEEPING FREQUENT HEADACHES BACKACHES Surgical History Surgery Date(Month/Year) COLONOSCOPY .. DR ECHOLS 01/02 GALLBADDER REMOVAL 1989
--- OUTSIDE RECORDS SUMMARY | 2025-06-08 11:03 | XMS_ITS | Patient Health Record ---
Author Organization [email or web address] [facility] Address [address] [place] [address] Care Team Providers Care Compressor Stations Superintendent Name Role Phone Venkata (RETIRED) Jaguar FAY Primary Care Provide r Unavailable Maritza Reyez Unavailable [phone] Allergies Allergen (clinical drug ingredient) Drug/Non Drug [...] W/U Status Risk Notes Problem Anxiety state (115777619) Anxiety state, unspecified (300.00) Active confirmed Problem Pain in thoracic spine (745300852) Pain in thoracic spine (724.1) Active confirmed Plan Of Treatment Pending Test Test Name Order Date Urine Culture and Sensitivity 01/19/2015 Insurance Providers Payer Name Payer Address Payer Phone Subscriber Number Group Number Insured Name Patient Relationship to Insured Coverage Start Date Coverage End Date [facility] [address] [place] [address] [id number] SIN SOUZA Spouse - patient is the spouse of the insured Medical (General) History Medical History History ICD Code Pain in thoracic spine Anxiety state, unspecified
== END 2025-06-08 10:22 | disposition home or self-care (01) ==
LOC: HO.HMCFM 10:17
PROVIDERS: PCP Nurse Practitioner Family; Visit Provider Nurse Practitioner Family
DX: F51.04 Psychophysiologic insomnia (principal); H92.02 Otalgia, left ear; Z71.2 Person consulting for explanation of examination or test findings

== ENCOUNTER 2025-06-09 08:52 | Outpatient (AMB) | payer OTHER, SELFPAY ==
--- NOTE | 2025-06-09 08:54 | MHC.PC.OV ---
Vital Signs 06/09/25 08:58 Height 5 ft 3 in Weight 160 lb BMI 28.3 BP 99/68 Blood Pressure Location Lt brachial Position Sitting Respiration 12 Pulse 73 Pulse Source Pulse Oximeter Temp 97.2 F Temp Source Oral Pulse Oximetry (%) 96 Oxygen Delivery Method Room Air Intake Visit Reasons: L ear lavage Intake Note: Patient here for left ear lavage Firewall Administrator Required: No Allergies cephalexin (From Keflex) Allergy (Severe, Verified 06/09/25 08:54) Rash Sulfa (Sulfonamide Antibiotics) Allergy (Severe, Verified 06/09/25 08:54) Rash lamotrigine Allergy (Intermediate, Verified 06/09/25 08:54) Rash Tobacco use date assessed: 06/09/25 Fall risk assessment: No Falls in past year Last assessed Fall Risk: 06/09/25 Dental Screening Dental Screen Date: 06/09/25 Did you have a dental visit in the last 12 months?: Yes Did you have a dental problem in the last 6 months where you did not have access to dental care?: No Was dental information given to patient?: Patient has dentist HPI HPI Comments History of Present Illness Details 70 y/o F with osteoporosis, DM2, GERD, Iron def anemia, GERD, Bipolar 1, KYLE, MDD, COPD, current tobacco use, chronic pain, eczema, hiatal hernia, schatzki ring, esophagitis, gastritis, diverticulosis, colon polyp, internal hemorrhoids Here today for bilat ear lavage c/o ear fullness bilat, relieved s/p lavage Insomnia - Dayvigo cost $418/mo. New Rx Belsomra sent in. Waiting to hear about coverage. Mammo - hx of L breast Bx. I rec'd message to order dx mammo Rt breast; after reviewing w/ her today, this should be L breast. Order was corrected. Exam Awake alert NAD TM intact and clear bilat. EAC intact and clear. Speaking in full sentences. Plan Successful lavage bilat Wait to hear about coverage on Belsomra; send alternative PRN Mammo ordered RTO as scheduled. Total time spent caring for the patient today was 30 minutes. This includes time spent before the visit reviewing the chart, time spent during the visit, and time spent after the visit on documentation, reviewing laboratory results, diagnostic imaging, medications, performing a medically necessary evaluation, counseling on diagnoses, care coordination, ordering appropriate tests, ordering appropriate medications, review of tests performed by other providers, reporting test results with the patient, communication with other healthcare providers. [facility] Medical History (Updated 06/08/25 @ 10:21 by MCKINLEY Mckay) Abnormal MRI Acid reflux Anxiety and depression Arthritis Biliary colic Bipolar 1 disorder BMI 31.0-31.9,adult Body piercing Choledocholithiasis Compression fracture of L4 vertebra COPD (chronic obstructive pulmonary disease) Diabetes mellitus type 2 with atherosclerosis of arteries of extremities DM type 2 causing complication Eczema of external ear Edema Encounter for screening involving social determinants of health (SDoH) Family hx of colon cancer Gastritis GERD (gastroesophageal reflux disease) Headache Intermittent chest pain Lightheadedness Nicotine dependence, cigarettes, uncomplicated Obesity Occult blood positive stool Oral lesion Osteoporosis Pain of left thumb Personal history of colonic polyps Positive FIT (fecal immunochemical test) Spine disorder Unsteady gait Surgical History (Updated 06/09/25 @ 09:25 by MCKINLEY Mckay) H/O left breast biopsy H/O: hemorrhoidectomy History of esophagogastroduodenoscopy (EGD) (09/2024) Hx of cholecystectomy Hx of colonoscopy (09/2024) Hx of endoscopic retrograde cholangiopancreatography Status post repair of paraesophageal diaphragmatic hernia (~05/2025) Family History Mother Mental health disorder Substance abuse Cardiovascular disease Alcoholism Father Diabetes Colon cancer Social History Household Members: Children Household Members Other:: son Both parents involved: No Caregiver staying overnight: No Housing: Apartment Are you a primary urgent care to a significant other at home: No Do you presently have visiting nurse or other home services: No 75 years or older and lives alone: No Alcohol intake: never Patient Tobacco Use Status: Former Tobacco user Tobacco use type: Cigarette Cigarette Packs Per Day: 1 Cigarettes Per Day: 20.0 Years Smoked: 25 e-Cigarette/Vaping Use: Never Used Second Hand Smoke Exposure: Yes Substance Use Type: Marijuana service: No Current occupational status: disabled Cognitive needs: Yes Hearing needs: No Vision needs: Yes (wear glasses) Questionnaire Thrive Questionnaire Date Thrive assessed: 01/10/25 I am a: Patient What is your living situation today?: I have a place to live, but I am worried about losing it in the future Within the past 12 months, did the food you bought not last and you didn't have the money to get more?: Sometimes True Within the past 12 months, did you worry whether your food would run out before you got money to buy more?: Sometimes True Do you have trouble paying for medicines?: No Do you have trouble getting transportation to medical appointments?: No Do you have trouble paying your heating and electricity bill?: No Do you have trouble taking care of your child, family member or friend?: No Do you have trouble with day-to-day activities such as bathing, preparing meals, shopping, managing finances, etc.?: No Are you currently unemployed and looking for a job?: No Are you interested in more education?: No Please select the resources that you would like help with: None Currently or been in a relationship where the following occur: I choose not to answer THRIVE Score: 3 KYLE-7 AMB Questionnaire KYLE-7 Date KYLE - 7 assessed: 04/12/25 Source: Developed by Drs. Yasir Hardin, Marilee Castillo, Anish Villagran and colleagues, with an educational isaiah from [employer] Physical exam (Primary Care) Vital Signs: Last Vital Signs Temp 97.2 F 06/09/25 08:58 Pulse 73 06/09/25 08:58 Resp 12 06/09/25 08:58 BP 99/68 06/09/25 08:58 Pulse Ox 96 06/09/25 08:58 Oxygen Delivery Method Room Air 06/09/25 08:58 BMI result Body Mass Index 28.3 Tobacco/Smoking Status: Tobacco use Status Tobacco use date assessed 06/09/25 06/09/25 08:55 Patient Tobacco Use Status Former Tobacco user 06/09/25 08:55 Tobacco use type Cigarette 06/09/25 08:55 e-Cigarette/Vaping Use Never Used 06/09/25 08:55 Thrive Assessment: Date of Thrive Assessment Date Thrive assessed 01/10/25 06/09/25 08:55 Currently or been in a relationship where the following occur: I choose not to answer Office Procedures Cerumen Removal From which ear canal was the cerumen removed: bilateral Removal: irrigation Notes: patient tolerated procedure well, no complications and ear canal clear [id number]-[id number] Irrigation/Lavage Coding Level of Care Code Est Pt Level 4 (70790) Complex EM visit Add On G2211 Diagnoses Psychophysiological insomnia F51.04 Insomnia type: psychophysiologic Impacted cerumen, bilateral H61.23 History of breast biopsy Z98.890 CPT Codes Office Procedure - CPT: 68227-Kya Irrigation/Lavage ([id number]) Assessment & Plan Assessment & Plan (1) Insomnia: Code(s): G47.00 - Insomnia, unspecified Category: Medical Qualifiers: Insomnia type: psychophysiologic Qualified Code(s): F51.04 - Psychophysiologic insomnia (2) Impacted cerumen, bilateral: Code(s): H61.23 - Impacted cerumen, bilateral (3) History of breast biopsy: Comment: LEFT BREAST Code(s): Z98.890 - Other specified postprocedural states Category: Medical Plan . Orders: Orders MM diagnostic mammo unilat LT Today Z98.890 - Other specified postprocedural states
[2025-06-09 08:58] VITALS: BP 99/68; PULSE 73; RESP 12; TEMP 36.2; O2SAT 96; BMI 28.3
--- OUTSIDE RECORDS SUMMARY | 2025-06-09 09:07 | XMS_ITS | Patient Health Record ---
Author Organization [facility] Address [address] [place], [place] [address] Care Team Providers Care Zinc Furnace Charger Name Role Phone Елена Amaya MD Primary [...] W/U Status Risk Notes Problem Rectal polyp (06839684) Rectal polyp (K62.1) Active confirmed Problem 29856747 Colitis (K52.9) Active confirmed Problem Polyp of colon (disorder) (72772669) Colon polyps (K63.5) Active confirmed Problem Internal hemorrhoids (42170684) Internal hemorrhoids (K64.8) Active confirmed Problem Esophagitis (75467542) Esophagitis (K20.9) Active confirmed Problem Abdominal pain (95296294) Abdominal pain (R10.9) Active confirmed Problem Clostridium difficile infection (320421679) Clostridium difficile infection (B96.89) Active confirmed Problem 259263294 Loose stools (R19.5) Active confirmed Problem History of gastrointestinal disease (541731430) History of hemorrhoids (Z87.19) Active confirmed Problem Acute pancreatitis (169029025) Acute pancreatitis, unspecified complication status, unspecified pancreatitis type (K85.90) Active confirmed Problem 190653113102701 Hx of Clostridium difficile infection (Z86.19) Active [...] Coverage Start Date Coverage End Date [facility] [address] [place] [phone] [id number] [place] Nataliia Self - patient is the insured Medical (General) History Medical History History ICD Code SHORTNESS OF BREATH MIGRAINES TROUBLE SLEEPING FREQUENT HEADACHES BACKACHES Surgical History Surgery Date(Month/Year) COLONOSCOPY .. DR ECHOLS 01/02 GALLBADDER REMOVAL 1989
--- OUTSIDE RECORDS SUMMARY | 2025-06-09 09:08 | XMS_ITS | Patient Health Record ---
Author Organization [employer] [facility] Address [address] [place] [address] Care Team Providers Care Hot Worker Name Role Phone Venkata (RETIRED) Jaguar FAY Primary Care Provide r Unavailable Maritza Reyez Unavailable [phone] Allergies Allergen (clinical drug ingredient) Drug/Non Drug [...] W/U Status Risk Notes Problem Anxiety state (306875736) Anxiety state, unspecified (300.00) Active confirmed Problem Pain in thoracic spine (791971524) Pain in thoracic spine (724.1) Active confirmed Plan Of Treatment Pending Test Test Name Order Date Urine Culture and Sensitivity 01/19/2015 Insurance Providers Payer Name Payer Address Payer Phone Subscriber Number Group Number Insured Name Patient Relationship to Insured Coverage Start Date Coverage End Date [facility] [address] [place] [address] [id number] SIN SOUZA Spouse - patient is the spouse of the insured Medical (General) History Medical History History ICD Code Pain in thoracic spine Anxiety state, unspecified
--- OUTSIDE RECORDS SUMMARY | 2025-06-09 09:08 | XMS_ITS | Patient Health Record ---
Author Organization [facility] Address [address] [place] [address] Care Team Providers Care Softball Coach Name Role Phone FARIDA GREEN Unavailable [phone] Allergies Allergen (clinical drug ingredient) Drug/Non Drug [...] HCl 100 MG TAKE 1 TABLET BY [facility] TWICE A DAY Oral for 30 Active [...] MEDICARE [place] PART B [address] [facility] JAQUAN PRUETT [id number] Mere Brushi Self - patient is the insured 8 MEDICAID [place] [address] [place], [place] [id number] Nataliia Brush Self - patient is the insured 8 Medical (General) History Medical History History ICD Code Gastrointestinal Disease asthma Ovarian cysts Surgical History Surgery Date(Month/Year) cholecystectomy breast BX
== END 2025-06-09 09:31 | disposition home or self-care (01) ==
LOC: HO.HMCFM 08:53
PROVIDERS: PCP Nurse Practitioner Family; Visit Provider Nurse Practitioner Family
DX: F51.04 Psychophysiologic insomnia (principal); H61.23 Impacted cerumen, bilateral; Z98.890 Other specified postprocedural states

== ENCOUNTER → 2025-06-09 08:52 | Outpatient (BNVA) | payer OTHER, SELFPAY | PROVIDERS: PCP Nurse Practitioner Family; Visit Provider Nurse Practitioner Family | DX: F51.04 Psychophysiologic insomnia (principal); H61.23 Impacted cerumen, bilateral; Z98.890 Other specified postprocedural states | CPT/HCPCS: 69209; 99212 ==

== ENCOUNTER 2025-06-27 14:17 | Outpatient (REF) | payer OTHER, SELFPAY ==
--- NOTE | ~2025-06-27 | MM_ITS ---
EXAMINATION: 1. MM DIAGNOSTIC DIGITAL BREAST TOMOSYNTHESIS, LEFT 2. Targeted ultrasound of the left breast CLINICAL INFORMATION: Left breast pain. According to the patient, history of left breast excisional biopsy in 2023, which is the same location of the left breast pain. COMPARISON: Left diagnostic mammogram on November 26, 2023, bilateral mammogram on November 06, 2023 and November 06, 2018. TECHNIQUE: Digital breast tomosynthesis is performed in both the craniocaudal and mediolateral oblique views along with computer-aided detection (CAD). Synthesized 2D images are generated from the tomosynthesis. A triangular skin marker is placed at the location of the left breast pain, as indicated by the patient, in the upper outer quadrant. The skin marker for surgical scar is also placed on the left MLO view. FINDINGS: BREAST COMPOSITION: There are scattered areas of fibroglandular density (ACR BI-RADS breast composition Category b). RIGHT BREAST: Sonographically proven cyst in the upper outer quadrant is unchanged from 2022. No significant masses, suspicious calcifications or other abnormalities are seen. LEFT BREAST: History of previous excisional biopsy. Presumed postsurgical changes are unchanged from October 2023. No significant masses, suspicious calcifications or other abnormalities are seen. Targeted ultrasound of the left breast was performed at the location of the pain as indicated by the patient. The survey centered at approximately 2 o'clock position 5 cm from the nipple did not reveal suspicious sonographic findings. MM/MM tomosynthesis diagnostic BI IMPRESSION: RIGHT BREAST: Benign, no mammographic evidence of malignancy. Normal interval follow-up is recommended in 12 months. LEFT BREAST: Benign, no evidence of malignancy. In particular, no suspicious mammographic or sonographic findings to account for patient's concerning focal pain. Clinical follow-up is recommended. Otherwise, normal interval follow-up mammogram is recommended in 12 months. ASSESSMENT: BI-RADS 2 - Benign Findings RECOMMENDATION: 1. Patient should be managed based on the clinical impression. 2. Otherwise, routine annual screening mammography. Results were provided to the patient at time of visit by the technologist. This patient's information was entered into a reminder system with a target due date for their next mammogram. Electronically signed by: Deandra Pierre MD 06/27/2025 04:14 PM EDT
--- OUTSIDE RECORDS SUMMARY | 2025-06-27 15:12 | XMS_ITS | Patient Health Record ---
Author Organization [employer] [facility] Address [address] [place] [address] Care Team Providers Care Saw Superintendent Name Role Phone Venkata (RETIRED) Jaguar FAY Primary Care Provide r Unavailable Maritza Reyez Unavailable [phone] Allergies Allergen (clinical drug ingredient) Drug/Non Drug [...] W/U Status Risk Notes Problem Anxiety state (851953110) Anxiety state, unspecified (300.00) Active confirmed Problem Pain in thoracic spine (881320464) Pain in thoracic spine (724.1) Active confirmed Plan Of Treatment Pending Test Test Name Order Date Urine Culture and Sensitivity 01/19/2015 Insurance Providers Payer Name Payer Address Payer Phone Subscriber Number Group Number Insured Name Patient Relationship to Insured Coverage Start Date Coverage End Date [facility] [address] [place] [address] [phone] [id number] SIN SOUZA Spouse - patient is the spouse of the insured Medical (General) History Medical History History ICD Code Pain in thoracic spine Anxiety state, unspecified
--- OUTSIDE RECORDS SUMMARY | 2025-06-27 15:12 | XMS_ITS | Patient Health Record ---
Author Organization [facility] Address [address] [place] [address] Care Team Providers Care Carpenter Labor Supervisor Name Role Phone FARIDA GREEN Unavailable Allergies Allergen (clinical drug ingredient) Drug/Non Drug [...] HCl 100 MG TAKE 1 TABLET BY [facility] TWICE A DAY Oral for 30 Active [...] MEDICARE [place] PART B [address] [facility] JAQUAN PRUETT [id number] Mere Brushi Self - patient is the insured 8 MEDICAID [place] [address] [place], [place] [id number] [phone] [id number] Nataliia Brush Self - patient is the insured 8 Medical (General) History Medical History History ICD Code Gastrointestinal Disease asthma Ovarian cysts Surgical History Surgery Date(Month/Year) cholecystectomy breast BX
--- OUTSIDE RECORDS SUMMARY | 2025-06-27 15:12 | XMS_ITS | Patient Health Record ---
Author Organization [facility] Address [address] [place], [place] [id number] Care Team Providers Care Senior Capital Markets Specialist Name Role Phone Елена Amaya MD Primary Care Provider Unavail able Allergies Allergen (clinical drug ingredient) Drug/Non Drug Allergy documented on EMR Reaction Allergy Type Onset Date Status sulfa Unknown Drug Allergy Active Reason For Referral No Information Medications Medication SIG (Take, Route, Fr equency, Duration) Notes Start Date End Date Status Omeprazole 20 MG 1 capsule Orally Onc e a day; Duration: 30 Active Uceris 9 MG 1 tablet in the morn ing Orally Once a day; Duration: 30 days 03/01/2018 Ac tive Temazepam 50 1 capsule at bedtime as needed Once a day Active Topamax 100 MG 1 tablet Orally DAILY Active Abilify 2 MG 1 tablet Orally Once a day Active Carafate 1 GM one tablet Orally Tw ice a day; Duration: 30 day(s) 04/13/2018 Active Vitamin D 5000 5000 units ORALLY ON CE A WEEK; Duration: 30 days 02/17/2018 Active traMADol HCl 50 [...] W/U Status Risk Notes Problem Rectal polyp (54656429) Rectal polyp (K62.1) Active confirmed Problem Colitis (40198073) Colitis (K52.9) Active confi rmed Problem Polyp of colon (disorder) (63725781) Colon polyps (K63.5) Active confirmed Problem Internal hemorrhoids (74648560) Internal hemorrhoids (K64.8) Active confirmed Problem Esophagitis (23251438) Esophagitis (K20.9) Active confirmed Problem Abdominal pain (44413516) Abdominal pain (R10.9) Active confirmed Problem Clostridium difficile infection (955658884) Clostridium difficile infection (B96.89) Active confirmed Problem Loose stools (479901104) Loose stools (R19.5) Active confirmed Problem History of gastrointestinal disease (628387380) History of hemorrhoids (Z87.19) Active confirmed Problem Acute pancreatitis (279337918) Acute pancreatitis, unspecified complication status, unspecified pancreatitis type (K85.90) Active confirmed Problem History of infectious disease (919785625) Hx of Clostridium difficile infection (Z86.19) Active [...] Insured Coverage Start Date Coverage End Date [employer] [id number] [place] [phone] [id number] BrushNataliia Self - patient is the insured Medical (General) History Medical History History ICD Code SHORTNESS OF BREATH MIGRAINES TROUBLE SLEEPING FREQUENT HEADACHES BACKACHES Surgical History Surgery Date(Month/Year) COLONOSCOPY .. DR ECHOLS 01/02 [facility] REMOVAL 1989
== END 2025-06-27 14:18 | disposition home or self-care (01) ==
LOC: HO.MAMMO 14:17
PROVIDERS: Visit Provider Nurse Practitioner Family
DX: N64.4 Mastodynia (principal); Z98.890 Other specified postprocedural states
CPT/HCPCS: 76642; 77062; 77066

== ENCOUNTER → 2025-06-27 14:30 | Outpatient (BNV) | payer OTHER, SELFPAY | PROVIDERS: Visit Provider Radiology Body Imaging | DX: N64.4 Mastodynia (principal) | CPT/HCPCS: 76642; 77066; G0279 ==

== ENCOUNTER 2025-06-29 09:18 | Outpatient (AMB) | payer OTHER, SELFPAY ==
--- NOTE | 2025-06-29 09:26 | A.OFFVIS_ITS ---
VS Expanded 06/29/25 09:35 BP 117/62 Blood Pressure Location Rt brachial Blood Pressure Position Sitting Pulse 76 Pulse Source Pulse Oximeter Temp 97.6 F Temperature Source Temporal Artery Scan Pulse Oximetry 93 Oxygen Delivery Method Room Air Height 5 ft 3 in Weight 154 lb 9.6 oz BMI 27.4 Body Fat % 39.5 Body Fat Mass 61.0 Fat Free Mass 93.4 Visceral Fat Rating 10.0 Body Water % 42.7 Body Water Mass 66.0 Muscle Mass/Score 88.6 Basal Metabolic Rate/Score 1,287 Intake Visit Reasons: (OV) s/p Diaphragmatic Hernia 05/16/25 Exhaust Worker Required: No Allergies cephalexin (From Keflex) Allergy (Severe, Verified 06/29/25 09:28) Rash Sulfa (Sulfonamide Antibiotics) Allergy (Severe, Verified 06/29/25 09:28) Rash lamotrigine Allergy (Intermediate, Verified 06/29/25 09:28) Rash Medication List - Last Reconciled 06/29/25 by JAQUAN Wisdom albuterol sulfate 90 mcg/actuation 2 puffs inhalation Q4-6H PRN 30 days aripiprazole 2 mg PO BID baclofen 10 mg PO TID PRN Held on 05/17/25. Instructions: Resume on 06/14/25. [id number]-bzivkhxtffwlz-rpgi 50-325-40 mg 1 tab PO DAILY PRN calcitriol 1 appl topical BID duloxetine 20 mg PO DAILY esomeprazole magnesium 20 mg PO DAILY 90 days ropinirole 1 mg PO BEDTIME sucralfate 10 mL PO BID suvorexant (Belsomra) 10 mg PO BEDTIME trazodone 300 mg PO BEDTIME [wedge pillow As directed] HPI Comments Details: 70-year-old female returns to the office today in follow-up. She is 6 weeks post hiatal hernia repair performed on 05/16/2025. She has no pain. She has moved her bowels. Previously was not exercising. Additionally, she has no reflux or discomfort meal plan: Premier protein rtd 1/2 mixed with 2 oz almond milk at 9-11 noon fit crunch bar 3 pm other 1/2 of shake 6 pm meal 6 forks protein and 6 forks veg Drinking 40 oz water Exercising: None hx back injury and wants to start walking. [facility] Medical History (Updated 06/08/25 @ 10:21 by dAia Flower, [facility]) DM type 2 causing complication Encounter for screening involving social determinants of health (SDoH) Gastritis Choledocholithiasis Biliary colic Abnormal MRI Oral lesion Positive FIT (fecal immunochemical test) Personal history of colonic polyps Eczema of external ear Pain of left thumb Intermittent chest pain Lightheadedness Diabetes mellitus type 2 with atherosclerosis of arteries of extremities Unsteady gait Family hx of colon cancer Occult blood positive stool GERD (gastroesophageal reflux disease) Arthritis BMI 31.0-31.9,adult Obesity Body piercing Nicotine dependence, cigarettes, uncomplicated Compression fracture of L4 vertebra Bipolar 1 disorder Anxiety and depression Headache Acid reflux Spine disorder Edema Osteoporosis COPD (chronic obstructive pulmonary disease) Surgical History Status post repair of paraesophageal diaphragmatic hernia (~05/2025) Hx of endoscopic retrograde cholangiopancreatography H/O left breast biopsy H/O: hemorrhoidectomy Hx of cholecystectomy History of esophagogastroduodenoscopy (EGD) (09/2024) Hx of colonoscopy (09/2024) Family History Mother Mental health disorder Substance abuse Cardiovascular disease Alcoholism Father Diabetes Colon cancer Social History Household Members: Children Household Members Other:: son Both parents involved: No Caregiver staying overnight: No Housing: Apartment Are you a primary toddler caregiver to a significant other at home: No Do you presently have visiting nurse or other home services: No 75 years or older and lives alone: No Alcohol intake: never Patient Tobacco Use Status: Current everyday Tobacco user Tobacco use type: Cigarette Cigarette Packs Per Day: 1 Cigarettes Per Day: 20.0 Years Smoked: 25 e-Cigarette/Vaping Use: Never Used Second Hand Smoke Exposure: Yes Substance Use Type: Marijuana service: No Current occupational status: disabled Cognitive needs: Yes Hearing needs: No Vision needs: Yes (wear glasses) Physical Exam Const General: healthy appearing and no acute distress Resp Effort & Inspection: normal respiratory effort Auscultation: clear to auscultation bilaterally Cardio Rate: regular rate Rhythm: regular rhythm GI Auscultation: normal bowel sounds Extrem General: Yes normal to inspection Quality Reporting (2019) Adult ([facility] 138/[birth year]/07/[birth year]) Smoking risk assessment performed?: Yes Patient Tobacco Use Status: Former Tobacco user Assessment & Plan Assessment & Plan (1) Status post repair of paraesophageal diaphragmatic hernia: Onset Date: ~05/2025 Code(s): Z98.890 - Other specified postprocedural states; Z87.19 - Personal history of other diseases of the digestive system Category: Surgical Plan: Patient is following the meal plan. She has not yet exercise because of complaints of back pain. Offered and given discount paperwork to [employer] so she may walk in the pool. Additionally, emphatically encouraged to quit smoking. She had quit smoking for 6 weeks but then had a family wedding which she started smoking again. She has quit cold turkey before and encouraged to do so again. Continue to follow meal plan, incorporate exercise as she is able. Return to clinic 4 weeks
[2025-06-29 09:35] VITALS: BP 117/62; PULSE 76; TEMP 36.4; O2SAT 93; BMI 27.4
--- OUTSIDE RECORDS SUMMARY | 2025-06-29 09:47 | XMS_ITS | Patient Health Record ---
Author Organization [facility] Billing Info Address [address] [place] [address] Care Team Providers Care Cloth Shrinking Machine Operator Helper Name Role Phone FARIDA GREEN Unavailable [phone] Allergies Allergen (clinical drug ingredient) Drug/Non Drug [...] HCl 100 MG TAKE 1 TABLET BY [facility] TWICE A DAY Oral for 30 [...] MEDICARE [place] PART B [address] [facility] JAQUAN PRUETT [id number] Mere Brushi Self - patient is the insured 8 MEDICAID [place] [address] [place], [place] [id number] Nataliia Brush Self - patient is the insured 8 Medical (General) History Medical History History ICD Code Gastrointestinal Disease asthma Ovarian cysts Surgical History Surgery Date(Month/Year) cholecystectomy breast BX
--- OUTSIDE RECORDS SUMMARY | 2025-06-29 09:47 | XMS_ITS | Patient Health Record ---
Author Organization [facility] Address [address] [place], [place] [id number] Care Team Providers Care Swing Ride Operator Name Role Phone Елена Amaya MD [...] W/U Status Risk Notes Problem Rectal polyp (30962757) Rectal polyp (K62.1) Active confirmed Problem Colitis (30920666) Colitis (K52.9) Active confi rmed Problem Polyp of colon (disorder) (82676898) Colon polyps (K63.5) Active confirmed Problem Internal hemorrhoids (62450057) Internal hemorrhoids (K64.8) Active confirmed Problem Esophagitis (31324324) Esophagitis (K20.9) Active confirmed Problem Abdominal pain (48611671) Abdominal pain (R10.9) Active confirmed Problem Clostridium difficile infection (281427218) Clostridium difficile infection (B96.89) Active confirmed Problem Loose stools (794556763) Loose stools (R19.5) Active confirmed Problem History of gastrointestinal disease (740181282) History of hemorrhoids (Z87.19) Active confirmed Problem Acute pancreatitis (311985343) Acute pancreatitis, unspecified complication status, unspecified pancreatitis type (K85.90) Active confirmed Problem History of infectious disease (041195197) Hx of Clostridium difficile infection (Z86.19) Active [...] Coverage End Date [employer] [id number] [place] [phone] [id number] BrushNataliia Self - patient is the insured Medical (General) History Medical History History ICD Code SHORTNESS OF BREATH MIGRAINES TROUBLE SLEEPING FREQUENT HEADACHES BACKACHES Surgical History Surgery Date(Month/Year) COLONOSCOPY .. DR ECHOLS 01/02 [facility]DER REMOVAL 1989
--- OUTSIDE RECORDS SUMMARY | 2025-06-29 09:47 | XMS_ITS | Patient Health Record ---
Author Organization [facility] Address [address] [place] [address] Care Team Providers Care Reports Analysis Manager Name Role Phone Venkata (RETIRED) Jaguar FAY Primary Care Provide r Unavailable Maritza Reyez Unavailable [phone] Allergies Allergen (clinical drug ingredient) Drug/Non Drug [...] Status W/U Status Risk Notes Problem Anxiety state, unspecified (300.00) Active confirmed Problem Pain in thoracic spine (148014645) Pain in thoracic spine (724.1) Active confirmed Plan Of Treatment Pending Test Test Name Order Date Urine Culture and Sensitivity 01/19/2015 Insurance Providers Payer Name Payer Address Payer Phone Subscriber Number Group Number Insured Name Patient Relationship to Insured Coverage Start Date Coverage End Date [facility] [address] [place] [id number] [employer] Spouse - patient is the spouse of the insured Medical (General) History Medical History History ICD Code Pain in thoracic spine Anxiety state, unspecified
== END 2025-06-29 09:50 | disposition home or self-care (01) ==
LOC: HO.HBS 09:19
PROVIDERS: PCP Nurse Practitioner Family; Visit Provider Physician Assistant Surgical
DX: Z98.890 Other specified postprocedural states (principal); Z87.19 Personal history of other diseases of the digestive system
CPT/HCPCS: 99024

== ENCOUNTER → 2025-06-29 09:18 | Outpatient (BNVA) | payer OTHER, SELFPAY | PROVIDERS: PCP Nurse Practitioner Family; Visit Provider Physician Assistant Surgical | DX: Z48.815 Encounter for surgical aftercare following surgery on the digestive system (principal); Z87.19 Personal history of other diseases of the digestive system | CPT/HCPCS: 99212 ==

== ENCOUNTER 2025-07-10 12:40 | Outpatient (AMB) | payer OTHER, SELFPAY ==
--- NOTE | 2025-07-10 12:45 | AM.OFFWIN_ITS ---
Intake Vital Signs 3 07/10/25 12:48 Height 5 ft 3 in Weight 157 lb BMI 27.8 BP 101/68 Blood Pressure Location Lt brachial Position Sitting Respiration 12 Pulse 72 Pulse Source Pulse Oximeter Temp 97.1 F Temp Source Oral Pulse Oximetry (%) 99 Oxygen Delivery Method Room Air Intake Visit Reasons: Psoriasis Intake Note: Patient c/o Psoriasis outbreak head, hands, and feet x 1 week. Patient has been taking Benadryl but it does not t help all the time Patient Tobacco Use Status: Current everyday Tobacco user Commercial Floor Covering Installer Required: No Allergies cephalexin (From Keflex) Allergy (Severe, Verified 07/10/25 12:53) Rash Sulfa (Sulfonamide Antibiotics) Allergy (Severe, Verified 07/10/25 12:53) Rash lamotrigine Allergy (Intermediate, Verified 07/10/25 12:53) Rash Medication List - Last Reconciled 07/10/25 by Adia Flower, [facility]- albuterol sulfate 90 mcg/actuation 2 puffs inhalation Q4-6H PRN 30 days aripiprazole 2 mg PO BID baclofen 10 mg PO TID PRN Held on 05/17/25. Instructions: Resume on 06/14/25. [id number]-xdohpxfjygyla-xxjq 50-325-40 mg 1 tab PO DAILY PRN calcitriol 1 appl topical BID duloxetine 20 mg PO DAILY esomeprazole magnesium 20 mg PO DAILY 90 days ropinirole 1 mg PO BEDTIME sucralfate 10 mL PO BID suvorexant (Belsomra) 10 mg PO BEDTIME trazodone 300 mg PO BEDTIME [wedge pillow As directed] Do you need a note to return to daycare/school/sports/work: No HPI HPI Comments 2 History of Present Illness0 Details 70 y/o F with osteoporosis, DM2, GERD, I sally def anemia, GERD, Bipolar 1, KYLE, MDD, COPD, current tobacco use, chronic pain, eczema, hiatal hernia, schatzki ring, esophagitis, gastritis, diverticulosis, colon polyp, internal hemorrhoids History of Present Illness - The patient is a 70-year-old female pr esenting with scalp rash and pruritus. - Scalp dermatitis with scaly, scab-like lesions noted after vinegar soak of feet. Has since stopped but cont w/ itching and rash - Reports severe itching on scalp, hands , feet; partial relief with Benadryl 25- 50mg QD - Known psoriasis and eczema; affecting ears. Not active w/ Derm @ this time - No fever, mucosal sores; denies other systemic symptoms. - Belsomra has helped sleep but cont to have sleep/wake issues. Taking 10mg QD w/o side effects. . Review of Systems - Dermatologic: Reports scalp rash, itch ing on palms and soles. Denies mucosal sores. - General: Denies fever. - Sleep: Reports ongoing insomnia. Discussion Notes We reviewed the application of a topical steroid solution, with the patient instructed to apply it twice daily. Referral to dermatology was considered due to the lengthy wait time; however, interim management with maintenance of topical treatment was advised. I revisited her insomnia management with current treatment using Balsonra. We discussed potential dose adjustment to 15 mg and planned a telehealth follow-up for further evaluation. Patient was given time to ask questions. All questions were answered to their satisfaction. Assessment and Plan - Prescribed fluocinolone solution, twic e daily. Derm referral - Trial topical benadryl or ok to cont. PO benadryl, sparingly. - Avoid vinegar application; monitor. - Increase Balsonra to 15 mg nightly. - Follow up via telehealth. Patient Instructions - Apply the prescribed solution to the scalp twice each day. - Avoid using apple cider vinegar or any suspected allergens. - For itching, use oral or topical Benad ryl as needed. - Increase Balsomra dose to 15 mg at [email or web address] and monitor sleep patterns. - Call for follow-up via telehealth to a [facility] insomnia treatment as necessary. - Monitor for any worsening of rash or a dditional symptoms and contact healthcare provider if they occur. Consent Patient was informed and verbally consented to the use of an ambient scribe for clinic note documentation during this visit. Total time spent caring for the patient today was 30 minutes. This includes time spent before the visit reviewing the chart, time spent during the visit, and time spent after the visit on documentation, reviewing laboratory results, diagnostic imaging, medications, performing a medically necessary evaluation, counseling on diagnoses, care coordination, ordering appropriate tests, ordering appropriate medications, review of tests performed by other providers, reporting test results with the patient, communication with other healthcare providers. PFSH Medical History (Updated 07/10/25 @ 13:00 by Adia Flower, [facility]) Abnormal MRI Acid reflux Anxiety and depression Arthritis Biliary colic Bipolar 1 disorder BMI 31.0-31.9,adult Body piercing Choledocholithiasis Compression fracture of L4 vertebra COPD (chronic obstructive pulmonary disease) Diabetes mellitus type 2 with atherosclerosis of arteries of extremities DM type 2 causing complication Eczema of external ear Edema Encounter for screening involving social determinants of health (SDoH) Family hx of colon cancer Gastritis GERD (gastroesophageal reflux disease) Headache Intermittent chest pain Lightheadedness Nicotine dependence, cigarettes, uncomplicated Obesity Occult blood positive stool Oral lesion Osteoporosis Pain of left thumb Personal history of colonic polyps Positive FIT (fecal immunochemical test) Spine disorder Unsteady gait Surgical History Status post repair of paraesophageal diaphragmatic hernia (~05/2025) Hx of endoscopic retrograde cholangiopancreatography H/O left breast biopsy H/O: hemorrhoidectomy Hx of cholecystectomy History of esophagogastroduodenoscopy (EGD) (09/2024) Hx of colonoscopy (09/2024) Family History Mother Mental health disorder Substance abuse Cardiovascular disease Alcoholism Father Diabetes Colon cancer Social History (Updated 06/29/25 @ 09:29 by Carey Ornelas CMA) Household Members: Children Household Members Other:: son Both parents involved: No Caregiver staying overnight: No Housing: Apartment Are you a primary family day care worker to a significant other at home: No Do you presently have visiting nurse or other home services: No 75 years or older and lives alone: No Alcohol intake: never Patient Tobacco Use Status: Current everyday Tobacco user Tobacco use type: Cigarette Cigarette Packs Per Day: 1 Cigarettes Per Day: 20.0 Years Smoked: 25 e-Cigarette/Vaping Use: Never Used Second Hand Smoke Exposure: Yes Substance Use Type: Marijuana service: No Current occupational status: disabled Cognitive needs: Yes Hearing needs: No Vision needs: Yes (wear glasses) Physical Exam Vital Signs: Last Vital Signs Temp 97.1 F 07/10/25 12:48 Pulse 72 07/10/25 12:48 Resp 12 07/10/25 12:48 BP 101/68 07/10/25 12:48 Pulse Ox 99 07/10/25 12:48 Oxygen Delivery Method Room Air 07/10/25 12:48 BMI result Body Mass Index 27.8 HEENT Head images: 2 1. erythematous macule w/ white scales noted at nape of neck w/o infection Hands are clear Assessment & Plan Assessment & Plan (1) Psoriasis: Code(s): L40.9 - Psoriasis, unspecified (2) Nicotine dependence, cigarettes, uncomplicated: Code(s): F17.210 - Nicotine dependence, cigarettes, uncomplicated (3) Insomnia: Code(s): G47.00 - Insomnia, unspecified Qualifiers: Insomnia type: psychophysiologic Qualified Code(s): F51.04 - Psychophysiologic insomnia (4) Pruritus of palm: Code(s): L29.89 - Other pruritus Plan . Orders: Referrals 2 Dermatology Referral L40.9 - Psoriasis, unspecified Medications: New 2 fluocinolone 0.01% 1 appl topical BID 60 mL 2RF Coding Level of Care Code Est Pt Level 4 (64844) Diagnoses Psoriasis L40.9 Nicotine dependence, cigarettes, uncomplicated F17.210 Psychophysiological insomnia F51.04 Insomnia type: psychophysiologic Pruritus of palm L29.89
[2025-07-10 12:48] VITALS: BP 101/68; PULSE 72; RESP 12; TEMP 36.2; O2SAT 99; BMI 27.8
--- OUTSIDE RECORDS SUMMARY | 2025-07-10 13:50 | XMS_ITS | Patient Health Record ---
Author Organization [facility] Address [address] [place], [place] [id number] Care Team Providers Care Fifth Grade Teacher Name Role Phone Елена Amaya MD Primary [...] W/U Status Risk Notes Problem Rectal polyp (09226525) Rectal polyp (K62.1) Active confirmed Problem Colitis (81796458) Colitis (K52.9) Active confi rmed Problem Polyp of colon (disorder) (86646018) Colon polyps (K63.5) Active confirmed Problem Internal hemorrhoids (05408307) Internal hemorrhoids (K64.8) Active confirmed Problem Esophagitis (42253575) Esophagitis (K20.9) Active confirmed Problem Abdominal pain (56072386) Abdominal pain (R10.9) Active confirmed Problem Clostridium difficile infection (350821766) Clostridium difficile infection (B96.89) Active confirmed Problem Loose stools (009824891) Loose stools (R19.5) Active confirmed Problem History of gastrointestinal disease (221228409) History of hemorrhoids (Z87.19) Active confirmed Problem Acute pancreatitis (677158277) Acute pancreatitis, unspecified complication status, unspecified pancreatitis type (K85.90) Active confirmed Problem History of infectious disease (015834821) Hx of Clostridium difficile infection (Z86.19) Active [...] Coverage End Date [employer] [id number] [place] [id number] BrushNataliia Self - patient is the insured Medical (General) History Medical History History ICD Code SHORTNESS OF BREATH MIGRAINES TROUBLE SLEEPING FREQUENT HEADACHES BACKACHES Surgical History Surgery Date(Month/Year) COLONOSCOPY .. DR ECHOLS 01/02 [facility]DER REMOVAL 1989
--- OUTSIDE RECORDS SUMMARY | 2025-07-10 13:50 | XMS_ITS | Patient Health Record ---
Author Organization [employer] [facility] Address [address] [place] [address] Care Team Providers Care Driver License Reviewing Officer Name Role Phone Venkata (RETIRED) Jaguar FAY Primary Care Provide r Unavailable Maritza Reyez Unavailable [phone] Allergies Allergen (clinical drug ingredient) Drug/Non Drug [...] W/U Status Risk Notes Problem Anxiety state (079167322) Anxiety state, unspecified (300.00) Active confirmed Problem Pain in thoracic spine (236761004) Pain in thoracic spine (724.1) Active confirmed Plan Of Treatment Pending Test Test Name Order Date Urine Culture and Sensitivity 01/19/2015 Insurance Providers Payer Name Payer Address Payer Phone Subscriber Number Group Number Insured Name Patient Relationship to Insured Coverage Start Date Coverage End Date [facility] [address] [place] [address] [phone] [id number] SIN SOUZA Spouse - patient is the spouse of the insured Medical (General) History Medical History History ICD Code Pain in thoracic spine Anxiety state, unspecified
--- OUTSIDE RECORDS SUMMARY | 2025-07-10 13:50 | XMS_ITS | Patient Health Record ---
Author Organization [facility] Billing Info Address [address] [place] [id number] Care Team Providers Care Tonguer Name Role Phone FARIDA GREEN Unavailable Allergies [...] HCl 100 MG TAKE 1 TABLET BY [facility] TWICE A DAY Oral for 30 [...] MEDICARE [place] PART B [address] [facility] JAQUAN PRUETT [id number] Mere Brushi Self - patient is the insured 8 [place] [address] [place], [place] [id number] Nataliia Brush Self - patient is the insured 8 Medical (General) History Medical History History ICD Code Gastrointestinal Disease asthma Ovarian cysts Surgical History Surgery Date(Month/Year) cholecystectomy breast BX
== END 2025-07-10 12:45 | disposition home or self-care (01) ==
LOC: HO.HMCFM 12:41
PROVIDERS: PCP Nurse Practitioner Family; Visit Provider Nurse Practitioner Family
DX: L40.9 Psoriasis, unspecified (principal); F17.210 Nicotine dependence, cigarettes, uncomplicated; F51.04 Psychophysiologic insomnia; L29.89 Other pruritus

== ENCOUNTER → 2025-07-10 12:40 | Outpatient (BNVA) | payer OTHER, SELFPAY | PROVIDERS: PCP Nurse Practitioner Family; Visit Provider Nurse Practitioner Family | DX: L40.9 Psoriasis, unspecified (principal); F51.04 Psychophysiologic insomnia; L29.89 Other pruritus; F17.210 Nicotine dependence, cigarettes, uncomplicated; Z71.6 Tobacco abuse counseling | CPT/HCPCS: 99212 ==

== ENCOUNTER 2025-07-14 08:23 | Outpatient (AMB) | payer OTHER, SELFPAY ==
--- OUTSIDE RECORDS SUMMARY | 2025-07-14 09:08 | XMS_ITS | Patient Health Record ---
Author Organization [employer] [facility] Address [address] [place] [address] Care Team Providers Care Crown Perforator Operator Name Role Phone Venkata (RETIRED) Jaguar FAY Primary Care Provide r Unavailable Maritza Reyez Unavailable [phone] Allergies Allergen (clinical drug ingredient) Drug/Non Drug [...] W/U Status Risk Notes Problem Anxiety state (324192913) Anxiety state, unspecified (300.00) Active confirmed Problem Pain in thoracic spine (724.1) Active confirmed Plan Of Treatment Pending Test Test Name Order Date Urine Culture and Sensitivity 01/19/2015 Insurance Providers Payer Name Payer Address Payer Phone Subscriber Number Group Number Insured Name Patient Relationship to Insured Coverage Start Date Coverage End Date [facility] [address] [place] [address] [id number] SIN SOUZA Spouse - patient is the spouse of the insured Medical (General) History Medical History History ICD Code Pain in thoracic spine Anxiety state, unspecified
--- OUTSIDE RECORDS SUMMARY | 2025-07-14 09:08 | XMS_ITS | Patient Health Record ---
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 Name Role Phone Елена Amaya MD Primary [...] W/U Status Risk Notes Problem Rectal polyp (27866836) Rectal polyp (K62.1) Active confirmed Problem Colitis (02191713) Colitis (K52.9) Active confi rmed Problem Polyp of colon (disorder) (14209752) Colon polyps (K63.5) Active confirmed Problem Internal hemorrhoids (75719918) Internal hemorrhoids (K64.8) Active confirmed Problem Esophagitis (36338100) Esophagitis (K20.9) Active confirmed Problem Abdominal pain (02199836) Abdominal pain (R10.9) Active confirmed Problem Clostridium difficile infection (962904867) Clostridium difficile infection (B96.89) Active confirmed Problem Loose stools (349799052) Loose stools (R19.5) Active confirmed Problem History of gastrointestinal disease (607981763) History of hemorrhoids (Z87.19) Active confirmed Problem Acute pancreatitis (276138882) Acute pancreatitis, unspecified complication status, unspecified pancreatitis type (K85.90) Active confirmed Problem History of infectious disease (235110803) Hx of Clostridium difficile infection (Z86.19) Active [...] Coverage End Date [employer] [address] [place] [phone] [id number] BrushNataliia Self - patient is the insured Medical (General) History Medical History History ICD Code SHORTNESS OF BREATH MIGRAINES TROUBLE SLEEPING FREQUENT HEADACHES BACKACHES Surgical History Surgery Date(Month/Year) COLONOSCOPY .. DR ECHOLS 01/02 [employer]ALL[employer]DER REMOVAL 1989
--- OUTSIDE RECORDS SUMMARY | 2025-07-14 09:08 | XMS_ITS | Patient Health Record ---
Author Organization [facility] Billing Info Address [address] [place] [address] Care Team Providers Care Shoeblack Name Role Phone FARIDA GREEN Unavailable Allergies [...] HCl 100 MG TAKE 1 TABLET BY [facility] TWICE A DAY Oral for [...] MEDICARE [place] PART B [address] [facility] JAQUAN PRUETT [id number] Mere Brushi Self - patient is the insured 8 [place] [address] [place], [place] [id number] [phone] [id number] Nataliia Brush Self - patient is the insured 8 Medical (General) History Medical History History ICD Code Gastrointestinal Disease asthma Ovarian cysts Surgical History Surgery Date(Month/Year) cholecystectomy breast BX
--- NOTE | 2025-07-14 15:48 | A.OFFPC_ITS ---
Intake Visit Reasons: going over belsomra Intake Note: Nataliia presents by telehealth to go over the Belsomra. Allergies cephalexin (From Keflex) Allergy (Severe, Verified 07/14/25 15:59) Rash Sulfa (Sulfonamide Antibiotics) Allergy (Severe, Verified 07/14/25 15:59) Rash lamotrigine Allergy (Intermediate, Verified 07/14/25 15:59) Rash Medication List - Last Reconciled 07/14/25 by Adia Flower [facility] albuterol sulfate 90 mcg/actuation 2 puffs inhalation Q4-6H PRN 30 days aripiprazole 2 mg PO BID baclofen 10 mg PO TID PRN Held on 05/17/25. Instructions: Resume on 06/14/25. [id number]-opnqamfnseqwa-amqn 50-325-40 mg 1 tab PO DAILY PRN calcitriol 1 appl topical BID duloxetine 20 mg PO DAILY esomeprazole magnesium 20 mg PO DAILY 90 days fluocinolone 0.01% 1 appl topical BID ropinirole 1 mg PO BEDTIME sucralfate 10 mL PO BID suvorexant (Belsomra) 10 mg PO BEDTIME [wedge pillow As directed] Tobacco use date assessed: 07/14/25 Dental Screening Dental Screen Date: 07/14/25 Did you have a dental visit in the last 12 months?: No Did you have a dental problem in the last 6 months where you did not have access to dental care?: No Was dental information given to patient?: Patient declined HPI HPI Comments History of Present Illness Details 70 y/o F with osteoporosis, DM2, GERD, I sally def anemia, GERD, Bipolar 1, KYLE, MDD, COPD, current tobacco use, chronic pain, eczema, hiatal hernia, schatzki ring, esophagitis, gastritis, diverticulosis, colon polyp, internal hemorrhoids History of Present Illness - The patient is a 70-year-old female pr esenting for insomnia mgmt - Belsomra 10mg did not work, could not split to try 15, increased to 20mg - Not falling or staying asleep; stopped taking Trazadone. - Would like to try Dayvigo. This was RX but denied. SHe has not tried and failed Belsomra. Plan: Stop Belsomra, failed at 20mg Try Dayvigo 5 mg. If not effective, refer to [employer] testing for other options. FU visit request sent to front office in about 4 weeks. Patient was given time to ask questions. All questions were answered to their satisfaction. Telehealth Attestation I attest that this patient encounter was conducted via telehealth and that the information documented accurately reflects the information obtained during this visit. The patient has been explained that this is an interactive (audio/video) telehealth encounter and what that consists of. The patient understands and wishes to proceed. [employer] platform was used. Total time spent caring for the patient today was 10 minutes. This includes time spent before the visit reviewing the chart, time spent during the visit, and time spent after the visit on documentation, reviewing laboratory results, diagnostic imaging, medications, performing a medically necessary evaluation, counseling on diagnoses, care coordination, ordering appropriate tests, ordering appropriate medications, review of tests performed by other providers, reporting test results with the patient, communication with other healthcare providers. [facility] Medical History (Updated 07/10/25 @ 13:00 by Adia Flower, [facility]) Abnormal MRI Acid reflux Anxiety and depression Arthritis Biliary colic Bipolar 1 disorder BMI 31.0-31.9,adult Body piercing Choledocholithiasis Compression fracture of L4 vertebra COPD (chronic obstructive pulmonary disease) Diabetes mellitus type 2 with atherosclerosis of arteries of extremities DM type 2 causing complication Eczema of external ear Edema Encounter for screening involving social determinants of health (SDoH) Family hx of colon cancer Gastritis GERD (gastroesophageal reflux disease) Headache Intermittent chest pain Lightheadedness Nicotine dependence, cigarettes, uncomplicated Obesity Occult blood positive stool Oral lesion Osteoporosis Pain of left thumb Personal history of colonic polyps Positive FIT (fecal immunochemical test) Spine disorder Unsteady gait Surgical History Status post repair of paraesophageal diaphragmatic hernia (~05/2025) Hx of endoscopic retrograde cholangiopancreatography H/O left breast biopsy H/O: hemorrhoidectomy Hx of cholecystectomy History of esophagogastroduodenoscopy (EGD) (09/2024) Hx of colonoscopy (09/2024) Family History Mother Mental health disorder Substance abuse Cardiovascular disease Alcoholism Father Diabetes Colon cancer Social History (Updated 07/14/25 @ 15:52 by Lilia Veliz MA) Household Members: Children Household Members Other:: son Both parents involved: No Caregiver staying overnight: No Housing: Apartment Are you a primary clinical manager home care to a significant other at home: No Do you presently have visiting nurse or other home services: No 75 years or older and lives alone: No Alcohol intake: never Patient Tobacco Use Status: Current everyday Tobacco user Tobacco use type: Cigarette Cigarette Packs Per Day: 1 Cigarettes Per Day: 20.0 Years Smoked: 25 e-Cigarette/Vaping Use: Never Used Second Hand Smoke Exposure: Yes Substance Use Type: Marijuana service: No Current occupational status: disabled Cognitive needs: Yes Hearing needs: No Vision needs: Yes (wear glasses) Questionnaire Thrive Questionnaire Date Thrive assessed: 01/10/25 I am a: Patient What is your living situation today?: I have a place to live, but I am worried about losing it in the future Within the past 12 months, did the food you bought not last and you didn't have the money to get more?: Sometimes True Within the past 12 months, did you worry whether your food would run out before you got money to buy more?: Sometimes True Do you have trouble paying for medicines?: No Do you have trouble getting transportation to medical appointments?: No Do you have trouble paying your heating and electricity bill?: No Do you have trouble taking care of your child, family member or friend?: No Do you have trouble with day-to-day activities such as bathing, preparing meals, shopping, managing finances, etc.?: No Are you currently unemployed and looking for a job?: No Are you interested in more education?: No Please select the resources that you would like help with: None Currently or been in a relationship where the following occur: I choose not to answer THRIVE Score: 3 KYLE-7 AMB Questionnaire KYLE-7 Date KYLE - 7 assessed: 04/12/25 Source: Developed by Drs. Yasir Hardin, Marilee Castillo, Anish Villagran and colleagues, with an educational isaiah from [employer]. Physical exam (Primary Care) Tobacco/Smoking Status: Tobacco use Status Tobacco use date assessed 07/14/25 07/14/25 15:53 Patient Tobacco Use Status Current everyday Tobacco 07/14/25 15:52 Tobacco use type Cigarette 07/14/25 15:52 e-Cigarette/Vaping Use Never Used 07/14/25 15:52 Thrive Assessment: Date of Thrive Assessment Date Thrive assessed 01/10/25 07/14/25 15:48 Currently or been in a relationship where the following occur: I choose not to answer Telehealth Telehealth Telehealth Platform: [facility] Location of provider rendering services: practice address Location of patient: address on file Patient Identification confirmed using: Name, : Yes Telehealth method: voice only Patient verbally consented to treatment: Yes Patient verbally consented to billing insurance company: Yes Patient informed of any privacy concerns related to visit: Yes Coding Level of Care Code Tele Est Pt Level 1 (96633) Complex EM visit Add On G2211 Diagnoses Psychophysiological insomnia F51.04 Insomnia type: psychophysiologic Assessment & Plan Assessment & Plan (1) Insomnia: Code(s): G47.00 - Insomnia, unspecified Category: Medical Qualifiers: Insomnia type: psychophysiologic Qualified Code(s): F51.04 - Psychophysiologic insomnia Plan . Medications: Refilled lemborexant (Dayvigo) 5 mg PO BEDTIME 30 tabs 0RF Discontinued suvorexant (Belsomra) Discontinued Reason: Doctor's Order 10 mg PO BEDTIME 30 tabs 2RF
== END 2025-07-14 16:11 | disposition home or self-care (01) ==
LOC: HO.HMCFM 08:23
PROVIDERS: PCP Nurse Practitioner Family; Visit Provider Nurse Practitioner Family
DX: F51.04 Psychophysiologic insomnia (principal)

== ENCOUNTER 2025-08-07 14:11 | Outpatient (AMB) | payer OTHER, SELFPAY ==
--- NOTE | 2025-08-07 13:54 | A.OFFPC_ITS ---
Intake Visit Reasons: Telehealth fu insomnia Intake Note: Telehealth follow up on insomnia. Shirt Creaser Required: No Allergies cephalexin (From Keflex) Allergy (Severe, Verified 08/07/25 14:10) Rash Sulfa (Sulfonamide Antibiotics) Allergy (Severe, Verified 08/07/25 14:10) Rash lamotrigine Allergy (Intermediate, Verified 08/07/25 14:10) Rash Medication List - Last Reviewed 08/07/25 by Izzy Malagon MA albuterol sulfate 90 mcg/actuation 2 puffs inhalation Q4-6H PRN 30 days aripiprazole 2 mg PO BID baclofen 10 mg PO TID PRN Held on 05/17/25. Instructions: Resume on 06/14/25. bxwminyjqu-lzprvkxinkosf-rhvv 50-325-40 mg 1 tab PO DAILY PRN calcitriol 1 appl topical BID daridorexant (Quviviq) 25 mg PO BEDTIME duloxetine 20 mg PO DAILY esomeprazole magnesium 20 mg PO DAILY 90 days fluocinolone 0.01% 1 appl topical BID ropinirole 1 mg PO BEDTIME sucralfate 10 mL PO BID [wedge pillow As directed] Tobacco use date assessed: 08/07/25 Fall risk assessment: No Falls in past year Last assessed Fall Risk: 08/07/25 Dental Screening Dental Screen Date: 08/07/25 Did you have a dental visit in the last 12 months?: Yes Did you have a dental problem in the last 6 months where you did not have access to dental care?: No Was dental information given to patient?: Patient has dentist HPI HPI Comments History of Present Illness Details 70 y/o F with osteoporosis, DM2, GERD, I sally def anemia, GERD, Bipolar 1, KYLE, MDD, COPD, current tobacco use, chronic pain, eczema, hiatal hernia, schatzki ring, esophagitis, gastritis, diverticulosis, colon polyp, internal hemorrhoids History of Present Illness - The patient is a 70-year-old female pr esenting for insomnia mgmt - Belsomra 10mg did not work, could not split to try 15, increased to 20mg - Not falling or staying asleep; stopped taking Trazadone. - Would like to try Dayvigo. This was RX but denied. - Started Quviviq 08/02/25 25mg, it has h elped a little. Sleeping deeper. Having a headache. Dull headache. Plan: Cont at same dose for now. Cont for 2 weeks. If needed,ok to take 50mg starting 08/16/25 Send me portal message if this occurs I will have my office schedule a fu visit in 4 weeks to review, sooner as needed Patient was given time to ask questions. All questions were answered to their satisfaction. Telehealth Attestation I attest that this patient encounter was conducted via telehealth and that the information documented accurately reflects the information obtained during this visit. The patient has been explained that this is an interactive (audio/video) telehealth encounter and what that consists of. The patient understands and wishes to proceed. [employer] platform was used. Total time spent caring for the patient today was 11 minutes. This includes time spent before the visit reviewing the chart, time spent during the visit, and time spent after the visit on documentation, reviewing laboratory results, diagnostic imaging, medications, performing a medically necessary evaluation, counseling on diagnoses, care coordination, ordering appropriate tests, ordering appropriate medications, review of tests performed by other providers, reporting test results with the patient, communication with other healthcare providers. [facility] Medical History (Updated 07/10/25 @ 13:00 by Adia Flower, [facility]) Abnormal MRI Acid reflux Anxiety and depression Arthritis Biliary colic Bipolar 1 disorder BMI 31.0-31.9,adult Body piercing Choledocholithiasis Compression fracture of L4 vertebra COPD (chronic obstructive pulmonary disease) Diabetes mellitus type 2 with atherosclerosis of arteries of extremities DM type 2 causing complication Eczema of external ear Edema Encounter for screening involving social determinants of health (SDoH) Family hx of colon cancer Gastritis GERD (gastroesophageal reflux disease) Headache Intermittent chest pain Lightheadedness Nicotine dependence, cigarettes, uncomplicated Obesity Occult blood positive stool Oral lesion Osteoporosis Pain of left thumb Personal history of colonic polyps Positive FIT (fecal immunochemical test) Spine disorder Unsteady gait Surgical History Status post repair of paraesophageal diaphragmatic hernia (~05/2025) Hx of endoscopic retrograde cholangiopancreatography H/O left breast biopsy H/O: hemorrhoidectomy Hx of cholecystectomy History of esophagogastroduodenoscopy (EGD) (09/2024) Hx of colonoscopy (09/2024) Family History Mother Mental health disorder Substance abuse Cardiovascular disease Alcoholism Father Diabetes Colon cancer Social History (Updated 07/14/25 @ 15:52 by Lilia Veliz MA) Household Members: Children Household Members Other:: son Both parents involved: No Caregiver staying overnight: No Housing: Apartment Are you a primary care management assistant to a significant other at home: No Do you presently have visiting nurse or other home services: No 75 years or older and lives alone: No Alcohol intake: never Patient Tobacco Use Status: Current everyday Tobacco user Tobacco use type: Cigarette Cigarette Packs Per Day: 1 Cigarettes Per Day: 20.0 Years Smoked: 25 e-Cigarette/Vaping Use: Never Used Second Hand Smoke Exposure: Yes Substance Use Type: Marijuana service: No Current occupational status: disabled Cognitive needs: Yes Hearing needs: No Vision needs: Yes (wear glasses) Questionnaire Thrive Questionnaire Date Thrive assessed: 01/10/25 KYLE-7 AMB Questionnaire KYLE-7 Date KYLE - 7 assessed: 04/12/25 Source: Developed by Drs. Yasir Hardin, Marilee Castillo, Anish Villagran and colleagues, with an educational isaiah from [employer]. Physical exam (Primary Care) Tobacco/Smoking Status: Tobacco use Status Tobacco use date assessed 08/07/25 08/07/25 14:10 Patient Tobacco Use Status Current everyday Tobacco 08/07/25 13:54 Tobacco use type Cigarette 08/07/25 13:54 e-Cigarette/Vaping Use Never Used 08/07/25 13:54 Thrive Assessment: Date of Thrive Assessment Date Thrive assessed 01/10/25 08/07/25 13:54 Telehealth Telehealth Telehealth Platform: [facility] Location of provider rendering services: practice address Location of patient: address on file Patient Identification confirmed using: Name, : Yes Telehealth method: voice only Patient verbally consented to treatment: Yes Patient verbally consented to billing insurance company: Yes Patient informed of any privacy concerns related to visit: Yes Minutes spent on Phone/Video with Pt.: 5 Coding Level of Care Code Tele Est Pt Level 2 (35150) Complex EM visit Add On G2211 Diagnoses Psychophysiological insomnia F51.04 Insomnia type: psychophysiologic Assessment & Plan Assessment & Plan (1) Insomnia: Code(s): G47.00 - Insomnia, unspecified Category: Medical Qualifiers: Insomnia type: psychophysiologic Qualified Code(s): F51.04 - Psychophysiologic insomnia Plan .
== END 2025-08-07 14:33 | disposition home or self-care (01) ==
LOC: HO.HMCFM 14:11
PROVIDERS: PCP Nurse Practitioner Family; Visit Provider Nurse Practitioner Family
DX: F51.04 Psychophysiologic insomnia (principal)

== ENCOUNTER 2025-09-04 12:17 | Outpatient (AMB) | payer OTHER, SELFPAY ==
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
[2025-09-04 12:15] VITALS: BMI 26.4
== END 2025-09-04 12:24 | disposition home or self-care (01) ==
LOC: HO.HBS 12:17
PROVIDERS: PCP Nurse Practitioner Family; Visit Provider Physician Assistant Surgical
DX: E66.3 Overweight (principal); Z68.26 Body mass index [BMI] 26.0-26.9, adult; K44.9 Diaphragmatic hernia without obstruction or gangrene
CPT/HCPCS: 99213; G2211

== ENCOUNTER 2025-09-11 07:59 | Outpatient (AMB) | payer OTHER, SELFPAY ==
--- NOTE | 2025-09-11 07:48 | MHC.PC.OV ---
Intake Visit Reasons: FU insomnia Intake Note: Telehealth follow up on insomnia Regional Office Coordinator Required: No Allergies cephalexin (From Keflex) Allergy (Severe, Verified 09/11/25 16:14) Rash Sulfa (Sulfonamide Antibiotics) Allergy (Severe, Verified 09/11/25 16:14) Rash lamotrigine Allergy (Intermediate, Verified 09/11/25 16:14) Rash Medication List - Last Reviewed 09/11/25 by Izzy Malagon MA albuterol sulfate 90 mcg/actuation 2 puffs inhalation Q4-6H PRN 30 days aripiprazole 2 mg PO BID baclofen 10 mg PO TID PRN Held on 05/17/25. Instructions: Resume on 06/14/25. iecyqetkyr-hzpsxgyaxllct-yhlr 50-325-40 mg 1 tab PO DAILY PRN calcitriol 1 appl topical BID daridorexant (Quviviq) 50 mg PO BEDTIME duloxetine 20 mg PO DAILY esomeprazole magnesium 20 mg PO DAILY 90 days fluocinolone 0.01% 1 appl topical BID ropinirole 1 mg PO BEDTIME [wedge pillow As directed] Tobacco use date assessed: 08/07/25 Dental Screening Dental Screen Date: 08/07/25 HPI HPI Comments History of Present Illness Details 70 y/o F with osteoporosis, DM2, GERD, Iron def anemia, GERD, Bipolar 1, KYLE, MDD, COPD, current tobacco use, chronic pain, eczema, hiatal hernia, schatzki ring, esophagitis, gastritis, diverticulosis, colon polyp, internal hemorrhoids History of Present Illness The patient is a 70-year-old female presenting for medication management for insomnia and psoriasis. Insomnia: - The patient reports poor sleep quality while taking Quviviq 50 mg. - She reports sleeping for about two hours, being awake for three hours, and then sleeping for another two hours, totaling approximately four hours of sleep per night. - She has previously trialed Belsomra. - A prior authorization for Dayvigo was not processed. Was not covered by insurance previously. Depression: - The patient reports her depression has worsened significantly while on Quviviq, and she experiences suicidal ideation. - She confirms she is currently feeling safe. - She is adherent with her duloxetine and abilify . Psoriasis: - The patient has two persistent psoriatic spots on the back of her head. - She also experiences pruritus of the hands and feet without visible lesions. - She has previously tried topical fluocinolone and clobetasol without improvement. Review of Systems - Psychiatric: Reports worsening depression and suicidal ideation. - Neurological/Sleep: Reports getting only four hours of fragmented sleep nightly. - Integumentary: Reports two persistent psoriatic spots on her scalp and pruritus of the hands and feet. Physical Exam Limited exam conducted via video Awake alert NAD MMM Speaking in full sentences Mood and affect appropriate Results - Pharmacogenomic Testing: Past results noted, which indicate the patient is in the moderate category for metabolizing Ambien, increasing her risk for adverse effects. Assessment and Plan 1. Insomnia - The patient's insomnia is not well-controlled on Quviviq 50 mg, and the medication is contributing to a worsening of her depression. - Quviviq will be discontinued. - A trial of Lunesta will be initiated, starting at 2 mg taken once daily at bedtime. - A prescription will be sent to her pharmacy. - We will follow up in 3-4 weeks to assess efficacy. 2. Depression - The patient's depressive symptoms, including suicidal ideation, have worsened, likely as a side effect of Quviviq. - She affirmed she feels safe at present. - The plan is to discontinue Quviviq and continue her current regimen of duloxetine. - Her mood is expected to improve with the medication change. 3. Psoriasis - The patient has scalp psoriasis and associated pruritus on the hands and feet, which has been refractory to topical steroids (fluocinolone, clobetasol). - While oral antibiotics are not an option, injectable medications could be considered by a specialist. - A referral will be placed to dermatology for further evaluation and management. - In the interim, a trial of a non-steroidal cream, such as tacrolimus or calcipotriene, will be prescribed, pending insurance coverage. - The goal is to obtain a cream formulation to be applied to the scalp lesions. FU via video in 4 weeks, sooner as needed. Patient was given time to ask questions. All questions were answered to their satisfaction. Telehealth Attestation This visit was conducted via a synchronous video telehealth platform. The patient confirmed she was in a private and safe location as a passenger in a vehicle. The patient has been explained that this is an interactive (audio/video) telehealth encounter and what that consists of. The patient understands and wishes to proceed. [employer] platform was used. Total time spent caring for the patient today was 22 minutes. This includes time spent before the visit reviewing the chart, time spent during the visit, and time spent after the visit on documentation, reviewing laboratory results, diagnostic imaging, medications, performing a medically necessary evaluation, counseling on diagnoses, care coordination, ordering appropriate tests, ordering appropriate medications, review of tests performed by other providers, reporting test results with the patient, communication with other healthcare providers. [facility] Medical History (Updated 09/04/25 @ 12:24 by JAQUAN Baird) Abnormal MRI Acid reflux Anxiety and depression Arthritis Biliary colic Bipolar 1 disorder BMI 31.0-31.9,adult Body piercing Choledocholithiasis Compression fracture of L4 vertebra COPD (chronic obstructive pulmonary disease) Diabetes mellitus type 2 with atherosclerosis of arteries of extremities DM type 2 causing complication Eczema of external ear Edema Encounter for screening involving social determinants of health (SDoH) Family hx of colon cancer Gastritis GERD (gastroesophageal reflux disease) Headache Intermittent chest pain Lightheadedness Nicotine dependence, cigarettes, uncomplicated Obesity Occult blood positive stool Oral lesion Osteoporosis Pain of left thumb Personal history of colonic polyps Positive FIT (fecal immunochemical test) Spine disorder Unsteady gait Surgical History Status post repair of paraesophageal diaphragmatic hernia (~05/2025) Hx of endoscopic retrograde cholangiopancreatography H/O left breast biopsy H/O: hemorrhoidectomy Hx of cholecystectomy History of esophagogastroduodenoscopy (EGD) (09/2024) Hx of colonoscopy (09/2024) Family History Mother Mental health disorder Substance abuse Cardiovascular disease Alcoholism Father Diabetes Colon cancer Social History (Updated 07/14/25 @ 15:52 by Lilia Veliz MA) Household Members: Children Household Members Other:: son Both parents involved: No Caregiver staying overnight: No Housing: Apartment Are you a primary long term care phlebotomist to a significant other at home: No Do you presently have visiting nurse or other home services: No 75 years or older and lives alone: No Alcohol intake: never Patient Tobacco Use Status: Current everyday Tobacco user Tobacco use type: Cigarette Cigarette Packs Per Day: 1 Cigarettes Per Day: 20.0 Years Smoked: 25 e-Cigarette/Vaping Use: Never Used Second Hand Smoke Exposure: Yes Substance Use Type: Marijuana service: No Current occupational status: disabled Cognitive needs: Yes Hearing needs: No Vision needs: Yes (wear glasses) Questionnaire Thrive Questionnaire Date Thrive assessed: 01/10/25 KYLE-7 AMB Questionnaire KYLE-7 Date KYLE - 7 assessed: 04/12/25 Source: Developed by Drs. Yasir Hardin, Marilee Castillo, Anish Villagran and colleagues, with an educational isaiah from [employer]. Physical exam (Primary Care) Tobacco/Smoking Status: Tobacco use Status Tobacco use date assessed 08/07/25 09/11/25 07:49 Patient Tobacco Use Status Current everyday Tobacco 09/11/25 07:49 Tobacco use type Cigarette 09/11/25 07:49 e-Cigarette/Vaping Use Never Used 09/11/25 07:49 Thrive Assessment: Date of Thrive Assessment Date Thrive assessed 01/10/25 09/11/25 07:49 Telehealth Telehealth [facility] Location of provider rendering services: practice address Location of patient: address on file Patient Identification confirmed using: Name, : Yes Telehealth method: video Patient verbally consented to treatment: Yes Patient verbally consented to billing insurance company: Yes Patient informed of any privacy concerns related to visit: Yes Minutes spent on Phone/Video with Pt.: 12 Coding Level of Care Code Tele Est Pt Level 3 (59764) Complex EM visit Add On G2211 Diagnoses Psoriasis L40.9 Psychophysiological insomnia F51.04 Insomnia type: psychophysiologic Assessment & Plan Assessment & Plan (1) Psoriasis: Code(s): L40.9 - Psoriasis, unspecified Category: Medical (2) Insomnia: Code(s): G47.00 - Insomnia, unspecified Category: Medical Qualifiers: Insomnia type: psychophysiologic Qualified Code(s): F51.04 - Psychophysiologic insomnia Plan . Orders: Referrals Dermatology Referral L40.9 - Psoriasis, unspecified Medications: New eszopiclone (Lunesta) 2 mg PO BEDTIME 30 tabs 0RF tacrolimus 0.03% 1 appl topical BID 60 grams 2RF Discontinued daridorexant (Quviviq) Discontinued Reason: Doctor's Order 50 mg PO BEDTIME 30 tabs 0RF
--- OUTSIDE RECORDS SUMMARY | 2025-09-11 08:02 | XMS_ITS | Patient Health Record ---
Author Organization [employer] [facility] Address [address] [place] [address] Care Team Providers Care Investigator Welfare Name Role Phone Venkata (RETIRED) Jaguar FAY Primary Care Provide r Unavailable Maritza Reyez Unavailable [phone] Allergies Allergen (clinical drug ingredient) Drug/Non Drug [...] W/U Status Risk Notes Problem Anxiety state (434723165) Anxiety state, unspecified (300.00) Active confirmed Problem Pain in thoracic spine (495322596) Pain in thoracic spine (724.1) Active confirmed Plan Of Treatment Pending Test Test Name Order Date Urine Culture and Sensitivity 01/19/2015 Insurance Providers Payer Name Payer Address Payer Phone Subscriber Number Group Number Insured Name Patient Relationship to Insured Coverage Start Date Coverage End Date [facility] [address] [place] [address] [id number] [employer] Spouse - patient is the spouse of the insured Medical (General) History Medical History History ICD Code Pain in thoracic spine Anxiety state, unspecified
--- OUTSIDE RECORDS SUMMARY | 2025-09-11 08:02 | XMS_ITS | Patient Health Record ---
Author Organization [facility] Address [address] [place], [place] [id number] Care Team Providers Care Manager Hiv Name Role Phone Елена Amaya MD Primary [...] W/U Status Risk Notes Problem Rectal polyp (55818789) Rectal polyp (K62.1) Active confirmed Problem Colitis (95794107) Colitis (K52.9) Active confi rmed Problem Polyp of colon (disorder) (07668726) Colon polyps (K63.5) Active confirmed Problem Internal hemorrhoids (46565577) Internal hemorrhoids (K64.8) Active confirmed Problem Esophagitis (38493611) Esophagitis (K20.9) Active confirmed Problem Abdominal pain (22519048) Abdominal pain (R10.9) Active confirmed Problem Clostridium difficile infection (061072562) Clostridium difficile infection (B96.89) Active confirmed Problem Loose stools (214833880) Loose stools (R19.5) Active confirmed Problem History of gastrointestinal disease (010103730) History of hemorrhoids (Z87.19) Active confirmed Problem Acute pancreatitis (429735072) Acute pancreatitis, unspecified complication status, unspecified pancreatitis type (K85.90) Active confirmed Problem History of infectious disease (809957587) Hx of Clostridium difficile infection (Z86.19) Active [...] Coverage End Date [employer] [id number] [place] [phone] [id number] BrushNataliia Self - patient is the insured Medical (General) History Medical History History ICD Code SHORTNESS OF BREATH MIGRAINES TROUBLE SLEEPING FREQUENT HEADACHES BACKACHES Surgical History Surgery Date(Month/Year) COLONOSCOPY .. DR ECHOLS 01/02 [facility] REMOVAL 1989
--- OUTSIDE RECORDS SUMMARY | 2025-09-11 08:03 | XMS_ITS | Patient Health Record ---
Author Organization [facility] Billing Info Address [address] [place] [id number] Care Team Providers Care Housing Property Manager Name Role Phone FARIDA GREEN Unavailable Allergies [...] HCl 100 MG TAKE 1 TABLET BY [facility] TWICE A DAY Oral for [...] MEDICARE [place] PART B [address] [facility] JAQUAN PRUETT [id number] Mere Brushi Self - patient is the insured 8 MEDICAID [place] [address] [place], [place] [id number] [phone] [id number] Nataliia Brush Self - patient is the insured 8 Medical (General) History Medical History History ICD Code Gastrointestinal Disease asthma Ovarian cysts Surgical History Surgery Date(Month/Year) cholecystectomy breast BX
== END 2025-09-11 16:25 | disposition home or self-care (01) ==
LOC: HO.HMCFM 07:59
PROVIDERS: PCP Nurse Practitioner Family; Visit Provider Nurse Practitioner Family
DX: L40.9 Psoriasis, unspecified (principal); F51.04 Psychophysiologic insomnia

== ENCOUNTER 2025-09-18 14:35 | Outpatient (AMB) | payer OTHER, SELFPAY ==
--- NOTE | 2025-09-18 14:33 | MHC.PC.OV ---
Intake Visit Reasons: FU Insomnia / Trying half Lunesta tablet Intake Note: Telehealth to follow up on insomnia and patient states she did not take half of lunesta because she did not wanna risk the side affects. 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 Instructions: Resume on 06/14/25. [id number]-[id number]-gdtb 50-325-40 mg 1 tab PO DAILY PRN calcitriol 1 appl topical BID duloxetine 20 mg PO DAILY esomeprazole magnesium 20 mg PO DAILY 90 days eszopiclone (Lunesta) 2 mg PO BEDTIME fluocinolone 0.01% 1 appl topical BID ropinirole 1 mg PO BEDTIME tacrolimus 0.03% 1 appl topical BID [wedge pillow As directed] Tobacco use date assessed: 09/18/25 Fall risk assessment: No Falls in past year Last assessed Fall Risk: 09/18/25 Dental Screening Dental Screen Date: 09/18/25 Did you have a dental visit in the last 12 months?: Yes Did you have a dental problem in the last 6 months where you did not have access to dental care?: No Was dental information given to patient?: Patient has dentist HPI HPI Comments History of Present Illness Details 70 y/o F with osteoporosis, DM2, GERD, Iron def anemia, GERD, Bipolar 1, KYLE, MDD, COPD, current tobacco use, chronic pain, eczema, hiatal hernia, schatzki ring, esophagitis, gastritis, diverticulosis, colon polyp, internal hemorrhoids History of Present Illness The patient is a 70-year-old female presenting for a televideo visit for follow-up on insomnia. Insomnia: - The patient was recently prescribed Lunesta 2 mg for insomnia but experienced a severe vertigo attack after taking 2 doses, with symptoms including spinning, vomiting, rapid breathing, and being cross-eyed. - Due to the severe reaction, she refused to try a lower 1 mg dose of Lunesta. - She has resumed taking Quviviq 50 mg for the past two nights and has six tablets remaining. - She is concerned that Quviviq may worsen her depression but prefers this to the risk of another Meniere's-like attack. - Past medication trials include Belsomra 5-20mg, which was initially effective but later stopped working, even at an escalated dose of 20 mg; she no longer has this medication. - Dayvigo was previously prescribed but was never approved by her insurance. - She wants to try the Dayvigo. 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 She willingly disposed of the lunesta 2 mg during the video call. She did not have any of the other meds on hands, stating she completed them or got rid of them. The only thing she has on hand for sleep now is 6 tabs of Quviviq 50mg Filled? Written? Sold? ID? Drug? QTY? Days? Prescriber? RX #? Dispenser? Refill? Daily Dose*? Pymt Type? BUSINESS COMPUTERS TEACHER? 09/11/2025 09/11/2025 09/11/2025 2 Eszopiclone 2 Mg T ablet 30 30 Kr O[facility] [id number] [facility] 0/0 0.66 LME [place] 08/17/2025 08/17/2025 08/18/2025 2 Quviviq 50 Mg Tabl et 30 30 Kr [facility] [id number] [facility] 0/0 1.00 LME [place] 08/01/2025 08/01/2025 08/02/2025 2 Quviviq 25 Mg Tabl et 30 30 [facility] 0/0 0.50 LME [place] 06/28/2025 06/27/2025 06/29/2025 2 Belsomra 10 Mg Tab let 30 30 Kr O[facility] [id number] [facility] 0/2 0.20 LME [place] 06/08/2025 06/08/2025 06/09/2025 2 Belsomra 5 Mg Tabl et 30 30 Kr [facility] [id number] [facility] 0/0 0.10 LME [place] Psoriasis: prescription for topical tacrolimus was recently denied by her insurance. - A prior authorization is in progress, and it was noted that the alternative medications suggested by the insurance company have already been tried and failed by the patient. Review of Systems - Neurological: Reports a severe vertigo attack with spinning sensation after taking Lunesta. - Ocular: Reports being cross-eyed during the vertigo attack. - Gastrointestinal: Reports vomiting associated with the vertigo attack. - Respiratory: Reports rapid breathing during the vertigo attack. - Psychiatric: Expresses concern that Quviviq may worsen her depression. Physical Exam Limited exam conducted via video Awake alert NAD MMM Speaking in full sentences Mood and affect appropriate Assessment and Plan 1. Insomnia, chronic (G47.00) - The patient's insomnia is poorly controlled. She recently experienced a severe adverse reaction (vertigo) to Lunesta 2 mg and is refusing a lower dose trial. She has a history of treatment failure with Belsomra due to loss of efficacy. She has restarted Quviviq 50 mg but is concerned about its potential to worsen her depression. - Plan: A trial of Dayvigo, which is in the same drug class as Quviviq and Belsomra, will be attempted. A prescription for Dayvigo 5 mg will be sent to the pharmacy, and a prior authorization request will be submitted, detailing the previous treatment failures. The patient will continue her remaining Quviviq 50 mg (6 tablets) while awaiting insurance approval for Dayvigo. A refill for Quviviq will not be provided at this time, with the hope that the prior authorization is approved within 48 hours. The patient was instructed to dispose of all other controlled sleep medications, and she discarded the remaining Lunesta during the visit. 2 Psoriasis - The patient requires a topical medication for a skin condition. The prescribed topical tacrolimus was denied by insurance. - Plan: A prior authorization for topical tacrolimus is currently in progress. It has been communicated to the insurance company that the suggested alternatives have already been tried and failed. Will continue to monitor the status of the prior authorization. 3. Adverse reaction to medication - The patient experienced a severe vertigo attack, vomiting, and diplopia after taking Lunesta 2 mg. - Plan: Lunesta has been discontinued and will be added to her list of adverse drug reactions. The patient has disposed of the medication. Patient was given time to ask questions. All questions were answered to their satisfaction. Telehealth Attestation This visit was conducted via a real-time, interactive audio and video telecommunication system. The patient has been explained that this is an interactive (audio/video) telehealth encounter and what that consists of. The patient understands and wishes to proceed. BookBag platform was used. FU via video in 4 weeks, sooner as needed. Total time spent caring for the patient today was 22 minutes. This includes time spent before the visit reviewing the chart, time spent during the visit, and time spent after the visit on documentation, reviewing laboratory results, diagnostic imaging, medications, performing a medically necessary evaluation, counseling on diagnoses, care coordination, ordering appropriate tests, ordering appropriate medications, review of tests performed by other providers, reporting test results with the patient, communication with other healthcare providers. [facility] Medical History (Updated 09/04/25 @ 12:24 by JAQUAN Baird) Abnormal MRI Acid reflux Anxiety and depression Arthritis Biliary colic Bipolar 1 disorder BMI 31.0-31.9,adult Body piercing Choledocholithiasis Compression fracture of L4 vertebra COPD (chronic obstructive pulmonary disease) Diabetes mellitus type 2 with atherosclerosis of arteries of extremities DM type 2 causing complication Eczema of external ear Edema Encounter for screening involving social determinants of health (SDoH) Family hx of colon cancer Gastritis GERD (gastroesophageal reflux disease) Headache Intermittent chest pain Lightheadedness Nicotine dependence, cigarettes, uncomplicated Obesity Occult blood positive stool Oral lesion Osteoporosis Pain of left thumb Personal history of colonic polyps Positive FIT (fecal immunochemical test) Spine disorder Unsteady gait Surgical History Status post repair of paraesophageal diaphragmatic hernia (~05/2025) Hx of endoscopic retrograde cholangiopancreatography H/O left breast biopsy H/O: hemorrhoidectomy Hx of cholecystectomy History of esophagogastroduodenoscopy (EGD) (09/2024) Hx of colonoscopy (09/2024) Family History Mother Mental health disorder Substance abuse Cardiovascular disease Alcoholism Father Diabetes Colon cancer Social History (Updated 07/14/25 @ 15:52 by Lilia Veliz MA) Household Members: Children Household Members Other:: son Both parents involved: No Caregiver staying overnight: No Housing: Apartment Are you a primary skin care consultant to a significant other at home: No Do you presently have visiting nurse or other home services: No 75 years or older and lives alone: No Alcohol intake: never Patient Tobacco Use Status: Current everyday Tobacco user Tobacco use type: Cigarette Cigarette Packs Per Day: 1 Cigarettes Per Day: 20.0 Years Smoked: 25 e-Cigarette/Vaping Use: Never Used Second Hand Smoke Exposure: Yes Substance Use Type: Marijuana service: No Current occupational status: disabled Cognitive needs: Yes Hearing needs: No Vision needs: Yes (wear glasses) Questionnaire Thrive Questionnaire Date Thrive assessed: 01/10/25 I am a: Patient What is your living situation today?: I have a place to live, but I am worried about losing it in the future Within the past 12 months, did the food you bought not last and you didn't have the money to get more?: Sometimes True Within the past 12 months, did you worry whether your food would run out before you got money to buy more?: Sometimes True Do you have trouble paying for medicines?: No Do you have trouble getting transportation to medical appointments?: No Do you have trouble paying your heating and electricity bill?: No Do you have trouble taking care of your child, family member or friend?: No Do you have trouble with day-to-day activities such as bathing, preparing meals, shopping, managing finances, etc.?: No Are you currently unemployed and looking for a job?: No Are you interested in more education?: No Please select the resources that you would like help with: None Currently or been in a relationship where the following occur: I choose not to answer THRIVE Score: 3 KYLE-7 AMB Questionnaire KYLE-7 Date KYLE - 7 assessed: 04/12/25 Source: Developed by Drs. Yasir Hardin, Marilee Castillo, Anish Villagran and colleagues, with an educational isaiah from [employer]. Physical exam (Primary Care) Tobacco/Smoking Status: Tobacco use Status Tobacco use date assessed 09/18/25 09/18/25 14:35 Patient Tobacco Use Status Current everyday Tobacco 09/18/25 14:35 Tobacco use type Cigarette 09/18/25 14:35 e-Cigarette/Vaping Use Never Used 09/18/25 14:35 Thrive Assessment: Date of Thrive Assessment Date Thrive assessed 01/10/25 09/18/25 14:35 Currently or been in a relationship where the following occur: I choose not to answer Telehealth Telehealth [facility]health [facility]: [facility] Location of provider rendering services: practice address Location of patient: address on file Patient Identification confirmed using: Name, : Yes Telehealth method: video Patient verbally consented to treatment: Yes Patient verbally consented to billing insurance company: Yes Patient informed of any privacy concerns related to visit: Yes Minutes spent on Phone/Video with Pt.: 12 Coding Level of Care Code Tele Est Pt Level 3 (28164) Complex EM visit Add On G2211 Diagnoses Psychophysiological insomnia F51.04 Insomnia type: psychophysiologic Psoriasis L40.9 Assessment & Plan Assessment & Plan (1) Insomnia: Code(s): G47.00 - Insomnia, unspecified Category: Medical Qualifiers: Insomnia type: psychophysiologic Qualified Code(s): F51.04 - Psychophysiologic insomnia (2) Psoriasis: Code(s): L40.9 - Psoriasis, unspecified Category: Medical Plan ,. Medications: Refilled lemborexant (Dayvigo) 5 mg PO BEDTIME 30 tabs 0RF Discontinued eszopiclone (Lunesta) Discontinued Reason: Doctor's Order 2 mg PO BEDTIME 30 tabs 0RF
== END 2025-09-18 14:58 | disposition home or self-care (01) ==
LOC: HO.HMCFM 14:36
PROVIDERS: Visit Provider Nurse Practitioner Family
DX: F51.04 Psychophysiologic insomnia (principal); L40.9 Psoriasis, unspecified

== ENCOUNTER 2025-10-09 15:26 | Outpatient (AMB) | payer OTHER, SELFPAY ==
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
== END 2025-10-09 16:21 | disposition home or self-care (01) ==
LOC: HO.HMCFM 15:26
PROVIDERS: PCP Nurse Practitioner Family; Visit Provider Nurse Practitioner Family
DX: F51.04 Psychophysiologic insomnia (principal); F33.1 Major depressive disorder, recurrent, moderate